=== PATIENT | male | born 1940 | race Caucasian/White ===

== ENCOUNTER 2023-04-17 09:15 | Outpatient (AMB) | payer OTHER, SELFPAY ==
--- NOTE | 2023-04-17 10:03 | MHC.OFFVIS ---
Intake Vital Signs 04/17/23 10:11 Height 5 ft 6 in Weight 155 lb BMI 25.0 BP 168/74 H Blood Pressure Location Lt brachial Position Sitting Respiration 14 Pulse 49 L Pulse Source Pulse Oximeter Intake Visit Reasons: Left SI Joint Pain Allergies Unable to Assess Allergy (Verified 04/17/23 10:12) Medication List - Last Reconciled 04/17/23 by Anita Aldana, GEO acetaminophen 325 mg PO Q4-6H PRN apixaban (Eliquis) 2.5 mg PO BID atorvastatin 40 mg PO BEDTIME metoprolol tartrate 12.5 mg PO BID HPI Left SI Joint Pain HPI Details 83-year-old male presenting today for an evaluation of bilateral back and leg pain. The pain is described as an aching, stabbing sensation mostly in the axial low back that radiates down into both sides and calves. He rates his pain as 3-10/10 in the buttock region. Movement makes it worse while going to sleep or performing daily activities. Any kind of stress or shock to the lower extremities worsens the pain. The pain is worse when standing from a sitting position when it is 9/10, which is less severe when going down to sit when it is 1/10 in intensity. He is on Eliquis 2.5 milligrams twice daily. He has been doing PT for this pain with slight relief. His last MRI was in 2019. The patient was seen in the ED on 03/06/23 for evaluation of his low back and pelvic pain. He described his pain as shooting from the low back down to both legs which starts after 1-2 minutes of walking. His pain is alleviated by lying down or sitting. He states that he has been intermittently having numbness in his toes and calves since he was diagnosed with spinal stenosis about 12 years ago. At that time, he was given home exercises to improve core strength, which he performed without any pain. He visited Dr. Peña on 02/16/23, who conveyed his impression of SI joint dysfunction on the left and performed an injection of lidocaine and steroids. He states that he had initial relief from lidocaine, but the steroid worsened his pain. 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 He was also diagnosed with hypertension. He is currently on metoprolol and losartan. The patient has no implant in his body. [facility] Medical History (Updated 04/17/23 @ 10:19 by Steve Murrieta MD) Asthma Atrial fibrillation BPH (benign prostatic hyperplasia) Cataract, bilateral Cerebrovascular accident CKD (chronic kidney disease) Detached retina, left Disorder of thyroid Fracture GERD (gastroesophageal reflux disease) Globus sensation Gout Graves disease Hoarseness Hypertension Hyperthyroidism Interstitial cystitis Joint pain Macular degeneration of right eye Osteoarthritis Post-nasal drip Rosacea Sacroiliitis Sleep apnea Spinal stenosis Review of Systems Const All systems reviewed & are unremarkable except as noted in HPI and below Physical Exam Vital Signs: Last Vital Signs Pulse 49 L 04/17/23 10:11 Resp 14 04/17/23 10:11 BP 168/74 H 04/17/23 10:11 BMI result Body Mass Index 25.0 General: Appears afebrile. Alert and oriented. Mood and affect appropriate. Follows and participates in conversation appropriately. Respiratory effort is unlabored. Able to transition from sit to stand unassisted. Ambulates with bilaterally normal heel strike and toe off. Pitting edema up to mid shins bilateral. Tenderness to palpation overlying bilateral SI joints. Results Reviewed Results Reviewed: CT scan LUMBAR SPINE CT scan PELVIS Assessment & Plan Assessment & Plan (1) Spinal stenosis, lumbar region with neurogenic claudication: Code(s): M48.062 - Spinal stenosis, lumbar region with neurogenic claudication (2) Bilateral sacroiliitis: Code(s): M46.1 - Sacroiliitis, not elsewhere classified Plan 1. Discussed injection therapy vs surgical intervention as possible treatment options for various pain symptoms that appear to be a combination of degenerative lumbar disease with significant disc height loss, facet arthropathy, probable neural foraminal stenoses/nerve root compression, central spinal stenosis and bilateral sacroiliitis. 2. Ordered an MRI scan of the lumbar spine and bilateral sacroiliac joints region for consideration of possible future minimally invasive interventions. 3. Will repeat bilateral therapeutic sacroiliac joint injections to assess response before moving on to more invasive therapies. He has previously had a good diagnostic response to one right-sided sacroiliac joint injection. Discussed the risks and benefits of the procedure with the patient in detail. All questions were answered. The patient is on board with the plan. 4. Recommend follow-up with cytotechnologist/cytology supervisor for evaluation of lower extremity edema. Justification for interventional therapy: ? Patient with average pain > 6/10 ? Patient has exhausted conservative therapy including physical therapy, home exercises, oral medication. Scribed for Dr. Murrieta by Michael Castellanos, medical radiation dosimetrist, on 04/17/2023. I, Dr. Murrieta, have personally reviewed and agree with the information entered by the scribe. Orders: Orders MR sacroiliac joint MICHAEL wo con Today M46.1 - Sacroiliitis, not elsewhere classified MR lumbar spine wo con Today M48.062 - Spinal stenosis, lumbar region with neurogenic claudication Coding Level of Care Code New Pt Level 4 (07485) Diagnoses Spinal stenosis, lumbar region with neurogenic claudication M48.062 Bilateral sacroiliitis M46.1
[2023-04-17 10:11] VITALS: BP 168/74; PULSE 49; RESP 14; BMI 25.0
== END 2023-04-17 10:23 | disposition home or self-care (01) ==
PROVIDERS: PCP Internal Medicine; Visit Provider Internal Medicine
DX: M48.062 Spinal stenosis, lumbar region with neurogenic claudication (principal); M46.1 Sacroiliitis, not elsewhere classified
CPT/HCPCS: 99204

== ENCOUNTER → 2023-04-17 09:15 | Outpatient (BNVA) | payer OTHER, SELFPAY | PROVIDERS: PCP Internal Medicine; Visit Provider Internal Medicine ==

== ENCOUNTER 2023-05-16 18:03 | Outpatient (REF) | payer OTHER, SELFPAY ==
--- NOTE | ~2023-05-16 | MR_ITS ---
EXAMINATION: MRI sacroiliac joint without contrast CLINICAL INFORMATION: Sacroiliitis. Spinal stenosis low back pain and bilateral leg pain. Bilateral toe paresthesias. COMPARISON: None. TECHNIQUE: Sagittal, axial and coronal sequences through the pelvis without contrast FINDINGS: There are osteophytes seen at both sacroiliac joints. No joint space widening, erosive changes or adjacent bone edema is seen to suggest active sacroiliitis. No evidence of ankylosis. The visualized hip joints are unremarkable. There are degenerative changes of the lower lumbar spine greatest at L3-L4. There is diverticulosis of the colon. The prostate gland is enlarged and protrudes into the base of the bladder. No ascites or adenopathy. 1.8 cm lesion lower pole left kidney. This is incompletely characterized. Vascular structures are normal. MR/MR sacroiliac joint MICHAEL wo con IMPRESSION: Mild proliferative arthritis at both sacroiliac joints with osteophyte formation. No evidence of active sacroiliitis.
== END 2023-05-16 18:04 | disposition home or self-care (01) ==
LOC: HO.MRI 18:03
PROVIDERS: PCP Nurse Practitioner; Visit Provider Internal Medicine
DX: M46.1 Sacroiliitis, not elsewhere classified (principal)
CPT/HCPCS: 72195

== ENCOUNTER 2023-05-31 05:59 | Outpatient (REF) | payer OTHER, SELFPAY ==
--- NOTE | ~2023-05-31 | FL_ITS ---
EXAMINATION: XR FLUOROSCOPY WITH IMAGES CLINICAL INFORMATION: Sacroiliitis, not elsewhere classified. COMPARISON: None available. TECHNIQUE: Fluoroscopy Supervised By: Dr. Steve Murrieta. Fluoroscopy Time: 0.3 minutes. Cumulative Dose: 6.94 mGy. DAP: 0.836 Gycm2. Images: 3. FINDINGS: Images demonstrate needle placement and epidural contrast injection over the left side of the lower lumbar spine FL/FL guidance in treatment room IMPRESSION: Fluoroscopy guidance for pain management procedure
== END 2023-05-31 06:00 | disposition home or self-care (01) ==
LOC: CF 05:59
PROVIDERS: Visit Provider Internal Medicine
DX: Z13.89 Encounter for screening for other disorder (principal)
CPT/HCPCS: J1040

== ENCOUNTER 2023-05-31 08:50 | Outpatient (AMB) | payer OTHER, SELFPAY ==
[2023-05-31 08:56] VITALS: BP 110/60; PULSE 55; RESP 14; O2SAT 97
--- NOTE | 2023-05-31 08:56 | A.OFFVIS_ITS ---
Intake Vital Signs 05/31/23 08:56 BP 110/60 Blood Pressure Location Rt brachial Position Sitting Respiration 14 Pulse 55 Pulse Source Pulse Oximeter Pulse Oximetry (%) 97 Oxygen Delivery Method Room Air Intake Visit Reasons: L3-L4 AMARILIS Allergies Unable to Assess Allergy (Verified 05/31/23 08:56) HPI L3-L4 AMARILIS HPI Details Patient presents for scheduled procedure. Denies any recent cough, cold, infection, fever or other significant changes in medical history since last office visit. [facility] Medical History (Updated 05/31/23 @ 10:07 by Steve Murrieta MD) Asthma Atrial fibrillation BPH (benign prostatic hyperplasia) Cataract, bilateral Cerebrovascular accident CKD (chronic kidney disease) Detached retina, left Disorder of thyroid Fracture GERD (gastroesophageal reflux disease) Globus sensation Gout Graves disease Hoarseness Hypertension Hyperthyroidism Interstitial cystitis Joint pain Macular degeneration of right eye Osteoarthritis Post-nasal drip Rosacea Sacroiliitis Sleep apnea Spinal stenosis Physical Exam Vital Signs: Last Vital Signs Pulse 55 05/31/23 08:56 Resp 14 05/31/23 08:56 BP 110/60 05/31/23 08:56 Pulse Ox 97 05/31/23 08:56 Oxygen Delivery Method Room Air 05/31/23 08:56 Office Procedures Joint Injection/Drain Joint Injection/Drain Details: Interlaminar epidural steroid injection, L4/5, Left parasaggital After obtaining written consent, pre-procedure blood pressure and heart rate were stable and recorded in the nursing record. The patient was placed in the prone position. The lumbar area was widely prepped with chloraprep and draped in sterile fashion. Fluoroscopic guidance was used to identify the desired interlaminar space and for needle placement. Subcutaneous 0.5% lidocaine was used to anesthetize the skin overlying the target. A 20-gauge Simons needle was advanced to the epidural space using loss of resistance to contrast technique under fluoroscopic AP and contralateral oblique views. There was no evidence of heme or CSF and no paresthesias were elicited with needle placement. Confirmation of epidural needle placement was performed with 1cc of Isovue 300. Next 3 ml 0.5% lidocaine mixed with 80 mg methylprednisolone was administered epidurally with no pain elicited on injection. The needle tract tubing was then cleared with 1 ml of 0.5% lidocaine. The needle was removed, skin cleansed and a sterile bandage was applied. The patient tolerated the procedure well and no complications were encountered. Following the procedure the patient's vital signs were stable. The patient was discharged home in good condition with post-procedural instructions. Time Out: Immediately prior to the procedure, the following was verbally confirmed that there is a signed consent form and that the correct patient, planned procedure, site and side are consistent with documentation and that necessary equipment and/or blood products are available prior to the start of the case. Complications: none EBL: <5 cc Coding 06689 - Caudal/Lumbar Epidural/Interlaminar with fluoroscopy Procedure code (CPT) selection complete Results Reviewed Results Reviewed: 05/31/23 09:36 Lidocaine HCl 2 % MPF [Xylocaine 2 % MPF] 5 ml .ROUTE .STK-MED ONE methylPREDNISolone acetate [DEPO-MedroL] 80 mg .ROUTE .STK-MED ONE Assessment & Plan Assessment & Plan (1) Spinal stenosis, lumbar region with neurogenic claudication: Code(s): M48.062 - Spinal stenosis, lumbar region with neurogenic claudication (2) Lumbar radicular pain: Code(s): M54.16 - Radiculopathy, lumbar region Plan Patient is status post L4/5 interlaminar AMARILIS. Patient tolerated procedure well and was discharged home in stable condition with discharge instructions. All questions were answered. We will follow-up via telephone or in clinic to assess response to therapy. A follow-up appointment was made during today's visit. Orders: Orders FL guidance in treatment room Today M46.1 - Sacroiliitis, not elsewhere classified Coding Level of Care Code Procedure Only Diagnoses Spinal stenosis, lumbar region with neurogenic claudication M48.062 Lumbar radicular pain M54.16 CPT Codes Coding - Joint 11: 75487 - Caudal/Lumbar Epidural/Interlaminar with fluoroscopy ([id number])
== END 2023-05-31 10:05 | disposition home or self-care (01) ==
LOC: HO.PMCPRC 08:50
PROVIDERS: PCP Nurse Practitioner; Visit Provider Internal Medicine
DX: M46.1 Sacroiliitis, not elsewhere classified (principal); M48.062 Spinal stenosis, lumbar region with neurogenic claudication; M54.16 Radiculopathy, lumbar region
CPT/HCPCS: 62323

== ENCOUNTER 2023-06-26 12:53 | Outpatient (AMB) | payer OTHER, SELFPAY ==
--- NOTE | 2023-06-26 12:56 | MHC.OFFVIS ---
Intake Vital Signs 06/26/23 12:58 Height 5 ft 6 in Weight 156 lb BMI 25.2 BP 141/65 H Blood Pressure Location Rt brachial Position Sitting Respiration 14 Pulse 60 Pulse Source Pulse Oximeter Pulse Oximetry (%) 98 Oxygen Delivery Method Room Air Intake Visit Reasons: s/p L3-L4 AMARILIS Allergies Unable to Assess Allergy (Verified 06/26/23 12:59) Medication List - Last Reconciled 06/26/23 by Anita Aldana LPN apixaban (Eliquis) 2.5 mg PO BID aspirin (Adult Aspirin Regimen) 41 mg PO DAILY atorvastatin 40 mg PO BEDTIME metoprolol tartrate 12.5 mg PO BID HPI s/p L3-L4 AMARILIS HPI Details 83-year-old male who presents today to the office for a status post L3-L4 AMARILIS. The patient reports 70% relief following the procedure. The patient states that his pain with ambulation, numbness in the calf, and pain in the lower back and legs while lying down were completely resolved. He has some residual pain in his thighs, calf, ankles, and pins and needles sensation in his toes. He is able to walk 1000 steps with the help of a walker and 200 steps without a walker. He feels heaviness in his leg from activities. He has tightness in his thigh and performs stretching exercises at home. He has PRIEST with climbing stairs or elevation. He has not completed MRI of the lumbar spine yet. Past procedure: 05/31/23: Interlaminar epidural steroid injection, L4/5, Left parasaggital: 70% relief. [facility] Medical History (Updated 06/26/23 @ 15:48 by Steve Murrieta MD) Post-nasal drip Rosacea Sleep apnea Spinal stenosis Sacroiliitis Osteoarthritis Macular degeneration of right eye Joint pain Interstitial cystitis Hyperthyroidism Hypertension Hoarseness Graves disease Gout Globus sensation GERD (gastroesophageal reflux disease) Fracture Disorder of thyroid Detached retina, left CKD (chronic kidney disease) Cerebrovascular accident Cataract, bilateral BPH (benign prostatic hyperplasia) Atrial fibrillation Asthma Review of Systems Const All systems reviewed & are unremarkable except as noted in HPI and below Physical Exam Vital Signs: Last Vital Signs Pulse 60 06/26/23 12:58 Resp 14 06/26/23 12:58 BP 141/65 H 06/26/23 12:58 Pulse Ox 98 06/26/23 12:58 Oxygen Delivery Method Room Air 06/26/23 12:58 BMI result Body Mass Index 25.2 General: Appears afebrile. Alert and oriented. Mood and affect appropriate. Follows and participates in conversation appropriately. Respiratory effort is unlabored. Able to transition from sit to stand unassisted. Ambulates with bilaterally normal heel strike and toe off. Results Reviewed Results Reviewed: 05/16/23: MRI sacroiliac joint without contrast FINDINGS: There are osteophytes seen at both sacroiliac joints. No joint space widening, erosive changes or adjacent bone edema is seen to suggest active sacroiliitis. No evidence of ankylosis. The visualized hip joints are unremarkable. There are degenerative changes of the lower lumbar spine greatest at L3-L4. There is diverticulosis of the colon. The prostate gland is enlarged and protrudes into the base of the bladder. No ascites or adenopathy. 1.8 cm lesion lower pole left kidney. This is incompletely characterized. Vascular structures are normal. IMPRESSION: Mild proliferative arthritis at both sacroiliac joints with osteophyte formation. No evidence of active sacroiliitis. Assessment & Plan Assessment & Plan (1) Lumbar radicular pain: Code(s): M54.16 - Radiculopathy, lumbar region (2) Lumbar disc herniation: Code(s): M51.26 - Other intervertebral disc displacement, lumbar region (3) Spinal stenosis, lumbar region with neurogenic claudication: Code(s): M48.062 - Spinal stenosis, lumbar region with neurogenic claudication Plan We ordered an MRI scan of the lumbar spine for consideration of possible future diskectomy on the last visit but patient has not been called to schedule it yet. We will investigate this further and try to get him scheduled for this scan for surgical planning for L3-4 disc herniation. After the MR exam we will consider referral to neurosurgery. Scribed for Dr. Murrieta by Michael Castellanos, medical chief technician, on 06/26/2023. I, Dr. Murrieta, have personally reviewed and agree with the information entered by the scribe. Coding Level of Care Code Est Pt Level 3 (56733) Diagnoses Lumbar radicular pain M54.16 Lumbar disc herniation M51.26 Spinal stenosis, lumbar region with neurogenic claudication M48.062
[2023-06-26 12:58] VITALS: BP 141/65; PULSE 60; RESP 14; O2SAT 98; BMI 25.2
== END 2023-06-26 13:36 | disposition home or self-care (01) ==
PROVIDERS: PCP Nurse Practitioner; Visit Provider Internal Medicine
DX: M54.16 Radiculopathy, lumbar region (principal); M51.26 Other intervertebral disc displacement, lumbar region; M48.062 Spinal stenosis, lumbar region with neurogenic claudication
CPT/HCPCS: 99213

== ENCOUNTER → 2023-06-26 12:53 | Outpatient (BNVA) | payer OTHER, SELFPAY | PROVIDERS: PCP Nurse Practitioner; Visit Provider Internal Medicine ==

== ENCOUNTER 2023-07-21 15:36 | Outpatient (REF) | payer OTHER, SELFPAY ==
--- NOTE | ~2023-07-21 | MR_ITS ---
EXAMINATION: MR LUMBAR SPINE WITHOUT CONTRAST CLINICAL INFORMATION: Spinal stenosis. COMPARISON: None available. TECHNIQUE: MRI of the lumbar spine was obtained using routine sequences without the administration of intravenous contrast. FINDINGS: There is transitional lumbosacral anatomy, likely with a partially sacralized L5 vertebral body and hypoplastic T12 ribs. For the purposes of this examination, the L4-L5 intervertebral disc space is visualized on axial series 6 image 19. The normal lumbar lordosis is preserved. Retrolisthesis of L2-L3 and L3-L4 with anterolisthesis of L4-L5. Lumbar vertebral body heights are maintained. Degenerative endplate changes with endplate edema at L3-L4. Perifacet edema at L3-L4 is also likely degenerative. The conus medullaris is normal in signal intensity and terminates at the level of T12. Mass effect on the cauda equina nerve roots as described below. L1-L2: No significant spinal canal or neural foraminal stenosis. L2-L3: Retrolisthesis and a disc bulge with osteophytic ridging. Mild facet arthropathy. The spinal canal is not significantly narrowed. There is mild to moderate left and mild right neural foraminal stenosis. L3-L4: Disc bulge and osteophytic ridging with a central disc protrusion. There is facet arthropathy with ligamentum flavum hypertrophy. Overall this contributes to severe spinal canal stenosis with mass effect on the cauda equina nerve roots and effacement of the lateral recesses. Severe left neural foraminal stenosis with exiting nerve root impingement. Moderate right neural foraminal stenosis. L4-L5: Anterolisthesis with uncovering of the intervertebral disc space. Severe facet arthropathy with ligamentum flavum redundancy. Narrowing of the lateral recesses. The spinal canal is otherwise patent. Mild narrowing of the left neural foramen with abutment of the exiting nerve root by advanced facet arthropathy. L5-S1: Facet arthropathy. The spinal canal and neural foramen are patent. Left renal cyst. T2 hyperintense focus in the right kidney is too small to fully characterize. Colonic diverticulosis is partially visualized. Sacral Tarlov cyst. 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 Numbering system for this examination as described above. If surgery is considered, total spine radiographs are recommended to ensure accurate spine labeling. Based on the above-mentioned numbering system there is severe spinal canal stenosis at L3-L4 with mass effect on the cauda equina nerve roots. Clinical correlation is recommended. There is severe left neural foraminal stenosis at L3-L4 with exiting nerve root compression. As this exam was dictated after hours, a [place] firm administrator will contact the ordering provider with findings and recommendations at the start of the next business day.
== END 2023-07-21 15:37 | disposition home or self-care (01) ==
LOC: HO.MRI 15:36
PROVIDERS: PCP Nurse Practitioner; Visit Provider Internal Medicine
DX: M48.062 Spinal stenosis, lumbar region with neurogenic claudication (principal)
CPT/HCPCS: 72148

== ENCOUNTER 2023-07-31 09:28 | Outpatient (AMB) | payer OTHER, SELFPAY ==
--- NOTE | 2023-07-31 09:31 | A.OFFVIS_ITS ---
Intake Vital Signs 07/31/23 09:32 Height 5 ft 6 in Weight 160 lb BMI 25.8 Blood Pressure Location Lt brachial Position Sitting Respiration 15 Pulse 55 Pulse Source Pulse Oximeter Pulse Oximetry (%) 98 Oxygen Delivery Method Room Air Intake Visit Reasons: MRI results Allergies Unable to Assess Allergy (Verified 06/26/23 12:59) Medication List - Last Reconciled 07/31/23 by Anita Aldana LPN apixaban (Eliquis) 2.5 mg PO BID aspirin (Adult Aspirin Regimen) 41 mg PO DAILY atorvastatin 40 mg PO BEDTIME metoprolol tartrate 12.5 mg PO BID tamsulosin (Flomax) 0.4 mg PO .QOD HPI MRI results HPI Details 83-year-old male who presents today to t he office for a review of MRI scan result. He states that he is still doing well since the last injection but continues to have a dull, incipient pain that is always there. He states that his pain improves with regular exercise and walking. He has dull pain in his back and legs. He denies any issues with the bowel or bladder. He is retired. He is currently on Medicare with an Advant[employer] Care Plan. Past procedure: 05/31/23: Interlaminar epidural steroid injection, L4/5, Left parasaggital: 70% relief. FOR[facility]LY [facility] Medical History (Updated 06/26/23 @ 15:48 by Steve Murrieta MD) Post-nasal drip Rosacea Sleep apnea Spinal stenosis Sacroiliitis Osteoarthritis Macular degeneration of right eye Joint pain Interstitial cystitis Hyperthyroidism Hypertension Hoarseness Graves disease Gout Globus sensation GERD (gastroesophageal reflux disease) Fracture Disorder of thyroid Detached retina, left CKD (chronic kidney disease) Cerebrovascular accident Cataract, bilateral BPH (benign prostatic hyperplasia) Atrial fibrillation Asthma Review of Systems Const All systems reviewed & are unremarkable except as noted in HPI and below Physical Exam Vital Signs: Last Vital Signs Pulse 55 07/31/23 09:32 Resp 15 07/31/23 09:32 Pulse Ox 98 07/31/23 09:32 Oxygen Delivery Method Room Air 07/31/23 09:32 BMI result Body Mass Index 25.8 General: Appears afebrile. Alert and oriented. Mood and affect appropriate. Follows and participates in conversation appropriately. Respiratory effort is unlabored. Able to transition from sit to stand unassisted. Ambulates with bilaterally normal heel strike and toe off. Results Reviewed Results Reviewed: 07/21/23: MR LUMBAR SPINE WITHOUT CONTRAST FINDINGS: There is transitional lumbosacral anatomy, likely with a partially sacralized L5 vertebral body and hypoplastic T12 ribs. For the purposes of this examination, the L4-L5 intervertebral disc space is visualized on axial series 6 image 19. The normal lumbar lordosis is preserved. Retrolisthesis of L2-L3 andL3-L4 with anterolisthesis of L4-L5. Lumbar vertebral body heights are maintained. Degenerative endplate changes with endplate edema at L3-L4. Perifacet edema at L3-L4 is also likely degenerative. The conus medullaris is normal in signal intensity and terminates at the level of T12. Mass effect on the cauda equina nerve roots as described below. L1-L2: No significant spinal canal or neural foraminal stenosis. L2-L3: Retrolisthesis and a disc bulge with osteophytic ridging. Mild facet arthropathy. The spinal canal is not significantly narrowed. There is mild to moderate left and mild right neural foraminal stenosis. L3-L4: Disc bulge and osteophytic ridging with a central disc protrusion. There is facet arthropathy with ligamentum flavum hypertrophy. Overall this contributes to severe spinal canal stenosis with mass effect on the cauda equina nerve roots and effacement of the lateral recesses. Severe left neural foraminal stenosis with exiting nerve root impingement. Moderate right neural foraminal stenosis. L4-L5: Anterolisthesis with uncovering of the intervertebral disc space. Severe facet arthropathy with ligamentum flavum redundancy. Narrowing of the lateral recesses. The spinal canal is otherwise patent. Mild narrowing of the left neural foramen with abutment of the exiting nerve root by advanced facet arthropathy. L5-S1: Facet arthropathy. The spinal canal and neural foramen are patent. Left renal cyst. T2 hyperintense focus in the right kidney is too small to fully characterize. Colonic diverticulosis is partially visualized. Sacral Tarlov cyst. 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 Numbering system for this examination as described above. If surgery is considered, total spine radiographs are recommended to ensure accurate spine labeling. Based on the above-mentioned numbering system there is severe spinal canal stenosis at L3-L4 with mass effect on the cauda equina nerve roots. Clinical correlation is recommended. There is severe left neural foraminal stenosis at L3-L4 with exiting nerve root compression. Assessment & Plan Assessment & Plan (1) Lumbar disc herniation: Code(s): M51.26 - Other intervertebral disc displacement, lumbar region Plan Recommended neurosurgical decompression for L3?4 lumbar spinal stenosis given symptoms of constant pain associated with occasional leg weakness. A referral was provided to Dr. Puente, neurosurgery. The patient will follow up as matilde rubin Scribed for Dr. Murrieta by Michael Castellanos, internist medical doctor md, on 07/31/2023. I, Dr. Murrieta, have personally reviewed and agree with the information entered by the scribe. Orders: Referrals Neurosurgery Referral M51.26 - Other intervertebral disc displacement, lumbar region Coding Level of Care Code Est Pt Level 3 (91212) Diagnoses Lumbar disc herniation M51.26
[2023-07-31 09:32] VITALS: PULSE 55; RESP 15; O2SAT 98; BMI 25.8
== END 2023-07-31 09:42 | disposition home or self-care (01) ==
PROVIDERS: PCP Nurse Practitioner; Visit Provider Internal Medicine
DX: M51.26 Other intervertebral disc displacement, lumbar region (principal)
CPT/HCPCS: 99213

== ENCOUNTER → 2023-07-31 09:28 | Outpatient (BNVA) | payer OTHER, SELFPAY | PROVIDERS: PCP Nurse Practitioner; Visit Provider Internal Medicine ==

== ENCOUNTER 2023-09-12 13:48 | Outpatient (AMB) | payer OTHER, SELFPAY ==
--- NOTE | 2023-09-12 14:32 | A.SPINEOV_ITS ---
Intake Intake Visit Reasons: Low back pain Intake Note: Mr. Odom is here today c/o low back pain. MRI done @ [facility] – [place]. Recovery Auditor Required: No Allergies Unable to Assess Allergy (Verified 06/26/23 12:59) Assessment & Plan Assessment & Plan (1) Spinal stenosis, lumbar region with neurogenic claudication: Code(s): M48.062 - Spinal stenosis, lumbar region with neurogenic claudication Plan: Dear colleague Thank you for referring Dylan Odom to the office today with a chief complaint of bilateral leg pain and numbness with walking and standing. HPI: This 83-year-old male started with minor symptoms 10 years ago. Last January he had a significant decline in symptoms where he can hardly walk or stand. Sitting down completely relieved his symptoms. Leaning over a shopping cart or walking with a walker also prolonged his walking distance. Initially, he was seen by Dr. Ortiz, who focused on his SI joint. He was referred to Dr. Magana who diagnosed him with neurogenic claudication due to severe L3-4 spinal stenosis. An epidural steroid injection gave him temporary relief. The patient was referred to me for surgical consultation due to the severity of the L3-4 stenosis. The following conservative treatment options were tried without success antiinflammatories, tylenol, physician guided home exercise plan, cortisone shots PMH: Hypothyroidism, hypertension, Graves disease, gout, GERD, retinal detachment, cataract, chronic kidney disease, atrial fibrillation, asthma, 2 TIAs, last on February of 2022 Medications: Eliquis, aspirin, atorvastatin, metoprolol, tamsulosin Allergies: NKDA Social history: Lives alone. Physical Exam: Pleasant male who ambulates with a cane in a flexed position. He is able to get out a chair without assistance. No clear motor deficits. Radiological Studies: MRI done at [facility] on 07 21 2023 shows a grade 1 L3-4 retrolisthesis and severe spinal stenosis at this level. There is also grade 1 L4-5 spondylolisthesis. These abnormalities were not seen on a earlier MRI. A standing x-ray obtained today with flexion-extension shows an auto fusion of L3- 4 and therefore no instability of this level. Impression/Plan: This patient is suffering from classic neurogenic claudication due to severe L3-4 spinal stenosis. I offered him an L3-4 lumbar decompression in day stay. We discussed the procedure and expected postoperative course. He is aware that he needs to stop his Eliquis three days prior to surgery and he is going to visit his interactive media designer for preoperative clearance. He is scheduled for 11/23/2022. Thank you for allowing me to participate in your patients care. total time spent was 50 minutes in counseling ,coordination of plan, personal review of imaging, surgical decision making and subsequent plan Buck Puente MD, PhD Spine Fellowship Trained Neurosurgeon Director, [facility] Orders: Orders XR lumbar spine 4V min Today M48.062 - Spinal stenosis, lumbar region with neurogenic claudication Coding Level of Care Code New Pt Level 4 (17187) Diagnoses Spinal stenosis, lumbar region with neurogenic claudication M48.062
== END 2023-09-12 16:12 | disposition home or self-care (01) ==
PROVIDERS: PCP Nurse Practitioner; Referring Provider Internal Medicine; Visit Provider Neurological Surgery
DX: M48.062 Spinal stenosis, lumbar region with neurogenic claudication (principal)
CPT/HCPCS: 99204

== ENCOUNTER 2023-09-12 13:48 | Outpatient (REF) | payer OTHER, SELFPAY ==
--- NOTE | ~2023-09-12 | XR_ITS ---
EXAMINATION: Lumbar spine 4 views. CLINICAL INDICATION: Low back pain. Neurogenic claudication. COMPARISON: MRI lumbar spine 07/21/2023. FINDINGS: There is maintained lumbar lordosis. There is grade 1 anterolisthesis L4 over L5. There is minimal grade 1 retrolisthesis L2 over L3. There is no major change in the listhesis on flexion or extension views. There is mild loss of L2-3, L3-4, L4-5 and L5-S1 disc heights. Rest of the disc heights are normal. No aggressive lytic or sclerotic process seen. There is moderate bridging osteophyte on left at L2-3 disc level. Moderate spondylosis seen throughout the lumbar spine. No aggressive lytic or sclerotic process seen. SI joints are symmetrical and normal. The paravertebral soft tissues are normal. XR/XR lumbar spine 4V min IMPRESSION: Grade 1 anterolisthesis L4 over L5 and grade 1 retrolisthesis L2 over L3 without significant change on flexion or extension views. Degenerative disc changes and moderate spondylosis throughout lumbar spine as described above. Electronically signed by: Dave Randall MD 11/19/2024 11:39 AM [facility]
== END 2023-09-12 13:49 | disposition home or self-care (01) ==
LOC: HO.HOSX 13:48
PROVIDERS: PCP Nurse Practitioner; Visit Provider Neurological Surgery
DX: M48.062 Spinal stenosis, lumbar region with neurogenic claudication (principal)
CPT/HCPCS: 72110

== ENCOUNTER 2023-11-23 09:47 | Day surgery (SDC) | payer OTHER, SELFPAY ==
[2023-11-16 13:25] VITALS: BP 155/71; PULSE 52; RESP 16; O2SAT 97; BMI 26.2
--- NOTE | 2023-11-16 13:43 | P.CONAN_ITS ---
Documented by User: Fiorella Celestin NP 11/22/23 08:54 HPI - Anesthesia Eval Consult details Narrative: 83yo M for L3-4 Lumbar Decompression Cardiac cleared. No recent illness No CP. Some PRIEST since back pain started. Afib. Eliquis. OK to hold per cardiology CVA 2020. Very minor visual impairment is only residual PND. Occassional GERD. Rare. Diet controlled. CKD. Follows renal. Stable at 04/2023 office visit [facility] with CPAP QHS Graves ds. Radioactive iodine tx >10years ago. TSH has normalized. PMFSH Active Problems Active Problems: All Active Problems (Updated 11/16/23 @ 13:21 by Cristin Gonsalves RN) Lumbar disc herniation (Acute) Lumbar radicular pain (Acute) Bilateral sacroiliitis (Acute) Spinal stenosis, lumbar region with neurogenic claudication (Acute) Past Medical History Medical History History of CVA (cerebrovascular accident) (~2020) Hx of retinal detachment (~2013) Post-nasal drip Rosacea Sleep apnea Spinal stenosis Sacroiliitis Osteoarthritis Macular degeneration of right eye Joint pain Interstitial cystitis Hyperthyroidism Hypertension Hoarseness Graves disease Gout Globus sensation GERD (gastroesophageal reflux disease) Fracture Disorder of thyroid Detached retina, left CKD (chronic kidney disease) Cerebrovascular accident Cataract, bilateral BPH (benign prostatic hyperplasia) Atrial fibrillation Asthma Family History Family history of problems with anesthesia: No Surgical History Surgical History Hx of oral surgery (~2020) Hx of eye surgery Hx of colonoscopy (~2022) Hx of bilateral cataract extraction Hx of tonsillectomy History of Problems with Anesthesia: No Social History Social History Are you a primary field care manager to a significant other at home: No Do you presently have visiting nurse or other home services: No Patient Tobacco Use Status: Former Tobacco user Quit Date: 1976 Tobacco use type: Cigarette Use of substances other than those prescribed or required for medical reasons: No Have you been hit, kicked, punched, or otherwise hurt by someone within the past year? If so, by whom?: No Spiritual Healthcare Practices: meditation Are you DNR?: No Advance Directives: No Advance Directives Information Provided: Yes Advance Directives on File: No Recently lost weight without trying: No Nutrition Risks: Surgical patient >75years Poor oral hygiene: No Meds Allergies Allergy/AdvReac Type Severity Reaction Status Date / Time ciprofloxacin [From Cipro] Allergy Severe edema in Verified 11/16/23 15:43 legs and achy joints epinephrine Allergy Severe headache, Verified 11/16/23 15:43 nausea, weakness and disorientation environmental allergies Allergy Intermediate sneezing, Verified 11/16/23 13:17 watery eyes azithromycin Allergy Unknown Verified 11/16/23 15:43 [From Zithromax Z-Obed] soy AdvReac Intermediate Gastrointestinal Verified 11/16/23 13:17 Upset Home Medications Medication Instructions Recorded Confirmed Last Taken Type apixaban 2.5 mg tablet (Eliquis) 1.25 mg PO BID 04/17/23 11/15/23 11/18/23 History atorvastatin 40 mg tablet 40 mg PO BEDTIME 04/17/23 11/15/23 Unknown History metoprolol tartrate 25 mg tablet 25 mg PO BID 04/17/23 11/15/23 11/23/23 History aspirin 81 mg tablet,delayed 41 mg PO DAILY 06/26/23 07/31/23 Unknown History release (Adult Aspirin Regimen) losartan 100 mg tablet 100 mg PO DAILY 11/15/23 11/15/23 Unknown History ascorbic acid (vitamin C) 1,000 mg 1,000 mg PO DAILY 11/16/23 11/16/23 Unknown History tablet (Vitamin C) [id number]-drlq tablet 1 tab PO DAILY 11/16/23 11/16/23 Unknown History cholecalciferol (vitamin D3) 50 50 mcg PO DAILY 11/16/23 11/16/23 Unknown History mcg (2,000 unit) tablet (Vitamin D3) coenzyme Q10 100 mg capsule (Co 100 mg PO DAILY 11/16/23 11/16/23 Unknown History Q-10) cyanocobalamin (vitamin B-12) 1,000 mcg PO DAILY 11/16/23 11/16/23 Unknown History 1,000 mcg tablet (Vitamin B-12) flaxseed oil 1,000 mg capsule 20,000 mg PO DAILY 11/16/23 11/16/23 Unknown History grape seed extract 100 mg capsule 1,000 mg PO DAILY 11/16/23 11/16/23 Unknown History multivitamin 1 tab PO DAILY 11/16/23 11/16/23 Unknown History pumpkin seed extract 500 mg capsule 1,000 mg PO DAILY 11/16/23 11/16/23 Unknown History quercetin 500 mg capsule 500 mg PO DAILY 11/16/23 11/16/23 Unknown History salmon oil-omega-3 fatty acids cap PO 11/16/23 11/16/23 Unknown History 1,000 mg-200 mg capsule saw palmetto 500 mg capsule 500 mg PO DAILY 11/16/23 11/16/23 Unknown History vit C 250 mg-vit E 90 mg-zinc 40 1 tab PO DAILY 11/16/23 11/16/23 Unknown History mg-copper 1 iz-wrcryi-qxwexf capsule (PreserVision AREDS-2) vitamin B complex 1 tab PO DAILY 11/16/23 11/16/23 Unknown History Exam Height,Weight and Vital Signs: Height 5 ft 6 in Weight 73.6 kg Last Vital Signs Pulse 52 11/16/23 13:25 Resp 16 11/16/23 13:25 BP 155/71 H 11/16/23 13:25 Pulse Ox 97 11/16/23 13:25 O2 Del Method Room Air 11/16/23 13:25 Pertinent Lab Results Pertinent Lab Results: Lab Results 11/16/23 Range/Units 14:24 WBC 8.1 (4.8-10.8) X10*3/uL RBC 3.72 L (4.60-5.80) X10*6/uL Hgb 11.1 L (14.0-18.0) g/dl Hct 35.1 L (42.0-52.0) % MCV 94.4 (80.0-98.0) fL MCH 29.8 (27.0-33.0) pg MCHC 31.6 (31.0-36.0) g/dl RDW 13.2 (11.0-16.0) % Plt Count 195 (160-400) X10*3/uL MPV 11.9 (9.4-12.4) fL Absolute Nucleated RBC 0.000 (0.0-0.012) X10*3/uL Nucleated RBC % (auto) 0.0 (0.0-0.2) /100WBC Sodium 141 (135-145) mmol/L Potassium 4.5 (3.3-5.1) mmol/L Chloride 104 (96-108) mmol/L Carbon Dioxide 29 (22-29) mmol/L Anion Gap 13 (12-20) BUN 46 H (9-16) mg/dL Creatinine 2.14 H (0.5-1.4) mg/dL Estim Creat Clear Calc 24.0 Estimated GFR 30 Random Glucose 83 (60-115) mg/dL Calcium 9.0 (8.4-10.2) mg/dL Narrative Narrative: EKG 10/2023 SR IA conduction delay marked LA deviation LAFB Possible high lateral infarct slight IV conduction delay Airway Mallampati Class: I TM Dist: >3cm Neck ROM: Full Loose/Missing/Broken Teeth: Yes (Implants throughout stable) Heart: RRR +murmur Lungs: CTAB Assessment and Plan Assessment Anesthesia Assessment: Anesthesia Plan Discussed and PAT Visit Final Anesthetic Review Family History of Problems with Anesthesia: No History of Problems with Anesthesia: No Documented by User: Florian Reddy MD 11/23/23 10:46 [facility] Past Medical History Medical History History of CVA (cerebrovascular accident) (~2020) Hx of retinal detachment (~2013) Post-nasal drip Rosacea Sleep apnea Spinal stenosis Sacroiliitis Osteoarthritis Macular degeneration of right eye Joint pain Interstitial cystitis Hyperthyroidism Hypertension Hoarseness Graves disease Gout Globus sensation GERD (gastroesophageal reflux disease) Fracture Disorder of thyroid Detached retina, left CKD (chronic kidney disease) Cerebrovascular accident Cataract, bilateral BPH (benign prostatic hyperplasia) Atrial fibrillation Asthma Surgical History Surgical History Hx of oral surgery (~2020) Hx of eye surgery Hx of colonoscopy (~2022) Hx of bilateral cataract extraction Hx of tonsillectomy Social History Social History Are you a primary field care manager to a significant other at home: No Do you presently have visiting nurse or other home services: No Patient Tobacco Use Status: Former Tobacco user Quit Date: 1976 Tobacco use type: Cigarette Use of substances other than those prescribed or required for medical reasons: No Have you been hit, kicked, punched, or otherwise hurt by someone within the past year? If so, by whom?: No Spiritual Healthcare Practices: meditation Are you DNR?: No Advance Directives: No Advance Directives Information Provided: Yes Advance Directives on File: No Recently lost weight without trying: No Nutrition Risks: Surgical patient >75years Poor oral hygiene: No Meds Allergies Allergy/AdvReac Type Severity Reaction Status Date / Time ciprofloxacin [From Cipro] Allergy Severe edema in Verified 11/16/23 15:43 legs and achy joints epinephrine Allergy Severe headache, Verified 11/16/23 15:43 nausea, weakness and disorientation environmental allergies Allergy Intermediate sneezing, Verified 11/16/23 13:17 watery eyes azithromycin Allergy Unknown Verified 11/16/23 15:43 [From Zithromax Z-Obed] soy AdvReac Intermediate Gastrointestinal Verified 11/16/23 13:17 Upset Home Medications Medication Instructions Recorded Confirmed Last Taken Type apixaban 2.5 mg tablet (Eliquis) 1.25 mg PO BID 04/17/23 11/15/23 11/18/23 History atorvastatin 40 mg tablet 40 mg PO BEDTIME 04/17/23 11/15/23 Unknown History metoprolol tartrate 25 mg tablet 25 mg PO BID 04/17/23 11/15/23 11/23/23 History aspirin 81 mg tablet,delayed 41 mg PO DAILY 06/26/23 07/31/23 Unknown History release (Adult Aspirin Regimen) losartan 100 mg tablet 100 mg PO DAILY 11/15/23 11/15/23 Unknown History ascorbic acid (vitamin C) 1,000 mg 1,000 mg PO DAILY 11/16/23 11/16/23 Unknown History tablet (Vitamin C) [id number]-hicaiuteg-rglr tablet 1 tab PO DAILY 11/16/23 11/16/23 Unknown History cholecalciferol (vitamin D3) 50 50 mcg PO DAILY 11/16/23 11/16/23 Unknown History mcg (2,000 unit) tablet (Vitamin D3) coenzyme Q10 100 mg capsule (Co 100 mg PO DAILY 11/16/23 11/16/23 Unknown History Q-10) cyanocobalamin (vitamin B-12) 1,000 mcg PO DAILY 11/16/23 11/16/23 Unknown History 1,000 mcg tablet (Vitamin B-12) flaxseed oil 1,000 mg capsule 20,000 mg PO DAILY 11/16/23 11/16/23 Unknown History grape seed extract 100 mg capsule 1,000 mg PO DAILY 11/16/23 11/16/23 Unknown History multivitamin 1 tab PO DAILY 11/16/23 11/16/23 Unknown History pumpkin seed extract 500 mg capsule 1,000 mg PO DAILY 11/16/23 11/16/23 Unknown History quercetin 500 mg capsule 500 mg PO DAILY 11/16/23 11/16/23 Unknown History salmon oil-omega-3 fatty acids cap PO 11/16/23 11/16/23 Unknown History 1,000 mg-200 mg capsule saw palmetto 500 mg capsule 500 mg PO DAILY 11/16/23 11/16/23 Unknown History vit C 250 mg-vit E 90 mg-zinc 40 1 tab PO DAILY 11/16/23 11/16/23 Unknown History mg-copper 1 [id number]-ldpcmc-[id number] capsule (PreserVision AREDS-2) vitamin B complex 1 tab PO DAILY 11/16/23 11/16/23 Unknown History Assessment and Plan Assessment Anesthesia Assessment: Chart Reviewed Final Anesthetic Review NPO: Yes ASA Class: III Final Preanesthetic Review: No Changes in Pt Med Stat, Meds/Allgs Chart Reviewed, Consent Obtained/Reviewed and Anes Risks/Benef Reviewed Patient Risk: Intermediate Procedure Risk: Intermediate Anesthetic Plan Anesthetic Plan: GA
[2023-11-16 15:23] LABS: Hematocrit 35.1 % (42.0-52.0); Hemoglobin 11.1 g/dl (14.0-18.0); Mean Corpuscular HGB Conc 31.6 g/dl (31.0-36.0); Mean Corpuscular Hemoglobin 29.8 pg (27.0-33.0); Mean Corpuscular Volume 94.4 fL (80.0-98.0); Mean Platelet Volume 11.9 fL (9.4-12.4); Platelet Count 195 X10*3/uL (160-400); Red Blood Count 3.72 X10*6/uL (4.60-5.80); Red Cell Distribution Width 13.2 % (11.0-16.0); White Blood Count 8.1 X10*3/uL (4.8-10.8)
[2023-11-16 16:04] LABS: Anion Gap 13 (12-20); Blood Urea Nitrogen 46 mg/dL (9-16); Carbon Dioxide 29 mmol/L (22-29); Chloride 104 mmol/L (96-108); Estimated Glomerular Filt Rate 30; Glucose Random 83 mg/dL (60-115); Potassium 4.5 mmol/L (3.3-5.1); Sodium 141 mmol/L (135-145)
[2023-11-23] VITALS (7 sets, daily range): BP systolic 139–161; BP diastolic 65–86; PULSE 56–71; RESP 13–18; TEMP 36.1–36.6; O2SAT 94–100
--- NOTE | ~2023-11-23 | FL_ITS ---
EXAMINATION: XR FLUOROSCOPY WITH IMAGES CLINICAL INFORMATION: L3-L4 lumbar decompression. COMPARISON: Prior examinations, most recently 09/10/2023. TECHNIQUE: Fluoroscopy Supervised By: Dr. Buck Puente. Fluoroscopy Time: 0.0 minutes. Cumulative Dose: 2.49 mGy. DAP: 0.606 Gycm2. Images: 1. FINDINGS: The submitted image shows a probe situated at the level of the L3-L4 posterior elements. FL/FL guidance in OR IMPRESSION: Intraoperative fluoroscopic guidance is provided during L3-L4 lumbar decompression. Please see the patient's Operative Report for full procedural details.
--- NOTE | 2023-11-23 07:17 | MHC.SHP ---
Pre-Procedural Eval Section A - 24 Hr Update-Section A only Date of Service: 11/23/23 The patient is an INPATIENT: No Changes since office visit: No Cold of Flu in the past 2 weeks, No New Medical Problems, No Changes in Medication and No Patient answered all questions The patient has been examined within 24 hours of the surgical procedure. The History & Physical has been completed within 30 days and I have reviewed it.: No Section B - Complete if H&P > 30 days Chief Complaint: Spinal stenosis, lumbar region with neurogenic cla Allergies: Allergies Allergy/AdvReac Type Severity Reaction Status Date / Time ciprofloxacin [From Cipro] Allergy Severe edema in Verified 11/16/23 15:43 legs and achy joints epinephrine Allergy Severe headache, Verified 11/16/23 15:43 nausea, weakness and disorientation environmental allergies Allergy Intermediate sneezing, Verified 11/16/23 13:17 watery eyes azithromycin Allergy Unknown Verified 11/16/23 15:43 [From Zithromax Z-Obed] soy AdvReac Intermediate Gastrointestinal Verified 11/16/23 13:17 Upset Review of Systems Sugical H&P ROS: Negative: Constitution, Cardiovascular, Respiratory, Neurological, Psychiatric, Hem-Onc, Allergic/Immunologic, Gastrointestinal, Genitourinary, Musculoskeletal, Integumentary, Endocrine and Eyes/Ears/Nose/Throat Exam Surgical H&P Exam: Not Evaluated: HEENT, Not Evaluated: Heart, Not Evaluated: Lungs, Not Evaluated: Extremities, Not Evaluated: Abdomen, Not Evaluated: Skin and Not Evaluated: Neurological Plan Diagnosis/Plan: Unchanged L3-4 decom,pression Time Spent With Patient Time: Total time managing care of this patient today __5__ minutes.
[2023-11-23] MEDS: Gabapentin 300 MG CAPSULE PO (10:42)
[2023-11-23] MEDS: methocarbamoL 750 MG TABLET PO (10:42)
[2023-11-23] MEDS: Lactated Ringers 1,000 ML 100 ML IVCONT (11:06)
--- NOTE | 2023-11-23 13:00 | W.PM.OPN ---
Operative Note Operative Note Date of Service: 11/23/23 Narrative: Preoperative Diagnosis: L3-4 spinal stenosis/lateral recess stenosis/neural foraminal stenosis Operation: L3-4 Laminotomy, Partial facetectomy and foraminotomy with use of microscope Consent Informed Consent was obtained for this operation. I have explained the nature, purpose and benefits of the operation. I have discussed the risks and benefit of the operation including possible complications or adverse events with patient/family. Alternative(s) were discussed with the patient with their relative benefits and risks as well as the consequences of not accepting the operation were included in obtaining consent. Surgeon: DEANNA CHAN MD, PHD Procedure Assisted By: Pietro Miranda Description of Procedure This 83-year-old male suffering from neurogenic claudication. An MRI shows severe central L3-4 spinal stenosis and lateral recess stenosis. The patient was offered a decompression. The procedure complications were explained. The patient was consented. The patient was brought to the operating room and endotracheally intubated. The patient was turned in prone position on the Jeremy frame. Prep and drape was done followed by timeout. The Physician marketing operations assistant provided access. A mid lumbar incision was made followed by release of the paravertebral muscle on the left side to expose the L3-4 lamina and facet joints. An intraoperative x-ray was obtained to confirm the correct level. The microscope was brought in. I took over the procedure. The high-speed drill was used to do a left L3-4 laminotomy until flavum ligament was reached. A #2 Kerrison was used to expand the laminotomy near flush to the pedicles and to include a partial facetectomy. The flavum ligament was opened and resected with a #3 Kerrison to decompress the underlying thecal sac. The flavum ligament was removed to decompress the lateral recess and the exiting L4 nerve root. A long nerve hook could be easily passed along the medial side of the pedicles as a sign of adequate decompression. Then the patient was turned contralaterally to decompress the contralateral side. The spinous process was undercut so I could reach contralateral side. The flavum ligament was resected to decompress the contralateral side. A nerve hook could be used lateral from the right L4 nerve root along the pedicle as sign of adequate decompression. The microscope was removed. Hemostasis was done. The physician marketing operations assistant close the Incision in 2 layers. Steri-Strips were used to approximate incision. An OpSite with Tegaderm was used to cover the incision. All sponge needle counts were correct. Patient was extubated and transported in stable is to recovery room. Anesthesia: General Estimated Blood Loss (ml): 30 mL Complications: None Duration of Surgery: Under 60 Minutes Postoperative Plan: Discharge to home
--- NOTE | 2023-11-23 13:10 | PM.DS ---
DS: Providers Provider Date of Service: 11/23/23 Primary care physician: Donna Alva APRN DS: Summary Time Attestation Discharge coordination time: Less than 30 minutes Quality: Safe Use of Opioids Does Pt have an Active Cancer Diagnosis on the Problem List?: No Quality: Stroke Does the patient have a stroke diagnosis?: No Physical Exam Vital Signs: Vital Signs: Last Vital Signs Temp 97.9 F 11/23/23 10:17 Pulse 59 11/23/23 10:17 Resp 18 11/23/23 10:17 BP 161/83 H 11/23/23 10:17 Pulse Ox 98 11/23/23 10:17 O2 Del Method Room Air 11/23/23 10:17 BMI result Body Mass Index 26.2 Discharge Plan Discharge Patient Disposition: Home, Self-Care Referrals: Donna Alva APRN [Primary Care Provider] - 1 Week Discharge Medications: New oxycodone 5 mg tablet 5 mg PO Q8H PRN (Reason: severe pain (scale score 7-10)) Qty: 30 0RF Rx Instructions: Partial Fill upon patient request. docusate sodium 100 mg tablet 100 mg PO BID Qty: 10 0RF Continued losartan 100 mg tablet 100 mg PO DAILY multivitamin Tablet 1 tab PO DAILY ascorbic acid (vitamin C) [Vitamin C] 1,000 mg Tablet 1,000 mg PO DAILY cyanocobalamin (vitamin B-12) [Vitamin B-12] 1,000 mcg Tablet 1,000 mcg PO DAILY flaxseed oil 1,000 mg Capsule 20,000 mg PO DAILY Rx Instructions: administer with meals nvtoflz-lnxoqfrif-hqse Tablet 1 tab PO DAILY vitamin B complex Tablet 1 tab PO DAILY saw palmetto 500 mg Capsule 500 mg PO DAILY Rx Instructions: give with food (meal/snack) grape seed extract 100 mg Capsule 1,000 mg PO DAILY coenzyme Q10 [Co Q-10] 100 mg Capsule 100 mg PO DAILY salmon oil-omega-3 fatty acids 1,000-200 mg Capsule PO cholecalciferol (vitamin D3) [Vitamin D3] 50 mcg (2,000 unit) Tablet 50 mcg PO DAILY PreserVision AREDS-2 250-90-40-1 mg Capsule 1 tab PO DAILY pumpkin seed extract 500 mg Capsule 1,000 mg PO DAILY quercetin 500 mg Capsule 500 mg PO DAILY metoprolol tartrate 25 mg tablet 25 mg PO BID atorvastatin 40 mg tablet 40 mg PO BEDTIME Held Eliquis 2.5 mg tablet 1.25 mg PO BID Hold Instructions: Resume on 11/25/23. Hold for 48-72 hours or as instructed by prescriber aspirin [Adult Aspirin Regimen] 81 mg tablet,delayed release (DR/EC) 41 mg PO DAILY Hold Instructions: Resume on 11/25/23. Hold for 48-72 hours or as instructed by prescriber Discharge Orders: Discharge Order (Routine); Ordered 11/23/23 Ordered By: Seamus Phillips Diet: Advance to usual diet Activity on Discharge: As tolerated Activity Restrictions/Additional Instructions: After your spinal surgery we ask you to observe the following restrictions/guidelines: Activity: It is normal to feel some discomfort as you increase your activity, but that will improve with time. We ask you avoid heavy lifting or acitivities that cause pain. As a general rule, 8lbs is a safe limit for lifting right after surgery. Walk as much as you feel comfortable but not to exhaustion. You will feel extra tired the first few days after surgery. Stay well hydrated. It is OK to walk up and down stairs You may return to driving when you are off narcotics (such as vicodin, oxycodone, dilaudid, etc), and you are back to normal functional capacity. If you have any concerns please check with office before driving. Return to work is specific to each patient and each surgery, so please speak with your doctor/PA at first follow up. Please bring paperwork such as FMLA at that time if you need it filled out. Medications: We will give you a short supply of narcotics after surgery (usually one weeks worth). If you need more please call the office but do not use more than prescribed. You will need to give our office 48 hours notice if you need narcotics refilled and we do not fill narcotics on weekends or evenings. If you are on a narcotic, it is a good idea to take a stool softener such as colace or senna to avoid constipation If you take blood thinner such as aspirin, Plavix, Coumadin, Effient, Eliquis etc for conditions such as Afib, DVT, Pulmonary embolus, coronary disease, stents etc please speak with your surgeon about specific details as to when you can resume these medications. You can resume NSAIDs on post op day 1 (eg: Motrin, Naproxen, etc). Follow up: Please call the office, , after surgery to arrange a 3 week follow up for wound check. Wound Care: You may remove your dressing on the first day after surgery. ?You may ?leave open to air. Please do not remove the steri strips underneath. they will fall off on their own in one week. IT IS NORMAL FOR THE WOUND TO OOZE OR BE BLOODY FOR A FEW DAYS AFTER SURGERY. ?IF THIS HAPPENS JUST PLACE NEW DRESSING OVER IT TO AVOID STAINING CLOTHES. You may shower on post op day # 1 We ask that you do not let the water soak the wound. If it does get wet, just towel dry lightly. Please do not scrub your incision or place any type of chemical/ointment on the wound. No tub baths, pools or jacuzzis for one month. If you have any leaking or redness from your wound, or fevers, please call the office.
== END 2023-11-23 15:15 | disposition home or self-care (01) ==
PROVIDERS: Nurse Practitioner; PCP Nurse Practitioner; Visit Provider Neurological Surgery
PROC: (CPT 63047; principal; 2023-11-23 12:00)
DX: M48.062 Spinal stenosis, lumbar region with neurogenic claudication (principal); R20.0 Anesthesia of skin; R26.2 Difficulty in walking, not elsewhere classified; M79.605 Pain in left leg; M79.604 Pain in right leg; M10.9 Gout, unspecified; G47.33 Obstructive sleep apnea (adult) (pediatric); I12.9 Hypertensive chronic kidney disease with stage 1 through stage 4 chronic kidney disease, or unspecified chronic kidney disease; N18.9 Chronic kidney disease, unspecified; I48.91 Unspecified atrial fibrillation; E05.00 Thyrotoxicosis with diffuse goiter without thyrotoxic crisis or storm; Z79.01 Long term (current) use of anticoagulants; Z79.82 Long term (current) use of aspirin; Z79.899 Other long term (current) drug therapy; Z99.89 Dependence on other enabling machines and devices; Z86.73 Personal history of transient ischemic attack (TIA), and cerebral infarction without residual deficits; Z87.891 Personal history of nicotine dependence
CPT/HCPCS: 63047; 36415; 80048; 85027; J0131; J0690; J1885; J2250; J2405; J2704; J3010

== ENCOUNTER → 2023-11-23 09:47 | Outpatient (BNV) | payer OTHER, SELFPAY | PROVIDERS: PCP Nurse Practitioner; Visit Provider Neurological Surgery | DX: M48.062 Spinal stenosis, lumbar region with neurogenic claudication (principal) | CPT/HCPCS: 63047; 99499 ==

== ENCOUNTER 2023-12-14 10:52 | Outpatient (AMB) | payer OTHER, SELFPAY ==
--- NOTE | 2023-12-14 11:02 | A.SPINEOV_ITS ---
Intake Intake Visit Reasons: 1st post op Intake Note: Mr. Odom is here today for 1st Post op Clinical Counselor Required: No Allergies ciprofloxacin [From Cipro] Allergy (Severe, Verified 11/16/23 15:43) edema in legs and achy joints epinephrine Allergy (Severe, Verified 11/16/23 15:43) headache, nausea, weakness and disorientation environmental allergies Allergy (Intermediate, Verified 11/16/23 13:17) sneezing, watery eyes azithromycin [From Zithromax Z-Obed] Allergy (Verified 11/16/23 15:43) Unknown soy Adverse Reaction (Intermediate, Verified 11/16/23 13:17) Gastrointestinal Upset Assessment & Plan Assessment & Plan (1) S/P spinal surgery: Code(s): Z98.890 - Other specified postprocedural states Plan Procedure: L3-4 Laminotomy, Partial facetectomy and foraminotomy Dylan comes in today for her 1st postoperative visit. He reports he is satisfied with the surgery and does feel better than he did pre-operatively. The patient reports he is up walking around and completing the majority of his ADLs. He has been walking roughly 1/2 mile per day. Overall he is doing very well and has minimal concerns. He asked many questions regarding the post-operative healing course, and the activity he should be engaging in at this stage of healing. I answered his questions to the best of my ability. We also discussed the possibility of physical therapy, however he was advised to refrain from doing so until after we see him again in 6 weeks to evaluate his progress. No new neurological deficits. Patient is able to ambulate well, rises from a seated position without difficulty. Incision site is closed, well healing, with no signs of drainage. We will follow-up with the patient in 6 weeks for his 2nd postoperative visit. Seamus Puente MD,PhD [facility] Coding Level of Care Code Global (55692) Diagnoses S/P spinal surgery Z98.890
== END 2023-12-14 11:20 | disposition home or self-care (01) ==
PROVIDERS: PCP Nurse Practitioner; Visit Provider Physician Assistant
DX: Z98.890 Other specified postprocedural states (principal)
CPT/HCPCS: 99024

== ENCOUNTER → 2023-12-14 10:59 | Outpatient (BNVA) | payer OTHER, SELFPAY | PROVIDERS: PCP Nurse Practitioner; Visit Provider Physician Assistant ==

== ENCOUNTER 2024-01-25 11:28 | Outpatient (AMB) | payer OTHER, SELFPAY ==
--- NOTE | 2024-01-25 11:32 | HO.SPINEOV ---
Intake Intake Visit Reasons: 2nd post op Intake Note: Mr. Odom is here today for his 2nd Port-op appointment. 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 Allergies ciprofloxacin [From Cipro] Allergy (Severe, Verified 01/25/24 11:33) edema in legs and achy joints epinephrine Allergy (Severe, Verified 01/25/24 11:33) headache, nausea, weakness and disorientation environmental allergies Allergy (Intermediate, Verified 01/25/24 11:33) sneezing, watery eyes azithromycin [From Zithromax Z-Obed] Allergy (Verified 01/25/24 11:33) Unknown soy Adverse Reaction (Intermediate, Verified 01/25/24 11:33) Gastrointestinal Upset Assessment & Plan Assessment & Plan (1) S/P spinal surgery: Code(s): Z98.890 - Other specified postprocedural states Plan Procedure: L3-4 Laminotomy Dylan comes in today for his 2nd postoperative visit. He continues to heal very well. He reports little to no pain, and is back to his regular exercsie / stretching regimen. He asked several follow-up questions regarding strength training and mobility, which I answered to the best of my ability. No new neurological deficits. Patient is able to ambulate well, rises from a seated position without difficulty. Incision sites are closed, well healing, with no signs of drainage. Dylan continues to heal well and there is no need for continued routine follow-up. He may be discharged as a patient. Seamus Puente MD,PhD [facility] Coding Level of Care Code Global (26015) Diagnoses S/P spinal surgery Z98.890
== END 2024-01-25 12:38 | disposition home or self-care (01) ==
PROVIDERS: PCP Nurse Practitioner; Visit Provider Physician Assistant
DX: Z98.890 Other specified postprocedural states (principal)
CPT/HCPCS: 99024

== ENCOUNTER → 2024-01-25 11:28 | Outpatient (BNVA) | payer OTHER, SELFPAY | PROVIDERS: PCP Nurse Practitioner; Visit Provider Physician Assistant ==

== ENCOUNTER 2024-04-19 09:39 | Outpatient (AMB) | payer OTHER, SELFPAY ==
--- NOTE | 2024-04-19 09:48 | MHC.OFFVIS ---
Vital Signs 04/19/24 09:51 Height 5 ft 6 in Weight 150 lb BMI 24.2 BP 110/58 L Blood Pressure Location Lt brachial Position Sitting Respiration 14 Pulse 58 Pulse Source Pulse Oximeter Pulse Oximetry (%) 97 Oxygen Delivery Method Room Air Intake Visit Reasons: SIJ PAIN Allergies ciprofloxacin [From Cipro] Allergy (Severe, Verified 04/19/24 09:52) edema in legs and achy joints epinephrine Allergy (Severe, Verified 04/19/24 09:52) headache, nausea, weakness and disorientation environmental allergies Allergy (Intermediate, Verified 04/19/24 09:52) sneezing, watery eyes azithromycin [From Zithromax Z-Obed] Allergy (Verified 04/19/24 09:52) Unknown soy Adverse Reaction (Intermediate, Verified 04/19/24 09:52) Gastrointestinal Upset Medication List - Last Reconciled 04/19/24 by Anita Aldana LPN apixaban (Eliquis) 1.25 mg PO BID ascorbic acid (vitamin C) (Vitamin C) 1,000 mg PO DAILY aspirin (Adult Aspirin Regimen) 41 mg PO DAILY atorvastatin 40 mg PO BEDTIME fkwaxbm-glhrpmjos-wtyl 1 tab PO DAILY cholecalciferol (vitamin D3) (Vitamin D3) 50 mcg PO DAILY coenzyme Q10 (Co Q-10) 100 mg PO DAILY cyanocobalamin (vitamin B-12) (Vitamin B-12) 1,000 mcg PO DAILY docusate sodium 100 mg PO BID empagliflozin (Jardiance) 10 mg PO DAILY flaxseed oil 20,000 mg PO DAILY furosemide 40 mg PO BID grape seed extract 1,000 mg PO DAILY hydralazine 25 mg PO BID losartan 100 mg PO DAILY metoprolol tartrate 25 mg PO BID multivitamin 1 tab PO DAILY pumpkin seed extract 1,000 mg PO DAILY quercetin 500 mg PO DAILY salmon oil-omega-3 fatty acids 1,000-200 mg caps PO saw palmetto 500 mg PO DAILY vit C,R-Vt-yabty-lutein-zeaxan 250-90-40-1 mg (PreserVision AREDS-2) 1 tab PO DAILY vitamin B complex 1 tab PO DAILY HPI HPI SIJ PAIN: Details: 84-year-old male who presents today to the office for a axial low back pain. The patient had L3-4 Laminotomy, Partial facetectomy and foraminotomy on 11/23/[address] Puente for severe L3-4 spinal stenosis. The patient reports he is up walking around and completing the majority of his ADLs. He has been walking roughly 1/2 mile per day. He reports pain in the sacroiliac joint and right low back region. He states that his right side is worse than left side. The pain is described as worse after waking up in the morning associated with stiffness. He reports difficulty bending or lifting heavy weight. The pain is worse with standing or climbing stairs and much better with lying down. He sleeps on his right side. His last visit was on 07/31/23. He will follow up with [facility] cardiology surgeon for discussion and consideration of mitral valve clip or open heart surgery. He noticed low blood pressure without any symptoms. He has history of two stroke in the past. Past procedure: 05/31/23: Interlaminar epidural steroid injection, L4/5, Left parasaggital: 70% relief. [facility] Medical History History of CVA (cerebrovascular accident) (~2020) Hx of retinal detachment (~2013) Post-nasal drip Rosacea Sleep apnea Spinal stenosis Sacroiliitis Osteoarthritis Macular degeneration of right eye Joint pain Interstitial cystitis Hyperthyroidism Hypertension Hoarseness Graves disease Gout Globus sensation GERD (gastroesophageal reflux disease) Fracture Disorder of thyroid Detached retina, left CKD (chronic kidney disease) Cerebrovascular accident Cataract, bilateral BPH (benign prostatic hyperplasia) Atrial fibrillation Asthma Surgical History Hx of oral surgery (~2020) Hx of eye surgery Hx of colonoscopy (~2022) Hx of bilateral cataract extraction Hx of tonsillectomy Social History Are you a primary career discovery teacher to a significant other at home: No Do you presently have visiting nurse or other home services: No Patient Tobacco Use Status: Former Tobacco user Tobacco use type: Cigarette Review of Systems Const All systems reviewed & are unremarkable except as noted in HPI and below Physical Exam Vital Signs: Last Vital Signs Pulse 58 04/19/24 09:51 Resp 14 04/19/24 09:51 BP 110/58 L 04/19/24 09:51 Pulse Ox 97 04/19/24 09:51 Oxygen Delivery Method Room Air 04/19/24 09:51 BMI result Body Mass Index 24.2 General: Appears afebrile. Alert and oriented. Mood and affect appropriate. Follows and participates in conversation appropriately. Respiratory effort is unlabored. Able to transition from sit to stand unassisted. Ambulates with bilaterally normal heel strike and toe off. Lumbar extension is significantly limited. Facet loading reproduces discomfort and pain on both sides. SIJ joined provocation is limited due to stiffness in the lumbar spine and associated with discomfort. Results Reviewed Results Reviewed: No imaging is available for review. Assessment & Plan Assessment & Plan (1) Bilateral sacroiliitis: Code(s): M46.1 - Sacroiliitis, not elsewhere classified Category: Medical (2) Lumbar spondylosis: Code(s): M47.816 - Spondylosis without myelopathy or radiculopathy, lumbar region Category: Medical Plan Differential for axial low back pain right worse than the left side includes lumbar facet arthritis and SIJ dysfunction, especially on the right side. The history is notable for previous SI joint pain as well. Prior to his more recent lumbar spinal stenosis related symptoms. He had responded well to SI joint injections in the past. We will plan on a diagnostic right sacroiliac joint injection first and see if that provides significant relief to his symptoms. If that is not helpful, we will undertake a trial of diagnostic lumbar medial branch blocks. The patient has an appointment with his rn progressive care regarding the discussion of the Shannan clip procedure in the near future. I advised him to discuss the need for anticoagulation with his rn progressive care in the setting of left atrial enlargement, anticoagulation, and atrial fibrillation. I also discussed my preference to try to avoid corticosteroids as much as possible to avoid any hemodynamic side effects that may worsen his cardiac function/MR. Discussed the risks and benefits of the procedure with the patient in detail. All questions were answered. The patient is on board with the plan. Justification for interventional therapy: ? Patient with average pain > 6/10 ? Patient has exhausted conservative therapy ? Previous injection provided >50% relief x > 2 weeks. . Patient has a good understanding of their pain condition and has appropriate mental and social support Scribed for Dr. Murrieta by Michael Castellanos, medical services coordinator, on 04/19/2024. I, Dr. Lit, have personally reviewed and agree with the information entered by the scribe. Coding Level of Care Code Est Pt Level 4 (57976) Diagnoses Bilateral sacroiliitis M46.1 Lumbar spondylosis M47.816
[2024-04-19 09:51] VITALS: BP 110/58; PULSE 58; RESP 14; O2SAT 97; BMI 24.2
== END 2024-04-19 10:12 | disposition home or self-care (01) ==
PROVIDERS: PCP Nurse Practitioner; Visit Provider Internal Medicine
DX: M46.1 Sacroiliitis, not elsewhere classified (principal); M47.816 Spondylosis without myelopathy or radiculopathy, lumbar region
CPT/HCPCS: 99214

== ENCOUNTER → 2024-04-19 09:39 | Outpatient (BNVA) | payer OTHER, SELFPAY | PROVIDERS: PCP Nurse Practitioner; Visit Provider Internal Medicine ==

== ENCOUNTER 2024-04-25 06:15 | Outpatient (REF) | payer OTHER, SELFPAY ==
--- NOTE | ~2024-04-25 | FL_ITS ---
EXAMINATION: XR FLUOROSCOPY WITH IMAGES CLINICAL INFORMATION: Spondylosis without myelopathy. COMPARISON: None available. TECHNIQUE: Fluoroscopy Supervised By: Dr. Murrieta. Fluoroscopy Time: 0.0 min. Cumulative Dose: 1.24 mGy. DAP: 0.85774 Gycm2. Images: 2. FINDINGS: Intraoperative fluoroscopy and spot films were performed during a procedure in the OR. A needle is present overlying the right SI joint. Please correlate with Dr. Murrieta's report for complete details. FL/FL guidance in treatment room IMPRESSION: Intraoperative fluoroscopy and spot films were obtained. Please see Dr. Murrieta's report for complete details.
== END 2024-04-25 06:16 | disposition home or self-care (01) ==
LOC: CF 06:15
PROVIDERS: Visit Provider Internal Medicine
DX: M46.1 Sacroiliitis, not elsewhere classified (principal); M47.816 Spondylosis without myelopathy or radiculopathy, lumbar region
CPT/HCPCS: 27096; J2795

== ENCOUNTER 2024-04-25 08:34 | Outpatient (AMB) | payer OTHER, SELFPAY ==
--- NOTE | 2024-04-25 08:34 | A.OFFVIS_ITS ---
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 Denies any recent cough, cold, infection, fever or other significant changes in medical history since last office visit. [facility] Medical History History of CVA (cerebrovascular accident) (~2020) Hx of retinal detachment (~2013) Post-nasal drip Rosacea Sleep apnea Spinal stenosis Sacroiliitis Osteoarthritis Macular degeneration of right eye Joint pain Interstitial cystitis Hyperthyroidism Hypertension Hoarseness Graves disease Gout Globus sensation GERD (gastroesophageal reflux disease) Fracture Disorder of thyroid Detached retina, left CKD (chronic kidney disease) Cerebrovascular accident Cataract, bilateral BPH (benign prostatic hyperplasia) Atrial fibrillation Asthma Surgical History Hx of oral surgery (~2020) Hx of eye surgery Hx of colonoscopy (~2022) Hx of bilateral cataract extraction Hx of tonsillectomy Social History Are you a primary manager primary care to a significant other at home: No Do you presently have visiting nurse or other home services: No Patient Tobacco Use Status: Former Tobacco user Tobacco use type: Cigarette Physical Exam Vital Signs: Last Vital Signs Pulse 58 04/25/24 08:37 Resp 14 04/25/24 08:37 BP 144/62 H 04/25/24 08:37 Pulse Ox 97 04/25/24 08:37 Oxygen Delivery Method Room Air 04/25/24 08:37 BMI result Body Mass Index 23.4 Office Procedures Joint Injection/Drain Joint Injection/Drain Details: Sacroiliac Joint Injection, Right The procedure, its benefits, and its risks were explained and written informed consent was obtained from the patient. Immediately prior to starting the procedure, a time-out safety check was conducted. The patient's identification, procedure name, procedure site, and procedure laterality were confirmed with the patient. ? Patient was placed prone on the fluoroscopy table and the lumbosacral area was prepped using ChloraPrep and draped with sterile drape in standard fashion. The C-arm was rotated in a contralateral oblique fashion until the medial border of the iliac crest no longer foreshadowed the posterior sacroiliac joint line. The skin and subcutaneous tissue was anesthetized using 1 mL of 0.75% plain lidocaine with 1.5-inch 25-gauge needle in the middle region of the joint line.? A 3.5-inch 22-gauge spinal needle with small bend on the tip was slowly advanced towards the joint line, coaxial to the x-ray beam. Once bony content was obtained, the needle was easily slid into the intra-articular space.? Intra- articular needle position was confirmed using lateral fluoroscopy.? A total volume of 2.5mL of solution containing 0.5% of ropivacaine was injected intra- articularly. The stylet was reinserted and needle was removed. The patient tolerated the procedure well. Patient denied any lower extremity weakness or numbness. Patient was observed for 30 min and was discharged after fulfilling the standard discharge criteria. Coding 06613 - Sacroiliac Procedure code (CPT) selection complete Assessment & Plan Assessment & Plan (1) Bilateral sacroiliitis: Code(s): M46.1 - Sacroiliitis, not elsewhere classified Category: Medical Plan Patient is status post diagnostic right SI joint injection. Patient tolerated procedure well and was discharged home in stable condition with discharge instructions. All questions were answered. We will follow-up via telephone or in clinic to assess response to therapy. A follow-up appointment was made during today's visit. Orders: Orders FL guidance in treatment room Today M46.1 - Sacroiliitis, not elsewhere cl assified, M47.816 - Spondylosis without myelopathy or radiculopathy, lumbar region Coding Level of Care Code Procedure Only Diagnoses Bilateral sacroiliitis M46.1 CPT Codes Coding - Joint 9: 01245 - Sacroiliac ([id number])
[2024-04-25 08:37] VITALS: BP 144/62; PULSE 58; RESP 14; O2SAT 97; BMI 23.4
[2024-04-25 09:10] VITALS: BP 142/65; PULSE 58; RESP 14; O2SAT 97
== END 2024-04-25 09:11 | disposition home or self-care (01) ==
LOC: HO.PMCPRC 08:35
PROVIDERS: PCP Nurse Practitioner; Visit Provider Internal Medicine
DX: M46.1 Sacroiliitis, not elsewhere classified (principal)
CPT/HCPCS: 27096

== ENCOUNTER 2024-05-03 08:35 | Outpatient (AMB) | payer OTHER, SELFPAY ==
--- NOTE | 2024-05-03 08:54 | A.OFFVIS_ITS ---
Vital Signs 05/03/24 08:55 Height 5 ft 6 in Weight 145 lb BMI 23.4 BP 145/63 H Blood Pressure Location Rt brachial Position Sitting Pulse 49 L Pulse Source Pulse Oximeter Pulse Oximetry (%) 99 Oxygen Delivery Method Room Air Intake Visit Reasons: s/p right Dx SIJ inj Allergies ciprofloxacin [From Cipro] Allergy (Severe, Verified 05/03/24 08:55) edema in legs and achy joints epinephrine Allergy (Severe, Verified 05/03/24 08:55) headache, nausea, weakness and disorientation environmental allergies Allergy (Intermediate, Verified 05/03/24 08:55) sneezing, watery eyes azithromycin [From Zithromax Z-Obed] Allergy (Verified 05/03/24 08:55) Unknown soy Adverse Reaction (Intermediate, Verified 05/03/24 08:55) Gastrointestinal Upset HPI HPI s/p right Dx SIJ inj: Details: 84-year-old male who presents today to the office for a status post right diagnostic SIJ injection. The patient reports 80% relief following the procedure. He still has mild soreness at the site of the injection. The SIJ pain is bothersome every day. He reports pain in the lower back region. He still experiences numbness in his calves and pins and needle sensations in his toes and feet. He is interested in trying hyaluronic acid injections for knee pain. He will possibly undergo mitral clip placement. He denies any SOB. Past procedures 04/25/24: Sacroiliac Joint Injection, right: 80% relief. 05/31/23: Interlaminar epidural steroid injection, L4/5, Left parasagittal: 70% relief. [facility] Medical History History of CVA (cerebrovascular accident) (~2020) Hx of retinal detachment (~2013) Post-nasal drip Rosacea Sleep apnea Spinal stenosis Sacroiliitis Osteoarthritis Macular degeneration of right eye Joint pain Interstitial cystitis Hyperthyroidism Hypertension Hoarseness Graves disease Gout Globus sensation GERD (gastroesophageal reflux disease) Fracture Disorder of thyroid Detached retina, left CKD (chronic kidney disease) Cerebrovascular accident Cataract, bilateral BPH (benign prostatic hyperplasia) Atrial fibrillation Asthma Surgical History Hx of oral surgery (~2020) Hx of eye surgery Hx of colonoscopy (~2022) Hx of bilateral cataract extraction Hx of tonsillectomy Social History Are you a primary wound care nurse to a significant other at home: No Do you presently have visiting nurse or other home services: No Patient Tobacco Use Status: Former Tobacco user Tobacco use type: Cigarette Review of Systems Const All systems reviewed & are unremarkable except as noted in HPI and below Physical Exam Vital Signs: Last Vital Signs Pulse 49 L 05/03/24 08:55 BP 145/63 H 05/03/24 08:55 Pulse Ox 99 05/03/24 08:55 Oxygen Delivery Method Room Air 05/03/24 08:55 BMI result Body Mass Index 23.4 General: Appears afebrile. Alert and oriented. Mood and affect appropriate. Follows and participates in conversation appropriately. Respiratory effort is unlabored. Able to transition from sit to stand unassisted. Ambulates with bilaterally normal heel strike and toe off. Results Reviewed Results Reviewed: No imaging is available for review. Assessment & Plan Assessment & Plan (1) Lumbar spondylosis: Code(s): M47.816 - Spondylosis without myelopathy or radiculopathy, lumbar region Category: Medical (2) S/P spinal surgery: Code(s): Z98.890 - Other specified postprocedural states Category: Medical (3) Lumbar radicular pain: Code(s): M54.16 - Radiculopathy, lumbar region Category: Medical Plan Discussed cortisone injections vs. PNS vs. SCS as possible treatment options for his lower back pain symptoms. The patient would like to hold on the steroid injection until his heart surgery in May 2024. I prescribed gabapentin 100 mg at bedtime for pain management. We discussed the possible side effects today in detail. Scribed for Dr. Murrieta by Michael Castellanos, registered medical transcriptionist, on 05/03/2024. I, Dr. Murrieta, have personally reviewed and agree with the information entered by the scribe. Medications: New gabapentin 100 mg PO BID 60 caps 0RF Coding Level of Care Code Est Pt Level 3 (15138) Diagnoses Lumbar spondylosis M47.816 S/P spinal surgery Z98.890 Lumbar radicular pain M54.16
[2024-05-03 08:55] VITALS: BP 145/63; PULSE 49; O2SAT 99; BMI 23.4
== END 2024-05-03 09:08 | disposition home or self-care (01) ==
PROVIDERS: PCP Nurse Practitioner; Visit Provider Internal Medicine
DX: M47.816 Spondylosis without myelopathy or radiculopathy, lumbar region (principal); Z98.890 Other specified postprocedural states; M54.16 Radiculopathy, lumbar region
CPT/HCPCS: 99213

== ENCOUNTER → 2024-05-03 08:35 | Outpatient (BNVA) | payer OTHER, SELFPAY | PROVIDERS: PCP Nurse Practitioner; Visit Provider Internal Medicine ==

== ENCOUNTER 2024-07-10 10:40 | Outpatient (AMB) | payer OTHER, SELFPAY ==
--- NOTE | 2024-07-10 10:48 | A.OFFVIS_ITS ---
Vital Signs 07/10/24 10:50 Height 5 ft 6 in BP 153/67 H Blood Pressure Location Lt brachial Position Sitting Respiration 15 Pulse 54 Pulse Source Pulse Oximeter Pulse Oximetry (%) 98 Oxygen Delivery Method Room Air Intake Visit Reasons: F/U For injection Allergies ciprofloxacin [From Cipro] Allergy (Severe, Verified 07/10/24 10:51) edema in legs and achy joints epinephrine Allergy (Severe, Verified 07/10/24 10:51) headache, nausea, weakness and disorientation environmental allergies Allergy (Intermediate, Verified 07/10/24 10:51) sneezing, watery eyes azithromycin [From Zithromax Z-Obed] Allergy (Verified 07/10/24 10:51) Unknown soy Adverse Reaction (Intermediate, Verified 07/10/24 10:51) Gastrointestinal Upset Medication List - Last Reconciled 07/10/24 by Anita Aldana LPN apixaban (Eliquis) 1.25 mg PO BID ascorbic acid (vitamin C) (Vitamin C) 1,000 mg PO DAILY aspirin (Adult Aspirin Regimen) 41 mg PO DAILY atorvastatin 40 mg PO BEDTIME utrokjz-kpyuxlvgx-hhjn 1 tab PO DAILY cholecalciferol (vitamin D3) (Vitamin D3) 50 mcg PO DAILY coenzyme Q10 (Co Q-10) 100 mg PO DAILY cyanocobalamin (vitamin B-12) (Vitamin B-12) 1,000 mcg PO DAILY docusate sodium 100 mg PO BID empagliflozin (Jardiance) 10 mg PO DAILY flaxseed oil 20,000 mg PO DAILY furosemide 40 mg PO BID grape seed extract 1,000 mg PO DAILY hydralazine 25 mg PO BID losartan 100 mg PO DAILY metoprolol succinate ER 25 mg PO DAILY multivitamin 1 tab PO DAILY pumpkin seed extract 1,000 mg PO DAILY quercetin 500 mg PO DAILY salmon oil-omega-3 fatty acids 1,000-200 mg caps PO saw palmetto 500 mg PO DAILY vit C,M-Az-wjpat-lutein-zeaxan 250-90-40-1 mg (PreserVision AREDS-2) 1 tab PO DAILY vitamin B complex 1 tab PO DAILY HPI HPI F/U For injection: Details: 84-year-old male who presents today to the office for a follow-up of injection. He states he has been having pain in the lower back (SI joint) especially with walking for a prolonged period of time and this alleviates with sitting down. He rates the pain at 7-8/10. He states he is in cardiac rehab which involves walking for a considerable distance. He experiences pain after walking 100 steps or using stairs which occasionally radiates down to thighs. He also gets stiffness and cramps in the SI joint at times which resolves with stretching. He recalls his lower back pain worsened while he was putting vertical loading, pulling the heavy rug and carrying groceries a few weeks ago. He recalls his pain started 2 years ago. He had a good response to diagnostic SI joint injection in the right side in the past. He previously underwent surgery for spinal stenosis and his pain seems to be recurred now. He reports he has arthritis in the left knee. He is interested in cortisone injection today. He recently underwent heart surgery(had MitraClip placed) and is doing well. Past procedures 04/25/24: Sacroiliac Joint Injection, right: 80% relief. 05/31/23: Interlaminar epidural steroid injection, L4/5, Left parasagittal: 70% relief. [facility] Medical History History of CVA (cerebrovascular accident) (~2020) Hx of retinal detachment (~2013) Post-nasal drip Rosacea Sleep apnea Spinal stenosis Sacroiliitis Osteoarthritis Macular degeneration of right eye Joint pain Interstitial cystitis Hyperthyroidism Hypertension Hoarseness Graves disease Gout Globus sensation GERD (gastroesophageal reflux disease) Fracture Disorder of thyroid Detached retina, left CKD (chronic kidney disease) Cerebrovascular accident Cataract, bilateral BPH (benign prostatic hyperplasia) Atrial fibrillation Asthma Surgical History Hx of oral surgery (~2020) Hx of eye surgery Hx of colonoscopy (~2022) Hx of bilateral cataract extraction Hx of tonsillectomy Social History Are you a primary women's health care nurse practitioner to a significant other at home: No Do you presently have visiting nurse or other home services: No Patient Tobacco Use Status: Former Tobacco user Tobacco use type: Cigarette Physical Exam Vital Signs: Last Vital Signs Pulse 54 07/10/24 10:50 Resp 15 07/10/24 10:50 BP 153/67 H 07/10/24 10:50 Pulse Ox 98 07/10/24 10:50 Oxygen Delivery Method Room Air 07/10/24 10:50 On exam today: Appears afebrile. Alert and oriented. Mood and affect appropriate. Follows and participates in conversation appropriately. Respiratory effort is unlabored. Able to transition from sit to stand unassisted. Ambulates with bilaterally normal heel strike and toe off. Office Procedures Joint Injection/Aspiration Joint Injection/Aspiration Details: Left knee intraarticular injection, US guided Primary Site: left knee Prep: site was prepped using sterile technique Injected: 40 mg of, Kenalog, with 3 mL of (0.25 % ropivacaine) and in the joint Approach Used: other (Ultrasound-guided suprapatellar approach) Coding Details: An ultrasound image of the injection was taken and stored in the permanent record. - Large joint Procedure code (CPT) selection complete Assessment & Plan Assessment & Plan (1) S/P spinal surgery: Code(s): Z98.890 - Other specified postprocedural states Category: Medical (2) Lumbar disc herniation: Code(s): M51.26 - Other intervertebral disc displacement, lumbar region Category: Medical (3) Bilateral sacroiliitis: Code(s): M46.1 - Sacroiliitis, not elsewhere classified Category: Medical Plan Patient is status post left knee intra-articular injection, US-guided. Patient tolerated procedure well and was discharged home in stable condition with discharge instructions. All questions were answered. We will follow-up in two weeks via telephone or in clinic to assess response to therapy. A follow-up appointment was made during today's visit. Will schedule for bilateral diagnostic SI joint injections since he has had pro blems in the past and has had positive responses to SI joint interventions. That being said, I am not convinced that his pain is completely related to his SI joint, given the neurogenic claudication type nature of his symptoms. So we will proceed with bilateral diagnostic SI joint injection. If those are not helpful, I will send him back for an MRI to see if he has reherniation of disc that is causing symptoms. Scribed for Dr. Murrieta by Sin coroner/medical examiner, on 07/10/2024. I, Dr. Murrieta, have personally reviewed and agree with the information entered by the scribe. Coding Level of Care Code Est Pt Level 4 (05306) Diagnoses S/P spinal surgery Z98.890 Lumbar disc herniation M51.26 Bilateral sacroiliitis M46.1 CPT Codes Coding - 59345 Large joint: 47948 - Large joint ([id number])
[2024-07-10 10:50] VITALS: BP 153/67; PULSE 54; RESP 15; O2SAT 98
== END 2024-07-10 11:23 | disposition home or self-care (01) ==
PROVIDERS: PCP Nurse Practitioner; Visit Provider Internal Medicine
DX: M51.26 Other intervertebral disc displacement, lumbar region (principal); M46.1 Sacroiliitis, not elsewhere classified; Z98.890 Other specified postprocedural states; M17.12 Unilateral primary osteoarthritis, left knee
CPT/HCPCS: 20611; 99214

== ENCOUNTER → 2024-07-10 10:40 | Outpatient (BNVA) | payer OTHER, SELFPAY | PROVIDERS: PCP Nurse Practitioner; Visit Provider Internal Medicine | DX: M51.26 Other intervertebral disc displacement, lumbar region (principal); M46.1 Sacroiliitis, not elsewhere classified; M17.12 Unilateral primary osteoarthritis, left knee; Z98.890 Other specified postprocedural states | CPT/HCPCS: 20611; J2795; J3301 ==

== ENCOUNTER 2024-08-01 06:18 | Outpatient (REF) | payer OTHER, SELFPAY | END 2024-08-01 06:19 | disposition home or self-care (01) | LOC: CF 06:18 | PROVIDERS: Visit Provider Internal Medicine | DX: M46.1 Sacroiliitis, not elsewhere classified (principal) | CPT/HCPCS: 27096; J2003; J2795 ==

== ENCOUNTER 2024-08-01 09:55 | Outpatient (AMB) | payer OTHER, SELFPAY ==
[2024-08-01 10:01] VITALS: BP 179/94; PULSE 53; O2SAT 99
--- NOTE | 2024-08-01 10:01 | A.OFFVIS_ITS ---
Vital Signs 08/01/24 10:01 08/01/24 10:22 BP 179/94 H 181/75 H Blood Pressure Location Lt brachial Rt brachial Position Sitting Sitting Pulse 53 59 Pulse Source Pulse Oximeter Pulse Oximeter Pulse Oximetry (%) 99 96 Oxygen Delivery Method Room Air Room Air Intake Visit Reasons: Humberto Dx SIJ inj Allergies ciprofloxacin [From Cipro] Allergy (Severe, Verified 07/10/24 10:51) edema in legs and achy joints epinephrine Allergy (Severe, Verified 07/10/24 10:51) headache, nausea, weakness and disorientation environmental allergies Allergy (Intermediate, Verified 07/10/24 10:51) sneezing, watery eyes azithromycin [From Zithromax Z-Obed] Allergy (Verified 07/10/24 10:51) Unknown soy Adverse Reaction (Intermediate, Verified 07/10/24 10:51) Gastrointestinal Upset HPI HPI Humberto Dx SIJ inj: Details: Patient presents for scheduled procedure. Denies any recent cough, cold, infection, fever or other significant changes in medical history since last office visit. [facility] Medical History History of CVA (cerebrovascular accident) (~2020) Hx of retinal detachment (~2013) Post-nasal drip Rosacea Sleep apnea Spinal stenosis Sacroiliitis Osteoarthritis Macular degeneration of right eye Joint pain Interstitial cystitis Hyperthyroidism Hypertension Hoarseness Graves disease Gout Globus sensation GERD (gastroesophageal reflux disease) Fracture Disorder of thyroid Detached retina, left CKD (chronic kidney disease) Cerebrovascular accident Cataract, bilateral BPH (benign prostatic hyperplasia) Atrial fibrillation Asthma Surgical History Hx of oral surgery (~2020) Hx of eye surgery Hx of colonoscopy (~2022) Hx of bilateral cataract extraction Hx of tonsillectomy Social History Are you a primary multi care technician to a significant other at home: No Do you presently have visiting nurse or other home services: No Patient Tobacco Use Status: Former Tobacco user Tobacco use type: Cigarette Physical Exam Vital Signs: Last Vital Signs Pulse 59 08/01/24 10:22 BP 181/75 H 08/01/24 10:22 Pulse Ox 96 08/01/24 10:22 Oxygen Delivery Method Room Air 08/01/24 10:22 Office Procedures Joint Injection/Aspiration Joint Injection/Aspiration Details: Diagnostic Sacroiliac Joint Injection, Bilateral The procedure, its benefits, and its risks were explained and written informed consent was obtained from the patient. Immediately prior to starting the procedure, a time-out safety check was conducted. The patient's identification, procedure name, procedure site, and procedure laterality were confirmed with the patient. ? Patient was placed prone on the fluoroscopy table and the lumbosacral area was prepped using ChloraPrep and draped with sterile drapein standard fashion. The C-arm was rotated in a contralateral oblique fashion until the medial border of the iliac crest no longer foreshadowed the posterior sacroiliac joint line. The skin and subcutaneous tissue was anesthetized using 1 mL of 0.75% plain lidocaine with 1.5-inch 25-gauge needle in the middle region of the joint line.? A 3.5-inch 22-gauge spinal needle with small bend on the tip was slowly advanced towards the joint line, coaxial to the x-ray beam. Once bony content was obtained, the needle was easily slid into the intra-articular space.? Intra- articular needle position was confirmed using lateral fluoroscopy.? A total volume of 2.5mL of solution containing 0.5% of ropivacaine was injected intra- articularly. The stylet was reinserted and needle was removed. The same process was then repeated on the other side. The patient tolerated the procedure well. Patient denied any lower extremity weakness or numbness. Patient was observed for 30 min and was discharged after fulfilling the standard discharge criteria. Coding 57131 - Sacroiliac (Bilateral) Procedure code (CPT) selection complete Assessment & Plan Assessment & Plan (1) Bilateral sacroiliitis: Code(s): M46.1 - Sacroiliitis, not elsewhere classified Category: Medical Plan Patient is status post bilateral diagnostic SI joint injections. Patient tolerated procedure well and was discharged home in stable condition with discharge instructions. All questions were answered. We will follow-up via telephone or in clinic to assess response to therapy. A follow-up appointment was made during today's visit. Orders: Orders FL guidance in treatment room Today M46.1 - Sacroiliitis, not elsewhere classified Coding Level of Care Code Procedure Only Diagnoses Bilateral sacroiliitis M46.1 CPT Codes Coding - Joint 9: 44379 - Sacroiliac ([id number])
[2024-08-01 10:22] VITALS: BP 181/75; PULSE 59; O2SAT 96
== END 2024-08-01 10:20 | disposition home or self-care (01) ==
LOC: HO.PMCPRC 09:55
PROVIDERS: PCP Nurse Practitioner; Visit Provider Internal Medicine
DX: M46.1 Sacroiliitis, not elsewhere classified (principal)
CPT/HCPCS: 27096

== ENCOUNTER 2024-08-05 10:20 | Outpatient (AMB) | payer OTHER, SELFPAY ==
--- NOTE | 2024-08-05 10:10 | MHC.OFFVIS ---
Vital Signs 08/05/24 10:11 Height 5 ft 6 in Weight 145 lb BMI 23.4 BP 110/66 Blood Pressure Location Lt brachial Position Sitting Respiration 14 Pulse 68 Pulse Source Pulse Oximeter Pulse Oximetry (%) 99 Oxygen Delivery Method Room Air Intake Visit Reasons: s/p linette Dx SIJ inj Allergies ciprofloxacin [From Cipro] Allergy (Severe, Verified 08/05/24 10:12) edema in legs and achy joints epinephrine Allergy (Severe, Verified 08/05/24 10:12) headache, nausea, weakness and disorientation environmental allergies Allergy (Intermediate, Verified 08/05/24 10:12) sneezing, watery eyes azithromycin [From Zithromax Z-Obed] Allergy (Verified 08/05/24 10:12) Unknown soy Adverse Reaction (Intermediate, Verified 08/05/24 10:12) Gastrointestinal Upset Medication List - Last Reconciled 08/05/24 by Anita Aldana LPN apixaban (Eliquis) 1.25 mg PO BID ascorbic acid (vitamin C) (Vitamin C) 1,000 mg PO DAILY aspirin (Adult Aspirin Regimen) 41 mg PO DAILY atorvastatin 40 mg PO BEDTIME ypjayvi-yvjbmvmka-peto 1 tab PO DAILY cholecalciferol (vitamin D3) (Vitamin D3) 50 mcg PO DAILY coenzyme Q10 (Co Q-10) 100 mg PO DAILY cyanocobalamin (vitamin B-12) (Vitamin B-12) 1,000 mcg PO DAILY docusate sodium 100 mg PO BID empagliflozin (Jardiance) 10 mg PO DAILY ferrous sulfate (Feosol) 325 mg PO DAILY flaxseed oil 20,000 mg PO DAILY furosemide 40 mg PO BID grape seed extract 1,000 mg PO DAILY hydralazine 25 mg PO BID losartan 100 mg PO DAILY metoprolol succinate ER 25 mg PO DAILY multivitamin 1 tab PO DAILY pumpkin seed extract 1,000 mg PO DAILY quercetin 500 mg PO DAILY salmon oil-omega-3 fatty acids 1,000-200 mg caps PO saw palmetto 500 mg PO DAILY vit C,S-Op-amgqx-lutein-zeaxan 250-90-40-1 mg (PreserVision AREDS-2) 1 tab PO DAILY vitamin B complex 1 tab PO DAILY HPI HPI s/p linette Dx SIJ inj: Details: 84-year-old female who presents today to the office for a status post bilateral diagnostic sacroiliac joint injection. The patient reports >50% relief following the procedure. He had some soreness from the injections. He started experiencing mild pain after gentle walking on the same day after the injection. The pain is localized in the lower back around the sacroiliac joint. He states that his right side is worse compared to the left side. It does not radiate down his leg. He did not go to his cardio-rehab on Monday to avoid aggravation of the pain. He states that his pain started worsening as the day progressed. He still has worsening pain with prolonged standing, climbing stairs, or walking. Lying down alleviates his pain. He reports muscle cramping in his lower extremities. He lives alone but his neighbor/friends visits him regularly. Past procedures 08/01/2024: Diagnostic Sacroiliac Joint Injection, Bilateral: >50% relief. 07/10/2024: Left knee intraarticular injection, US guided: 90% relief. 04/25/24: Sacroiliac Joint Injection, right: 80% relief. 05/31/23: Interlaminar epidural steroid injection, L4/5, Left parasagittal: 70% relief. [facility] Medical History History of CVA (cerebrovascular accident) (~2020) Hx of retinal detachment (~2013) Post-nasal drip Rosacea Sleep apnea Spinal stenosis Sacroiliitis Osteoarthritis Macular degeneration of right eye Joint pain Interstitial cystitis Hyperthyroidism Hypertension Hoarseness Graves disease Gout Globus sensation GERD (gastroesophageal reflux disease) Fracture Disorder of thyroid Detached retina, left CKD (chronic kidney disease) Cerebrovascular accident Cataract, bilateral BPH (benign prostatic hyperplasia) Atrial fibrillation Asthma Surgical History Hx of oral surgery (~2020) Hx of eye surgery Hx of colonoscopy (~2022) Hx of bilateral cataract extraction Hx of tonsillectomy Social History Are you a primary professional healthcare representative to a significant other at home: No Do you presently have visiting nurse or other home services: No Patient Tobacco Use Status: Former Tobacco user Tobacco use type: Cigarette Review of Systems Const All systems reviewed & are unremarkable except as noted in HPI and below Physical Exam Vital Signs: Last Vital Signs Pulse 68 10/28/24 10:11 Resp 14 08/05/24 10:11 BP 110/66 08/05/24 10:11 Pulse Ox 99 08/05/24 10:11 Oxygen Delivery Method Room Air 08/05/24 10:11 BMI result Body Mass Index 23.4 General: Appears afebrile. Alert and oriented. Mood and affect appropriate. Follows and participates in conversation appropriately. Respiratory effort is unlabored. Able to transition from sit to stand unassisted. Ambulates with bilaterally normal heel strike and toe off. Axial low back pain especially with ambulation and axial motion. Results Reviewed Results Reviewed: No imaging is available for review. Assessment & Plan Assessment & Plan (1) Lumbar radicular pain: Code(s): M54.16 - Radiculopathy, lumbar region Category: Medical (2) Spinal stenosis, lumbar region with neurogenic claudication: Code(s): M48.062 - Spinal stenosis, lumbar region with neurogenic claudication Category: Medical (3) Lumbar spondylosis: Code(s): M47.816 - Spondylosis without myelopathy or radiculopathy, lumbar region Category: Medical Plan The patient has a history of chronic low back pain. He has vertebral endplate changes and facet degeneration. He is status post L3-4 laminotomy, partial facetectomy, and foraminotomy post severe spinal stenosis. He continues to have axial low back pain, especially with ambulation and axial motion. Discussed temporary peripheral nerve stimulator as a possible treatment option since other interventions have not provided sustained or noticeable relief. We will schedule him for a right L3 medial branch nerve stimulator followed by a left side two weeks later. Discussed the risks and benefits of the procedure with the patient in detail. All questions were answered. The patient is on board with the plan. Justification for interventional therapy: ? Patient with average pain > 6/10 ? Patient has exhausted conservative therapy. ? Patient unable to tolerate physical therapy due to pain. . Patient has a good understanding of their pain condition and has appropriate mental and social support Scribed for Dr. Murrieta by Michael Castellanos, medical superintendent, on 08/05/2024. I, Dr. Murrieta, have personally reviewed and agree with the information entered by the scribe. Coding Level of Care Code Est Pt Level 3 (24752) Diagnoses Lumbar radicular pain M54.16 Spinal stenosis, lumbar region with neurogenic claudication M48.062 Lumbar spondylosis M47.816
[2024-08-05 10:11] VITALS: BP 110/66; PULSE 68; RESP 14; O2SAT 99; BMI 23.4
== END 2024-08-05 10:38 | disposition home or self-care (01) ==
LOC: HO.PMC 10:20
PROVIDERS: PCP Nurse Practitioner; Visit Provider Internal Medicine
DX: M54.16 Radiculopathy, lumbar region (principal); M48.062 Spinal stenosis, lumbar region with neurogenic claudication; M47.816 Spondylosis without myelopathy or radiculopathy, lumbar region
CPT/HCPCS: 99213

== ENCOUNTER → 2024-08-05 10:20 | Outpatient (BNVA) | payer OTHER, SELFPAY | PROVIDERS: PCP Nurse Practitioner; Visit Provider Internal Medicine ==

== ENCOUNTER 2024-08-29 08:02 | Outpatient (REF) | payer OTHER, SELFPAY | END 2024-08-29 08:03 | disposition home or self-care (01) | LOC: CF 08:02 | PROVIDERS: Visit Provider Internal Medicine | DX: M47.816 Spondylosis without myelopathy or radiculopathy, lumbar region (principal); M62.85 Dysfunction of the multifidus muscles, lumbar region; M54.50 Low back pain, unspecified; G89.29 Other chronic pain; Z98.890 Other specified postprocedural states | CPT/HCPCS: 64555; C1778; J2003 ==

== ENCOUNTER 2024-08-29 10:01 | Outpatient (AMB) | payer OTHER, SELFPAY ==
[2024-08-29 10:34] VITALS: BP 147/67; PULSE 75; O2SAT 97
--- NOTE | 2024-08-29 10:34 | MHC.OFFVIS ---
Vital Signs 08/29/24 10:34 08/29/24 11:48 BP 147/67 H 179/68 H Blood Pressure Location Lt brachial Lt brachial Position Sitting Sitting Pulse 75 58 Pulse Source Pulse Oximeter Pulse Oximeter Pulse Oximetry (%) 97 98 Oxygen Delivery Method Room Air Room Air Intake Visit Reasons: Right L3 Sprint Allergies ciprofloxacin [From Cipro] Allergy (Severe, Verified 08/05/24 10:12) edema in legs and achy joints epinephrine Allergy (Severe, Verified 08/05/24 10:12) headache, nausea, weakness and disorientation environmental allergies Allergy (Intermediate, Verified 08/05/24 10:12) sneezing, watery eyes azithromycin [From Zithromax Z-Obed] Allergy (Verified 08/05/24 10:12) Unknown soy Adverse Reaction (Intermediate, Verified 08/05/24 10:12) Gastrointestinal Upset HPI HPI Right L3 Sprint: Details: Patient presents for scheduled procedure. Denies any recent cough, cold, infection, fever or other significant changes in medical history since last office visit. [facility] Medical History History of CVA (cerebrovascular accident) (~2020) Hx of retinal detachment (~2013) Post-nasal drip Rosacea Sleep apnea Spinal stenosis Sacroiliitis Osteoarthritis Macular degeneration of right eye Joint pain Interstitial cystitis Hyperthyroidism Hypertension Hoarseness Graves disease Gout Globus sensation GERD (gastroesophageal reflux disease) Fracture Disorder of thyroid Detached retina, left CKD (chronic kidney disease) Cerebrovascular accident Cataract, bilateral BPH (benign prostatic hyperplasia) Atrial fibrillation Asthma Surgical History Hx of oral surgery (~2020) Hx of eye surgery Hx of colonoscopy (~2022) Hx of bilateral cataract extraction Hx of tonsillectomy Social History Are you a primary care information associate to a significant other at home: No Do you presently have visiting nurse or other home services: No Patient Tobacco Use Status: Former Tobacco user Tobacco use type: Cigarette Physical Exam Vital Signs: Last Vital Signs Pulse 58 08/29/24 11:48 BP 179/68 H 08/29/24 11:48 Pulse Ox 98 08/29/24 11:48 Oxygen Delivery Method Room Air 08/29/24 11:48 Office Procedures Details: Lumbar Medial Branch Nerve Stimulation Lead Placement, SPR (Sprint) System, Right L3 ? After the risks, benefits and alternatives were discussed with the patient and informed consent was obtained, patient was placed in the prone position and padded to foster comfort. The skin overlying the lumbosacral spine was prepped and draped in sterile fashion. Fluoroscopy was used to identify the spinous process and lamina in the center of the patient?s region of pain. After identifying and marking the intended target along the course of the medial branch nerve, the skin around the planned entry point and the subcutaneous tissues were injected with lidocaine 1%. An introducer needle and stimulating probe were assembled, inserted and advanced along the intended course of the medial branch nerve as it traverses the lamina medial and inferior to the zygapophyseal joint, taking care to maintain the proper depth of insertion as the introducer is advanced under fluoroscopic guidance. The introducer needle was delivered to a location in proximity to the nerve. Multiple stimulation parameters were used to deliver stimulation to the target medial branch nerve in concert with stimulating at multiple positions around the nerve. Nerve target acquisition was confirmed noting generation of paresthesias in the paravertebral regions corresponding to the level being stimulated. Various electrical parameter combinations were tested, and the lead location was adjusted (physically relocated) until the patient indicated paresthesia/muscle tension overlapping the distribution of the patient?s typical region of pain. The stimulating probe was removed from the introducer and a percutaneous lead was guided through the needle and delivered to a location in similar proximity to the nerve. Final location was verified with electrical stimulation and documented with fluoroscopy. The introducer needle was removed, and the exposed end of the percutaneous lead was attached to an external stimulator unit. Various electrical parameter combinations were again tested until the patient indicated paresthesia or muscle tension overlapping the distribution of the patient?s typical region of pain. After confirming that lead impedance was in the normal range, the external unit was detached, the needle was removed, and the lead was anchored at the skin. The lead was threaded into the connector block and electrical continuity and desired patient response was confirmed. The connector block was attached to the external stimulator unit. The site was covered with a sterile occlusive dressing. The patient was observed for stability of vital signs and comfort. Sprint PNS Device: Sprint PNS Device [id number] Percutaneous Peripheral Neuroelectrode Procedure: 68726 - Percutaneous Peripheral Neuroelectrode Procedure code (CPT) selection complete Office Meds lidocaine HCl 10 mg/mL (1 %) injection solution Performing Provider: Lorin Shepard APRN, BLAISE Performing Location: [facility] Administered by: Anita Aldana LPN on 08/29/24 11:37 Dose Route Admin Location Dispensed Lot Number Expiration Date NDC Sieve Maker 5 mL subcut 5 mL Assessment & Plan Assessment & Plan (1) Lumbar spondylosis: Code(s): M47.816 - Spondylosis without myelopathy or radiculopathy, lumbar region Category: Medical (2) S/P spinal surgery: Code(s): Z98.890 - Other specified postprocedural states Category: Surgical (3) Dysfunction of the multifidus muscle of lumbar region: Code(s): M62.85 - Dysfunction of the multifidus muscles, lumbar region Category: Medical (4) Chronic bilateral low back pain: Code(s): M54.50 - Low back pain, unspecified; G89.29 - Other chronic pain Category: Medical Plan Patient is status post temporary right L3 medial branch nerve stimulator placement. Patient tolerated procedure well and was discharged home in stable condition with discharge instructions. All questions were answered. We will follow-up via telephone or in clinic to assess response to therapy. A follow-up appointment was made during today's visit. Orders: Orders FL guidance in treatment room 08/29/24 M47.816 - Spondylosis without myelopathy or radiculopathy, lumbar region AMB Sprint PNS 08/29/24 M47.816 - Spondylosis without myelopathy or radiculopathy, lumbar region Coding Level of Care Code Procedure Only Diagnoses Lumbar spondylosis M47.816 S/P spinal surgery Z98.890 Dysfunction of the multifidus muscle of lumbar region M62.85 Chronic bilateral low back pain M54.50; G89.29 CPT Codes Sprint PNS - Sprint PNS Device: Sprint PNS Device ([id number]) Sprint PNS - SPRINT: 52840 - Percutaneous Peripheral Neuroelectrode ([id number]) Implantable Device Implantable Device Implantable Devices Qty Sieve Maker Implant Date Expiration Date Analgesic PENS system 1 [employer] 08/29/24 12/12/25
[2024-08-29 11:48] VITALS: BP 179/68; PULSE 58; O2SAT 98
== END 2024-08-29 12:16 | disposition home or self-care (01) ==
LOC: HO.PMCPRC 10:01
PROVIDERS: PCP Nurse Practitioner; Visit Provider Internal Medicine
DX: M47.816 Spondylosis without myelopathy or radiculopathy, lumbar region (principal)
CPT/HCPCS: 64555

== ENCOUNTER → 2024-09-03 09:44 | Outpatient (BNVA) | payer OTHER, SELFPAY | PROVIDERS: PCP Nurse Practitioner; Visit Provider Anesthesiology ==

== ENCOUNTER 2024-09-26 06:05 | Outpatient (REF) | payer OTHER, SELFPAY ==
--- NOTE | ~2024-09-26 | FL_ITS ---
EXAMINATION: FLUORO GUIDANCE IN TREATMENT ROOM CLINICAL INFORMATION: Spondylosis without myelopathy or radiculopathy, lumbar region. COMPARISON: None available. TECHNIQUE: Fluoroscopy supervised by: Dr. Steve Murrieta. Fluoroscopy time: 0.1 minutes. Cumulative Dose: 3.15 mGy. DAP: 0.0547 mGy-m2 (milligray-meter squared). Images: 2. FINDINGS: Wires are seen bilaterally overlying the lower lumbar spine just beneath the pedicles of a vertebral body at the same level, likely L4. Aortic calcifications are seen. FL/FL guidance in treatment room IMPRESSION: Fluoroscopy during procedure. Please see procedure report for additional information. Electronically signed by: Gilberto Coley MD 11/06/2024 01:44 PM MARCEL
== END 2024-09-26 06:06 | disposition home or self-care (01) ==
LOC: CF 06:05
PROVIDERS: Visit Provider Internal Medicine
DX: M47.816 Spondylosis without myelopathy or radiculopathy, lumbar region (principal); M54.50 Low back pain, unspecified; G89.29 Other chronic pain; M62.85 Dysfunction of the multifidus muscles, lumbar region; T85.122A Displacement of implanted electronic neurostimulator of spinal cord electrode (lead), initial encounter; Y75.1 Therapeutic (nonsurgical) and rehabilitative neurological devices associated with adverse incidents; Y92.9 Unspecified place or not applicable
CPT/HCPCS: 64555; C1778; J2003

== ENCOUNTER 2024-09-26 13:08 | Outpatient (AMB) | payer OTHER, SELFPAY ==
[2024-09-26 13:17] VITALS: BP 145/61; PULSE 65; O2SAT 95
--- NOTE | 2024-09-26 13:17 | A.OFFVIS_ITS ---
Vital Signs 09/26/24 13:17 09/26/24 13:59 BP 145/61 H 141/68 H Blood Pressure Location Rt brachial Rt brachial Position Sitting Sitting Pulse 65 57 Pulse Source Pulse Oximeter Pulse Oximeter Pulse Oximetry (%) 95 97 Oxygen Delivery Method Room Air Room Air Intake Visit Reasons: Left L3 Sprint Allergies ciprofloxacin [From Cipro] Allergy (Severe, Verified 08/05/24 10:12) edema in legs and achy joints epinephrine Allergy (Severe, Verified 08/05/24 10:12) headache, nausea, weakness and disorientation environmental allergies Allergy (Intermediate, Verified 08/05/24 10:12) sneezing, watery eyes azithromycin [From Zithromax Z-Obed] Allergy (Verified 08/05/24 10:12) Unknown soy Adverse Reaction (Intermediate, Verified 08/05/24 10:12) Gastrointestinal Upset HPI HPI Left L3 Sprint: Details: Patient presents for scheduled procedure. Denies any recent cough, cold, infection, fever or other significant changes in medical history since last office visit. [facility] Medical History History of CVA (cerebrovascular accident) (~2020) Hx of retinal detachment (~2013) Post-nasal drip Rosacea Sleep apnea Spinal stenosis Sacroiliitis Osteoarthritis Macular degeneration of right eye Joint pain Interstitial cystitis Hyperthyroidism Hypertension Hoarseness Graves disease Gout Globus sensation GERD (gastroesophageal reflux disease) Fracture Disorder of thyroid Detached retina, left CKD (chronic kidney disease) Cerebrovascular accident Cataract, bilateral BPH (benign prostatic hyperplasia) Atrial fibrillation Asthma Surgical History Hx of oral surgery (~2020) Hx of eye surgery Hx of colonoscopy (~2022) Hx of bilateral cataract extraction Hx of tonsillectomy Social History Are you a primary caregivers homecare to a significant other at home: No Do you presently have visiting nurse or other home services: No Patient Tobacco Use Status: Former Tobacco user Tobacco use type: Cigarette Physical Exam Vital Signs: Last Vital Signs Pulse 65 09/26/24 13:17 BP 145/61 H 09/26/24 13:17 Pulse Ox 95 09/26/24 13:17 Oxygen Delivery Method Room Air 09/26/24 13:17 Office Procedures Details: Lumbar Medial Branch Nerve Stimulation Lead Placement, SPR (Sprint) System, Bilateral L3 Medial Branches ? After the risks, benefits and alternatives were discussed with the patient and informed consent was obtained, patient was placed in the prone position and padded to foster comfort. The previously placed lead on the right side was noted to be displaced on visual inspection and the displacement was confirmed with fluoroscopy. Decision was made to replace the right lead at the same time while placing the left lead. The right lead was removed completely with tip intact. The skin overlying the lumbosacral spine was prepped and draped in sterile fashion. Fluoroscopy was used to identify the spinous process and lamina in the center of the patient?s region of pain. After identifying and marking the intended target along the course of the medial branch nerves, the skin around the planned entry points and the subcutaneous tissues were injected with lidocaine 1%. Two introducer needles and stimulating probes were assembled, inserted and advanced along the intended course of the medial branch nerves under the laminae medial and inferior to the zygapophyseal joints on both sides, taking care to maintain the proper depth of insertion as the introducers were advanced under fluoroscopic guidance. The introducer needles were delivered in proximity to the nerves. Multiple stimulation parameters were used to deliver stimulation to the target medial branch nerves in concert with stimulating at multiple positions around the nerves. Nerve target acquisition was confirmed noting generation of paresthesias in the paravertebral regions corresponding to the levels being stimulated. Various electrical parameter combinations were tested, and the leads were adjusted (physically relocated) until the patient indicated paresthesia/muscle tension overlapping the distribution of the patient?s typical region of pain. The stimulating probes were removed from the introducers and percutaneous leads were guided through the needles and delivered in similar proximity to the nerves. Final location was verified with electrical stimulation and documented with fluoroscopy. The introducer needles were removed, and the exposed ends of the percutaneous leads were attached to an external stimulator unit. Various electrical parameter combinations were again tested until the patient indicated paresthesia or muscle tension overlapping the distribution of the patient?s typical region of pain. After confirming that lead impedance was in the normal range, the external unit was detached, the needle was removed, and the leads were anchored at the skin. The leads were threaded into the connector blocks and electrical continuity and desired patient response was confirmed. The connector blocks were attached to the external stimulator unit. The site was covered with a sterile occlusive dressing. The patient was observed for stability of vital signs and comfort. Sprint PNS Device: Sprint PNS Device [id number] Percutaneous Peripheral Neuroelectrode Procedure: 34372 - Percutaneous Peripheral Neuroelectrode Procedure code (CPT) selection complete Office Meds lidocaine HCl 10 mg/mL (1 %) injection solution Performing Provider: Lorin Shepard APRN, CNP Performing Location: [facility] Administered by: Anita Aldana LPN on 09/26/24 13:44 Dose Route Admin Location Dispensed Lot Number Expiration Date NDC [employer] 5 mL subcut 5 mL Assessment & Plan Assessment & Plan (1) Chronic bilateral low back pain: Code(s): M54.50 - Low back pain, unspecified; G89.29 - Other chronic pain Category: Medical (2) Dysfunction of the multifidus muscle of lumbar region: Code(s): M62.85 - Dysfunction of the multifidus muscles, lumbar region Category: Medical (3) Lumbar spondylosis: Code(s): M47.816 - Spondylosis without myelopathy or radiculopathy, lumbar region Category: Medical Plan Patient is status post bilateral L3 medial branch nerve stimulator placements. The right one was replaced today due to dislodgement noted on exam today. Patient tolerated procedure well and was discharged home in stable condition with discharge instructions. All questions were answered. We will follow-up via telephone or in clinic to assess response to therapy. A follow-up appointment was made during today's visit. Orders: Orders FL guidance in treatment room Today M47.816 - Spondylosis without myelopathy or radiculopathy, lumbar region AMB Sprint PNS Today M47.816 - Spondylosis without myelopathy or radiculopathy, lumbar region Coding Level of Care Code Procedure Only Diagnoses Chronic bilateral low back pain M54.50; G89.29 Dysfunction of the multifidus muscle of lumbar region M62.85 Lumbar spondylosis M47.816 CPT Codes Sprint PNS - Sprint PNS Device: Sprint PNS Device ([id number]) Sprint PNS - SPRINT: 71285 - Percutaneous Peripheral Neuroelectrode ([id number]) Implantable Device Implantable Device Implantable Devices Qty [employer] Implant Date Expiration Date Analgesic PENS system 1 [employer] 09/26/24 05/23/25 Analgesic PENS system 1 [facility] [employer] 08/29/24 12/12/25
[2024-09-26 13:59] VITALS: BP 141/68; PULSE 57; O2SAT 97
== END 2024-09-26 13:54 | disposition home or self-care (01) ==
LOC: HO.PMCPRC 13:08
PROVIDERS: PCP Nurse Practitioner; Visit Provider Internal Medicine
DX: M54.50 Low back pain, unspecified (principal); G89.29 Other chronic pain; M62.85 Dysfunction of the multifidus muscles, lumbar region; M47.816 Spondylosis without myelopathy or radiculopathy, lumbar region
CPT/HCPCS: 64555

== ENCOUNTER → 2024-09-30 10:56 | Outpatient (BNVA) | payer OTHER, SELFPAY | PROVIDERS: PCP Nurse Practitioner; Visit Provider Internal Medicine ==

== ENCOUNTER → 2024-10-07 13:05 | Outpatient (BNVA) | payer OTHER, SELFPAY | PROVIDERS: PCP Nurse Practitioner | DX: Z48.01 Encounter for change or removal of surgical wound dressing (principal) ==

== ENCOUNTER 2024-10-14 14:47 | Outpatient (AMB) | payer OTHER, SELFPAY ==
--- NOTE | 2024-10-14 15:10 | A.OFFVIS_ITS ---
Vital Signs 10/14/24 15:12 Height 5 ft 6 in Weight 148 lb BMI 23.9 BP 141/68 H Blood Pressure Location Rt brachial Position Sitting Pulse 65 Pulse Source Pulse Oximeter Pulse Oximetry (%) 96 Oxygen Delivery Method Room Air Intake Visit Reasons: Dressing problems Intake Note: Pain today 12/16 Night Supervisor Required: No Accompanied by: Self / Same As Patient Allergies ciprofloxacin [From Cipro] Allergy (Severe, Verified 10/14/24 15:13) edema in legs and achy joints epinephrine Allergy (Severe, Verified 10/14/24 15:13) headache, nausea, weakness and disorientation environmental allergies Allergy (Intermediate, Verified 10/14/24 15:13) sneezing, watery eyes azithromycin [From Zithromax Z-Obed] Allergy (Verified 10/14/24 15:13) Unknown soy Adverse Reaction (Intermediate, Verified 10/14/24 15:13) Gastrointestinal Upset HPI Comments Details: Patient is a pleasant 84-year-old male who presents today to the office for Sprint dressing. Right L3 Sprint was placed on 08/29/24 and replaced on 09/26/24 due to dislodgment and Left L3 Sprint was placed on 09/26/[address] Murrieta. The patient reports >50% relief following the procedure on the right side but reports significant pain and tenderness on the left side. He reports partial improvement in his daily activities, functioning and sleep. Patient belives he does not receive adequate pain coverage from the device, especially on the left side. Patient is currently undergoing Cardiac rehab 3x/week. He lives alone but his neighbor/friends visits him regularly. The dressing was removed today. Lead insertion sites look clean, dry, intact on right and significantly pulled out on the left, no redness, no swelling, no pathological discharge. Areas were cleansed with Chlora prep. Lead pulled on the left with tip intact as his lead has been out by more than 3 inches and reports heavy pain with tenderness with increased stimulation. He reports positive paresthesia on the right at 49-50 stimulation. Pain is rated at 3/10. Both areas were cleansed again with Chlora prep and covered with gauze and Tegaderm film dressing. Will proceed with left L3 Sprint revision as next steps. Patient will continue dressing changes in the office. Denies any recent cough, cold, infection, fever or any other significant changes in medical history since last office visit. Past procedures: 09/26/24: Left L3 Sprint: 0% pain relief. Lead pulled 10/14/23 due to being out at least 3 in. 08/29/24: Right L3 Sprint: >50% pain relief, replaced on 09/26/24. 08/01/2024: Diagnostic Sacroiliac Joint Injection, Bilateral: >50% relief. 07/10/2024: Left knee intraarticular injection, US guided: 90% relief. 04/25/24: Sacroiliac Joint Injection, right: 80% relief. 05/31/23: Interlaminar epidural steroid injection, L4/5, Left parasagittal: 70% relief. [facility] Medical History History of CVA (cerebrovascular accident) (~2020) Hx of retinal detachment (~2013) Post-nasal drip Rosacea Sleep apnea Spinal stenosis Sacroiliitis Osteoarthritis Macular degeneration of right eye Joint pain Interstitial cystitis Hyperthyroidism Hypertension Hoarseness Graves disease Gout Globus sensation GERD (gastroesophageal reflux disease) Fracture Disorder of thyroid Detached retina, left CKD (chronic kidney disease) Cerebrovascular accident Cataract, bilateral BPH (benign prostatic hyperplasia) Atrial fibrillation Asthma Surgical History Hx of oral surgery (~2020) Hx of eye surgery Hx of colonoscopy (~2022) Hx of bilateral cataract extraction Hx of tonsillectomy Social History Are you a primary neonatal intensive care nurse to a significant other at home: No Do you presently have visiting nurse or other home services: No Patient Tobacco Use Status: Former Tobacco user Tobacco use type: Cigarette Review of Systems Const All systems reviewed & are unremarkable except as noted in HPI and below Physical Exam General: Appears afebrile. Alert and oriented. Mood and affect appropriate. Follows and participates in conversation appropriately. Respiratory effort is unlabored. Able to transition from sit to stand unassisted. Ambulates with bilaterally normal heel strike and toe off. Axial low back pain especially with ambulation and axial motion. Lead Insertion Site: Lead insertion site looks clean, dry, intact on the right, left lead appears to be out by at least 3 in. No pathological discharge, no swelling and no erythema. Lead site dressing were changed today in the clinic. Positive paresthesia at 50 on the right. Left lead pulled with tip intact. Results Reviewed Results Reviewed: 07/21/23: MR LUMBAR SPINE WITHOUT CONTRAST FINDINGS: There is transitional lumbosacral anatomy, likely with a partially sacralized L5 vertebral body and hypoplastic T12 ribs. For the purposes of this examination, the L4-L5 intervertebral disc space is visualized on axial series 6 image 19. The normal lumbar lordosis is preserved. Retrolisthesis of L2-L3 andL3-L4 with anterolisthesis of L4-L5. Lumbar vertebral body heights are maintained. Degenerative endplate changes with endplate edema at L3-L4. Perifacet edema at L3-L4 is also likely degenerative. The conus medullaris is normal in signal intensity and terminates at the level of T12. Mass effect on the cauda equina nerve roots as described below. L1-L2: No significant spinal canal or neural foraminal stenosis. L2-L3: Retrolisthesis and a disc bulge with osteophytic ridging. Mild facet arthropathy. The spinal canal is not significantly narrowed. There is mild to moderate left and mild right neural foraminal stenosis. L3-L4: Disc bulge and osteophytic ridging with a central disc protrusion. There is facet arthropathy with ligamentum flavum hypertrophy. Overall this contributes to severe spinal canal stenosis with mass effect on the cauda equina nerve roots and effacement of the lateral recesses. Severe left neural foraminal stenosis with exiting nerve root impingement. Moderate right neural foraminal stenosis. L4-L5: Anterolisthesis with uncovering of the intervertebral disc space. Severe facet arthropathy with ligamentum flavum redundancy. Narrowing of the lateral recesses. The spinal canal is otherwise patent. Mild narrowing of the left neural foramen with abutment of the exiting nerve root by advanced facet arthropathy. L5-S1: Facet arthropathy. The spinal canal and neural foramen are patent. Left renal cyst. T2 hyperintense focus in the right kidney is too small to fully characterize. Colonic diverticulosis is partially visualized. Sacral Tarlov cyst. 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 Numbering system for this examination as described above. If surgery is considered, total spine radiographs are recommended to ensure accurate spine labeling. Based on the above-mentioned numbering system there is severe spinal canal stenosis at L3-L4 with mass effect on the cauda equina nerve roots. Clinical correlation is recommended. There is severe left neural foraminal stenosis at L3-L4 with exiting nerve root compression. Assessment & Plan Assessment & Plan (1) Chronic bilateral low back pain: Code(s): M54.50 - Low back pain, unspecified; G89.29 - Other chronic pain Category: Medical (2) Dysfunction of the multifidus muscle of lumbar region: Code(s): M62.85 - Dysfunction of the multifidus muscles, lumbar region Category: Medical (3) Lumbar spondylosis: Code(s): M47.816 - Spondylosis without myelopathy or radiculopathy, lumbar region Category: Medical Plan Patient presented today for Sprint dressing changes today status post bilateral L3 medial branch nerve stimulator placements on 08/29/24 and 09/26/24. The right one was replaced on 09/26/24 when he underwent left L3 Sprint placement. His left lead was significantly out on the exam today. Dressing change was done in clinic today as noted above. Patient is interested to proceed with Left L3 Sprint replacement with local and fluoroscopy. Patient reports he prefers dressing changes in the office as he lives alone. He attends cardio rehab 3x/week and will come on weekly basis for dressing changes. All questions and concerns have been answered and the patient agreed with the plan. Follow up as needed. Coding Level of Care Code Est Pt Level 4 (90047) Complex EM visit Add On G2211 Diagnoses Chronic bilateral low back pain M54.50; G89.29 Dysfunction of the multifidus muscle of lumbar region M62.85 Lumbar spondylosis M47.816
[2024-10-14 15:12] VITALS: BP 141/68; PULSE 65; O2SAT 96; BMI 23.9
--- OUTSIDE RECORDS SUMMARY | 2024-10-14 16:55 | XMS_ITS | Data Portability ---
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 Nuclear study showed no hot/cold areas. 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 Had suppressed TSH values x years without any symptoms. Even tried him on methimazole (around 2005) which normalized his TSH but did not induce any noticeable changes for him (had no real sx before tx but no improvement after tx). Persistent low TSH raised concerns for risk of AFib over time and treated with BOYER in 2012. 2020: clinically doing well. No replacement tx. Other sx: Pins/needles in feet- may be from stenosis. 40 minute visit has f/u scheduled in 12/2020. 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 Nuclear study showed no hot/cold areas. 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 Had suppressed TSH values x years without any symptoms. Even tried him on methimazole (around 2005) which normalized his TSH but did not induce any noticeable changes for him (had no real sx before tx but no improvement after tx). Persistent low TSH raised concerns for risk of AFib over time and treated with BOYER in 2012. 2020: clinically doing well. No replacement tx. Had CVA in 08/2020. Right sided numbness. Some persistence. Other sx: Pins/needles in feet- may be from stenosis. Enhanced Provider time spent performing enhanced activities which may include, but are not limited to: reviewing tests, obtaining and/or reviewing patient history; ordering medications, test or procedures; EMR documentation; communication with patient, family, caregiver(s), VNA; pre-visit prep time communication with specialists, ER staff. 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 Nuclear study showed no hot/cold areas. Treated with BOYER (2012) for chronic sub-clinical hyperthyroidism. Tx chosen because of ongoing full suppression of TSH values (<0.1) x years despite having no symptoms. Even tried him on methimazole (around 2005) which normalized his TSH but did not induce any noticeable changes for him (had no real sx before tx but no improvement after tx). Persistent low TSH raised concerns for risk of AFib over time and treated with BOYER in 2012. 10/30: clinically doing well. No replacement tx. Had CVA in 08/2020. Right sided numbness. Some persistence. Other sx: Pins/needles in feet- may be from stenosis. 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 Nuclear study showed no hot/cold areas. Treated with BOYER (2012) for chronic sub-clinical hyperthyroidism. Tx chosen because of ongoing full suppression of TSH values (<0.1) x years despite having no symptoms. Even tried him on methimazole (around 2005) which normalized his TSH but did not induce any noticeable changes for him (had no real sx before tx but no improvement after tx). Persistent low TSH raised concerns for risk of AFib over time and treated with BOYER in 2012. 10/30: clinically doing well. No replacement tx. Had CVA in 08/2020. Right sided numbness. Some persistence. Other sx: Pins/needles in feet- may be from stenosis. 10/31: Stable. 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 Not on T4 and TSH has remained low (but not as suppressed as in past). Bones OK. labs q 6 months. 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 Nuclear study showed no hot/cold areas. Treated with BOYER (2012) for chronic sub-clinical hyperthyroidism. Tx chosen because of ongoing full suppression of TSH values (<0.1) x years despite having no symptoms. Even tried him on methimazole (around 2005) which normalized his TSH but did not induce any noticeable changes for him (had no real sx before tx but no improvement after tx). Persistent low TSH raised concerns for risk of AFib over time and treated with BOYER in 2012. 10/30: clinically doing well. No replacement tx. Had CVA in 08/2020. Right sided numbness. Some persistence. Other sx: Pins/needles in feet- may be from stenosis. 10/31: Stable. 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 Not on T4 and TSH has remained low (but not as suppressed as in past). Bones OK. labs q 6 months. 11/01: TSH in normal range for first time ever (except for trial on MMI). FT4 at [facility]- not on T4. Going for back surgery ([place]). BMD OK in past. Enhanced Provider time spent performing enhanced activities which may include, but are not limited to: reviewing tests, obtaining and/or reviewing patient history; ordering medications, test or procedures; EMR documentation; communication with patient, family, caregiver(s), VNA; pre-visit prep time communication with specialists, ER staff. Time spent: 32 (minutes) [email or web address] Not available 10/18/2023 19:51:31 Plan of Treatment Reminders Order Date Submit Date Provider Last Modified By Organization Details Last Modified Time Details Appointments Follow Up, 40 2024 02:40P M [place] Jackson MD Not available Not available Not available Lab TSH, serum or plasma 2019 020 [facility], [address] [place] [address], [id number], 12/11/2020 14:05:57 T4, free, serum 2019 020 [facility], [address] [place] [address], [id number], 12/11/2020 13:00:10 T4, free, serum 2020 021 [facility], [address] [place] [address], [id number], 03/23/2021 09:43:41 TSH, serum or plasma 2020 021 [facility], [address] [place] [address], [id number], 03/23/2021 10:20:15 TSH, serum or plasma 2023 024 [facility], [address] [place] [address], [id number], 04/25/2024 11:46:50 T4, free, serum 2023 024 [facility], [address] [place] [address], [id number], 04/25/2024 11:17:37 T4, free, serum 2023 024 [facility], [address] [place] [address], [id number], 08/06/2024 16:12:35 TSH, serum or plasma 2023 024 [facility], [address] [place] [address], [id number], 08/06/2024 16:25:18 vitamin D, 25-hydrox y, total, serum 2023 024 [facility], [address] [place], [address], 04/25/2024 11:38:47 renal function panel, serum 2023 024 [facility]EEPA[facility], [address] [place], [id number], 04/26/2024 11:16:50 Referral None recorded. Procedures None recorded. Surgeries None recorded. Imaging None recorded. Medication Orders None recorded. Patient TargetsNo targets recorded. Patient Instructions Encounter Date Encounter Id Patient Instructions Last Modified By Organization Details Last Modified Time 09/23/2020 [id number] - Labs as directed - Ultrasound in 2020 - Get labs done now and every three months. - Contact office if any symptoms of low thyroid (excess fatigue, unexplained weight gain, feeling much more cold than usual, constipation, very dry skin) or excess thyroid (heart racing, unexplained weight loss, feeling jittery/nervous/ anxious, change in frequency of moving bowels, tremors, or insomnia). [email or web address] Not available 09/23/2020 10:30:22 Has 20 minute visit in 12/2020 but really needs 40 minutes. [email or web address] Not available 09/23/2020 10:32:41 12/23/2020 [id number] - Labs as directed - Ultrasound in late 2020 - Get labs done now and every three months. - Contact office if any symptoms of low thyroid (excess fatigue, unexplained weight gain, feeling much more cold than usual, constipation, very dry skin) or excess thyroid (heart racing, unexplained weight loss, feeling jittery/nervous/ anxious, change in frequency of moving bowels, tremors, or insomnia). [email or web address] Not available 12/23/2020 23:33:33 fall 40 minutes. [email or web address] Not avai lable 12/23/2020 18:00:31 11/02/2021 [id number] - Labs as directed- every 6 months should be fine - Contact office if any symptoms of low thyroid (excess fatigue, unexplained weight gain, feeling much more cold than usual, constipation, very dry skin) or excess thyroid (heart racing, unexplained weight loss, feeling jittery/nervous/ anxious, change in frequency of moving bowels, tremors, or insomnia). [email or web address] Not available 11/02/2021 18:54:02 One year- 40 minutes. [email or web address] Not available 11/02/2021 18:54:14 10/18/2022 [id number] - Labs as directed- every 6 months should be fine - Contact office if any symptoms of low thyroid (excess fatigue, unexplained weight gain, feeling much more cold than usual, constipation, very dry skin) or excess thyroid (heart racing, unexplained weight loss, feeling jittery/nervous/ anxious, change in frequency of moving bowels, tremors, or insomnia). [email or web address] Not available 10/17/2022 16:42:37 One year- 40 minutes. [facility] signed- 10/31- [facility] [email or web address] Not available 10/18/2022 15:14:11 10/18/2023 [id number] - Labs as directed- every 6 months should be fine - Contact office if any symptoms of low thyroid (excess fatigue, unexplained weight gain, feeling much more cold than usual, constipation, very dry skin) or excess thyroid (heart racing, unexplained weight loss, feeling jittery/nervous/ anxious, change in frequency of moving bowels, tremors, or insomnia). [email or web address] Not available 10/18/2023 14:56:32 One year- 40 minutes. [facility] signed- 10/31- [facility] [email or web address] Not available 10/18/2023 14:56:57 Reason for Referral None Reported. Results Created Date Observation Date Name Description Value Unit Range Abnormal Flag Note LastModifiedBy Organization Detail LastModifiedTime 10/03/20 20 10/03/2020 noemi deal am EKG Not Available [address], [address], 12/13/2019 15:00:41 12/11/19 21 12/11/2020 T4, free, serum free T4 1.09 NG/dL 0.75-1 .54 Not Available [address], [address], 12/11/2020 13:00:10 12/11/19 21 12/11/2020 TSH, serum or plasm a TSH 0.28 uIU/m L 0.50-6 .00 low The [employer] [facility] [employer] and Ameri can Thyro id Assoc iatio n recom mend goal TSH value s betwe en 0.4-4 .0 mIU/m L. Not Available [address], [address], 12/11/2020 14:05:57 03/22/20 21 03/23/2021 T4, free, serum free T4 1.08 NG/dL 0.75-1 .54 Not Available [address], [address], 03/23/2021 09:43:40 03/22/2003/23/2021 TSH, serum or plasm a TSH 0.31 uIU/m L 0.50-6 .00 low The [employer] [facility] and Ameri can Thyro id Assoc iatio n recom mend goal TSH value s betwe en 0.4-4 .0 mIU/m L. Not Available [address], [address], 03/23/2021 10:20:14 10/26/19 22 10/26/2021 FREE T4 free T4 1.19 NG/dL 0.75-1 .54 Not Available [address], [address], 10/26/2021 16:16:58 10/26/19 22 10/26/2021 TSH TSH 0.30 uIU/m L 0.50-6 .00 low The [employer] [facility] and Ameri can Thyro id Assoc iatio n recom mend goal TSH value s betwe en 0.4-4 .0 mIU/m L. Not Available [address], [address], 10/26/2021 16:49:19 05/04/20 22 05/05/2022 FREE T4 free T4 1.09 NG/dL 0.75-1 .54 Not Available [address], [address], 05/05/2022 12:00:09 05/04/20 22 05/05/2022 TSH TSH 0.21 uIU/m L 0.50-6 .00 low The [employer] [facility] and Ameri can Thyro id Assoc iatio n recom mend goal TSH value s betwe en 0.4-4 .0 mIU/m L. Not Available [address], [address], 05/05/2022 12:35:40 08/17/20 22 08/17/2022 FREE T4 free T4 1.33 NG/dL 0.75-1 .54 Not Available [address], [address], 08/17/2022 15:49:23 08/17/20 22 08/17/2022 TSH TSH 0.37 uIU/m L 0.50-6 .00 low The [employer] [facility] and Ameri can Thyro id Assoc iatio n recom mend goal TSH value s betwe en 0.4-4 .0 mIU/m L. Not Available [address], [address], 08/17/2022 16:14:56 10/05/20 22 10/05/2022 FREE T4 free T4 1.15 NG/dL 0.75-1 .54 Not Available [address], [address], 10/05/2022 16:09:19 10/05/20 22 10/05/2022 TSH TSH 0.34 uIU/m L 0.50-6 .00 low The [employer] [facility] and Ameri can Thyro id Assoc iatio n recom mend goal TSH value s betwe en 0.4-4 .0 mIU/m L. Not Available [address], [address], 10/05/2022 16:28:15 05/05/2005/08/2023 FREE T4 free T4 1.15 NG/dL 0.75-1 .54 Not Available [address], [address], 05/08/2023 11:52:00 05/05/2005/08/2023 TSH TSH 0.16 uIU/m L 0.50-6 .00 low The [employer] [facility] and Ameri can Thyro id Assoc iatio n recom mend goal TSH value s betwe en 0.4-4 .0 mIU/m L. Not Available [address], [address], 05/08/2023 12:19:47 07/06/2007/06/2023 PSA PSA 1.07 NG/mL 0.00-4 .00 Not Available [address], [address], 07/06/2023 16:31:55 07/06/2007/07/2023 LIPID PANEL cholesterol 93 mg/dL <200 mg/dl [place] able 200-2 39 mg/dl Bor[place] rline High >240 mg/dl High Not Available [address], [address], 07/07/2023 10:58:12 07/06/2007/07/2023 LIPID PANEL triglyceride s 59 mg/dL <150 mg/dL Ronel l 150-1 99 mg/dL Borde rline High 200-4 99 mg/dL High >500 mg/dL Very High Not Available [address], [address], 07/07/2023 10:58:12 07/06/2007/07/2023 LIPID PANEL direct HDL 60 mg/dL <40 mg/dl - Major Risk for CHD >60 mg/dl - Negat miley Risk for CHD Not Available [address], [address], 07/07/2023 10:58:12 07/06/20 23 07/07/2023 DIREC T LDL direct LDL 28 mg/dL RISK CATEG ORY LDL GOAL _ CHD or CHD Risk Equiv alent s <100 mg/dl (10-y ear risk >20%) 2+ Risk Facto rs <130 mg/dl (10-y ear risk <= 20%) 0-1 Risk Facto r??? <160 mg/dl ??? Almos t all peopl e with 0-1 risk facto r have a 10 year risk <10%, thus 10 year risk asses ment in peopl e with 0-1 risk facto r is not ortiz fine. Not Available [address], [address], 07/07/2023 10:58:13 07/06/20 23 07/07/2023 FREE T4 free T4 1.11 NG/dL 0.75-1 .54 Not Available [address], [address], 07/07/2023 11:29:00 07/06/20 23 07/07/2023 TSH TSH 0.33 uIU/m L 0.50-6 .00 low The [employer] End[employer]inol o[employer] and Ameri can Thyro id Assoc iatio n recom mend goal TSH value s betwe en 0.4-4 .0 mIU/m L. Not Available [address], [address], 07/07/2023 12:07:10 10/11/19 24 10/12/2023 FREE T4 free T4 0.98 NG/dL 0.75-1 .54 Not Available [address], [address], 10/12/2023 11:28:13 10/11/19 24 10/12/2023 TSH TSH 0.83 uIU/m L 0.50-6 .00 The [employer] [facility] and Ameri can Thyro id Assoc iatio n recom mend goal TSH value s betwe en 0.4-4 .0 mIU/m L. Not Available [address], [address], 10/12/2023 11:57:32 12/18/19 24 12/18/2023 BASIC METAB OLIC PANEL sodium 141 mmol/ L 133-14 6 Not Available [facility] [address] [place], [address], 12/18/2023 19:11:53 12/18/19 24 12/18/2023 BASIC METAB OLIC PANEL chloride 102 mmol/ L 96-108 Not Available [facility]) [address] [place] [address], [address], 12/18/2023 19:11:53 12/18/19 24 12/18/2023 BASIC METAB OLIC PANEL potassium 4.5 mmol/ L 3.3-5. 1 Not Available [facility] [address] [place], [address], 12/18/2023 19:11:53 12/18/19 24 12/18/2023 BASIC METAB OLIC PANEL CO2 28 mmol/ L 21-35 Not Available [facility] [address] [place], [address], 12/18/2023 19:11:53 12/18/19 24 12/18/2023 BASIC METAB OLIC PANEL BUN 39 mg/dL 6-19 high Not Available [facility] [address] [place], [address], 12/18/2023 19:11:53 12/18/19 24 12/18/2023 BASIC METAB OLIC PANEL creatinine 2.10 mg/dL 0.5-1. 5 high Not Available [facility]) [address] [place] [address], [address], 12/18/2023 19:11:53 12/18/19 24 12/18/2023 BASIC METAB OLIC PANEL glucose 105 mg/dL 70-99 high Not Available [facility] [address] [place], [address], 12/18/2023 19:11:53 12/18/19 24 12/18/2023 BASIC METAB OLIC PANEL calcium 9.1 mg/dL 8.4-10 .3 Not Available [facility] [address] [place], [address], 12/18/2023 19:11:53 12/18/19 24 12/18/2023 BASIC METAB OLIC PANEL eGFR 31 mL/mi n/1.7 3m2 >59 low Estim ated glome rular filtr ation rate calcu lated using the CKD-E PI refit equat ion. Not Available [facility] [address] [place], [address], 12/18/2023 19:11:53 12/18/19 24 12/18/2023 BASIC METAB OLIC PANEL anion gap 16 mmol/ L 10-20 Not Available [facility] [address] [place], [address], 12/18/2023 19:11:53 12/18/19 24 12/18/2023 NT-MD OBNP nt-probnp 19034 pg/mL 0-450 high Not Available [facility] [address] [place], [address], 12/18/2023 19:11:55 12/25/19 24 12/25/2023 BASIC METAB OLIC PANEL sodium 139 mmol/ L 133-14 6 Not Available [facility] [address] [place], [address], 12/25/2023 19:25:00 12/25/19 24 12/25/2023 BASIC METAB OLIC PANEL chloride 99 mmol/ L 96-108 Not Available [facility] [address] [place], [address], 12/25/2023 19:25:00 12/25/19 24 12/25/2023 BASIC METAB OLIC PANEL potassium 4.0 mmol/ L 3.3-5. 1 Not Available [facility] [address] [place], [address], 12/25/2023 19:25:00 12/25/19 24 12/25/2023 BASIC METAB OLIC PANEL CO2 32 mmol/ L 21-35 Not Available [facility] [address] [place], [address], 12/25/2023 19:25:00 12/25/19 24 12/25/2023 BASIC METAB OLIC PANEL BUN 38 mg/dL 6-19 high Not Available [facility] [address] [place], [address], 12/25/2023 19:25:00 12/25/19 24 12/25/2023 BASIC METAB OLIC PANEL creatinine 2.10 mg/dL 0.5-1. 5 high Not Available [facility] [address] [place], [address], 12/25/2023 19:25:00 12/25/19 24 12/25/2023 BASIC METAB OLIC PANEL glucose 132 mg/dL 70-99 high Not Available [facility] [address] [place], [address], 12/25/2023 19:25:00 12/25/19 24 12/25/2023 BASIC METAB OLIC PANEL calcium 9.1 mg/dL 8.4-10 .3 Not Available [facility] [address] [place], [address], 12/25/2023 19:25:00 12/25/19 24 12/25/2023 BASIC METAB OLIC PANEL eGFR 31 mL/mi n/1.7 3m2 >59 low Estim ated glome rular filtr ation rate calcu lated using the CKD-E PI refit equat ion. Not Available [facility] [address] [place], [address], 12/25/2023 19:25:00 12/25/19 24 12/25/2023 BASIC METAB OLIC PANEL anion gap 12 mmol/ L 10-20 Not Available [facility] [address] [place], [address], 12/25/2023 19:25:00 12/25/19 24 12/25/2023 NT-MD OBNP nt-probnp 42625 pg/mL 0-450 high Not Available [facility] [address] [place], [address], 12/25/2023 19:25:02 04/24/20 24 04/25/2024 FREE T4 free T4 1.22 NG/dL 0.75-1 .54 Not Available [address], [address], 04/25/2024 11:17:37 04/24/20 24 04/25/2024 VITAM IN D 25-HY DROXY TOTAL vitamin D 25-hydroxy EIA 52.9 NG/mL 20.0-9 9.9 Thera py is based on measu remen t of total 25-OH D, with level s less than 20 ng/mL indic ative of Vitam in D defic iency . Level s betwe en 20ng/ mL and 30 ng/mL sugge st insuf ficie ncy. Optim al Level s are great er than 30 ng/mL . Not Available [address], [address], 04/25/2024 11:38:47 04/24/20 24 04/25/2024 TSH TSH 0.32 uIU/m L 0.50-6 .00 low The [employer] can [employer] ge [employer] End[employer] rinol o[employer] and Ameri can Thyro id Assoc iatio n recom mend goal TSH value s betwe en 0.4-4 .0 mIU/m L. Not Available [address], [address], 04/25/2024 11:46:50 04/24/20 24 04/26/2024 RENAL PANEL glucose 126 mg/dL 70-100 high Not Available [address], [address], 04/26/2024 11:16:50 04/24/20 24 04/26/2024 RENAL PANEL BUN 56 mg/dL 7-18 high Not Available [address], [address], 04/26/2024 11:16:50 04/24/20 24 04/26/2024 RENAL PANEL creatinine 2.6 mg/dL 0.8-1. 3 high Not Available [address], [address], 04/26/2024 11:16:50 04/24/20 24 04/26/2024 RENAL PANEL B/C 21.5 ratio Not Available [address], [address], 04/26/2024 11:16:50 04/24/20 24 04/26/2024 RENAL PANEL GFR 23.7 mL/mi n abnormal >=60m L/min - Ronel l or midly reduc ed <60mL /min- Decre ased kidne y funct ion <15mL /min - Kidne y failu re [facility] calcu lates estim ated Glome rular Filtr ation Rate (eGFR ) using the Chron ic Kidne y Disea se Epide miolo gy Colla borat ion (CKD- EPI) Equat ion (Emery maier et. al 2020) as recom mir d by the Natio nal Kidne y Found ation . eGFR is based on age, serum creat inine , and sex. CKD-E PI does not calcu late eGFR by race, does not apply to child johan (age <18 years ), and shoul d not be used in pregn andre. Not Available [address], [address], 04/26/2024 11:16:50 04/24/20 24 04/26/2024 RENAL PANEL sodium 142 mmol/ L 136-14 5 Not Available [address], [address], 04/26/2024 11:16:50 04/24/20 24 04/26/2024 RENAL PANEL potassium 4.8 mmol/ L 3.5-5. 1 Not Available [address], [address], 04/26/2024 11:16:50 04/24/20 24 04/26/2024 RENAL PANEL chloride 104 mmol/ L 96-107 Not Available [address], [address], 04/26/2024 11:16:50 04/24/20 24 04/26/2024 RENAL PANEL anion gap 6.2 5.0-15 .0 Not Available [address], [address], 04/26/2024 11:16:50 04/24/20 24 04/26/2024 RENAL PANEL CO2 32 mmol/ L 21-32 Not Available [address], [address], 04/26/2024 11:16:50 04/24/20 24 04/26/2024 RENAL PANEL calcium 8.9 mg/dL 8.5-10 .3 Not Available [address], [address], 04/26/2024 11:16:50 04/24/20 24 04/26/2024 RENAL PANEL albumin 3.7 g/dL 3.4-5. 0 Not Available [address], [address], 04/26/2024 11:16:50 04/24/20 24 04/26/2024 RENAL PANEL phosphorous 4.00 mg/dL 2.50-4 .90 Not Available [address], [address], 04/26/2024 11:16:50 08/06/20 24 08/06/2024 FREE T4 free T4 1.33 NG/dL 0.75-1 .54 Not Available [address], [address], 08/06/2024 16:12:35 08/06/20 24 08/06/2024 TSH TSH 0.32 uIU/m L 0.50-6 .00 low CWP=C onsis tent with previ ous. The Amer[employer] can [employer] ge of Endoc rinol ogy and Ameri can Thyro id Assoc iatio n recom mend goal TSH value s betwe en 0.4-4 .0 mIU/m L. Not Available [address], [address], 08/06/2024 16:25:18 07/06/20 23 07/06/2023 US, retro perit oneum CLINIC AL HISTOR Y: Congen ital single renal TECHNI QUE: 2D sonogr aphy of the kidney s and bladde r. COMPAR KEEGAN: None. FINDIN GS: Right kidney 5.4 x 10.1 cm The right kidney is normal in echote xture. There are no solid masses , stones , or hydron ephros is. There is a 0.7 x 0.6 x 0.8 cm simple lower pole cyst. There may be additi onal smalle r cysts. Left kidney 5.9 x 10.6 cm The left kidney is normal in echote xture. There are no solid masses , stones , or hydron ephros is. There is a 1.9 x 1.6 x 2.3 cm simple lower pole cyst. There may be additi onal smalle r cysts. Ureter al jets are visual ized bilate rally. The bladde r wall appear s slight ly trabec ulated . The prevoi d bladde r volume is only 190 mL. The post void bladde r volume is 41 mL. The prosta te gland is 5.1 x 4.0 x 4.3 cm. Measur ement accura cy is severe ly limite d by shadow ing. IMPRES DESHAWN: 1. Bilate ral simple . Renal cysts with the larges t on the right measur ing 8 mm and the larges t on left measur ing 2.3 cm. 2. Promin ent prosta te gland. 3. 41 mL postvo id residu al. Possib le bladde r wall trabec ulatio n though this may be due to under disten tion. No focal bladde r abnorm ality. Readin g Physic racheal: Bettina Gutierrez ms [facility] (Imaging) [address], [place], [address], 07/07/2023 07:55:53 11/09/19 24 10/31/2023 bone densi ty No observ ation record ed. [facility]) [address], [place], [address], 11/22/2023 15:29:35 Result Notes None recorded. 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 Not Available [facility] 3 03:12:45 Essential hypertensi on 56452772 Active 2006 Modesto Jackson MD [address] [place] [address], [phone] , [facility] 4 14:24:22 Hyperthyro idism 81448389 Active 2004 Aleta mcnally, [facility] 3 15:11:37 Anemia 586355214 Active 2006 Modesto Jackson MD [address] [place] [address], [address] , [facility] 4 14:24:20 Thyroid function tests abnormal 182930551 Active 2005 Modesto Jackson MD [address] [place] [address], [phone] , [facility] 4 14:25:04 Non-toxic multinodul ar goiter 73169830 Active 2005 Modesto Jackson MD [address] [place] [address], [id number] , [facility] 4 14:25:04 Benign essential hypertensi on 8492809 Active 2007 Modesto Jackson MD [address] [place] [address], [phone] , [facility] 3 14:45:30 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 Modesto Jackson MD [address] [place] [address], [phone] , [facility] 3 17:44:27 Goiter 5406217 Active 2007 Modesto Jackson MD [address] [place] [address], [address] , [facility] 3 14:45:48 Hypothyroi dism 76790450 Active 2006 Not Available [facility] 3 03:12:45 Acute pharyngiti s 079393066 Completed 200508/28/2013 Not Available [facility] 3 02:01:17 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 Procedures Surgical History Date Name Laterality Status Provider Name and Address Organization Details Recorded Time 6 Aide - Colonoscopy completed Tyree Noble MD [address] [place], [address], [facility] 06/20/2016 08:49:47 3 I-131 completed Modesto Jackson MD [address] [place] [address], [phone], [facility] 07/31/2013 11:51:52 Imaging Results Imaging Date Name Status LastModified by Organization Details LastModified Time 07/06/2023 US, [facility] [address], [place], [address], 07/07/2023 07:55:53 10/31/2023 bone density completed [facility]) [address], [place], [address], 11/22/2023 15:29:35 Procedure Notes None recorded. Medical Equipment None Reported. Allergies Allergen ID Allergen Name Allergen Category Reaction Reaction Severity Criticality Documentation Date Start Date Code Code System Note Provider Name and Address Organization Details Recorded Time 712428 epinephri ne medicatio n Not available Not available Not available 05/04/2012 3992 RxNorm sever e heada stan, nause a, weakn ess and disor ienta tion [facility] 2 14:23:31 69158 Cipro medicatio n other severe Not available 12/29/201045900 3 RxNorm Edema in legs and achy joint Not Available [facility] 1 06:05:41 [address]7350 Zithromax medicatio n Not available Not available Not available 08/26/2011 4 RxNorm unsur e of react ion GEO [facility] 1 14:57:00 Medications Name Sig Start Date Stop Date Status Note LastModified by Organization Details LastModified Time losartan 50 mg tablet Take 1 tablet every day by oral route. active PT states taking 100mg. daily 10/18/22 Not Available Not Available Not Available atorvasta tin 40 mg tablet Take 1 tablet every day by oral route. active Not Available Not Available No t Available doxycycli ne hyclate 100 mg capsule Take 1 capsule every day by oral route. 06/08 completed PRN Not Available Not Available Not Available Lipitor 80 mg tablet Take 1 tablet every day by oral route. 12/23 completed Not Available Not Available Not Available DHEA 25 mg tablet Take by oral route. 12/12 completed Not Available Not Available Not Available Diovan 80 mg tablet 2007 active Takes one pill aday Not Available Not Available Not Available aspirin 81 mg tablet,de layed release Take 1 tablet every day by oral route. active Not Available Not Available No t Available amoxicill in 875 mg tablet Take 1 tablet every 12 hours by oral route. active Not Available Not Available No t Available tamsulosi n 0.4 mg capsule Take 1 capsule every day by oral route. active Not Available Not Available No t Available gabapenti n 300 mg capsule Take 1 capsule every day by oral route. active Not Available Not Available No t Available gabapenti n 100 mg capsule Take 1 capsule every day by oral route. 06/08 completed Not Available Not Available Not Available losartan 100 mg tablet Take 1 tablet every day by oral route. 09/23 completed Not Available Not Available Not Available Diovan 160 mg tablet Take 1 tablet every day by oral route. 2011 active will be stopping this medicati on and starting Lorsarta n starting 10/01/15 . Not Available Not Available Not Available atenolol 50 mg tablet Take 0.5 tablets every day by oral route. 06/08 completed pt takes this only as needed - takes 25 mg (1/2 tablet) Not Available Not Available Not Available Diovan 40 mg tablet 04/27 completed taking 160mg once daily Not Available Not Available Not Available metoprolo l tartrate 25 mg tablet Take 1 tablet twice a day by oral route. active Not Available Not Available No t Available Metrogel active prn for rosacea Not Available Not Available Not Available gabapenti n active 60 mg take 1 tab aday Not Available Not Available Not Available lutein OTC daily for eyes 11/18 completed PRN Not Available Not Available Not Available hydrochlo rothiazid e 12.5 mg tablet 12/18 completed Take 0.5 tabs every day (past 3 mos) Not Available Not Available Not Available Eliquis 2.5 mg tablet Take 1 tablet every day by oral route. active 1 tab daily Not Available Not Available Not Available Vitals Date Recorded Body weight Heart rate Systolic blood pressure Diastolic blood pressure Provider Name and Address Organization Details Last Updated DateTime 11/02/2021 15671.93 g 76 /min 126 mm[Hg] 78 mm[Hg] Lluvia Syed RN [facility] 11/02/2021 16:28:27 Date Recorded Body weight Body mass index (BMI) Body height Heart rate Systolic blood pressure Diastolic blood pressure Provider Name and Address Organization Details Last Updated DateTime 3 42575.5 9 g 27.3 kg/m2 165.35 cm 64 /min 137 mm[Hg] 77 mm[Hg] Janeth Marquez LPN [facility] 3 14:28:16 Date Recorded Body height Body mass index (BMI) Body weight Heart rate Systolic blood pressure Diastolic blood pressure Provider Name and Address Organization Details Last Updated DateTime 4 166.37 cm 26.9 kg/m2 28215.1 5 g 51 /min 134 mm[Hg] 70 mm[Hg] Janeth Marquez LPN [facility] 4 14:18:03 Date Recorded Systolic blood pressure Diastolic blood pressure Provider Name and Address Organization Details Last Updated DateTime 07/03/2023 116 mm[Hg] 65 mm[Hg] Nataliya Reyez [facility] 07/03/2023 09:28:48 Social History Question Answer Notes LastModified by Organizat ion Details LastModified Time Tobacco Smoking Status Former Smoker Quit at age 37 Not Available [facility] 03/03/2011 02:08:59 What Is Your Level Of Alcohol Consumption? None Information not available 11/18/2016 Which Illicit Or Recreational Drugs Have You Used? None Information not available 11/18/2016 CCM Consent Discussion 10/18/2022 [email or web address] Information not available 10/18/2022 What Was The Date Of Your Most Recent Tobacco Screening? 12/14/2018 Information not available 05/01/2019 Do You Use Any Illicit Or Recreational Drugs? No Information not available 11/02/2021 Do You Or Have You Ever Used Any Other Forms Of Tobacco Or Nicotine? No Information not available 11/02/2021 Sex: Unknown Functional Status None recorded. Mental Status None recorded. Family History Relationship Description Onset Age of this Age Resolved Age Notes LastModified by Organization Details LastModified Time Mother Disorder of thyroid gland 96 [email or web address] n Not available 09/30/2015 15:54:41 Notes:mom 96 severe dem entia hx strokes thyroid disease (not certain type) PGF diabetes, Dad age 82 of systemic infection and heart disease, asthma, HTN, Twin 1/2 sisters healthy but skin cancer, one w/PAD 08/19- no changes. both 1/2 sisters have COPD. 02/17- no changes- half-sisters getting worse (80 yo). 05/21- one sister has COPD and one has CHF 11/22- no changes 05/2014- Sister with COPD in [place] about the same. Sister with CHF (9 years older than patient) (kidney failure). 09/22- Twin siters- one with COPD. Other one of heart failure. 05/24 - lost a sister to COPD recently. 2017- Daughter has back problems- Lyme and EBV. 4 grands (2 in college- 1 in masters). One at [employer]. 2018- Daughter taking vitamin D 50K/week. Son re-. 12/26- Kids and 4 Grands all OK. One graduating from [employer] (dancer - physical trainnig). Youngest at [place] [employer]. Grandson from [employer] in [place] (hickey). 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 12/27: Family OK. Daughter ([employer] govt org/ construction project assistant in [employer]) Son works hard- and bobbin handler at night. 10/30: Daughter had c-spine surgery, next is lumbar. Son getting c-spine surgery too. 2 (?) cyst on thyroid. [place]. 10/31: Daughter and Son doing OK (backs OK). Son- new sales in [employer] business. Medical History Condition Response Thyroid Disease Y Cerebral Vascular Accident Y Immunizations Vaccine Type Date Status Note Provider Eliezer sandoval and Address Organization Details Recorded Time Influenza, split virus, quadrivalent, preservative 0 completed Angela Snow LPN [facility], [facility] 09/23/2020 09:42:56 COVID-19, mRNA, LNP-S, PF, 100 mcg/0.5mL dose or 50 mcg/0.25mL dose completed Lluvia Syed RN null, [facility] 11/02/2021 16:24:37 COVID-19, mRNA, LNP-S, PF, 100 mcg/0.5mL dose or 50 mcg/0.25mL dose completed Lluvia Syed RN null, [facility] 11/02/2021 16:24:45 COVID-19, mRNA, LNP-S, PF, 100 mcg/0.5mL dose or 50 mcg/0.25mL dose completed Lluvia Syed RN null, [facility] 11/02/2021 16:24:52 Past Encounters Encounter ID Performer Location Encounter Start Date Encounter Closed Date Diagnosis/Indication Diagnosis SNOMED-CT Code Diagnosis ICD10 Code Diagnosis Note [id number] Endocrino logy, [address] [place] [id number] 06/29/2005 14:26:48 06/30/2005 09:41:24 [id number] LAB - [address] [place] [id number] 07/05/2005 09:53:27 07/05/2005 09:53:52 [id number] LAB - [address] [place] [id number] 09/07/2005 11:12:18 09/07/2005 11:12:45 [id number] LAB - [address] [place] [id number] 11/10/2005 13:56:01 11/10/2005 13:56:26 [id number] Endocrino logy, [address] [place] [id number] 01/11/2006 16:17:23 01/12/2006 08:43:42 [id number] Radiology , [address] [place] [id number] 01/17/2006 14:23:30 01/18/2006 07:03:29 [id number] Radiology , [address] [id number] 01/17/2006 00:00:00 10/29/2008 02:02:29 [id number] Radiology , [facility] [address] [place] [address] 02/24/2006 08:56:06 02/24/2006 12:47:34 [id number] Radiology , [facility] [place] [address] 02/24/2006 00:00:00 10/29/2008 02:02:29 [id number] [facility] - [facility] [place] [address] 03/01/2006 11:53:57 03/01/2006 11:54:04 [id number] Endocrino logy, [facility] [place] [address] [id number] LAB - [facility] [place] [id number] 04/19/2006 13:21:42 04/19/2006 13:22:01 [id number] [facility] [place] [address] 06/29/2006 09:44:35 06/29/2006 09:44:42 [id number] Endocrino logy, [facility] [place] [id number] 08/09/2006 13:00:54 08/09/2006 14:59:14 [id number] [facility] [place] [id number] 09/04/2006 15:49:21 09/04/2006 15:49:32 [id number] [facility] [place] [id number] 11/13/2006 14:47:16 11/13/2006 14:47:27 [id number] [facility] [place] [id number] 01/11/2007 13:14:55 01/11/2007 13:15:03 [id number] Endocrino logy, [facility] [place] [id number] 01/18/2007 14:43:18 01/19/2007 07:31:16 [id number] Radiology , [facility] [place] [id number] 01/18/2007 13:34:02 01/19/2007 09:03:06 [id number] Radiology , [facility] [place] [id number] 01/18/2007 00:00:00 10/29/2008 02:02:29 [id number] [facility] [place] [address] 02/16/2007 07:59:08 02/16/2007 07:59:16 [id number] [facility] [place] Best02[address] 1 04/13/2007 11:49:18 04/13/2007 11:49:28 [id number] Endocrino logy, [facility] [place] [id number] 05/09/2007 13:15:09 05/09/2007 16:02:24 [id number] [facility] [place] Best02-275 1 07/10/2007 15:10:29 07/10/2007 15:10:43 [id number] [facility] [place] Best02-275 1 10/08/2007 10:19:41 10/08/2007 10:19:46 [id number] [facility] [place] [id number] 12/20/2007 12:01:28 12/20/2007 12:01:37 [id number] Endocrino logy, [facility] [place] [id number] 12/27/2007 14:23:52 10/29/2008 02:02:29 [id number] [facility] [place] [id number] 1 03/14/2008 14:30:20 03/14/2008 14:30:31 [id number] [facility] [place] [id number] 1 04/22/2008 10:19:01 04/22/2008 10:19:08 [id number] Endocrino logefren, [facility] [place] Best02-[address] 1 05/01/2008 14:50:26 10/29/2008 02:02:29 [id number] [facility] [place] [id number] 06/02/2008 13:27:13 06/02/2008 13:28:05 [id number] Endocrino logefren, [facility] [place] [id number] 06/11/2008 14:22:57 10/29/2008 02:02:29 [id number] Radiology , [facility] [place] [address] 06/11/2008 13:30:57 06/11/2008 14:22:58 [id number] Radiology , [facility] [place] [address] 06/11/2008 00:00:00 10/29/2008 02:02:29 [id number] LAB - [facility] [place] [id number] 08/15/2008 12:00:01 08/15/2008 12:00:10 [id number] Endocrino logy, [facility] [place] [id number] 1 09/25/2008 13:31:57 10/29/2008 02:02:29 [id number] Endocrino logy, [facility] [place] [address] 1 06/18/2009 14:25:55 06/25/2009 11:00:47 [id number] LAB - [facility] [place] [address] 11/18/2008 13:03:16 11/18/2008 13:03:43 [id number] LAB - [facility] [place] [id number] 1 02/27/2009 15:15:06 02/27/2009 15:15:16 [id number] LAB - [facility] [place] [id number] 06/03/2009 11:46:48 06/03/2009 11:47:03 [id number] Endocrino logy, [facility] [place] [id number] 12/23/2009 17:09:08 12/24/2009 09:20:44 [id number] Radiology , [facility] [place] [id number] 06/03/2010 10:35:48 06/03/2010 15:52:56 [id number] Endocrino logy, [facility] [place] [id number] 1 06/03/2010 11:30:51 06/10/2010 09:09:30 [id number] Endocrino logy, [facility] [place] [id number] 12/29/2010 12:55:58 12/31/2010 15:41:10 [id number] Endocrino logy, [facility] [place] [id number] 1 08/26/2011 14:41:53 08/26/2011 16:07:46 [id number] Radiology , [facility] [place] An[place]mo [place] [id number] 1 02/29/2012 15:15:19 03/01/2012 15:17:37 [id number] Endocrino logy, [address] [place] [id number] 02/29/2012 16:11:10 02/29/2012 17:16:31 [id number] Radiology , [address] [place] [id number] 04/26/2012 12:33:38 04/27/2012 09:17:06 [id number] Endocrino logy, [address] [place] [id number] 05/04/2012 14:13:23 05/04/2012 15:12:13 [id number] Lupis Zaragoza Endocrino logy, [address] [place] [id number] 09/07/2012 14:01:08 09/13/2012 08:57:49 [id number] Ronald Goodson MD Radiology , [address] [id number] 11/13/2012 10:13:28 11/14/2012 12:22:34 [id number] Endocr[place] logy, [address] [place] [id number] 06/07/2013 14:59:32 06/07/2013 16:44:40 Toxic diffuse goiter 758201388 Suppressed TSH with normal T4 over past years with increasing m/s sx and some other subtle changes (see aboe). Has multiple nodules but did not have any hot nodules show up on previous nuclear scan. Had uptake of 20% in 2006 with homogeneou s distributi on. Has had asymptomat ic hyperthyro idism with persistent TSH < 0.01. free T4 consistent ly at upper end of normal. Patient was on tapazole for about a year (went off in 2006) with improvemen t in lab values (normalize d TSH) but no change in symptoms. BMD was done in 05/16 and showed no evidence of osteopenia - not sure that improvemen t in 2007 was due to anti-thyro id meds in 2006. Thyroid fu nction tests abnormal 322816542 Subclinica l hyperthyro idism x many years without any overt manifestat ions of thyrotoxic osis. TSH now consistent ly under 0.01- has been since 2008. Discussed options as before - could consider surgery which would address low TSH and also guarantee that none of nodules harbor underlying malignancy but is balanced by risks of surgery (he does not want to do surgery if at all possible). Other option would be BOYER tx which would make him hypothyroi d and likely reduce risk for a.fib (while his resting pulse is 60, not sure if this really predicts less risk for a.fib over time). Could monitor with no tx but his TSH has been suppressed since 2008 and I showed him graph indicating close to 30% risk for a.fib in subclinica l hyperthyro id patients with TSH values under 0.1. In addition, he had no change in how he felt when placed on tapazole for over a year sufficient ly long time to normalize his TFT's. Had BMD 05/18. would be worth trying to get f/u. If he had loss iin BMD, that might push towards tx option. BMD from 11/21 has positive tscore for spine. hip is osteopenia (-1.5) Non-toxic multinodular goiter 52757806 three nodules- benign follicular cells with colloid. Benign ess ential hypertension [id number] currently treated with atenolol, diovan, hctz. perhaps atenolol is slowing HR and masking sx that would otherwise be present from excess thyroid. [id number] Endocrino logy, [address] [id number] 07/17/2013 15:12:16 07/17/2013 16:48:03 Subclinical hyperthyroidism 498184739 Persistent suppressed TSH in setting of normal T4 with no clear sx. However, he is now over 71 and risk for a.fib is only going to increase. Not sure that belindainica l hyperthyro id explains his m/s sx but feel that there is enough rationale for preventing a.fib., that he should undergo BOYER tx. Plan for 8 mCi tx at [facility]. Need to arrange- best day is Tuesdays. [id number] Endocrino logy, [address] [address] 07/31/2013 11:49:12 08/01/2013 09:15:56 Subclinical hyperthyroidism 085211580 Met patient at [facility] for BOYER. labs in 2 months and follow q 2 months to determine impact. Persistent suppressed TSH in setting of normal T4 with no clear sx. However, he is now over 71 and risk for a.fib is only going to increase. Not sure that igor weston hyperthyro id explains his m/s sx but feel that there is enough rationale for preventing a.fib., that he should undergo BOYER tx. Plan for 8 mCi tx at [facility]. Need to arrange- best day is Tuesdays. [id number] Endocrino logy, [address] [address] 11/28/2013 14:59:29 11/28/2013 16:21:35 Subclinical hyperthyroidism 587105647 S/P BOYER (8 mCi) in 07/2013. TSH starting to rise slightly but still low (0.05). FT4 is lower than before but still in normal range. Follow labs q 2 months to see if changes further. Non-toxic multinodular goiter 96658443 Bx in past- three nodules- benign follicular cells with colloid. [id number] Endocrino logy, [address] [id number] 05/28/2014 15:29:54 05/28/2014 16:32:53 Subclinical hyperthyroidism 441302419 S/P BOYER (8 mCi) in 07/2013. TSH starting to rise slightly - is now measureabl e at 0.1 and holding over past few months. FT4 is not low but slightly less than in past. Follow labs q 2 months to see if changes further. Goal is to get TSH above 0.5. If becomes elevated, will start on replacemen t hormone therapy. Non-toxic multinodular goiter 18336257 Bx in past- three nodules- benign follicular cells with colloid. [id number] Endocrino logy, [address] [id number] 11/27/2014 13:44:26 11/27/2014 14:40:55 Subclinical hyperthyroidism 138489162 Now S/P BOYER (8 mCi) in 07/2013. TSH starting to rise very slightly - is now up to 0.3 having been unmeasurab le in past. FT4 is not low but slightly less than in past. Follow labs q 2 months to see if changes further. Goal is to get TSH above 0.5. If becomes elevated, will start on replacemen t hormone therapy. Non-toxic multinodular goiter 00530539 Bx in past- three nodules- benign follicular cells with colloid. [id number] Modesto Jackson MD Endocrino logy, [address] [id number] 09/30/2015 15:27:53 09/30/2015 16:18:36 Subclinical hyperthyroidism 230967600 E05.90 Now S/P BOYER (8 mCi) in 07/2013. TSH starting to rise very slightly - is now up to 0.32 from 0.28 - was unmeasurab le in past. FT4 is not low but slightly less than in past. Follow labs q 2 months to see if changes further. Goal is to get TSH above 0.5. If becomes elevated, will start on replacemen t hormone therapy. Non-toxic multinodular goiter 15134448 E04.2 Bx in past- three nodules- benign follicular cells with colloid. [id number] Modesto Jackson MD Endocrino logy, [address] [id number] 06/08/2016 11:28:51 06/08/2016 12:28:28 Subclinical hyperthyroidism 256866335 E05.90 Now S/P BOYER (8 mCi) in 07/2013. TSH has been slowly rising slightly - now up over 0.1 (0.25 03/24- had been 0.32 from 0.28 - was previously unmeasurab le in past). Level above 0.1 suggests lower risk for atrial fibrillati on. FT4 is 1.4- normal. So no overt thyrotoxic osis or hypothyroi dism (s/p BOYER). Follow labs to see if changes further. Goal is to keep TSH above 0.1. If becomes elevated, will start on replacemen t hormone therapy. Non-toxic multinodular goiter 31653439 E04.2 Bx in past- three nodules- benign follicular cells with colloid. Last u/s in 2011. Suggest repeat this next visit. [id number] Tyree Noble MD [facility], [address] [address] 06/20/2016 07:47:13 06/20/2016 12:45:48 [id number] Modesto Jackson MD Endocrino logy, [address] [id number] 11/18/2016 14:56:09 11/18/2016 16:07:34 Subclinical hyperthyroidism 116949870 E05.90 S/P BOYER (8 mCi) in 07/2013. TSH has been slowly rising but only minimally- now up over 0.1 (0.25 11/25 and also 03/24)- had been 0.32 from 0.28 - was previously unmeasurab le in past). Level above 0.1 suggests lower risk for atrial fibrillati on. FT4 has been normal.No overt thyrotoxic osis or hypothyroi dism (s/p BOYER). Follow labs to see if changes further. Goal is to keep TSH above 0.1. If becomes elevated, will start on replacemen t hormone therapy. Non-toxic multinodular goiter 50157511 E04.2 Preliminar y (2016) shows slight decrease in largest on right and left. Previously had 2 on right and 3 on left but not easily identifiab le. Will need to review final repot. Bx in past- three nodules- benign follicular cells with colloid. Last u/s in 2011. [id number] Modesto Jackson MD Endocrino logy, [address] [address] 12/14/2017 15:06:57 12/18/2017 07:29:17 Non-toxic multinodular goiter 19627823 E04.2 U/S:Prelim inary today: no change.Connor dy in 2017 showed:Rig ht= 1.7 x 1.8 x 1.4 cm.Left= 2.5 x 2.0 x 1.4 cm Will need to review final repot. U/S next year- if remains unchanged, can push out u/s every 2 years. Bx in past- three nodules- benign follicular cells with colloid. Last u/s in 2011. Subclinica l hyperthyroidism [id number] E05.90 S/P BOYER (8 mCi) in 07/2013. TSH has been holding after rising from undetectab le to about 0.25. Consistent ly now up over 0.1Level above 0.1 suggests lower risk for atrial fibrillati on. FT4 has been normal.Nev er had overt thyrotoxic osis nor has he had overt hypothyroi dism (s/p BOYER). Follow labs to see if changes further. Goal is to keep TSH above 0.1. If becomes elevated, will start on replacemen t hormone therapy. [id number] Modesto Jackson MD Endocrino logy, [address] [phone] 12/14/2018 14:18:18 12/14/2018 15:30:47 Non-toxic multinodular goiter [id number] E04.2 U/S:Prelim inary today: no change.rig ht mid-lower: 1.7 x 1.8 x 1.4 cm. ; was 1.7 x 1.8 x 1.4 cm (2017)left mid-lower: 2.5 x 2.1 x 1.1 cm; was 2.5 x 2.0 x 1.4 cm (2016) Will need to review final repot. U/S in 2020 (since size has remained unchanged and benign biopsy). Bx in past- three nodules- benign follicular cells with colloid. Last u/s in 2011. Subclinica l hyperthyroidism [id number] E05.90 S/P BOYER (8 mCi) in 07/2013. TSH has increased minimally but now at 0.46 ( least lowest ) - Consistent ly has been over 0.1 had typically been undetectab le up to about 0.25. Level above 0.1 suggests lower risk for atrial fibrillati on. FT4 has been normal.Nev er had overt thyrotoxic osis nor has he had overt hypothyroi dism (s/p BOYER). Follow labs to see if changes further. Goal is to keep TSH above 0.1. If becomes elevated, will start on replacemen t hormone therapy.La b orders for every 6 months but if feels well, can wait and do in a year. Heart rate mildly irregular today. Check EKG.EKG: NSR with PACs. [id number] Modesto Jackson MD Endocrino logy, [address] [phone] 12/13/2019 14:10:48 12/13/2019 15:28:22 Subclinical hyperthyroidism [id number] E05.90 S/P BOYER (8 mCi) in 07/2013. Not on any replacemen t at this time. TSH has increased minimally with slightly surprising decrease to 0.22 (11/28) from 0.46 (11/27) - Consistent ly has been over 0.1 had typically been undetectab le up to about 0.25. Level above 0.1 suggests lower risk for atrial fibrillati on (vs. being <0.1) FT4 has been normal throughout .Never had overt thyrotoxic osis nor has he had overt hypothyroi dism (s/p BOYER). Follow labs to see if changes further. Goal is to keep TSH above 0.1. If becomes elevated, will start on replacemen t hormone therapy.La b orders for every 6 months but if feels well, can wait and do in a year. Non-toxic multinodular goiter [id number] E04.2 Barely palpable nodule on right lower- right lobe greater than left. About 20 grams total.Bx in past- three nodules- benign follicular cells with colloid. More palpable on right but previous u/s showed largest nodule on left. Although RAIU never had elevated uptake, it seems likely that one of these nodules was source of (relative) excess T4 sufficient to suppress TSH without producing clinical thyrotoxic osis. However, no hot nodule was seen on previous scan. U/S:Prelim inary today: no change.u/s Right mid-lower 1.7x1.9x1. 5 (2019); 1.7 x 1.8 x 1.4 cm.; was 1.7 x 1.8 x 1.4 cm (2016)Left mid-lower= 2.5x2.1x1. 4 (2019) : 2.5 x 2.1 x 1.1 cm; was 2.5 x 2.0 x 1.4 cm (2017) PLAN: U/S in 2020 (since size has remained unchanged and benign biopsy). Osteopenia [id number] M85 .80 2012 BMD T-scores:L eft femoral neck= -1.5;FRAX= 10.3 for osteoporot ic fx and 3.8% for hip fx. Suggest update 2019.Not a lot of dairy in diet. Takes 1000 calcium. Takes vitamin D also.Fathe r had broken hip. 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 About 20 grams total. Bx in past- three nodules- benign follicular cells with colloid. More palpable on right but previous u/s showed largest nodule on left. Although RAIU never had elevated uptake, it seems likely that one of these nodules was source of (relative) excess T4 sufficient to suppress TSH without producing clinical thyrotoxic osis. However, no hot nodule was seen on previous scan. U/S: Preliminar y today: no change. u/s Right mid-lower 1.7x1.9x1. 5 (2018); 1.7 x 1.8 x 1.4 cm.; was 1.7 x 1.8 x 1.4 cm (2016) Left mid-lower= 2.5x2.1x1. 4 (2018) : 2.5 x 2.1 x 1.1 cm; was 2.5 x 2.0 x 1.4 cm (2016) PLAN: U/S in 2020 (since size has remained unchanged and benign biopsy). Subclinica l hyperthyroidism [id number] E05.90 TSH = 0.22 (2.20); was 0.46 (2/); S/P BOYER (8 mCi) in 07/2013. Not on any replacemen t at this time. Level above 0.1 suggests lower risk for atrial fibrillati on (vs. being <0.1) FT4 has been normal throughout . Never had overt thyrotoxic osis nor has he had overt hypothyroi dism (s/p BOYER). Follow labs to see if changes further. Goal is to treat if TSH increases to point of symptoms (or maybe if TSH goes up above 10). Lab orders for every 6 months but if feels well, can wait and do in a year. Osteopenia [id number] M85 .80 BMD 2019: Spine not included Right femoral neck= -1.1 (2019); was -1.3 (2012) Forearm= -0.5 (2019); was -0.5 (2012). FRAX= 14% (major) and 9.1%(hip) Left femoral neck was -1.5 (2012); Not a lot of dairy in diet. Takes 1000 calcium. Takes vitamin D also. Father had broken hip. Reviewed options of bisphospho carlos and Prolia. Has f/u in 12/2020: Let's review then. Look into cost of Prolia [id number] Modesto Jackson MD Endocrino logy, [address] [phone] 12/23/2020 16:47:14 12/24/2020 06:42:53 Subclinical hyperthyroidism [id number] E05.90 TSH = 0.28 (12/27); was 0.22 (2.20); was 0.46 (11/27); S/P BOYER (8 mCi) in 07/2013. Not on any replacemen t at this time. FT4 has been normal throughout . Never had overt thyrotoxic osis nor has he had overt hypothyroi dism (s/p BOYER). Follow labs to see if changes further. Goal is to treat if TSH increases to point of symptoms (or maybe if TSH goes up above 10). Lab orders for every 6 months but if feels well, can wait and do in a year. Osteopenia [id number] M85 .80 BMD 2020: Spine not included Right femoral neck= -1.1 (2019); was -1.3 (2012) Forearm= -0.5 (2019); was -0.5 (2012). FRAX= 14% (major) and 9.1%(hip) Left femoral neck was -1.5 (2012); Not a lot of dairy in diet. Takes 1000 calcium. Takes vitamin D also. Father had broken hip. Reviewed options of bisphospho carlos and Prolia. Not anxious to take more meds than is necessary. He will look into it. Reviewed concepts of s/e. Non-toxic multinodular goiter [id number] E04.2 Barely palpable nodule on right lower- right lobe greater than left. About 20 grams total. Bx in past- three nodules- benign follicular cells with colloid. More palpable on right but previous u/s showed largest nodule on left. Although RAIU never had elevated uptake, it seems likely that one of these nodules was source of (relative) excess T4 sufficient to suppress TSH without producing clinical thyrotoxic osis. However, no hot nodule was seen on previous scan. U/S: 12/2018: no change. Right mid-lower 1.7x1.9x1. 5 (2019); 1.7 x 1.8 x 1.4 cm.; was 1.7 x 1.8 x 1.4 cm (2017) Left mid-lower= 2.5x2.1x1. 4 (2018) : 2.5 x 2.1 x 1.1 cm; was 2.5 x 2.0 x 1.4 cm (2017) PLAN: U/S in fall 2020 (since size has remained unchanged and benign biopsy). [id number] Modesto Jackson MD Endocrino logy, [address] [phone] 11/02/2021 16:18:17 11/03/2021 18:55:29 Subclinical hyperthyroidism [id number] E05.90 TSH = 0.3 (10/30 and 03/29); was 0.28 (12/27); was 0.22 (.); was 0.46 (11/27); S/P BOYER (8 mCi) in 07/2013 because of concern for risk for AFib. Not on any replacemen t at this time. FT4 has been normal throughout . Never had overt thyrotoxic osis nor has he had overt hypothyroi dism (s/p BOYER). Monitor labs to see if changes further. Goal is to treat if TSH increases to point of symptoms (or maybe if TSH goes up above 10). Lab orders for every 6 months but if feels well, can wait and do in a year. 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 However, no hot nodule seen on previous scan. Nodules in past have been more palpable on right but previous u/s showed largest nodule on left.Exam no longer clearly c/w dominant nodule on one side more than other. Bx in past- three nodules- benign follicular cells with colloid. U/S: 12/2018: no change. Right mid-lower 1.7x1.9x1. 5 (2019); 1.7 x 1.8 x 1.4 cm.; was 1.7 x 1.8 x 1.4 cm (2017) Left mid-lower= 2.5x2.1x1. 4 (2019) : 2.5 x 2.1 x 1.1 cm; was 2.5 x 2.0 x 1.4 cm (2017) Given benign biopsies in past, little need to f/u by u/s. Will monitor clinically . Osteopenia [id number] M85 .80 BMD 2020: Spine not included Right femoral neck= -1.1 (2019); was -1.3 (2012) Forearm= -0.5 (2019); was -0.5 (2012). FRAX= 14% (major) and 9.1%(hip)H igh risk for hip fx based more on age. Left femoral neck was -1.5 (2012); Not a lot of dairy in diet but takes 1000 calcium. Takes vitamin D also. Father had broken hip. In past, have reviewed options of bisphospho carlos and Prolia. Not anxious to take more meds than is necessary. [id number] Modesto Jackson MD Endocrino logy, [address] [phone] 10/18/2022 13:44:54 11/03/2022 10:59:01 Subclinical hyperthyroidism [id number] E05.90 TSH = 0.34 (09/29); was 0.37 (08/30) was 0.21 (04/29) ; was 0.3 (10/30 and 03/29); was 0.28 (12/27); was 0.22 (2.20); was 0.46 (11/27); S/P BOYER (8 mCi) in 07/2013 because of concern for risk for AFib. Not on any replacemen t at this time. FT4 has been normal throughout . Never had overt thyrotoxic osis nor has he had overt hypothyroi dism (s/p BOYER). Monitor labs to see if changes further. Goal is to treat if TSH increases to point of symptoms (or maybe if TSH goes up above 10). Lab orders for every 6 months but if feels well, can wait and do in a year. Toxic mult inodular goiter [id number] E05.20 [place] has been that one or more nodules may be overproduc ing T4 sufficient to suppress TSH without producing clinical thyrotoxic osis. However, no hot nodule seen on previous scan. Nodules in past have been more palpable on right but previous u/s showed largest nodule on left.Exam no longer clearly c/w dominant nodule on one side more than other. Bx in past- three nodules- benign follicular cells with colloid. U/S: 12/2018: no change. Right mid-lower 1.7x1.9x1. 5 (2019); 1.7 x 1.8 x 1.4 cm.; was 1.7 x 1.8 x 1.4 cm (2017) Left mid-lower= 2.5x2.1x1. 4 (2019) : 2.5 x 2.1 x 1.1 cm; was 2.5 x 2.0 x 1.4 cm (2017) Given benign biopsies in past, little need to f/u by u/s. Will monitor clinically . Osteopenia [id number] M85 .80 [email or web address]: Spine not included Right femoral neck= -1.1 (08/28); was -1.3 (2012) Forearm= -0.5 (08/28); was -0.5 (2012). FRAX= 14% (major) and 9.1%(hip)H igh risk for hip fx based more on age. Left femoral neck was -1.5 (2012); Not a lot of dairy in diet but takes 1000 calcium. Takes vitamin D also. Father had broken hip. In past, have reviewed options of bisphospho carlos and Prolia. Not anxious to take more meds than is necessary. [id number] Modesto Jackson MD Endocrino logy, [address] [phone] 10/18/2023 14:00:07 10/19/2023 06:59:32 Subclinical hyperthyroidism [id number] E05.90 TSH = 0.83 (11/01) was 0.33 (07/01) was 0.34 (09/29); was 0.37 (08/30) was 0.21 (04/29) ; was 0.3 (10/30 and 03/29); was 0.28 (12/27); was 0.22 (2.20); was 0.46 (11/27); S/P BOYER (8 mCi) in 07/2013 because of concern for risk for AFib. Not on any replacemen t at this time. FT4 has been normal throughout .11/01: fT4 towards LLN. Never had overt thyrotoxic osis nor has he had overt hypothyroi dism (s/p BOYER). Monitor labs to see if changes further. Goal is to treat if TSH increases to point of symptoms (or maybe if TSH goes up above 10). Lab orders for every 6 months but if feels well, can wait and do in a year. Osteopenia [id number] M85 .80 [email or web address] [place]: Spine not included (DJD) Right femoral neck= -1.1 (08/28); was -1.3 (2012) Forearm= -0.5 (08/28); was -0.5 (2012). FRAX= 14% (major) and 9.1%(hip)H igh risk for hip fx based more on age. Left femoral neck was -1.5 (2012); Not a lot of dairy in diet but takes 1000 calcium. Takes vitamin D also. Father had broken hip. In past, have reviewed options of bisphospho carlos and Prolia. Not anxious to take more meds than is necessary. Check vitamin D and renal panel. (2K per day). Toxic mult inodular goiter [id number] E05.20 [place] has been that one or more nodules may be overproduc ing T4 sufficient to suppress TSH without producing clinical thyrotoxic osis. However, no hot nodule seen on previous scan. Nodules in past have been more palpable on right but previous u/s showed largest nodule on left.Exam no longer clearly c/w dominant nodule on one side more than other. Bx in past- three nodules- benign follicular cells with colloid. U/S: 12/2018: no change. Right mid-lower 1.7x1.9x1. 5 (2019); 1.7 x 1.8 x 1.4 cm.; was 1.7 x 1.8 x 1.4 cm (2017) Left mid-lower= 2.5x2.1x1. 4 (2019) : 2.5 x 2.1 x 1.1 cm; was 2.5 x 2.0 x 1.4 cm (2017) Given benign biopsies in past, little need to f/u by u/s. Will monitor clinically . Health Concerns Section Related Observation LastModified by Organization Detai ls LastModified Time None Recorded Concern Status LastModified by Organization Details LastModified Time None Recorded Advance Directives Directive None Recorded Payers Encounter Date Sequence Insurance Name Policy Number Policy Patel Covered Member ID Patel Member ID Guarantor Name 09/23/2020 1 [facility] - MEDICARE PREFERRED (MEDICARE REPLACEMENT HMO) DARSHANA Leon Lei [id number] 1 Dylan Leon Lei 12/23/2020 1 [facility] - MEDICARE PREFERRED (MEDICARE REPLACEMENT HMO) DARSHANA Leon Lei [id number] 1 Dylan Leon [place] 11/02/2021 1 [facility] - MEDICARE PREFERRED (MEDICARE REPLACEMENT HMO) DARSHANA Leon Lei [id number] 1 Dylan Leon [place] 10/18/2022 1 [facility] - MEDICARE PREFERRED (MEDICARE REPLACEMENT HMO) DARSHANA Leon [place] [id number] 1 Dylan Leon [place] 10/18/2023 1 [facility] Dylan Leon Lei [id number] 1 Dylan Leon [place] Notes Date Note Type Note Provider Name and Address Organization Details Recorded Time 09/23/20 20 text/htm l ThyroidReported bypatient.Previous Evaluation:Ultrasound (number of nodules, size, adenopathy): (see below); TSH: (0.22 (11/28); was 0.46 (12/25); was 0.27 (11/26); was 0.25 (11/25)_ was (03/24)_); free T4: (1.28 (11/28); was 1.22 (12/25); was 1.27 (11/26); was 1.22 (11/25); was 1.4 (03/24)); neck uptake: (22% in 2012); BOYER in 2019: TSH 0.53, Kevin 8.8, mag 2.2, A1C 5.3 Treatment:, dose: mcg (NOT ON THYROID MEDS); I-131, dose: (8 mCi in July 2013.); NO THYROID MEDS. Constitutional:no cold intolerance; no heat intolerance; no weight gain;weight loss(30#. Not intentional. More during time with s/e of ARBs.); Energy: tired much of the time. 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 Occ napping but not daily. Sleeps 6-7 hours most nights. Meditating some too (Orthodox) Spinal stenosis- improved with core strengthening. Will get steroid shot for SI joint. Eyes:dry eyes(Ongoing.); opthamologist: (Jw (ocular rosacea)); no double vision; Hx of s/p retinal detachment. 09/27: NUMBNESS ON RIGHT. Left eye slightly blurry. Tx for blepharitis (restasis didn't help) Neck:no masses;difficulty swallowing(ongoing, granola and water too. Mostly upper neck area.);voice changes(getting w/u. ENT thought it GERD but GI not so sure.) Heart:no rapid heart rate; no palpitations; no chest pain; no tightness or pressure; HR around 55-60 on metoprolol. HR is now regular. Had irregular before and was in AFib. BP running better in 09/27. GI:no diarrhea (No loose bowels.);constipation(Slightly harder stools); Goes every day. Neurological:no tremor; no anxiety; no insomnia (Takes 1/2 melatonin tablets (=2.5mg). Half of baby ASA. 6.5-7 hours and gets up once.); Takes 1/2 ASA during night.Notes:SKIN: dry alligator and wrinkly.HAIR: No changes. Maybe a littleNAILS OK. Fewer problems from spinal stenosis- doing well with core strengthening. PCP Daniel.CARDS: Agustina ([place]). Patient agreed to this visit via secure telehealth platform due to the COVID -19 pandemic. Patient understands this is a scheduled visit and the usual procedures with regard to billing and confidentiality apply. Patient was notified that the provider location is [facility] Patient location: home During the visit the patient? s medical history and medical record were reviewed. The patient was notified to call our office for worsening or urgent symptoms. F/U for BOYER tx for subclinical hyperthyroidism in setting of MNG.Had biopsies in April 2012 (and also 2007). benign. Nuclear study showed no hot/cold areas. Ultimately had BOYER 2012 because of suppressed TSH and concern over risk for AFib. 09/27: Was on multiple ARBs. Ended up with CVA in 08/28. now losartan 50 mg, metoprolol,Eliquis and lipitor PREVIOUS TSH VALUES: was 0.32 (09/22)- was 0.28- was 0.33 (11/23)- was 0.25 (2013)- was 0.1 (05/2014)- was 0.05 (highest since 2006 - had always been 0.01 or 0.02 or <0.01; PREVIOUS T4 VALUES: was 1.19 (09/22)- was 1.36 (06/23)- was 1.02 (11/23)_ was 1.19 (05/2014)_ was 1.34 (03/2014)_ was 1.12 (11/22)- decreased from usual values 1.3-1.5. was 1.44 (05/21); 1.35 (08/20) was 1.40 (02/17). was 1.33 in 08/19. was 1.43 (12/17) about the same as before. was 1.47 PREVIOUS U/S2017 (prelim): Right= 1.7x1.8x1.4; Left= 2.5x2.0x1.4;2011- RIGHT: 1.8x1.7x1.7 (bigger); 2.0x2.5x1.9; LEFT: 2.9x3.8x2.4; 1.9x.18x1.7; ISTHMUS: 1.9x1.7x1.1 (new); 1.8x1.6x0.7 2007- right mid- 1.8x2.0x1.4. right lower= 1.6x1.6x1.4; left isthmus= 1.1x1.3x0.8; left upper= 1x1x0.7; left mid= 3.1x4.2x2.3. 2019: Still uses CPAP nightly. Has mouth guard but hasn't tried it. Protein in urine is increasing slowly.[facility] put him on ARB with multiple changes. No on losartan with metoprolol BONES: 2019 (discuss in 12/27):Spine not included right femoral neck= -1.1 (was -1.3 in 2012) Forearm= -0.5 (was -0.5 in 2012). FRAX= 14% (major) and 9.1%(hip) No falls.Diary- about 4 oz yogurt. Also 1000mg calcium and vitamin D (1200 IU).No kidney stones.Hx of subclinical hyperthyroid. ROS:No recent fever and chillsNo dizziness with standing. No cough (occ from lump in throat) or SOB. No n/v. No abdominal pain. Nocturia x 1-2. Some changes in skin- like an alligator . Uses lotion Hx of Rosacea- not so great. Feels associated with sinus. Chronic on face. Intermittent doxy (helps). Used Zinc oxide more often and finds it helps. Modesto Jackson MD [address] [place] [address], [phone], [facility] [place]/27/[place] 16:54:32 12/24/19 21 text/htm l ThyroidReported bypatient.Previous Evaluation:Ultrasound (number of nodules, size, adenopathy): (see below); TSH: (0.28 (12/27): was 0.22 (11/28); was 0.46 (12/25); was 0.27 (11/26); was 0.25 (11/25)_ was (03/24)_); free T4: (1.09 (12/27): WAS 1.28 (11/28); was 1.22 (12/25); was 1.27 (11/26); was 1.22 (11/25); was 1.4 (03/24)); neck uptake: (22% in 2012); BOYER in 2012. 2019: TSH 0.53, Kevin 8.8, mag 2.2, A1C 5.3 Treatment:, dose: mcg (NOT ON THYROID MEDS); I-131, dose: (8 mCi in July 2013.); NO THYROID MEDS. Constitutional:no cold intolerance; no heat intolerance; no weight loss; no weight gain; 2020: lOST30#. Not intentional. BP stable on meds since CVA. Energy: Tired much of the time. Attributes to age of nearly 81. Better when moves around. 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 Occ napping but not daily. Sleeps - not as good past 4-5 days. UP at night to urinate. Generally wakes once. Meditating some too (Orthodox) Spinal stenosis- improved with core strengthening. Will get steroid shot for SI joint. Eyes:dry eyes(Ongoing. On restasis.); opthamologist: (Jw (ocular rosacea)); no double vision; Hx of s/p retinal detachment. 09/27: NUMBNESS ON RIGHT FROM CVA- persists. No big issue for him. Neck:no masses;difficulty swallowing(Mostly upper neck area. ENT attributed to GERD. Soilds more problematic- water can irritate area.);voice changes(ENT thought it GERD but GI not so sure.) Heart:no rapid heart rate; no palpitations; no chest pain; no tightness or pressure; HR around 55-60 on metoprolol. HR is now regular. Had irregular before and was in AFib. BP running better GI:no constipation (occasional and intermittent. Veggieds); no diarrhea (No loose bowels.); Generally stool larger in diameter. Neurological:no tremor; no anxiety; no insomnia (Generally OK. Was good till past week.Takes 1mg melatonin prn. On CPAP. 9-10 and wakes 5-6AM. 7-8 hours generally. ); Takes 1/2 ASA during night.Notes:SKIN: Dry alligator and wrinkly.NAILS OK. PREVIOUS U/S 2019: Right mid-lower 1.7x1.9x1.5; Left mid-lower= 2.5x2.1x1.4; 2017: Right= 1.7x1.8x1.4; Left= 2.5x2.0x1.4; 2012- RIGHT: 1.8x1.7x1.7 (bigger); 2.0x2.5x1.9; LEFT: 2.9x3.8x2.4; 1.9x.18x1.7; ISTHMUS: 1.9x1.7x1.1 (new); 1.8x1.6x0.7 2008- right mid- 1.8x2.0x1.4. right lower= 1.6x1.6x1.4; left isthmus= 1.1x1.3x0.8; left upper= 1x1x0.7; left mid= 3.1x4.2x2.3. PREVIOUS TSH VALUES: was 0.32 (09/22)- was 0.28- was 0.33 (11/23)- was 0.25 (2013)- was 0.1 (05/2014)- was 0.05 (highest since 2006 - had always been 0.01 or 0.02 or <0.01; PREVIOUS T4 VALUES: was 1.19 (09/22)- was 1.36 (06/23)- was 1.02 (11/23)_ was 1.19 (05/2014)_ was 1.34 (03/2014)_ was 1.12 (11/22)- decreased from usual values 1.3-1.5. was 1.44 (05/21); 1.35 (08/20) was 1.40 (02/17). was 1.33 in 08/19. was 1.43 (12/17) about the same as before. was 1.47 PCP: Daniel.CARDS: Agustina ([place]). Patient agreed to this visit via secure telehealth platform due to the COVID -19 pandemic. Patient understands this is a scheduled visit and the usual procedures with regard to billing and confidentiality apply. Patient was notified that the provider location is [facility] Patient location: [place] During the visit the patient? s medical history and medical record were reviewed. The patient was notified to call our office for worsening or urgent symptoms. F/U for BOYER tx for subclinical hyperthyroidism in setting of MNG.MNG: Had biopsies in April 2012 (and also 2007). benign. Nuclear study showed no hot/cold areas. Ultimately had BOYER 2012 because of suppressed TSH and concern over risk for AFib. 09/27: CVA. Had been on multiple ARBs. CVA in 08/28.Now losartan 50 mg, metoprolol,Eliquis and lipitor Previously noted to have protein in urine - increasing slowly.[facility]very put him on ARB with multiple changes. Fewer problems from spinal stenosis- doing well with core strengthening. 2020: Still uses CPAP nightly. Has mouth guard but hasn't tried it. BONES: 2020:Spine not included Right femoral neck= -1.1 (was -1.3 in 2012) Forearm= -0.5 (was -0.5 in 2013). FRAX= 14% (major) and 9.1%(hip) No falls. Feels balance has been OK with Festus ChiUses railings all the time. Dairy- about 4 oz yogurt with cereal (granola).Also 1000 mg calcium and vitamin D (1200 IU).No kidney stones.Hx of subclinical hyperthyroid. ROS:No recent fever and chillsNo dizziness with standing. No cough or SOB. No loss of taste/smell. No n/v. No abdominal pain (occ indigestion) Nocturia x 1-2. Hx of Rosacea- not so great. Feels associated with sinus. Chronic on face. Intermittent doxy (helps). Used Zinc oxide more often and finds it helps. Modesto Jackson MD [address] [place] [address], [phone], [facility] [place] 12/23/2020 23:36:06 11/02/19 22 text/htm l ThyroidReported bypatient.Previous Evaluation:Ultrasound (number of nodules, size, adenopathy): (see below); TSH: (0.3 (10/30 and 03/29); was 0.28 (12/27): was 0.22 (11/28); was 0.46 (12/25); was 0.27 (11/26); was 0.25 (11/25)_ was (03/24)_); free T4: (= 1.19 (10/30); was 1.08 (03/29); was 1.09 (12/27): WAS 1.28 (11/28); was 1.22 (12/25); was 1.27 (11/26); was 1.22 (11/25); was 1.4 (03/24)); neck uptake: (22% in 2012); BOYER in 2019: TSH 0.53, Kevin 8.8, mag 2.2, A1C 5.3 Treatment:, dose: mcg (NOT ON THYROID MEDS); I-131, dose: (8 mCi in July 2013.); NO THYROID MEDS. Constitutional:no cold intolerance; no heat intolerance; no weight loss; no weight gain; Wt. stable in 2020. Had lost 30# (2019- Not intentional). BP stable on meds since CVA. Energy: Tired much of the time. Attributes to 80. 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 Meditating some too (Orthodox) Spinal stenosis- generally good (doing planks- helps core strengthening). Eyes:dry eyes(Ongoing. 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 Hx of s/p retinal detachment. Neck:no masses;difficulty swallowing(Mostly upper neck area. ENT attributes to GERD. Using Prilosec. Solids more problematic- water can irritate area.);voice changes(ENT thought it GERD but GI not so sure. Voice seems higher. More hoarse- attributes to post-nasal drip); Lump in throat- muffin pieces feel like deposited on lump and has to cough up small pieces. Heart:no rapid heart rate; no palpitations; no chest pain; no tightness or pressure; HR around 55-60 on metoprolol. HR is now regular. Had irregular before and was in AFib. Not recently. BP - ongoing trouble. Goal is to get to > 120/80. Agustina. GI:no constipation; no diarrhea (Since colonoscopy - better with cholestyramine and the probiotics- down to daily.) Neurological:no tremor; no anxiety; no insomnia (Generally OK. 7-8 hours generally. On CPAP.); Takes 1/2 ASA during night.Notes:SKIN: Dry alligator and wrinkly.NAILS: No breaking splitting. Nocturia x 1 (using more fluid with recent diarrhea). Occ 3x. PREVIOUS U/S2019: Right mid-lower 1.7x1.9x1.5; Left mid-lower= 2.5x2.1x1.4;2017: Right= 1.7x1.8x1.4; Left= 2.5x2.0x1.4;2012- RIGHT: 1.8x1.7x1.7 (bigger); 2.0x2.5x1.9; LEFT: 2.9x3.8x2.4; 1.9x.18x1.7; ISTHMUS: 1.9x1.7x1.1 (new); 1.8x1.6x0.10368- right mid- 1.8x2.0x1.4. right lower= 1.6x1.6x1.4; left isthmus= 1.1x1.3x0.8; left upper= 1x1x0.7; left mid= 3.1x4.2x2.3. PREVIOUS TSH VALUES: was 0.32 (09/22)- was 0.28- was 0.33 (11/23)- was 0.25 (2013)- was 0.1 (05/2014)- was 0.05 (highest since 2006 - had always been 0.01 or 0.02 or <0.01; PREVIOUS T4 VALUES: was 1.19 (09/22)- was 1.36 (06/23)- was 1.02 (11/23)_ was 1.19 (05/2014)_ was 1.34 (03/2014)_ was 1.12 (11/22)- decreased from usual values 1.3-1.5. was 1.44 (05/21); 1.35 (08/20) was 1.40 (02/17). was 1.33 in 08/19. was 1.43 (12/17) about the same as before. was 1.47 PCP: Daniel.CARDS: Agustina ([place]).SLEEP APNEA: Gerardo SWAIN. On BiPAP. 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 MNG: Had biopsies in April 2012 (and also 2007). benign. Nuclear study showed no hot/cold areas.Ultimately had BOYER 2012 because of suppressed TSH and concern over risk for AFib. 09/27: CVA in 08/28.Only residual is numbness around OD.Had been on multiple ARBs. CVA in 08/28.Eliquis and lipitor10/30: Continues on beta martin, ARB but sub-max doses. Previously noted to have protein in urine - increasing slowly.[facility] put him on ARB with multiple changes. BONES: 2020:Spine not includedRight femoral neck= -1.1 (was -1.3 in 2012)Forearm= -0.5 (was -0.5 in 2012).FRAX= 14% (major) and 9.1%(hip) No falls. Feels balance has been OK with Festus Chi.Holds railings all the time. Dairy- about 4 oz yogurt with cereal (bran). occ half/half.Takes 1000 mg calcium and vitamin D (2000 IU in winter).No kidney stones.Hx of subclinical hyperthyroid. Fewer problems from spinal stenosis- doing well with core strengthening. 2020: Still uses BiPAP nightly. ROS:No recent fever and chillsNo dizziness with standing.No cough or SOB. No sore throat sx.No loss of taste/smell.No n/v. No abdominal pain.Nocturia x 1-2. Hx of Rosacea- not so great. Feels associated with sinus. 10/30: Some problems balancing check book recently.Some malaise. some extra Zn.Left knee arthritis- better if moves around. Modesto Jackson MD [address] [place] [address], [phone], [facility] [place] 18:55:01 10/18/19 23 text/htm l ThyroidReported bypatient.Previous Evaluation:Ultrasound (number of nodules, size, adenopathy): (see below); TSH: (0.34 (09/29); was 0.37 (08/30) was 0.21 (04/29); was 0.3 (10/30 and 03/29); was 0.28 (12/27): was 0.22 (11/28); ); free T4: (1.15 (09/29); was 1.33 (08/30) was 1.09 (04/29); was 1.19 (10/30); was 1.08 (03/29); was 1.09 (12/27): ); neck uptake: (22% in 2012); BOYER in 2012. 2019: TSH 0.53, Kevin 8.8, mag 2.2, A1C 5.3 Treatment:, dose: mcg (NOT ON THYROID MEDS); I-131, dose: (8 mCi in July 2013.); NO THYROID MEDS. Constitutional:no cold intolerance; no heat intolerance; no weight loss; no weight gain; Wt. stable in 2020. Had lost 30# (2019- Not intentional). 160# out of shower at home. BP stable on meds since CVA. Energy: Not great past few years. Slightly better (10/31)- drinks 0.5-1 cup coffee. 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 Meditating some too (Orthodox) Spinal stenosis- not great. also SI sx. affects back after walking > 1 mile. Also worse depending on side he sleeps on. Steroid shots have helped in past. Eyes:opthamologist: (Jw (ocular rosacea)); no double vision; no dry eyes (off restasis.); OS- told of macular detachment (OS). Hx of s/p retinal detachment. Neck:no masses;difficulty swallowing(Mostly mid neck area. ENT attributes to GERD. Used Prilosec in past- not sure it helps. Pills OK. feels sore when swallows- liquids and solids. Wonders about CPAP might be drying back of mouth out.);voice changes(comes/goes. Lower today than in past. ENT thought it GERD but GI not so sure. Also attributes to post-nasal drip) Heart:no rapid heart rate; no palpitations; no chest pain; no tightness or pressure; HR around 55-60 on metoprolol. HR is now regular. Had irregular before and was in AFib. Not recently. BP - was 127/70 at [facility]. Goal is to get to > 120/80. HR around 50-60s. GI:no constipation; no diarrhea; Better with recipe. Has come up with raisin bran/yogurt/milk/almonds/peache s. Microwaves together and eats over day. . Neurological:no tremor; no anxiety; no insomnia (Generally OK. 7-8 hours generally. On CPAP.); Takes 1/4 of excedrin in AM.Notes: SKIN: Dry alligator and wrinkly.NAILS: No breaking splitting. Nocturia x 1 (using more fluid with recent diarrhea). Usually sleeps 3-4 hours. PREVIOUS U/S2019: Right mid-lower 1.7x1.9x1.5; Left mid-lower= 2.5x2.1x1.4;2016: Right= 1.7x1.8x1.4; Left= 2.5x2.0x1.4;2011- RIGHT: 1.8x1.7x1.7 (bigger); 2.0x2.5x1.9; LEFT: 2.9x3.8x2.4; 1.9x.18x1.7; ISTHMUS: 1.9x1.7x1.1 (new); 1.8x1.6x0.70271- right mid- 1.8x2.0x1.4. right lower= 1.6x1.6x1.4; left isthmus= 1.1x1.3x0.8; left upper= 1x1x0.7; left mid= 3.1x4.2x2.3. PREVIOUS TSH VALUES: was 0.46 (12/25); was 0.27 (11/26); was 0.25 (11/25)_ was (03/24)_ was 0.32 (09/22)- was 0.28- was 0.33 (11/23)- was 0.25 (2013)- was 0.1 (05/2014)- was 0.05 (highest since 2006 - had always been 0.01 or 0.02 or <0.01; PREVIOUS T4 VALUES: was 1.28 (11/28); was 1.22 (12/25); was 1.27 (11/26); was 1.22 (11/25); was 1.4 (03/24) was 1.19 (09/22)- was 1.36 (06/23)- was 1.02 (11/23)_ was 1.19 (05/2014)_ was 1.34 (03/2014)_ was 1.12 (11/22)- decreased from usual values 1.3-1.5. was 1.44 (05/21); 1.35 (08/20) was 1.40 (02/17). was 1.33 in 08/19. was 1.43 (12/17) about the same as before. was 1.47 PCP: Daniel.CARDS: ([facility]).SLEEP APNEA: Gerardo SWAIN. On BiPAP.10/31: slept 9 hours past 2 nights.L/V about a year ago.RENAL: Avery. Follow-Up: non-toxic uninodular goiterFollow-Up: subclinical hyperthyroidismFollow-Up: toxic multinodular goiterOsteopeniaLV on 10/2021LAst labs on 09/29Lab orders in place for tsh and t4 only until 09/2023Last bone density on 08/2020Last thyroid US on 12/2018PT difficultly with swallowing even just saliva and has been for a long time now. PT states food will get stuck sometimes. Pt feels has had soreness on right side of neck but not all the time. Also the skin seems redder. F/U for BOYRE tx for subclinical hyperthyroidism in setting of MNG.Has not become hypothyroid. MNG: Had biopsies in April 2012 (and also 2007). benign. Nuclear study showed no hot/cold areas.Ultimately had BOYER 2012 because of suppressed TSH and concern over risk for AFib. 09/27: CVA in 08/28.Only residual is numbness around OD.Had been on multiple ARBs. CVA in 08/28.Eliquis and lipitor10/30: Continues on beta martin, ARB but sub-max doses. Previously noted to have protein in urine - increasing slowly.Avery put him on ARB with multiple changes. BONES:[email or web address] not includedRight femoral neck= -1.1 (08/28); was -1.3 in 2012)Forearm= -0.5 (08/28); was -0.5 (2012).FRAX= 14% (major) and 9.1%(hip) No falls. No recent fx.Holds railings now.Still doing Festus Chi. Dairy- about yogurt/milk with cereal (bran).Takes 1000 mg (total as 666 and 333) calcium and vitamin D (2000 IU in winter).No kidney stones.Hx of subclinical hyperthyroid. Egg McMuffin daily for supper. Fewer problems from spinal stenosis- doing well with core strengthening.Discomfort in lower back walking further.also with carrying laundry/groceries. ROS:No recent fever and chillsNo dizziness with standing.No SOB.No COVID.No n/v. No abdominal pain.Nocturia x 1-2. Hx of Rosacea- not so great. Feels associated with sinus. 10/30: Some problems balancing check book recently.10/31: Notes some more forgetfulness. Some extra Zn with AREDS for macular disease.Left knee arthritis- better if moves around. Modesto Jackson MD [address] [place] [address], [phone], [facility] [place] 19:14:31 10/18/19 24 text/htm l ThyroidReported bypatient.Previous Evaluation:Ultrasound (number of nodules, size, adenopathy): (see below); TSH: (0.83 (11/01) was 0.34 (09/29); was 0.37 (08/30) was 0.21 (04/29); was 0.3 (10/30 and 03/29); was 0.28 (12/27): was 0.22 (11/28); ); free T4: (0.98 (11/01); was 1.11 (07/01) was 1.15 (09/29); was 1.33 (08/30) was 1.09 (04/29); was 1.19 (10/30); was 1.08 (03/29); was 1.09 (12/27): ); neck uptake: (22% in 2012); BOYER in 2019: TSH 0.53, Kevin 8.8, mag 2.2, A1C 5.3 Treatment:, dose: mcg (NOT ON THYROID MEDS); I-131, dose: (8 mCi in July 2013.); NO THYROID MEDS. Constitutional:no cold intolerance (tends to be colder with age. House is around 71 deg.); no heat intolerance; no weight loss; no weight gain; WEIGHT: 155 (11/01@home)- stable. Had lost 30# (2019- Not intentional). BP stable on meds since CVA. Energy: Not great past few years. Gets tired easily- OK in AM. By afternoon, episdoes of micro-sleep ; very briefly drops off. Uses CPAP. Spinal stenosis- not great. 11/01- going for surgery ([place]). Had thought it might be SI but shots didn't help. Pain affects back after walking > 1 mile. Also worse depending on side he sleeps on. Dr. [place] Eyes:opthamologist: (Jw (ocular rosacea)); OS- told of macular degeneration (OS). slightly worse Hx of s/p retinal detachment. Neck:no masses;difficulty swallowing(Not severe- ENT attributes to GERD. has frequent burping. Feels voice is higher. More raspy- lot of post-nasal drip. No meds for GERD.);voice changes(comes/goes. Feels it is higher but gets lower as day progresses. Also attributes to post-nasal drip); . Heart:no rapid heart rate; no palpitations (occasional (11/01);); no chest pain; no tightness or pressure; HR around 55-60 on metoprolol. HR is now regular. Had irregular before and was in AFib. Not recently. GI:no constipation; no diarrhea; Better with recipe. Has come up with raisin bran/oatmeal/yogurt/milk/almond s/peaches. Microwaves together and eats over day. Neurological:no tremor; no anxiety; no insomnia (Generally OK. 7-8 hours generally. On CPAP.); Takes 1/4 of Excedrin in AM. Sleeps on right and feels heart beating- not fast. asking re: vagus.Notes: Nocturia x 3 (on tamsulosin in 2022-). wakes 1, 4 and when wakes up PREVIOUS U/S2019: Right mid-lower 1.7x1.9x1.5; Left mid-lower= 2.5x2.1x1.4;2017: Right= 1.7x1.8x1.4; Left= 2.5x2.0x1.4;2012- RIGHT: 1.8x1.7x1.7 (bigger); 2.0x2.5x1.9; LEFT: 2.9x3.8x2.4; 1.9x.18x1.7; ISTHMUS: 1.9x1.7x1.1 (new); 1.8x1.6x0.20522- right mid- 1.8x2.0x1.4. right lower= 1.6x1.6x1.4; left isthmus= 1.1x1.3x0.8; left upper= 1x1x0.7; left mid= 3.1x4.2x2.3. PREVIOUS TSH VALUES: was 0.46 (12/25); was 0.27 (11/26); was 0.25 (11/25)_ was (03/24)_ was 0.32 (09/22)- was 0.28- was 0.33 (11/23)- was 0.25 (2013)- was 0.1 (05/2014)- was 0.05 (highest since 2006 - had always been 0.01 or 0.02 or <0.01; PREVIOUS T4 VALUES: was 1.28 (11/28); was 1.22 (12/25); was 1.27 (11/26); was 1.22 (11/25); was 1.4 (03/24) was 1.19 (09/22)- was 1.36 (06/23)- was 1.02 (11/23)_ was 1.19 (05/2014)_ was 1.34 (03/2014)_ was 1.12 (11/22)- decreased from usual values 1.3-1.5. was 1.44 (05/21); 1.35 (08/20) was 1.40 (02/17). was 1.33 in 08/19. was 1.43 (12/17) about the same as before. was 1.47 PCP: [facility].CARDS: ([facility]).SLEEP APNEA: Gerardo العراقي On BiPAP.10/31: slept 9 hours past 2 nights.L/V about a year ago.RENAL: [place]. Follow-Up: toxic multinodular goiterFollow-Up: non-toxic uninodular goiterFollow-Up: subclinical hyperthyroidismOsteopeniaLV on 10/31LAst labs on 11/01Lab orders in place for tsh and t4 only until 09/2023Last bone density on 08/2020 [facility] has surgery next month on lumber spinePT has question about the vagus nerve and relation to thyroid F/U for BOYER tx for subclinical hyperthyroidism in setting of MNG.Has not become hypothyroid. MNG: Had biopsies in April 2012 (and also 2007). benign. Nuclear study showed no hot/cold areas.Ultimately had BOYER 2012 because of suppressed TSH and concern over risk for AFib. PAST MEDICAL Hx (updated):review of old notes: placed on tapazole in 2006 to see if any clinical changes with normalization of TSH. TSH brought up to range between 1-2. No significant change in sx reported at that time.Had nuclear study in 2007- homogeneous with 20% uptake. 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 Vision OK. Floaters too2019- CVA. Tried ARBs in spring- losartan to candesartan to olmesartan with BP up and down. Fatigue and malaise- per [facility], started losartan and developed gout (bilateral). Lost 30# stable at 155. Some extra/skipped beats. Then more abnormal. Holter noted in AFib (bloating/belching). 08/29/20- whole RIGHT side was numb (pressure only). Has persisted. Lump in throat (upper neck)- ENT thought it was GERD. Ba swallow was OK. Saw GI last week: not sure about GERD. Started Pepcid.Osteopenia with increased risk for fx at 9%11/01: Upcoming minimally invasive back surgery- L3-L4 to remove junk . Pen[place] ([place]). Hopes will allow him to walk. 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 Since 2008, 32 kids from 16 different countries (2014).Some Festus Chi in AM (40 minutes total with weights and yoga). Walks 1-1.5 miles/d) back limits him.stretching and light weights and some Festus Chi. Walks 1-1.5 miles.11/01: 30 min upper body. Little Festus Chi. Not able to walk d/t back pain (0.5-1.5 miles/d). Using cane.No writing lately (used to).One last student but thinks will likely wean off.[employer] [facility]- meets friends q Monday.Meditating some too (Orthodox) FAMILY Hx (updated):Daughter ([employer]/ construction project assistant in [employer])had c-spine surgery, next is lumbar.Son works hard- and getting c-spine surgery too. bobbin handler at night2 (?) cyst on thyroid. [place]. New sales in [employer].Grands= 4: One graduating from [employer] ([employer]). Youngest at [place]. Grandson from [employer] in [place] (h[place]). Oldest is teacher (engaged)11/01: Grands good. Has great-grand on the way.Daughter: back problemsSon- sober x 33 years. back problems. PAST: PT difficultly with swallowing even just saliva and has been for a long time now. PT states food will get stuck sometimes. Pt feels has had soreness on right side of neck but not all the time. Also the skin seems redder. 09/27: CVA in 08/28.Only residual is numbness around OD.Had been on multiple ARBs. CVA in 08/28.Eliquis and lipitor10/30: Continues on beta martin, ARB but sub-max doses. Previously noted to have protein in urine - increasing slowly.Avery put him on ARB with multiple changes. BONES:[email or web address] not includedRight femoral neck= -1.1 (08/28); was -1.3 in 2012)Forearm= -0.5 (08/28); was -0.5 (2012).FRAX= 14% (major) and 9.1%(hip) No recent labs. No falls. No recent fx.Uses cane and holds railings. Dairy- about yogurt/milk with cereal (bran).Takes 1000 mg (total as 666 and 333) calcium and vitamin D (2000 IU in winter).Also Mg and Zn.No kidney stones.Hx of subclinical hyperthyroid. Ongoing spinal stenosis- going for surgery ([place]). Hx CVA:07/01: 93/59/60/28 put on atorva 40. 11/01: Asking about vagus nerve as cause of sx including burping/fluttering/GERD sx- also some SOB.Burping: had been more when having unintentional weight loss. Not as much lately.Takes digestive enzyme and 1/2 TUMS and ASA (40mg)- helps.Fluttering: weekly at most. notices lying on right side and better if turns over.SOB: up stairs, while wearing mask. ROS:No recent fever and chillsNo dizziness with standing in AM.No COVID.No n/v. No abdominal pain. Hx of Rosacea- not so great. Feels associated with sinus. 10/30: Some problems balancing check book recently.10/31: Notes some more forgetfulness.11/01: better than last year. Better at concentrating. Some extra Zn with AREDS for macular disease.Left knee arthritis- better if moves around. Modesto Jackson MD [address] [place] [address], [place], [phone], [facility] [place] 19:51:52
== END 2024-10-14 15:12 | disposition home or self-care (01) ==
PROVIDERS: PCP Nurse Practitioner; Visit Provider Nurse Practitioner Family
DX: M54.50 Low back pain, unspecified (principal); G89.29 Other chronic pain; M62.85 Dysfunction of the multifidus muscles, lumbar region; M47.816 Spondylosis without myelopathy or radiculopathy, lumbar region
CPT/HCPCS: 99214; G2211

== ENCOUNTER → 2024-10-14 14:47 | Outpatient (BNVA) | payer OTHER, SELFPAY | PROVIDERS: PCP Nurse Practitioner; Visit Provider Internal Medicine ==

== ENCOUNTER → 2024-10-18 14:52 | Outpatient (BNVA) | payer OTHER, SELFPAY | PROVIDERS: PCP Nurse Practitioner; Visit Provider Internal Medicine ==

== ENCOUNTER → 2024-10-25 14:51 | Outpatient (BNVA) | payer OTHER, SELFPAY | PROVIDERS: PCP Nurse Practitioner; Visit Provider Internal Medicine ==

== ENCOUNTER 2024-10-28 11:34 | Outpatient (AMB) | payer OTHER, SELFPAY ==
--- NOTE | 2024-10-28 11:40 | MHC.OFFVIS ---
Vital Signs 10/28/24 11:42 Height 5 ft 6 in Weight 148 lb BMI 23.9 BP 153/67 H Blood Pressure Location Lt brachial Position Sitting Respiration 16 Pulse 59 Pulse Source Pulse Oximeter Pulse Oximetry (%) 98 Oxygen Delivery Method Room Air Intake Visit Reasons: Right Sprint Removal Allergies ciprofloxacin [From Cipro] Allergy (Severe, Verified 10/28/24 11:43) edema in legs and achy joints epinephrine Allergy (Severe, Verified 10/28/24 11:43) headache, nausea, weakness and disorientation environmental allergies Allergy (Intermediate, Verified 10/28/24 11:43) sneezing, watery eyes azithromycin [From Zithromax Z-Obed] Allergy (Verified 10/28/24 11:43) Unknown soy Adverse Reaction (Intermediate, Verified 10/28/24 11:43) Gastrointestinal Upset Medication List - Last Reconciled 10/28/24 by Anita Aldana LPN apixaban (Eliquis) 1.25 mg PO BID ascorbic acid (vitamin C) (Vitamin C) 1,000 mg PO DAILY aspirin (Adult Aspirin Regimen) 41 mg PO DAILY atorvastatin 80 mg PO DAILY ygqtkga-lbojnifxo-gjbx 1 tab PO DAILY cholecalciferol (vitamin D3) (Vitamin D3) 50 mcg PO DAILY coenzyme Q10 (Co Q-10) 100 mg PO DAILY cyanocobalamin (vitamin B-12) (Vitamin B-12) 1,000 mcg PO DAILY docusate sodium 100 mg PO BID empagliflozin (Jardiance) 10 mg PO DAILY ferrous sulfate (Feosol) 325 mg PO DAILY flaxseed oil 20,000 mg PO DAILY furosemide 20 mg PO DAILY grape seed extract 1,000 mg PO DAILY hydralazine 50 mg PO BID losartan 100 mg PO DAILY metoprolol succinate ER 25 mg PO DAILY multivitamin 1 tab PO DAILY pumpkin seed extract 1,000 mg PO DAILY quercetin 500 mg PO DAILY salmon oil-omega-3 fatty acids 1,000-200 mg caps PO saw palmetto 500 mg PO DAILY vit C,X-Bm-gjwfa-lutein-zeaxan 250-90-40-1 mg (PreserVision AREDS-2) 1 tab PO DAILY vitamin B complex 1 tab PO DAILY HPI HPI Right Sprint Removal: Details: History of Present Illness The patient is an 84-year-old male presenting with a displaced temporary PNS lead and persistent pain in the right sacroiliac joint. The issue with the PNS lead displacement occurred twice, with the last incident reported after the nurse removed the patient's bandage and noticed the lead had pulled out once more. Previously, three similar incidents were noted in the week before the last visit. The patient expressed that the temporary nerve stimulation did not provide significant relief. The primary concern for pain is noted in the right sacroiliac joint region, which has been persistent. Efforts have been made towards pain management, but relief remains suboptimal. Pain Description - Onset: Prior to the current visit, the specifics of initial onset not detailed. - Timing: Ongoing, with recurrent episodes of increased pain. - Quality: Not detailed in conversation. - Primary Location: Right sacroiliac joint region. - Exacerbating Factors: Movement causing displacement of the lead. - Relieving Factors: Not detailed in the conversation. - Interference with Function: Persistent pain impacting patient's function; specific activities affected not detailed. Physical Exam - Musculoskeletal- Positive provocation on the right sacroiliac joint, including EDGARD (Flexion, Abduction, and External Rotation) and thrust maneuvers. Pain Management - Affect: Patient has expressed dissatisfaction with the current management and is considering other options. - Analgesia: Temporary nerve stimulation used; not effective. Patient interested in sacroiliac joint injection. - Adverse Effects: No adverse effects reported from conversation. - Activities of Daily Living: Persistent pain influences daily activities, though specifics not discussed. - Aberrant Drug Related Behaviors: None reported during conversation. [facility]LY [facility] Medical History History of CVA (cerebrovascular accident) (~2020) Hx of retinal detachment (~2013) Post-nasal drip Rosacea Sleep apnea Spinal stenosis Sacroiliitis Osteoarthritis Macular degeneration of right eye Joint pain Interstitial cystitis Hyperthyroidism Hypertension Hoarseness Graves disease Gout Globus sensation GERD (gastroesophageal reflux disease) Fracture Disorder of thyroid Detached retina, left CKD (chronic kidney disease) Cerebrovascular accident Cataract, bilateral BPH (benign prostatic hyperplasia) Atrial fibrillation Asthma Surgical History Hx of oral surgery (~2020) Hx of eye surgery Hx of colonoscopy (~2022) Hx of bilateral cataract extraction Hx of tonsillectomy Social History Are you a primary primary care sales representative to a significant other at home: No Do you presently have visiting nurse or other home services: No Patient Tobacco Use Status: Former Tobacco user Tobacco use type: Cigarette Physical Exam Vital Signs: Last Vital Signs Pulse 59 10/28/24 11:42 Resp 16 10/28/24 11:42 BP 153/67 H 10/28/24 11:42 Pulse Ox 98 10/28/24 11:42 Oxygen Delivery Method Room Air 10/28/24 11:42 BMI result Body Mass Index 23.9 Assessment & Plan Assessment & Plan (1) Bilateral sacroiliitis: Code(s): M46.1 - Sacroiliitis, not elsewhere classified Category: Medical Plan Plan - Plan for repeat therapeutic right sacroiliac joint injection with corticosteroid. - Cancel the upcoming left temporary medial branch nerve stimulator placement. - Obtain insurance authorization for the right sacroiliac joint injection. - Set up a follow-up appointment upon getting authorization. Patient was informed and verbally consented to the use of an ambient scribe for clinic note documentation during this visit. Discussion Notes In our discussion, the patient and I reviewed the displacement of the temporary PNS lead twice, which led us to consider alternative management. The patient did not find relief with nerve stimulation and expressed interest in pursuing a right sacroiliac joint injection. We agreed to cancel the left temporary medial branch nerve stimulator placement pending insurance approval for the right joint injection. The plan for a corticosteroid injection was explained, and the patient showed understanding of this approach as the next step in managing his pain. Patient Instructions - Await contact for an appointment date once insurance authorizes the right sacroiliac joint injection. - Continue monitoring pain levels and report any sudden changes. - Follow up immediately if there are concerns or questions about the displacement of the lead or pain management. Coding Level of Care Code Est Pt Level 4 (63495) Diagnoses Bilateral sacroiliitis M46.1
[2024-10-28 11:42] VITALS: BP 153/67; PULSE 59; RESP 16; O2SAT 98; BMI 23.9
--- OUTSIDE RECORDS SUMMARY | 2024-10-28 12:08 | XMS_ITS | Continuity of Care Document ---
Author Organization 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 No replacement tx. 10/31: Stable. 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 Not on T4 and TSH has remained low (but not as suppressed as in past). Bones OK. labs q 6 months. 11/01: TSH in normal range for first time ever (except for trial on MMI). FT4 at [facility]- not on T4. Going for back surgery ([place]). BMD OK in past. 11/02: TSH mildly low with normal fT4 on no meds. Had CVA in 08/2020. Right sided numbness. Some persistence. Other sx: Pins/needles in feet- may be from stenosis. CKD: Creat up in mid 2s noted in 2023. Chao Choudhury. Enhanced Provider time spent performing enhanced activities which may include, but are not limited to: reviewing tests, obtaining and/or reviewing patient history; ordering medications, test or procedures; EMR documentation; communication with patient, family, caregiver(s), VNA; pre-visit prep time communication with specialists, ER staff. Time spent: 33 (minutes) 11/02 [email or web address] Not available 10/16/2024 15:38:09 Plan of Treatment Reminders Order Date Submit Date Provider Last Modified By Organization Details Last Modified Time Details Appointments None record ed. Lab None record ed. Referral None record ed. Procedures None record ed. Surgeries None record ed. Imaging None record ed. Medication Orders None record ed. Patient TargetsNo targets recorded. Patient Instructions Encounter Date Encounter Id Patient Instructions Last Modified By Organization Details Last Modified Time 10/16/2024 [id number] - Labs as directed- every 6 months should be fine - Contact office if any symptoms of low thyroid (excess fatigue, unexplained weight gain, feeling much more cold than usual, constipation, very dry skin) or excess thyroid (heart racing, unexplained weight loss, feeling jittery/nervous/ anxious, change in frequency of moving bowels, tremors, or insomnia). [email or web address] Not available 10/16/2024 15:29:15 One year- 20 minutes. ccm signed- 10/31- [facility] [email or web address] Not available 10/16/2024 15:38:06 Reason for Referral None Reported. Problems Name Problem SNOMED Code Status Onset Date Resolution Date Notes Provider Name and Address Organization Details Recorded Time Subclinica l hyperthyro idism 252354073 Active Modesto Jackson MD [address] [place] [address], [phone] , [facility] 5 16:15:14 Disorder of skeletal system 61291250 Completed 200608/28/2013 Not Available 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 52000421 Active 2007 Not Available [facility] 3 03:12:45 Essential hypertensi on 47486925 Active 2006 Modesto Jackson MD [address] [place] [address], [address] , [facility] 4 14:24:22 Hyperthyro idism 11488953 Active 2004 Aleta Clemente [facility] 3 15:11:37 Anemia 095875497 Active 2006 Modesto Jackson MD [address] [place] [address], [phone] , [facility] 4 14:24:20 Thyroid function tests abnormal 549102517 Active 2005 Modesto Jackson MD [address] [place] [address], [address] , [facility] 4 14:25:04 Non-toxic multinodul ar goiter 85259773 Active 2005 Modesto Jackson MD [address] [place] [address], [address] , [facility] 4 14:25:04 Benign essential hypertensi on 2743953 Active 2007 Modesto Jackson MD [address] [place] [address], [address] , [facility] 3 14:45:30 Toxic diffuse goiter 173904601 Active 2006 Modesto Jackson MD [address] [place] [address], [address] , [facility] 3 17:44:27 Goiter 6376695 Active 2007 Modesto Jackson MD [address] [place] [address], [address] , [facility] 3 14:45:48 Hypothyroi dism 44005378 Active 2006 Not Available [facility] 3 03:12:45 Acute pharyngiti s 257583917 Completed 200508/28/2013 Not Available [facility] 3 02:01:17 Toxic multinodul ar goiter 58459206 Active 2005 Not Available [facility] 3 03:12:45 Malaise and fatigue 582759375 Completed 08/28/2013 Not Available [facility] 3 02:00:19 Problem Notes None recorded. Procedures Surgical History Date Name Laterality Status Provider Name and Address Organization Details Recorded Time 6 Aide - Colonoscopy completed Tyree Noble MD [address] [place] [address], [phone], [facility] 06/20/2016 08:49:47 3 I-131 completed Modesto Jackson MD [address] [place] [address], [phone], [facility] 07/31/2013 11:51:52 Imaging Results None recorded. Procedure Notes None recorded. Medical Equipment None Reported. Allergies Allergen ID Allergen Name Allergen Category Reaction Reaction Severity Criticality Documentation Date Start Date Code Code System Note Provider Name and Address Organization Details Recorded Time 430548 epinephri ne medicatio n Not available Not available Not available 05/04/2012 3992 RxNorm sever e heada stan, nause a, weakn ess and disor ienta tion Meghna Naylor LPN [facility] 2 14:23:31 49911 Cipro medicatio n other severe Not available 12/29/201036816 3 RxNorm Edema in legs and achy joint Not Available [facility] 1 06:05:41 24816 Zithromax medicatio n Not available Not available Not available 08/26/201119637 4 RxNorm unsur e of react ion Meghna Naylor LPN [facility] 1 14:57:00 Medications Name Sig Start Date Stop Date Status Note LastModified by Organization Details LastModified Time losartan 50 mg tablet Take 1 tablet every day by oral route. active PT states taking 100mg. daily Not Available Not Available Not Available atorvasta [...] 1 tablet every day by oral route. 10/16 completed Not Available Not Available Not Available amoxicill in 875 mg tablet Take 1 tablet every 12 hours by oral route. active Not Available Not Available No t Available tamsulosi n 0.4 mg capsule Take 1 capsule every day by oral route. 10/16 completed Not Available Not Available Not Available gabapenti n 300 mg capsule Take [...] twice a day by oral route. active taking 1 tab daily Not Available Not Available Not Available Metrogel active prn for rosacea Not Available Not Available Not Available furosemid e 10 mg daily active Not Available Not Available No t Available gabapenti n active 60 mg take [...] daily Not Available Not Available Not Available Jardiance 10 mg tablet Take 1 tablet every day by oral route. active Not Available Not Available No t Available Vitals Date Recorded Body height Provider Name an d Address Organization Details Last Updated DateTime 10/16/2024 166.37 cm Janeth Marquez [facility] 10/16/2024 14:49:06 Date Recorded Body mass index (BMI) Body weight Provider Name and Address Organization Details Last Updated DateTime 10/16/2024 25.7 kg/m2 32235.57 g Janeth Marquez [facility] 10/16/2024 14:49:14 Date Recorded Heart rate Provider Name an d Address Organization Details Last Updated DateTime 10/16/2024 61 /min Janeth Marquez [facility] 10/16/2024 14:58:10 Date Recorded Systolic blood pressure Diastolic blood pressure Provider Name and Address Organization Details Last Updated DateTime 10/16/2024 139 mm[Hg] 66 mm[Hg] Janeth Marquez [facility] 10/16/2024 14:58:02 Social History Question Answer Notes LastModified by Organizat ion Details LastModified Time Tobacco Smoking Status Former Smoker Quit at age 37 Not Available [facility] 03/03/2011 02:08:59 What Is Your Level Of [...] in college- 1 in masters). One at [employer]. 2018- Daughter taking vitamin D 50K/week. Son re-. 12/26- Kids and 4 Grands all OK. One graduating from [employer] (dancer - physical trainnig). Youngest at [employer]. Grandson from [employer] in [email or web address] (hickey). 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 12/27: Family OK. Daughter ([employer]/ solar project manager in [employer]) Son works hard- and boiler room helper at night. 10/30: Daughter had c-spine surgery, next is lumbar. Son getting c-spine surgery too. 2 (?) cyst on thyroid. [place]. 10/31: Daughter and Son doing OK (backs OK). Son- new sales in [employer] business. Medical History Condition Response Thyroid Disease Y Cerebral Vascular Accident Y Immunizations Vaccine Type Date Status Note Provider Nam e and Address Organization Details Recorded Time Influenza, split virus, quadrivalent, preservative 0 completed Angela Snow LPN null, [facility] 09/23/2020 09:42:56 COVID-19, mRNA, LNP-S, PF, 100 mcg/0.5mL dose or 50 mcg/0.25mL dose 1 completed NADINE Barnett, [facility] 11/02/2021 16:24:37 COVID-19, mRNA, LNP-S, PF, 100 mcg/0.5mL dose or 50 mcg/0.25mL dose 1 completed Lluvia Syed RN null, [facility] 11/02/2021 16:24:45 COVID-19, mRNA, LNP-S, PF, 100 mcg/0.5mL dose or 50 mcg/0.25mL dose 1 completed NADINE Barnett, [facility] 11/02/2021 16:24:52 Past Encounters Encounter ID Performer Location Encounter Start Date Encounter Closed Date Diagnosis/Indication Diagnosis SNOMED-CT Code Diagnosis ICD10 Code Diagnosis Note [id number] Modesto Jackson MD Endocrino logy, [address] [address] 10/16/2024 14:43:34 10/22/2024 09:24:57 Subclinical hyperthyroidism 496629943 E05.90 TSH = 0.42 (11/02) was 0.32 (08/01 and 05/01) was 0.83 (11/01) was 0.33 (07/01) was 0.34 (09/29); was 0.37 (08/30) was 0.21 (04/29) ; was 0.3 (10/30 and 03/29); was 0.28 (12/27); was 0.22 (2.20); was 0.46 (11/27); S/P BOYER (8 mCi) in 07/2013 because of concern for risk for AFib (fully suppressed TSH at that time). Not on any replacemen t at this time.FT4 has been normal throughout . Never had overt thyrotoxic osis nor has he had overt hypothyroi dism (s/p BOYER). Monitor labs to see if changes further. Goal is to treat if TSH increases to point of symptoms (or maybe if TSH goes up above 10). Lab orders for every 6 months but if feels well, can wait and do in a year. 11/02: stable on no meds. follow labs Osteopenia 036000187 M85 .80 BMD@[facility] [place] Spine not included (DJD) Right femoral neck= -1.1 (08/28); was -1.3 (2012) Forearm= -0.5 (08/28); was -0.5 (2012). FRAX= 14% (major) and9.1%(hi p)High risk for hip fx based mostly on age. Left femoral neck was -1.5 (2012); Not a lot of dairy in diet but takes 1000 calcium. Takes vitamin D also. Father had broken hip. Discussed options of meds to reduce risk for fx. Issue is not extensive research about starting meds in pts in 80-s and risk/benef it Not anxious to take more meds than is necessary. Check vitamin D and renal panel. (2K per day).11/02: has high risk for hip fx. Monitor vit D and discussed importance of avoiding falls. 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 Will monitor clinically . 11/02: Following clinically . Health Concerns Section Related Observation LastModified by Organization Detai ls LastModified Time None Recorded Concern Status LastModified by Organization Details LastModified Time None Recorded Payers Encounter Date Sequence Insurance Name Policy Number Policy Patel Covered Member ID Patel Member ID Guarantor Name 10/16/2024 1 [facility] Dylan Odom [id number] Dylan Odom Notes Date Note Type Note Provider Name and Address Organization Details Recorded Time 10/16/19 25 text/htm l ThyroidReported bypatient.Previous Evaluation:Ultrasound date (see below); TSH: (0.42 (11/02) was 0.32 (08/01 and 05/01) was 0.83 (11/01) was 0.34 (09/29); was 0.37 (08/30) was 0.21 (04/29); was 0.3 (10/30 and 03/29); was 0.28 (12/27): was 0.22 (11/28); ); free T4: (1.26 (11/02) was 1.33 (08/01) was 0.98 (11/01); was 1.11 (07/01) was 1.15 (09/29); was 1.33 (08/30) was 1.09 (04/29); was 1.19 (10/30); was 1.08 (03/29); was 1.09 (12/27): ); neck uptake: (22% in 2012); BOYER in 2019: TSH 0.53, Kevin 8.8, mag 2.2, A1C 5.3 Treatment:, dose: mcg, frequency: (NOT ON THYROID MEDS); I-131, dose: (8 mCi in July 2013.); NO THYROID MEDS. Constitutional:no cold intolerance; no heat intolerance; weight (145 (11/02); was 155 (11/01@home)- stable. Had lost 30# (2019- Not intentional).); BP stable on meds since CVA. Checked at cardiac rehab. Energy: terrible (11/02). Not great past few years. Gets tired easily- OK in AM. By afternoon, episdoes of micro-sleep ; very briefly drops off. Uses CPAP. Eyes:opthamologist: (Jw (ocular rosacea)); OS- told of macular degeneration (OS). slightly worse Hx of s/p retinal detachment. patch lower left is blurry (since CVA). Neck:no masses;difficulty swallowing;voice changes(Ongoing raspy voice. More raspy- lot of post-nasal drip. No meds for GERD.); . Heart:no rapid heart rate; no palpitations (ongoing (11/02); pounding but also can have belching in response to fullness (same time as extra beats).); no chest pain; no tightness or pressure; Metoprolol helps. AFib in past. Not recently. GI:no constipation; no diarrhea; Occ Fe. Neurological:no tremor; no anxiety; not jittery/nervous; no insomnia (Generally OK. 7-9 hours generally. On CPAP.)Notes: Nocturia x 3 (on tamsulosin in 2022-). wakes 1, 4 and when wakes up PREVIOUS U/S2019: Right mid-lower 1.7x1.9x1.5; Left mid-lower= 2.5x2.1x1.4;2016: Right= 1.7x1.8x1.4; Left= 2.5x2.0x1.4;2011- RIGHT: 1.8x1.7x1.7 (bigger); 2.0x2.5x1.9; LEFT: 2.9x3.8x2.4; 1.9x.18x1.7; ISTHMUS: 1.9x1.7x1.1 (new); 1.8x1.6x0.24182- right mid- 1.8x2.0x1.4. right lower= 1.6x1.6x1.4; left [...] the same as before. was 1.47 PCP: Andree Morocho. ([facility])CARDS: ([facility]).SLEEP APNEA: Gerardo SWAIN. On BiPAP.10/31: slept 9 hours past 2 nights.L/V about a year ago.RENAL: Choudhury. Follow-Up: toxic multinodular goiterFollow-Up: non-toxic uninodular goiterFollow-Up: subclinical hyperthyroidismOsteopeniaLV on 11/01LAst labs on 11/02Lab orders in place until 09/2025Last bone density on 11/01 bmcLast thyroid US on 12/2018Pt had surgery in nov 2023 on lumber spine and had heart surgery this past yr also PT has nerve stimulator for back also. (laminectomy)PT states has had burping and some arythmia for the past few days but has had in the past. PT has question about the vagus nerve and [...] study in 2007- homogeneous with 20% uptake. ([facility]).2013: treated with radioactive iodine in July 2013 [...] Pepcid.Osteopenia with increased risk for fx at 9%11/02: MV repair ([facility]). Also laminectomy for L3-L4. Spinal stenosis- initially better after surgery ([place]) but pins/needles in feet and pain returning (bilat SI type pain) 11/01: Upcoming minimally invasive back surgery- L3-L4 to remove junk . Penning ([place]). Hopes will allow him to walk. 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 Since 2008, 32 kids from 16 different countries (2015).Some Festus Chi in AM (40 minutes total with weights and yoga). Walks 1-1.5 miles/d) back limits him.stretching and light weights and some Festus Chi. Walks 1-1.5 miles.11/01: 30 min upper body. Little Festus Chi. Not able to walk d/t back pain (0.5-1.5 miles/d). Using cane.11/02: Doing cardiac rehab [facility]. Not doing Festus Chi. 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 No writing lately (used to).One last student but thinks will likely wean off.[employer]- meets friends q Monday.Meditating some too ([place]) FAMILY Hx (updated):Daughter ([employer]/ solar project manager in [employer])had c-spine surgery, next is lumbar.Son works hard- and getting c-spine surgery too. boiler room helper at night2 (?) cyst on thyroid. [place]. 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 Youngest at [employer]. Grandson from [employer] in [place] (hickey). Oldest is teacher (engaged)11/01: Grands good. Has great-grand on the way.Daughter: back problemsSon- sober x 33 years. back problems. 11/02: kids doing well. Grands OK (youngest graduated [employer]). Grandson ([place] -> )Great grandson (6mos). PAST: PT difficultly with swallowing even just [...] (08/28); was -0.5 (2012).FRAX= 14% (major) and 9.1% (hip) No falls. No recent fx.Not using cane since back operation. Dairy- about yogurt/milk with cereal (bran).Takes 1000 mg (total as 666 and 333) calcium and vitamin D (2000 IU in winter).11/02: Down to 750.Also Mg and Zn.No kidney stones.Hx of subclinical hyperthyroid. Hx CVA:07/01: 93/59/60/28 put on atorva 40. 11/01: Asking about vagus nerve as cause of sx including burping/fluttering/GERD sx- also some SOB.Burping: had been more when having unintentional weight loss. Not as much lately.Takes digestive enzyme and 1/2 TUMS and ASA (40mg)- helps.Fluttering: weekly at most. notices lying on right side and better if turns over.SOB: up stairs, while wearing mask. ROS:No dizziness with standing in AM.No n/v. No abdominal pain. Hx of Rosacea- not so great. Feels associated with sinus. 10/30: Some problems balancing check book recently.10/31: Notes some more forgetfulness.11/01: better than last year. Better at concentrating.11/02: Little foggy today but not always. Some extra Zn with AREDS for macular disease.Left knee arthritis- better if moves around. Modesto Jackson MD [address] [place] [address], [place], [address], [facility] 10/16/2024 15:39:39
--- OUTSIDE RECORDS SUMMARY | 2024-10-28 12:08 | XMS_ITS | Data Portability ---
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 benign. Nuclear study showed no hot/cold areas. [...] had biopsies in April 2012 (and also 2008). benign. Nuclear study showed no hot/cold areas. [...] not on T4. Going for back surgery ([place]). BMD OK in past. Enhanced Provider time spent performing enhanced activities which may include, but are not limited to: reviewing tests, obtaining and/or reviewing patient history; ordering medications, test or procedures; EMR documentation; communication with patient, family, caregiver(s), VNA; pre-visit prep time communication with specialists, ER staff. 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 Going for back surgery ([place]). BMD OK in past. 11/02: TSH mildly [...] Details Last Modified Time Details Appointments None recorded. Lab TSH, serum or plasma 2023 024 [facility], [address] [place] [address], [address], 4 11:46:50 T4, free, serum 2023 024 [facility], [address] [place] [address], [address], 4 11:17:37 T4, free, serum 2023 024 [facility], [address] [place] [address], [address], 4 16:12:35 TSH, serum or plasma 2023 024 [facility], [address] [place] [address], [address], 4 16:25:18 vitamin D, 25-hydroxy , total, serum 2023 024 [facility], [address] [place] [address], [address], 4 11:38:47 renal function panel, serum 2023 024 [facility], [address] [facility], [place], [address], 11:16:50 Referral None recorded. Procedures None recorded. Surgeries None recorded. Imaging None recorded. Medication Orders None recorded. Patient TargetsNo targets recorded. Patient Instructions Encounter Date Encounter Id Patient Instructions Last Modified By Organization Details Last Modified Time 12/23/2020 [id number] - Labs as directed - Ultrasound in [...] [email or web address] Not avai lable 12/23/2020 18:00:31 11/02/2021 [id number] - Labs as directed- every 6 months [...] minutes. [email or web address] Not available 11/02/2021 18:54:14 10/18/2022 [id number] - Labs as directed- every 6 months should be fine - Contact office if any symptoms of low thyroid (excess fatigue, unexplained weight gain, feeling much more cold than usual, constipation, very dry skin) or excess thyroid (heart racing, unexplained weight loss, feeling jittery/nervous/ anxious, change in frequency of moving bowels, tremors, or insomnia). [email or web address] Not available 10/17/2022 16:42:37 One year- 40 minutes. ccm signed- 10/31- [facility] [email or web address] Not available 10/18/2022 15:14:11 10/18/2023 [id number] - Labs as directed- every 6 months should be fine - Contact office if any symptoms of low thyroid (excess fatigue, unexplained weight gain, feeling much more cold than usual, constipation, very dry skin) or excess thyroid (heart racing, unexplained weight loss, feeling jittery/nervous/ anxious, change in frequency of moving bowels, tremors, or insomnia). [email or web address] Not available 10/18/2023 14:56:32 One year- 40 minutes. [facility] signed- 10/31- [facility] [email or web address] Not available 10/18/2023 14:56:57 10/16/2024 [id number] - Labs as directed- every 6 months should be fine - Contact office if any symptoms of low thyroid (excess fatigue, unexplained weight gain, feeling much more cold than usual, constipation, very dry skin) or excess thyroid (heart racing, unexplained weight loss, feeling jittery/nervous/ anxious, change in frequency of moving bowels, tremors, or insomnia). [email or web address] Not available 10/16/2024 15:29:15 One year- 20 minutes. [facility] signed- 10/31- [facility] [email or web address] Not available 10/16/2024 15:38:06 Reason for Referral None Reported. Results Created Date Observation Date Name Description Value Unit Range Abnormal Flag Note LastModifiedBy Organization Detail LastModifiedTime 12/11/1912/11/2020 T4, free, serum free T4 1.09 NG/dL 0.75-1 .54 Not Available [address], [address], 12/11/2020 13:00:10 12/11/1912/11/2020 TSH, serum or plasm a TSH 0.28 uIU/m L 0.50-6 .00 low The Ameri can Colle ge of Endoc rinol ogy and Ameri can Thyro id Assoc iatio n recom mend goal TSH value s betwe en 0.4-4 .0 mIU/m L. Not Available [address], [address], 12/11/2020 14:05:57 03/22/20 21 03/23/2021 T4, free, serum free T4 1.08 NG/dL 0.75-1 .54 Not Available [address], [address], 03/23/2021 09:43:40 03/22/20 21 03/23/2021 TSH, serum or plasm a TSH 0.31 uIU/m L 0.50-6 .00 low The Ameri can [employer]le ge of Endoc rinol ogy and Ameri can Thyro id Assoc iatio n recom mend goal TSH value s betwe en 0.4-4 .0 mIU/m L. Not Available [address], [address], 03/23/2021 10:20:14 10/26/19 22 10/26/2021 FREE T4 free T4 1.19 NG/dL 0.75-1 .54 Not Available [address], [address], 10/26/2021 16:16:58 10/26/19 22 10/26/2021 TSH TSH 0.30 uIU/m L 0.50-6 .00 low The Ameri can [employer]le ge of Endoc rinol ogy and Ameri can Thyro id Assoc iatio n recom mend goal TSH value s betwe en 0.4-4 .0 mIU/m L. Not Available [address], [address], 10/26/2021 16:49:19 05/04/20 22 05/05/2022 FREE T4 free T4 1.09 NG/dL 0.75-1 .54 Not Available [address], [address], 05/05/2022 12:00:09 05/04/20 22 05/05/2022 TSH TSH 0.21 uIU/m L 0.50-6 .00 low The Ameri can Colle ge of Endoc rinol ogy and Ameri can Thyro id Assoc iatio n recom mend goal TSH value s betwe en 0.4-4 .0 mIU/m L. Not Available [address], [address], 05/05/2022 12:35:40 08/17/20 22 08/17/2022 FREE T4 free T4 1.33 NG/dL 0.75-1 .54 Not Available [address], [address], 08/17/2022 15:49:23 08/17/20 22 08/17/2022 TSH TSH 0.37 uIU/m L 0.50-6 .00 low The Ameri can Colle ge of Endoc rinol ogy and Ameri can Thyro id Assoc iatio n recom mend goal TSH value s betwe en 0.4-4 .0 mIU/m L. Not Available [address], [address], 08/17/2022 16:14:56 10/05/20 22 10/05/2022 FREE T4 free T4 1.15 NG/dL 0.75-1 .54 Not Available [address], [address], 10/05/2022 16:09:19 10/05/20 22 10/05/2022 TSH TSH 0.34 uIU/m L 0.50-6 .00 low The Ameri can Colle ge of Endoc rinol ogy and Ameri can Thyro id Assoc iatio n recom mend goal TSH value s betwe en 0.4-4 .0 mIU/m L. Not Available [address], [address], 10/05/2022 16:28:15 05/05/20 23 05/08/2023 FREE T4 free T4 1.15 NG/dL 0.75-1 .54 Not Available [address], [address], 05/08/2023 11:52:00 05/05/20 23 05/08/2023 TSH TSH 0.16 uIU/m L 0.50-6 .00 low The Ameri can [employer]le ge of Endoc rinol ogy and Ameri can Thyro id Assoc iatio n recom mend goal TSH value s betwe en 0.4-4 .0 mIU/m L. Not Available [address], [address], 05/08/2023 12:19:47 07/06/20 23 07/06/2023 PSA PSA 1.07 NG/mL 0.00-4 .00 Not Available [address], [address], 07/06/2023 16:31:55 07/06/2007/07/2023 LIPID PANEL cholesterol 93 mg/dL <200 mg/dl [place] able 200-2 39 mg/dl Borde rline High >240 mg/dl High Not Available [address], [address], 07/07/2023 10:58:12 07/06/20 23 07/07/2023 LIPID PANEL triglyceride s 59 mg/dL <150 mg/dL Roenl l 150-1 99 mg/dL Borde rline High 200-4 99 mg/dL High >500 mg/dL Very High Not Available [address], [address], 07/07/2023 10:58:12 07/06/2007/07/2023 LIPID PANEL direct HDL 60 mg/dL <40 mg/dl - Major Risk for CHD >60 mg/dl - Negat miley Risk for CHD Not Available [address], [address], 07/07/2023 10:58:12 07/06/2007/07/2023 DIREC T LDL direct LDL 28 mg/dL [...] with 0-1 risk facto r is not carlitoroberta fine. Not Available [address], [address], 07/07/2023 10:58:13 07/06/20 23 07/07/2023 FREE T4 free T4 1.11 NG/dL 0.75-1 .54 Not Available [address], [address], 07/07/2023 11:29:00 07/06/20 23 07/07/2023 TSH TSH 0.33 uIU/m L 0.50-6 .00 low The Ameri can Colle ge of Endoc rinol ogy and Ameri can Thyro id Assoc iatio n recom mend goal TSH value s betwe en 0.4-4 .0 mIU/m L. Not Available [address], [address], 07/07/2023 12:07:10 10/11/19 24 10/12/2023 FREE T4 free T4 0.98 NG/dL 0.75-1 .54 Not Available [address], [address], 10/12/2023 11:28:13 10/11/19 24 10/12/2023 TSH TSH 0.83 uIU/m L 0.50-6 .00 The Ameri can [employer]le ge of Endoc rinol ogy and Ameri can Thyro id Assoc iatio n recom mend goal TSH value s betwe en 0.4-4 .0 mIU/m L. Not Available [address], [address], 10/12/2023 11:57:32 12/18/19 24 12/18/2023 BASIC METAB OLIC PANEL sodium 141 mmol/ L 133-14 6 Not Available [facility] ([facility] [address] [place], [address], 12/18/2023 19:11:53 12/18/19 24 12/18/2023 BASIC METAB OLIC PANEL chloride 102 mmol/ L 96-108 Not Available [facility] ([facility]) [address] [place], [address], 12/18/2023 19:11:53 12/18/19 24 12/18/2023 BASIC METAB OLIC PANEL potassium 4.5 mmol/ L 3.3-5. 1 Not Available [facility] (Out[facility]) [address] [place], [address], 12/18/2023 19:11:53 12/18/19 24 12/18/2023 BASIC METAB OLIC PANEL CO2 28 mmol/ L 21-35 Not Available [facility] ([facility]) [address] [place], [address], 12/18/2023 19:11:53 12/18/19 24 12/18/2023 BASIC METAB OLIC PANEL BUN 39 mg/dL 6-19 high Not Available [facility] ([facility]) [address] [place], [address], 12/18/2023 19:11:53 12/18/19 24 12/18/2023 BASIC METAB OLIC PANEL creatinine 2.10 mg/dL 0.5-1. 5 high Not Available [facility] ([facility]) [address] [place], [address], 12/18/2023 19:11:53 12/18/19 24 12/18/2023 BASIC METAB OLIC PANEL glucose 105 mg/dL 70-99 high Not Available [facility] ([facility]) [address] [place], [address], 12/18/2023 19:11:53 12/18/19 24 12/18/2023 BASIC METAB OLIC PANEL calcium 9.1 mg/dL 8.4-10 .3 Not Available [facility] [address] [place], [address], 12/18/2023 19:11:53 12/18/19 24 12/18/2023 BASIC METAB OLIC PANEL eGFR 31 mL/mi n/1.7 3m2 >59 low Estim ated glome rular filtr ation rate calcu lated using the CKD-E PI refit equat ion. Not Available [facility] ([facility]) [address] [place], [address], 12/18/2023 19:11:53 12/18/19 24 12/18/2023 BASIC METAB OLIC PANEL anion gap 16 mmol/ L 10-20 Not Available [facility] [address] [place], [address], 12/18/2023 19:11:53 12/18/19 24 12/18/2023 NT-FL OBNP nt-probnp 17877 pg/mL 0-450 high Not Available [facility] [address] [place], [address], 12/18/2023 19:11:55 12/25/19 24 12/25/2023 BASIC METAB OLIC PANEL sodium 139 mmol/ L 133-14 6 Not Available [facility] [address] [place], [address], 12/25/2023 19:25:00 12/25/19 24 12/25/2023 BASIC METAB OLIC PANEL chloride 99 mmol/ L 96-108 Not Available [facility] [address] [place], [address], 12/25/2023 19:25:00 12/25/19 24 12/25/2023 BASIC METAB OLIC PANEL potassium 4.0 mmol/ L 3.3-5. 1 Not Available [facility] ([facility] [address] [place], [address], 12/25/2023 19:25:00 12/25/19 24 12/25/2023 BASIC METAB OLIC PANEL CO2 32 mmol/ L 21-35 Not Available [facility] [address] [place], [address], 12/25/2023 19:25:00 12/25/19 24 12/25/2023 BASIC METAB OLIC PANEL BUN 38 mg/dL 6-19 high Not Available [facility] [address] [place], [address], 12/25/2023 19:25:00 12/25/19 24 12/25/2023 BASIC METAB OLIC PANEL creatinine 2.10 mg/dL 0.5-1. 5 high Not Available [facility] [address] [place], [address], 12/25/2023 19:25:00 12/25/19 24 12/25/2023 BASIC METAB OLIC PANEL glucose 132 mg/dL 70-99 high Not Available [facility] [address] [place], [address], 12/25/2023 19:25:00 12/25/19 24 12/25/2023 BASIC METAB OLIC PANEL calcium 9.1 mg/dL 8.4-10 .3 Not Available [facility] [address] [place], [address], 12/25/2023 19:25:00 12/25/19 24 12/25/2023 BASIC METAB OLIC PANEL eGFR 31 mL/mi n/1.7 3m2 >59 low Estim ated glome rular filtr ation rate calcu lated using the CKD-E PI refit equat ion. Not Available [facility] [address] [place], [address], 12/25/2023 19:25:00 12/25/19 24 12/25/2023 BASIC METAB OLIC PANEL anion gap 12 mmol/ L 10-20 Not Available [facility] [address] [place], [address], 12/25/2023 19:25:00 12/25/19 24 12/25/2023 NT-FL OBNP nt-probnp 77970 pg/mL 0-450 high Not Available [facility] [address] [place], [address], 12/25/2023 19:25:02 04/24/20 24 04/25/2024 FREE T4 free T4 1.22 NG/dL 0.75-1 .54 Not Available [address], [address], 04/25/2024 11:17:37 04/24/20 24 04/25/2024 VITAM IN [...] er than 30 ng/mL . Not Available [address], [address], 04/25/2024 11:38:47 04/24/20 24 04/25/2024 TSH TSH 0.32 uIU/m L 0.50-6 .00 low The Ameri can Colle ge of Endoc rinol ogy and Ameri can Thyro id Assoc iatio n recom mend goal TSH value s betwe en 0.4-4 .0 mIU/m L. Not Available [address], [address], 04/25/2024 11:46:50 04/24/20 24 04/26/2024 RENAL PANEL glucose 126 mg/dL 70-100 high Not Available [address], [address], 04/26/2024 11:16:50 04/24/20 24 04/26/2024 RENAL PANEL BUN 56 mg/dL 7-18 high Not Available [address], [address], 04/26/2024 11:16:50 04/24/20 24 04/26/2024 RENAL PANEL creatinine 2.6 mg/dL 0.8-1. 3 high Not Available [address], [address], 04/26/2024 11:16:50 04/24/20 24 04/26/2024 RENAL PANEL B/C 21.5 ratio Not Available [address], [address], 04/26/2024 11:16:50 04/24/20 24 04/26/2024 RENAL PANEL [...] borat ion (CKD- EPI) Equat ion (Emery r et. al 2020) as recom mir d by the Natio nal Kidne y Found ation . eGFR is based on age, serum creat inine , and sex. CKD-E PI does not calcu late eGFR by race, does not apply to child johan (age <18 years ), and shoul d not be used in pregn andre. Not Available [address], [address], 04/26/2024 11:16:50 04/24/20 24 04/26/2024 RENAL PANEL sodium 142 mmol/ L 136-14 5 Not Available [address] [place], [address], 04/26/2024 11:16:50 04/24/20 24 04/26/2024 RENAL PANEL potassium 4.8 mmol/ L 3.5-5. 1 Not Available [address], [address], 04/26/2024 11:16:50 04/24/20 24 04/26/2024 RENAL PANEL chloride 104 mmol/ L 96-107 Not Available [address], [address], 04/26/2024 11:16:50 04/24/20 24 04/26/2024 RENAL PANEL anion gap 6.2 5.0-15 .0 Not Available [address], [address], 04/26/2024 11:16:50 04/24/20 24 04/26/2024 RENAL PANEL CO2 32 mmol/ L 21-32 Not Available [address], [address], 04/26/2024 11:16:50 04/24/20 24 04/26/2024 RENAL PANEL calcium 8.9 mg/dL 8.5-10 .3 Not Available [address], [address], 04/26/2024 11:16:50 04/24/20 24 04/26/2024 RENAL PANEL albumin 3.7 g/dL 3.4-5. 0 Not Available [address], [address], 04/26/2024 11:16:50 04/24/20 24 04/26/2024 RENAL PANEL phosphorous 4.00 mg/dL 2.50-4 .90 Not Available [address], [address], 04/26/2024 11:16:50 08/06/20 24 08/06/2024 FREE T4 free T4 1.33 NG/dL 0.75-1 .54 Not Available [address], [address], 08/06/2024 16:12:35 08/06/20 24 08/06/2024 TSH TSH 0.32 uIU/m L 0.50-6 .00 low CWP=C onsis tent with previ ous. The Ameri can Colle ge of Endoc rinol ogy and Ameri can Thyro id Assoc iatio n recom mend goal TSH value s betwe en 0.4-4 .0 mIU/m L. Not Available [address], [address], 08/06/2024 16:25:18 10/10/19 25 10/11/2024 RENAL PANEL glucose 115 mg/dL 70-100 high Not Available [address], [address], 10/11/2024 11:34:35 10/10/19 25 10/11/2024 RENAL PANEL BUN 48 mg/dL 7-18 high Not Available [address], [address], 10/11/2024 11:34:35 10/10/19 25 10/11/2024 RENAL PANEL creatinine 2.5 mg/dL 0.8-1. 3 high Not Available [address], [address], 10/11/2024 11:34:35 10/10/19 25 10/11/2024 RENAL PANEL B/C 19.2 ratio Not Available [address], [address], 10/11/2024 11:34:35 10/10/19 25 10/11/2024 RENAL PANEL GFR 24.9 mL/mi n abnormal >=60m L/min - Ronel l or midly reduc ed <60mL /min- Decre ased kidne y funct ion <15mL /min - Kidne y failu re [facility] calcu lates estim ated Glome rular Filtr ation Rate (eGFR ) using the Chron ic Kidne y Disea se Epide miolo gy Colla borat ion (CKD- EPI) Equat ion (Emery r et. al 2020) as recom mir d by the Natio nal Kidne y Found ation . eGFR is based on age, serum creat inine , and sex. CKD-E PI does not calcu late eGFR by race, does not apply to child johan (age <18 years ), and shoul d not be used in pregn andre. Not Available [address], [address], 10/11/2024 11:34:35 10/10/19 25 10/11/2024 RENAL PANEL sodium 144 mmol/ L 136-14 5 Not Available [address], [address], 10/11/2024 11:34:35 10/10/19 25 10/11/2024 RENAL PANEL potassium 4.6 mmol/ L 3.5-5. 1 Not Available [address], [address], 10/11/2024 11:34:35 10/10/19 25 10/11/2024 RENAL PANEL chloride 104 mmol/ L 96-107 Not Available [address], [address], 10/11/2024 11:34:35 10/10/19 25 10/11/2024 RENAL PANEL anion gap 12.3 5.0-15 .0 Not Available [address], [address], 10/11/2024 11:34:35 10/10/19 25 10/11/2024 RENAL PANEL CO2 28 mmol/ L 21-32 Not Available [address], [address], 10/11/2024 11:34:35 10/10/19 25 10/11/2024 RENAL PANEL calcium 8.7 mg/dL 8.5-10 .3 Not Available [address], [address], 10/11/2024 11:34:35 10/10/1910/11/2024 RENAL PANEL albumin 3.4 g/dL 3.4-5. 0 Not Available [address], [address], 10/11/2024 11:34:35 10/10/1910/11/2024 RENAL PANEL phosphorous 4.10 mg/dL 2.50-4 .90 Not Available [address], [address], 10/11/2024 11:34:35 10/10/1910/11/2024 FREE T4 free T4 1.26 NG/dL 0.75-1 .54 Not Available [address], [address], 10/11/2024 11:36:55 10/10/1910/11/2024 TSH TSH 0.42 uIU/m L 0.50-6 .00 low The Ameri can Colle ge of Endoc rinol ogy and Ameri can Thyro id Assoc iatio n recom mend goal TSH value s betwe en 0.4-4 .0 mIU/m L. Not Available [address], [address], 10/11/2024 12:29:30 10/10/1910/11/2024 VITAM IN D 25-HY DROXY TOTAL vitamin D 25-hydroxy EIA 51.3 NG/mL 20.0-9 9.9 Thera py is based on measu remen t of total 25-OH D, with level s less than 20 ng/mL indic ative of Vitam in D defic iency . Level s betwe en 20ng/ mL and 30 ng/mL sugge st insuf ficie ncy. Optim al Level s are great er than 30 ng/mL . Not Available [address], [address], 10/11/2024 12:29:31 07/06/2007/06/2023 US, retro perit oneum CLINIC AL HISTOR [...] Readin g Physic racheal: Bettina Gutierrez ms [facility] (Imaging) [address], [place], [address], 07/07/2023 07:55:53 11/09/19 24 10/31/2023 bone densi ty No observ ation record ed. [facility]) [address], [place], [address], 11/22/2023 15:29:35 Result Notes None recorded. 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 Not Available [facility] 3 03:12:45 Essential hypertensi on 72572502 Active 2006 Modesto Jackson MD [address] [place] [address], [address] , [facility] 4 14:24:22 [facility]thyro idism 12591944 [facility] 15:11:37 Anemia 084639412 Active 2006 Modesto Jackson MD [address] [place] [address], , [facility] 4 14:24:20 Thyroid function tests abnormal 964206591 Active 2005 Modesto Jackson MD [address] [place] [address], [address] , [facility] 4 14:25:04 Non-toxic multinodul ar goiter 52827511 Active 2005 Modesto Jackson MD [address] [place] [address], [address] , [facility] 4 14:25:04 Benign essential hypertensi on 7248237 Active 2007 Modesto Jackson MD [address] [place] [address], [address] , [facility] 3 14:45:30 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 Modesto Jackson MD [address] [place] [address], [address] , [facility] 3 17:44:27 Goiter 0527336 Active 2007 Modesto Jackson MD [address] [place] [address], [address] , [facility] 3 14:45:48 Hypothyroi dism 48253225 Active 2006 Not Available [facility] 3 03:12:45 Acute pharyngiti s 758101911 Completed 200508/28/2013 Not Available [facility] 3 02:01:17 Toxic multinodul ar goiter 52632690 Active 2005 Not Available [facility] 3 03:12:45 Malaise and fatigue 506219419 Completed 08/28/2013 Not Available [facility] 3 02:00:19 Problem Notes None recorded. Procedures Surgical History Date Name Laterality Status Provider Name and Address Organization Details Recorded Time 6 Aide - Colonoscopy completed Tyree Noble MD [address] [place] [address], [phone], [facility] 06/20/2016 08:49:47 3 I-131 completed Modesto Jackson MD [address] [place] [address], [address], [facility] 07/31/2013 11:51:52 Imaging Results Imaging Date Name Status LastModified by Organization Details LastModified Time 07/06/2023 US, retroperitoneum completed [facility] (Imaging) [address], [place], [address], 07/07/2023 07:55:53 10/31/2023 bone density completed [facility]) [address], [place], [address], 11/22/2023 15:29:35 Procedure Notes None recorded. Medical Equipment None Reported. Allergies Allergen ID Allergen Name Allergen Category Reaction Reaction Severity Criticality Documentation Date Start Date Code Code System Note Provider Name and Address Organization Details Recorded Time 994373 epinephri ne medicatio n Not available Not available Not available 05/04/2012 3992 RxNorm sever e heada stan, nause a, weakn ess and disor ienta tion GEO Bhat, [facility] 2 14:23:31 [address] Cipro medicatio n other severe Not available 12/29/2010 3 RxNorm Edema in legs and achy joint Not Available [facility] 1 06:05:41 [address]681 Zithromax medicatio n Not available Not available Not available 08/26/2011 4 RxNorm unsur e of react ion Meghna Naylor LPN null, [facility] 1 14:57:00 Medications Name Sig Start Date [...] No t Available Vitals Date Recorded Body weight Provider Name an d Address Organization Details Last Updated DateTime 11/02/2021 42221.93 g NADINE Barnett [place] [facility] 11/02/2021 16:21:34 Date Recorded Heart rate Provider Name an d Address Organization Details Last Updated DateTime 11/02/2021 76 /min NADINE Barnett [facility] 11/02/2021 16:28:58 Date Recorded Body weight Provider Name an d Address Organization Details Last Updated DateTime 10/18/2022 30871.59 g Janeth Marquez LPN [place] [facility] 10/18/2022 14:20:17 Date Recorded Body mass index (BMI) Body height Provider Name and Address Organization Details Last Updated DateTime 10/18/2022 27.3 kg/m2 165.35 cm GEO Schulz [place] [facility] 10/18/2022 14:31:45 Date Recorded Heart rate Provider Name an d Address Organization Details Last Updated DateTime 10/18/2022 64 /min Jan[facility] 10/18/2022 14:28:43 Date Recorded Body height Provider Name an d Address Organization Details Last Updated DateTime 10/18/2023 166.37 cm [facility] 10/18/2023 14:08:51 Date Recorded Body mass index (BMI) Body weight Provider Name and Address Organization Details Last Updated DateTime 10/18/2023 26.9 kg/m2 06887.15 g Janeth [facility] [place] [place] 10/18/2023 14:08:44 Date Recorded Heart rate Provider Name an d Address Organization Details Last Updated DateTime 10/18/2023 51 /min [facility] 10/18/2023 14:18:06 Date Recorded Body height Provider Name an d Address Organization Details Last Updated DateTime 10/16/2024 166.37 cm [facility] 10/16/2024 14:49:06 Date Recorded Body mass index (BMI) Body weight Provider Name and Address Organization Details Last Updated DateTime 10/16/2024 25.7 kg/m2 23100.57 g Janeth [facility] [place] [place] 10/16/2024 14:49:14 Date Recorded Heart rate Provider Name an d Address Organization Details Last Updated DateTime 10/16/2024 61 /min [facility] 10/16/2024 14:58:10 Date Recorded Systolic blood pressure Diastolic blood pressure Provider Name and Address Organization Details Last Updated DateTime 11/02/2021 126 mm[Hg] 78 mm[Hg] Lluvia Syed RN [facility] 11/02/2021 16:28:27 Date Recorded Systolic blood pressure Diastolic blood pressure Provider Name and Address Organization Details Last Updated DateTime 10/18/2022 137 mm[Hg] 77 mm[Hg] [facility] 10/18/2022 14:28:16 Date Recorded Systolic blood pressure Diastolic blood pressure Provider Name and Address Organization Details Last Updated DateTime 07/03/2023 116 mm[Hg] 65 mm[Hg] Nataliya Reyez [facility] 07/03/2023 09:28:48 Date Recorded Systolic blood pressure Diastolic blood pressure Provider Name and Address Organization Details Last Updated DateTime 10/18/2023 134 mm[Hg] 70 mm[Hg] Janeth Marquez LPN [facility] 10/18/2023 14:18:03 Date Recorded Systolic blood pressure Diastolic blood pressure Provider Name and Address Organization Details Last Updated DateTime 10/16/2024 139 mm[Hg] 66 mm[Hg] Janeth Marquez ASSISTANT MANAGER RETAIL [facility] 10/16/2024 14:58:02 Social History Question Answer Notes LastModified by Organizat ion Details LastModified Time Tobacco Smoking Status Former Smoker Quit at age 37 Not Available [facility]03/2011 02:08:59 What Is Your Level Of [...] in college- 1 in masters). One at [employer]. 2018- Daughter taking vitamin D 50K/week. Son re-. 12/26- Kids and 4 Grands all OK. One graduating from [employer] (dancer - physical [employer]). Youngest at [employer]. Grandson from [employer] in [place] (hic[place]). 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 12/27: Family OK. Daughter ([employer] (f. [employer])/ sales project engineer in [employer]) Son works hard- and prosecuting attorney at night. 10/30: Daughter had c-spine surgery, next is lumbar. Son getting c-spine surgery too. 2 (?) cyst on thyroid. [place], [place]. 10/31: Daughter and Son doing OK (backs OK). Son- new sales in [employer]. Medical History Condition Response Thyroid Disease Y Cerebral Vascular Accident Y Immunizations Vaccine Type Date Status Note Provider Nam e and Address Organization Details Recorded Time Influenza, split virus, quadrivalent, preservative 0 completed Angela Snow LPN null, [facility] 09/23/2020 09:42:56 COVID-19, mRNA, LNP-S, PF, 100 mcg/0.5mL dose or 50 mcg/0.25mL dose 1 completed Lluvia Syed RN null, [facility] 11/02/2021 16:24:37 COVID-19, mRNA, LNP-S, PF, 100 mcg/0.5mL dose or 50 mcg/0.25mL dose 1 completed Lluvia Syed RN null, [facility] 11/02/2021 16:24:45 COVID-19, mRNA, LNP-S, PF, 100 mcg/0.5mL dose or 50 mcg/0.25mL dose 1 completed Lluvia Syed RN null, [facility] 11/02/2021 16:24:52 Past Encounters Encounter ID Performer Location Encounter Start Date Encounter Closed Date Diagnosis/Indication Diagnosis SNOMED-CT Code Diagnosis ICD10 Code Diagnosis Note [id number] Endocrino logefren, [facility] [place] [id number] 1 06/29/2005 14:26:48 06/30/2005 09:41:24 [id number] [facility] - [facility] [place] [id number] 1 07/05/2005 09:53:27 07/05/2005 09:53:52 [id number] LAB - [facility] [place] [id number] 1 09/07/2005 11:12:18 09/07/2005 11:12:45 [id number] [facility] - [facility] [place] [id number] 1 11/10/2005 13:56:01 11/10/2005 13:56:26 [id number] Endocrino logefren, [facility] [place] [id number] 1 01/11/2006 16:17:23 01/12/2006 08:43:42 [id number] Radiology , [facility] [place] [id number] 1 01/17/2006 14:23:30 01/18/2006 07:03:29 [id number] Radiology , [facility] [place] [id number] 1 01/17/2006 00:00:00 10/29/2008 02:02:29 [id number] Radiology , [facility] [place] [id number] 1 02/24/2006 08:56:06 02/24/2006 12:47:34 [id number] Radiology , [facility] [place] [id number] 1 02/24/2006 00:00:00 10/29/2008 02:02:29 [id number] LAB - [facility] [place] [place] [id number] 1 03/01/2006 11:53:57 03/01/2006 11:54:04 [id number] Endocrino logefren, [facility] [place] [place] [id number] 1 [id number] LAB - [facility] [place] [id number] 1 04/19/2006 13:21:42 04/19/2006 13:22:01 [id number] [facility] [id number] 1 06/29/2006 09:44:35 06/29/2006 09:44:42 [id number] Endocrino logefren, [facility] PONCHO Best02-275 1 08/09/2006 13:00:54 08/09/2006 14:59:14 [id number] [facility] [place] Best02-275 1 09/04/2006 15:49:21 09/04/2006 15:49:32 [id number] [facility] [place] Best02-275 1 11/13/2006 14:47:16 11/13/2006 14:47:27 [id number] [facility] [place] Best02-275 1 01/11/2007 13:14:55 01/11/2007 13:15:03 [id number] Endocrino logefren, [facility] [place] [id number] 1 01/18/2007 14:43:18 01/19/2007 07:31:16 [id number] Radiology , [facility] [place]ON[place] Best02-275 1 01/18/2007 13:34:02 01/19/2007 09:03:06 [id number] Radiology , [facility] [place] Best02-275 1 01/18/2007 00:00:00 10/29/2008 02:02:29 [id number] [facility] [id number] 1 02/16/2007 07:59:08 02/16/2007 07:59:16 [id number] [facility] [place] Best02-275 1 04/13/2007 11:49:18 04/13/2007 11:49:28 [id number] Endocrino logefren [facility] [place] Best02-275 1 05/09/2007 13:15:09 05/09/2007 16:02:24 [id number] [facility] [place] Best02-275 1 07/10/2007 15:10:29 07/10/2007 15:10:43 [id number] [facility] [place] [id number] 1 10/08/2007 10:19:41 10/08/2007 10:19:46 [id number] LAB - [facility] [place] [id number] 1 12/20/2007 12:01:28 12/20/2007 12:01:37 [id number] Endocrino logy, [facility] [place] [id number] 1 12/27/2007 14:23:52 10/29/2008 02:02:29 [id number] LAB - [facility] [place] [id number] 1 03/14/2008 14:30:20 03/14/2008 14:30:31 [id number] LAB - [facility] [place] [id number] 1 04/22/2008 10:19:01 04/22/2008 10:19:08 [id number] Endocrino logy, [facility] [place] [id number] 1 05/01/2008 14:50:26 10/29/2008 02:02:29 [id number] LAB - [facility] [place] [id number] 1 06/02/2008 13:27:13 06/02/2008 13:28:05 [id number] Endocrino logy, [facility] [place] [id number] 1 06/11/2008 14:22:57 10/29/2008 02:02:29 [id number] Radiology , [facility] [place] [id number] 1 06/11/2008 13:30:57 06/11/2008 14:22:58 [id number] Radiology , [facility] [place] [id number] 1 06/11/2008 00:00:00 10/29/2008 02:02:29 [id number] LAB - [facility] [place] [id number] 1 08/15/2008 12:00:01 08/15/2008 12:00:10 [id number] Endocrino logy, [facility] [place] [id number] 1 09/25/2008 13:31:57 10/29/2008 02:02:29 [id number] Endocrino logy, [facility] [place] [id number] 1 06/18/2009 14:25:55 06/25/2009 11:00:47 [id number] LAB - [facility] [place] [id number] 1 11/18/2008 13:03:16 11/18/2008 13:03:43 [id number] LAB - [facility] PONCHO Best02-275 1 02/27/2009 15:15:06 02/27/2009 15:15:16 [id number] LAB - [facility] [place] [id number] 1 06/03/2009 11:46:48 06/03/2009 11:47:03 [id number] Endocrino logy, [facility] [place] PONCHO Syed02-275 1 12/23/2009 17:09:08 12/24/2009 09:20:44 [id number] Radiology , [facility] [place] PONCHO Syed02-275 1 06/03/2010 10:35:48 06/03/2010 15:52:56 [id number] Endocrino logy, [facility] [place] [id number] 1 06/03/2010 11:30:51 06/10/2010 09:09:30 [id number] Endocrino logy, [facility] [place] PONCHO Syed02-275 1 12/29/2010 12:55:58 12/31/2010 15:41:10 [id number] Endocrino logy, [facility] [place] PONCHO Syed02-275 1 08/26/2011 14:41:53 08/26/2011 16:07:46 [id number] Radiology , [facility] [place] [id number] 1 02/29/2012 15:15:19 03/01/2012 15:17:37 [id number] Endocrino logy, [facility] [place] [id number] 1 02/29/2012 16:11:10 02/29/2012 17:16:31 [id number] Radiology , [facility] [place] PONCHO Syed02-275 1 04/26/2012 12:33:38 04/27/2012 09:17:06 [id number] Endocrino logy, [facility] [place] [id number] 1 05/04/2012 14:13:23 05/04/2012 15:12:13 [id number] Lupis Zaragoza Endocrino logy, [facility] [place] [id number] 1 09/07/2012 14:01:08 09/13/2012 08:57:49 [id number] Ronald Goodson MD Radiology , [address] [id number] 11/13/2012 10:13:28 11/14/2012 12:22:34 [id number] Endocrino logy, [address] [address] 1 06/07/2013 14:59:32 06/07/2013 16:44:40 Toxic diffuse goiter 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 Thyroid fu nction tests abnormal [id number] Subclinica l hyperthyro idism x many years [...] time to normalize his TFT's. Had BMD 8/10. would be worth trying to get f/u. If he had loss iin BMD, that might push towards tx option. BMD from 11/21 has positive tscore for spine. hip is osteopenia (-1.5) Non-toxic multinodular goiter 76785021 three nodules- benign follicular cells with colloid. Benign ess ential hypertension [id number] currently treated with atenolol, diovan, hctz. perhaps atenolol is slowing HR and masking sx that would otherwise be present from excess thyroid. [id number] Endocrino logy, [address] [address] 1 07/17/2013 15:12:16 07/17/2013 16:48:03 Subclinical hyperthyroidism 204192964 Persistent suppressed TSH in setting of normal T4 with no clear sx. However, he is now over 71 and risk for a.fib is only going to increase. Not sure that subclinica l hyperthyro id explains his m/s sx but feel that there is enough rationale for preventing a.fib., that he should undergo BOYER tx. Plan for 8 mCi tx at [facility]. Need to arrange- best day is Tuesdays. [id number] Endocrino logy, [address] [address] 07/31/2013 11:49:12 08/01/2013 09:15:56 Subclinical hyperthyroidism 277534773 Met patient at [facility] for BOYER. labs in 2 months and follow q 2 months to determine impact. Persistent suppressed TSH in setting of normal T4 with no clear sx. However, he is now over 71 and risk for a.fib is only going to increase. Not sure that subclinica l hyperthyro id explains his m/s sx but feel that there is enough rationale for preventing a.fib., that he should undergo BOYER tx. Plan for 8 mCi tx at [facility]. Need to arrange- best day is Tuesdays. [id number] Endocrino logy, [address] [address] 1 11/28/2013 14:59:29 11/28/2013 16:21:35 Subclinical hyperthyroidism 633555398 S/P BOYER (8 mCi) in 07/2013. TSH starting to rise slightly but still low (0.05). FT4 is lower than before but still in normal range. Follow labs q 2 months to see if changes further. Non-toxic multinodular goiter 29577522 Bx in past- three nodules- benign follicular cells with colloid. [id number] Endocrino logy, [address] [address] 1 05/28/2014 15:29:54 05/28/2014 16:32:53 Subclinical hyperthyroidism 553071719 S/P BOYER (8 mCi) in 07/2013. TSH [...] replacemen t hormone therapy. Non-toxic multinodular goiter 90671792 Bx in past- three nodules- benign follicular cells with colloid. [id number] Endocrino logy, [address] [address] 1 11/27/2014 13:44:26 11/27/2014 14:40:55 Subclinical hyperthyroidism 603358708 Now S/P BOYER (8 mCi) in 07/2013. [...] replacemen t hormone therapy. Non-toxic multinodular goiter 65727661 Bx in past- three nodules- benign follicular cells with colloid. [id number] Modesto Jackson MD Endocrino logy, [address] [address] 1 09/30/2015 15:27:53 09/30/2015 16:18:36 Subclinical hyperthyroidism 399424699 E05.90 Now S/P BOYER (8 mCi) in [...] replacemen t hormone therapy. Non-toxic multinodular goiter 34665263 E04.2 Bx in past- three nodules- benign follicular cells with colloid. [id number] Modesto Jackson MD Endocrino logy, [address] [address] 1 06/08/2016 11:28:51 06/08/2016 12:28:28 Subclinical hyperthyroidism 853983255 E05.90 Now S/P BOYER (8 mCi) in [...] replacemen t hormone therapy. Non-toxic multinodular goiter 77702775 E04.2 Bx in past- three nodules- benign follicular cells with colloid. Last u/s in 2011. Suggest repeat this next visit. [id number] Tyree Noble MD ASP, [address] [address] 1 06/20/2016 07:47:13 06/20/2016 12:45:48 [id number] Modesto Jackson MD Endocrino logy, [address] [address] 1 11/18/2016 14:56:09 11/18/2016 16:07:34 Subclinical hyperthyroidism 177853164 E05.90 S/P BOYER (8 mCi) in 07/2013. [...] replacemen t hormone therapy. Non-toxic multinodular goiter 65762000 E04.2 Preliminar y (2017) shows slight decrease in largest on right and left. Previously had 2 on right and 3 on left but not easily identifiab le. Will need to review final repot. Bx in past- three nodules- benign follicular cells with colloid. Last u/s in 2011. [id number] Modesto Jackson MD Endocrino logy, [address] [address] 1 12/14/2017 15:06:57 12/18/2017 07:29:17 Non-toxic multinodular goiter 47841562 E04.2 U/S:Prelim inary today: no change.Connor dy in 2017 showed:Rig ht= 1.7 x 1.8 x 1.4 cm.Left= 2.5 x 2.0 x 1.4 cm Will need to review final repot. U/S next year- if remains unchanged, can push out u/s every 2 years. Bx in past- three nodules- benign follicular cells with colloid. Last u/s in 2011. Subclinica l hyperthyroidism 172375492 E05.90 S/P BOYER (8 mCi) in 07/2013. [...] will start on replacemen t hormone therapy. [id number] Modesto Jackson MD Endocrino logy, [address] [address] 12/14/2018 14:18:18 12/14/2018 15:30:47 Non-toxic multinodular goiter 28021384 E04.2 U/S:Prelim inary today: no change.rig ht mid-lower: 1.7 x 1.8 x 1.4 cm. ; was 1.7 x 1.8 x 1.4 cm (2017)left mid-lower: 2.5 x 2.1 x 1.1 cm; was 2.5 x 2.0 x 1.4 cm (2017) Will need to review final repot. U/S in 2020 (since size has remained unchanged and benign biopsy). Bx in past- three nodules- benign follicular cells with colloid. Last u/s in 2011. Subclinica l hyperthyroidism 412114859 E05.90 S/P BOYER (8 mCi) in 07/2013. [...] irregular today. Check EKG.EKG: NSR with PACs. [id number] Modesto Jackson MD Endocrino logy, [address] [address] 12/13/2019 14:10:48 12/13/2019 15:28:22 Subclinical hyperthyroidism 641151314 E05.90 S/P BOYER (8 mCi) in 07/2013. Not on any replacemen t at this time. TSH has increased minimally with slightly surprising decrease to 0.22 (2) from 0.46 (11/27) - Consistent ly has [...] do in a year. Non-toxic multinodular goiter 63935813 E04.2 Barely palpable nodule on right lower- [...] x 1.4 cm (2016)Left mid-lower= 2.5x2.1x1. 4 (2018) : 2.5 x 2.1 x 1.1 cm; was 2.5 x 2.0 x 1.4 cm (2016) PLAN: U/S in 2020 (since size has remained unchanged and benign biopsy). Osteopenia 474893981 M85 .80 2012 BMD T-scores:L eft femoral neck= -1.5;FRAX= 10.3 for osteoporot ic fx and 3.8% for hip fx. Suggest update 2019.Not a lot of dairy in diet. Takes 1000 calcium. Takes vitamin D also.Fathe r had broken hip. [id number] Modesto Jackson MD Endocrino logy, [address] [address] 09/23/2020 09:35:52 09/28/2020 06:56:51 Non-toxic multinodular goiter 25537791 E04.2 Barely palpable nodule on right lower- [...] unchanged and benign biopsy). Subclinica l hyperthyroidism 786807921 E05.90 TSH = 0.22 (2.20); was 0.46 (11/27); S/P BOYER [...] wait and do in a year. Osteopenia 553312804 M85 .80 BMD 2020: Spine not included [...] review then. Look into cost of Prolia [id number] Modesto Jackson MD Endocrino logy, [address] [address] 12/23/2020 16:47:14 12/24/2020 06:42:53 Subclinical hyperthyroidism 188117353 E05.90 TSH = 0.28 (12/27); was 0.22 [...] wait and do in a year. Osteopenia 894320964 M85 .80 BMD 2020: Spine not included [...] Reviewed concepts of s/e. Non-toxic multinodular goiter 63653416 E04.2 Barely palpable nodule on right lower- [...] size has remained unchanged and benign biopsy). [id number] Modesto Jackson MD Endocrino logy, [address] [address] 1 11/02/2021 16:18:17 11/03/2021 18:55:29 Subclinical hyperthyroidism 131265845 E05.90 TSH = 0.3 (10/30 and 03/29); [...] in a year. Toxic mult inodular goiter 81128668 E05.20 Wallace has been that one or more nodules [...] by u/s. Will monitor clinically . Osteopenia 109875608 M85 .80 BMD 2020: Spine not included [...] to take more meds than is necessary. [id number] Modesto Jackson MD Endocrino logy, [address] [address] 10/18/2022 13:44:54 11/03/2022 10:59:01 Subclinical hyperthyroidism 442724780 E05.90 TSH = 0.34 (09/29); was 0.37 [...] in a year. Toxic mult inodular goiter 91943157 E05.20 Wallace has been that one or more nodules [...] by u/s. Will monitor clinically . Osteopenia 036718731 M85 .80 BMD@[facility]: Spine not included Right femoral neck= -1.1 [...] to take more meds than is necessary. [id number] Modesto Jackson MD Endocrino logy, [address] [address] 10/18/2023 14:00:07 10/19/2023 06:59:32 Subclinical hyperthyroidism 177511939 E05.90 TSH = 0.83 (11/01) was 0.33 [...] wait and do in a year. Osteopenia 853981219 M85 .80 BMD@[facility]: Spine not included (DJD) Right femoral neck= [...] (2K per day). Toxic mult inodular goiter 12143661 E05.20 Wallace has been that one or more nodules [...] 2.5 x 2.0 x 1.4 cm (2016) Given benign biopsies in past, little need to f/u by u/s. Will monitor clinically . [id number] Modesto Jackson MD Endocrino logy, [address] [address] 10/16/2024 14:43:34 10/22/2024 09:24:57 Subclinical hyperthyroidism 510546595 E05.90 TSH = 0.42 (11/02) was 0.32 (08/01 and 05/01) was 0.83 (11/01) was 0.33 (07/01) was 0.34 (09/29); was 0.37 (08/30) was 0.21 (04/29) ; was 0.3 (10/30 and 03/29); was 0.28 (12/27); was 0.22 (2.20); was 0.46 (2/19); S/P BOYER (8 mCi) in 07/2013 because [...] stable on no meds. follow labs Osteopenia 967054370 M85 .80 BMD@[facility]: Spine not included (DJD) [...] research about starting meds in pts in -s and risk/benef it Not anxious to take more meds than is necessary. Check vitamin D and renal panel. (2K per day).11/02: has high risk for hip fx. Monitor vit D and discussed importance of avoiding falls. Toxic mult inodular goiter 32454805 E05.20 Wallace has been that one or more nodules [...] 12/2018: no change. Right mid-lower 1.7x1.9x1. 5 (2018); 1.7 x 1.8 x 1.4 cm.; was 1.7 x 1.8 x 1.4 cm (2017) Left mid-lower= 2.5x2.1x1. 4 (2019) : 2.5 x 2.1 x 1.1 cm; was 2.5 x 2.0 x 1.4 cm (2017)Give n benign biopsies in past, little need [...] Member ID Patel Member ID Guarantor Name 12/23/2020 1 [facility] MEDICARE PREFERRED (MEDICARE REPLACEMENT HMO) [facility] Dylan Odom [id number] 1 Dylan Leon [place] 11/02/2021 1 [facility] MEDICARE PREFERRED (MEDICARE REPLACEMENT HMO) [facility] Dylan Odom [id number] 1 Dylan Leon Le[place] 10/18/2022 1 [facility] MEDICARE PREFERRED (MEDICARE REPLACEMENT HMO) [facility] Dylan Leon Lei [id number] 1 Dylan Leon Lei 10/18/2023 1 [facility] Dylan Leon [place] [id number] 1 Dylan Leon Lei 10/16/2024 1 [facility] Dylan Leon [place] [id number] 1 Dylan Odom Notes Date Note Type Note Provider Name and Address Organization Details Recorded Time 12/24/19 21 text/htm l ThyroidReported bypatient.Previous Evaluation:Ultrasound (number of nodules, size, adenopathy): (see below); TSH: (0.28 (12/27): was 0.22 (11/28); was 0.46 (12/25); was 0.27 (11/26); was 0.25 (11/25)_ was (03/24)_); free T4: (1.09 (12/27): WAS 1.28 (11/28); was 1.22 (12/25); was 1.27 (11/26); was 1.22 (11/25); was 1.4 (03/24)); neck uptake: (22% in 2012); BOYER in 2012. 2020: TSH 0.53, Kevin 8.8, mag 2.2, A1C [...] (some block lately). 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 Two in [place]. Occ napping but not daily. Sleeps - not as good past 4-5 days. UP at night to urinate. Generally wakes once. Meditating some too (Judaism) Spinal stenosis- improved with core strengthening. Will [...] as before. was 1.47 PCP: Daniel.CARDS: Agustina ([place]sgood). Patient agreed to this visit via secure telehealth platform due to the COVID -19 pandemic. Patient understands this is a scheduled visit and the usual procedures with regard to billing and confidentiality apply. Patient was notified that the provider location is [facility] Patient location: home During the visit [...] Right femoral neck= -1.1 (was -1.3 in 2013) Forearm= -0.5 (was -0.5 in 2013). FRAX= [...] and finds it helps. Modesto Jackson MD [address] [place] [address], [phone], [facility] 12/23/2020 23:36:06 11/02/19 22 text/htm l ThyroidReported bypatient.Previous Evaluation:Ultrasound (number of nodules, size, adenopathy): (see below); TSH: (0.3 (10/30 and 03/29); was 0.28 (12/27): was 0.22 (11/28); was 0.46 (12/25); was 0.27 (11/26); was 0.25 (11/25)_ was (03/24)_); free T4: (= 1.19 (10/30); was 1.08 (03/29); was 1.09 (3/21): WAS 1.28 (220); was 1.22 (3); was 1.27 (218); was 1.22 (217); was 1.4 (6)); neck uptake: (22% in 2012); BOYER in [...] (some block lately). 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 Meditating some too (Judaism) Spinal stenosis- generally good (doing planks- helps [...] 1.7x1.9x1.5; Left mid-lower= 2.5x2.1x1.4;2017: Right= 1.7x1.8x1.4; Left= 2.5x2.0x1.4;2011- RIGHT: 1.8x1.7x1.7 (bigger); 2.0x2.5x1.9; LEFT: 2.9x3.8x2.4; 1.9x.18x1.7; ISTHMUS: 1.9x1.7x1.1 (new); 1.8x1.6x0.14607- right mid- 1.8x2.0x1.4. right lower= 1.6x1.6x1.4; left [...] as before. was 1.47 PCP: Daniel.CARDS: Agustina ([place]sgood).SLEEP APNEA: Gerardo SWAIN. On BiPAP. F/U for [...] him on ARB with multiple changes. BONES: 2019:Spine not includedRight femoral neck= -1.1 (was -1.3 in 2013)Forearm= -0.5 (was -0.5 in 2013).FRAX= 14% (major) and 9.1%(hip) No falls. Feels [...] better if moves around. Modesto Jackson MD [address] [place] [address], [id number], [facility] 11/02/2021 18:55:01 10/18/19 23 text/htm l ThyroidReported [...] (some block lately). 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 Meditating some too (Judaism) Spinal stenosis- not great. also SI sx. [...] Not recently. BP - was 127/70 at [facility]. Goal is to get to > 120/80. [...] recent diarrhea). Usually sleeps 3-4 hours. PREVIOUS U/S201: Right mid-lower 1.7x1.9x1.5; Left mid-lower= 2.5x2.1x1.4;2016: Right= 1.7x1.8x1.4; Left= 2.5x2.0x1.4;2011- RIGHT: 1.8x1.7x1.7 (bigger); 2.0x2.5x1.9; LEFT: 2.9x3.8x2.4; 1.9x.18x1.7; ISTHMUS: 1.9x1.7x1.1 (new); 1.8x1.6x0.91334- right mid- 1.8x2.0x1.4. right lower= 1.6x1.6x1.4; left [...] same as before. was 1.47 PCP: Daniel.CARDS: ([facility]).SLEEP APNEA: Gerardo SWAIN. On BiPAP.10/31: slept [...] Also the skin seems redder. F/U for BOYER tx for subclinical hyperthyroidism [...] better if moves around. Modesto Jackson MD [address] [place] [address], [phone], [facility] 11/01/2022 19:14:31 10/18/19 24 text/htm l ThyroidReported [...] stenosis- not great. 11/01- going for surgery ([place]). Had thought it might be SI but [...] vagus.Notes: Nocturia x 3 (on tamsulosin in 2023-01). wakes 1, 4 and when wakes up PREVIOUS U/S2019: Right mid-lower 1.7x1.9x1.5; Left mid-lower= 2.5x2.1x1.4;2016: Right= 1.7x1.8x1.4; Left= 2.5x2.0x1.4;2011- RIGHT: 1.8x1.7x1.7 (bigger); 2.0x2.5x1.9; LEFT: 2.9x3.8x2.4; 1.9x.18x1.7; ISTHMUS: 1.9x1.7x1.1 (new); 1.8x1.6x0.69279- right mid- 1.8x2.0x1.4. right lower= 1.6x1.6x1.4; left [...] the same as before. was 1.47 [address]CP: [facility].CARDS: ([facility]).SLEEP APNEA: Gerardo SWAIN. On BiPAP.10/31: slept 9 hours past 2 nights.L/V about a year ago.RENAL: Bharathiel. Follow-Up: toxic multinodular goiterFollow-Up: non-toxic uninodular goiterFollow-Up: subclinical hyperthyroidismOsteopeniaLV on 10/31LAst labs on 11/01Lab orders in place for tsh and t4 only until 09/2023Last bone density on 08/2020 [facility], 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 [place] ([place]). Hopes will allow him to walk. 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 prosecuting attorney at night2 (?) cyst on thyroid. [place], [place]. 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 Youngest at [place]. Grandson from [employer] in [place] (hickey). Oldest is teacher (engaged)11/01: Grands good. [...] put him on ARB with multiple changes. BONES:BMD@GSpine not includedRight femoral neck= -1.1 (08/28); was [...] hyperthyroid. Ongoing spinal stenosis- going for surgery ([place]). Hx CVA:07/01: 93/59/60/28 put on atorva 40. [...] better if moves around. Modesto Jackson MD [address] [place] [address], [phone], [facility] 10/18/2023 19:51:52 10/16/19 25 text/htm l ThyroidReported bypatient.Previous Evaluation:Ultrasound [...] 2.0x2.5x1.9; LEFT: 2.9x3.8x2.4; 1.9x.18x1.7; ISTHMUS: 1.9x1.7x1.1 (new); 1.8x1.6x0.11025- right mid- 1.8x2.0x1.4. right lower= 1.6x1.6x1.4; left [...] as before. was 1.47 PCP: Andree Morocho. ([facility])CARDS: ([facility]).SLEEP APNEA: Gerardo SWAIN. On BiPAP.10/31: slept [...] study in 2007- homogeneous with 20% uptake. 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 [place]. Floaters too2019- CVA. Tried ARBs in spring- losartan to candesartan to olmesartan with BP up and down. Fatigue and malaise- per [place], started losartan and developed gout (bilateral). Lost [...] L3-L4. Spinal stenosis- initially better after surgery ([place]) but pins/needles in feet and pain returning (bilat SI type pain) 11/01: Upcoming minimally invasive back surgery- L3-L4 to remove junk . [place] ([place]). Hopes will allow him to walk. 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 prosecuting attorney at night2 (?) cyst on thyroid. [place]. 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 Youngest at [place]. Grandson from [employer] in [place] (hickey). Oldest is teacher (engaged)11/01: Grands good. Has great-grand on the way.Daughter: back problemsSon- sober x 33 years. back problems. 11/02: kids doing well. Grands [place] (youngest graduated [employer]). Grandson ([place] -> [place])Great grandson (6mos). PAST: PT difficultly with swallowing [...] better if moves around. Modesto Jackson MD [address] [place] [address], [phone], [facility] 10/16/2024 15:39:39
== END 2024-10-28 12:11 | disposition home or self-care (01) ==
PROVIDERS: PCP Nurse Practitioner; Visit Provider Internal Medicine
DX: M46.1 Sacroiliitis, not elsewhere classified (principal)
CPT/HCPCS: 99214

== ENCOUNTER 2024-11-28 06:10 | Outpatient (REF) | payer OTHER, SELFPAY ==
--- OUTSIDE RECORDS SUMMARY | 2024-11-28 06:12 | XMS_ITS | Encounter Summary ---
Author Organization [facility], Address [address] [place] [address] Phone Care Team Providers Care Button Station Worker Name Role Phone [place], [place] Primary Care Provider [phone] Encounter Details Date Type Department Care Team (Late Contact Info) Description 07/31/2020 Orders Only [facility] - [facility] [address] [facility] 3 [place] [address] Francesca Varela MD Chronic kidney disease, stage 3 unspecified Social History Tobacco Use Types Packs/Day Years Used Date Smoking Tobacco: Former Alcohol Use Standard Drinks/Week Comments No 0 (1 standard drink = 0.6 oz pur e alcohol) Sex and Gender Information Value Date Recorded Sex Assigned at Not on file Legal Sex Male 4:33 PM EST Gender Identity Not on file Sexual Orientation Not on file documented as of this encounter Plan of Treatment Upcoming Encounters Date Type Department Care Team (Late st Contact Info) Description 01/22/2025 2:15 PM EDT Office Visit [facility], - [address] [place] [phone] Akhil Choudhury MD [address] [facility] [place] [phone] documented as of this encounter Visit Diagnoses Diagnosis Chronic kidney disease, stage 3 unspecified documented in this encounter Care Teams Button Station Worker Relationship Specialty Start Date End Date [place], [place] [address] [place] [address] PCP - General Bindery Machine Tender 07/24/24 documented as of this encounter
--- OUTSIDE RECORDS SUMMARY | 2024-11-28 06:12 | XMS_ITS | Encounter Summary ---
Author Organization [facility], Address [address] [place] [address] Phone Care Team Providers Care Senior Ux Developer Name Role Phone [facility] Andree Primary Care Provider [phone] Encounter Details Date Type Department Care Team (Late Contact Info) Description 01/29/2021 Orders Only [facility] - [address] [place] [address] Francesca Varela MD Stage 3 chronic kidney disease (HCC) Social History Tobacco Use Types Packs/Day Years Used Date Smoking Tobacco: Former Comments:Smoking History Inf o:Unknown Alcohol Use Standard Drinks/Week Comments No 0 (1 standard drink = 0.6 oz pur e alcohol) Sex and Gender Information Value Date Recorded Sex Assigned at Not on file Legal Sex Male 4:33 PM EST Gender Identity Not on file Sexual Orientation Not on file documented as of this encounter Plan of Treatment Upcoming Encounters Date Type Department Care Team (Late Contact Info) Description 01/22/2025 2:15 PM EDT Office Visit [facility], - [address] [place] [address] Akhil Choudhury MD [address] [place] [address] [place] [phone] documented as of this encounter Visit Diagnoses Diagnosis Stage 3 chronic kidney disease (HCC) documented in this encounter Care Teams Senior Ux Developer Relationship Specialty Start Date End Date [place], [place] [address] [place] [address] PCP - General Plate Grinder 07/24/24 documented as of this encounter
--- OUTSIDE RECORDS SUMMARY | 2024-11-28 06:12 | XMS_ITS | Encounter Summary ---
Author Organization [facility], Address [address] [place] [address] Phone Care Team Providers Care Cotton Farmworker Name Role Phone Andree Alva Primary Care Provider [phone] Encounter Details Date Type Department Care Team (Late Contact Info) Description 04/27/2023 Documentation Only [facility] [place] [address] Francesca Varela MD Social History Tobacco Use Types Packs/Day Years Used Date Smoking Tobacco: Former Cigarettes Q uit: 1978 Comments:Smoking History Inf o:Unknown Alcohol Use Standard Drinks/Week Comments No 0 (1 standard drink = 0.6 oz pur e alcohol) Sex and Gender Information Value Date Recorded Sex Assigned at Not on file Legal Sex Male 4:33 PM EST Gender Identity Not on file Sexual Orientation Not on file 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 [phone] documented as of this encounter Visit Diagnoses Not on filedocumented in this encounter Care Teams Cotton Farmworker Relationship Specialty Start Date End Date [place], [place] [address] [place] [address] PCP - General Dietitian Consultant 07/24/24 documented as of this encounter
--- OUTSIDE RECORDS SUMMARY | 2024-11-28 06:12 | XMS_ITS | Encounter Summary ---
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 [address] documented as of this encounter Visit Diagnoses Not on filedocumented in this encounter Care Teams Nutrient Management Specialist Relationship Specialty Start Date End Date [place], [place] [address] [place] [address] PCP - General Synchronizer 07/24/24 documented as of this encounter
--- OUTSIDE RECORDS SUMMARY | 2024-11-28 06:12 | XMS_ITS | Encounter Summary ---
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 [address] documented as of this encounter Visit Diagnoses Not on filedocumented in this encounter Care Teams Lead Accountant Relationship Specialty Start Date End Date [place], [place] [address] [place] [address] PCP - General Assembly Operator 07/24/24 documented as of this encounter
--- OUTSIDE RECORDS SUMMARY | 2024-11-28 06:12 | XMS_ITS | Encounter Summary ---
Author Organization [employer] Address [address] [facility] 7t [place] [address] Care Team Providers Care Dovetail Machine Operator Name Role Phone [facility] Primary Care Provider [phone] Encounter Details Date Type Department Care Team (Late st Contact Info) Description 11/20/2024 Orders Only [facility] [address] [place] [address] [place], [place], [facility] [address] [place], [place] [phone] Social History Tobacco Use Types Packs/Day Years Used Date Smoking Tobacco: Former Cigarettes 1 23 0 10/09/1953 - 10/09/1976 Pipe Smokeless Tobacco: Never Alcohol Use Standard Drinks/Week Comments Not Currently 0 (1 standard drink = 0.6 oz pur e alcohol) Social Drinking Housing Stability Answer Date Recorded What is your housing situation today? I have delvin mota 01/12/[address] you li ve. Do you have problems with any of the following? None of the above 01/12/2024 Food Insecurity Answer Date Recorded Within the past 12 months, y ou worried that your food would run out before you got money to buy more: Never True 01/12/2024 Within the past 12 months,th e food you bought just didn't last and you didn't have enough money to get more: Never True 02/2024 Transportation Answer Date Recorded In the past 12 months, has l ack of transportation kept you from medical appts, meetings, work or from getting things needed for daily living? No 01/12/2024 Utilities Answer Date Recorded In the past 12 months, has t he electric, gas, oil or water company threatened to shut off services in your home? No 01/12/2024 Depression Answer Date Recorded Patient Health Questionnaire-2 Score 0 01/12/2024 Sex and Gender Information Value Date Recorded Sex Assigned at Male 03/16/2023 11:23 AM EDT Legal Sex Male 11:19 AM EDT Gender Identity Male 03/16/2023 11:23 AM EDT Sexual Orientation Straight 03/16/2023 11 :23 AM EDT documented as of this encounter Plan of Treatment Upcoming Encounters Date Type Department Care Team (Late st Contact Info) Description 03/05/2025 11:40 AM EDT Office Visit [facility] [address] [place] [address] Andree Alva FNP [address] [place] [address] documented as of this encounter Procedures Procedure Name Priority Date/Time Associated Diagnosis Comments XR LUMBAR SPINE COMPLETE 4 OR MORE VIEWS Routine 09/12/2023 10:30 AM EST documented in this encounter Results * XR LUMBAR SPINE COMPLETE 4 OR MORE VIEWS (09/12/2023 10:30 AM EST) Anatomical Region Laterality Modality Radiographic Sherri ging [facility] Artie CEJAP IMG XR PROCEDURES Final R esult documented in this encounter Visit Diagnoses Not on filedocumented in this encounter Care Teams Dovetail Machine Operator Relationship Specialty Start Date End Date Andree Alva FNP [address] [place] [id number] PCP - General Family Medicine 03/16/23 documented as of this encounter
--- OUTSIDE RECORDS SUMMARY | 2024-11-28 06:12 | XMS_ITS | Encounter Summary ---
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 [address] documented as of this encounter Visit Diagnoses Not on filedocumented in this encounter Care Teams Central Supply Aide Relationship Specialty Start Date End Date [place], [place] [address] [place] [address] PCP - General Software Reverse Engineer 07/24/24 documented as of this encounter
--- OUTSIDE RECORDS SUMMARY | 2024-11-28 06:12 | XMS_ITS | Encounter Summary ---
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 [address] documented as of this encounter Visit Diagnoses Not on filedocumented in this encounter Care Teams Tube Lancer Relationship Specialty Start Date End Date [place], [place] [address] [place] [address] PCP - General Compounding And Finishing Supervisor 07/24/24 documented as of this encounter
--- OUTSIDE RECORDS SUMMARY | 2024-11-28 06:12 | XMS_ITS | Encounter Summary ---
Author Organization [facility], Address [address] [place] [address] Phone Care Team Providers Care Dry Chain Offbearer Name Role Phone Andree Alva Primary Care Provider [phone] Encounter Details Date Type Department Care Team (Late Contact Info) Description 04/27/2023 Documentation Only [facility] [address] [place] [address] Akhil Choudhury MD [address] [place] [address] 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 [address] [place] [address] documented as of this encounter Visit Diagnoses Not on filedocumented in this encounter Care Teams Dry Chain Offbearer Relationship Specialty Start Date End Date [place], [place] 70 [place] [address] PCP - General Medical Corps Officer 07/24/24 documented as of this encounter
--- OUTSIDE RECORDS SUMMARY | 2024-11-28 06:13 | XMS_ITS | Encounter Summary ---
Author Organization [employer] Address [address]t [place] [address] Care Team Providers Care School Counsellor Name Role Phone [facility] Primary Care Provider [phone] Encounter Details Date Type Department Care Team (Late st Contact Info) Description 01/26/2024 Orders Only [facility] [address] [place] [address] [place], [place], [facility] [address] [place], [place] [phone] Scalp irritation Social History Tobacco Use Types Packs/Day Years [...] Description 03/05/2025 11:40 AM EDT Office Visit [facility] [address] [place] [address] [facility] 70 [place] [address] documented as of this encounter Procedures Procedure Name Priority Date/Time Associated Diagnosis Comments AMB REFERRAL TO DERMATOLOGY Routine 07/16/2024 Scalp irritation documented in this encounter Results * Referral to Dermatology (07/16/2024) [facility] OUTPATIENT REFERRAL ORDER BONNIE Final Result documented in this encounter Visit Diagnoses Diagnosis Scalp irritation documented in this encounter Care Teams School Counsellor Relationship Specialty Start Date End Date [facility] [address] [place] [address] PCP - General Family Medicine 03/16/23 documented as of this encounter
--- OUTSIDE RECORDS SUMMARY | 2024-11-28 06:13 | XMS_ITS | Encounter Summary ---
Author Organization [employer] Address [address] [facility] 7t [place] [address] Care Team Providers Care Die Cast Patternmaker Name Role Phone [facility] Primary Care Provider [phone] Encounter Details Date Type Department Care Team (Late st Contact Info) Description 02/02/2024 Orders Only [facility] [address] [place] [address] [place], [place], [facility] [address] [place], [place] [phone] Social History Tobacco Use Types Packs/Day Years [...] Description 03/05/2025 11:40 AM EDT Office Visit [facility] [address] [place] [address] [facility] [address] [place] [address] documented as of this encounter Procedures Procedure Name Priority Date/Time Associated Diagnosis Comments CBC WITH AUTO DIFFERENTIAL Routine 02/01/2024 11:15 AM EDT documented in this encounter Results * CBC auto differential (02/01/2024 11:15 AM EDT) Blood Venous blood specimen / Unknown [facility] LAB BLOOD ORDERABLES Linnea l Result documented in this encounter Visit Diagnoses Not on filedocumented in this encounter Care Teams Die Cast Patternmaker Relationship Specialty Start Date End Date [facility] [address] [place] [address] PCP - General Family Medicine 03/16/23 documented as of this encounter
--- OUTSIDE RECORDS SUMMARY | 2024-11-28 06:13 | XMS_ITS | Encounter Summary ---
Author Organization [facility], Address [address] [place] [address] Phone Care Team Providers Care Knitting Tester Name Role Phone Andree Alva Primary Care Provider [phone] Encounter Details Date Type Department Care Team (Late Contact Info) Description 07/17/2024 Documentation Only [facility] [address] [place] [address] Melony Cardona [address] [place] [phone] Social History Tobacco Use Types Packs/Day Years Used Date Smoking Tobacco: Former Cigarettes 1 23 0 10/09/1955 - 10/09/1978 Comments:Smoking History Inf o:Unknown Alcohol Use Standard Drinks/Week Comments Not Currently 0 (1 standard drink = 0.6 oz pur e alcohol) Sex and Gender Information Value Date Recorded Sex Assigned at Not on file Legal Sex Male 4:33 PM EST Gender Identity Not on file Sexual Orientation Not on file 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 [address] documented as of this encounter Visit Diagnoses Not on filedocumented in this encounter Care Teams Knitting Tester Relationship Specialty Start Date End Date [place], [place] [address] [place] [address] PCP - General Automotive Title Clerk 07/24/24 documented as of this encounter
--- OUTSIDE RECORDS SUMMARY | 2024-11-28 06:13 | XMS_ITS | Encounter Summary ---
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 [address] documented as of this encounter Visit Diagnoses Not on filedocumented in this encounter Care Teams Extrusion Die Coordinator Relationship Specialty Start Date End Date [place], [place] 70 [place] [address] PCP - General Tower Switch Operator 07/24/24 documented as of this encounter
--- OUTSIDE RECORDS SUMMARY | 2024-11-28 06:13 | XMS_ITS | Encounter Summary ---
Author Organization [facility] [place], Address [address] [place] [address] Phone Care Team Providers Care Classified Ad Clerk Name Role Phone [place], [place] Primary Care Provider [phone] Reason for Visit * Reason Comments Med Refill Encounter Details Date Type Department Care Team (Late st Contact Info) Description 11/05/2019 Refill [facility] [address] [place] [address] Francesca Varela MD Social History Tobacco Use [...] Visit [facility], - [address] Luis A EDDY [address] [place] [address] Akhil Choudhury MD [address] [place] [address] [place] [address] documented as of this encounter Visit Diagnoses Not on filedocumented in this encounter Care Teams Classified Ad Clerk Relationship Specialty Start Date End Date [place], [place] [address] [place] [address] PCP - General Bakery Team Member 07/24/24 documented as of this encounter
--- OUTSIDE RECORDS SUMMARY | 2024-11-28 06:13 | XMS_ITS | Encounter Summary ---
Author Organization [employer] Address [address] [facility] 7t [place] [address] Care Team Providers Care Nut Grinder Name Role Phone [facility] Primary Care Provider [phone] Encounter Details Date Type Department Care Team (Late st Contact Info) Description 07/18/2024 Orders Only [facility] [address] [place] [address] [place], [place], [facility] [address] [place] [address] Social History Tobacco Use Types Packs/Day Years [...] Description 03/05/2025 11:40 AM EDT Office Visit [facility] [address] [place] [address] [facility] [address] [place] [address] documented as of this encounter Procedures Procedure Name Priority Date/Time Associated Diagnosis Comments CBC Routine 07/16/2024 11:32 AM EDT documented in this encounter Results * CBC (07/16/2024 11:32 AM EDT) Blood Venous blood specimen / Unknown [facility] LAB BLOOD ORDERABLES Linnea l Result documented in this encounter Visit Diagnoses Not on filedocumented in this encounter Care Teams Nut Grinder Relationship Specialty Start Date End Date Andree Alva [facility] [address] [place] [address] PCP - General Family Medicine 03/16/23 documented as of this encounter
--- OUTSIDE RECORDS SUMMARY | 2024-11-28 06:13 | XMS_ITS | Encounter Summary ---
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 [address] documented as of this encounter Visit Diagnoses Not on filedocumented in this encounter Care Teams Chief Clerk Shelter Relationship Specialty Start Date End Date [place], [place] [address] [place] [address] PCP - General Surgeon Partner 07/24/24 documented as of this encounter
--- OUTSIDE RECORDS SUMMARY | 2024-11-28 06:13 | XMS_ITS | Encounter Summary ---
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 [address] documented as of this encounter Visit Diagnoses Not on filedocumented in this encounter Care Teams Social Media Community Manager Relationship Specialty Start Date End Date [place], [place] 70 [place] [address] PCP - General Hall Tender 07/24/24 documented as of this encounter
--- OUTSIDE RECORDS SUMMARY | 2024-11-28 06:13 | XMS_ITS | Encounter Summary ---
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 [address] documented as of this encounter Visit Diagnoses Not on filedocumented in this encounter Care Teams Supervisor Vacuum Metalizing Relationship Specialty Start Date End Date [place], [place] [address] [place] [address] PCP - General It Infrastructure Architect 07/24/24 documented as of this encounter
--- OUTSIDE RECORDS SUMMARY | 2024-11-28 06:13 | XMS_ITS | Encounter Summary ---
Author Organization [employer] Address [address] [place] [address] 7t [place] [address] Care Team Providers Care Donor Recruitment Manager Name Role Phone [facility] Primary Care Provider [phone] Encounter Details Date Type Department Care Team (Late st Contact Info) Description 01/03/2024 Orders Only [facility] MEDICAL [address] [place] [address] Provider, MD V[place] Social History Tobacco Use Types Packs/Day Years Used Date Smoking Tobacco: Former Cigarettes 1 23 0 10/09/1953 - 10/09/1976 Pipe Smokeless Tobacco: Never Alcohol Use Standard Drinks/Week Comments Not Currently 0 (1 standard drink = 0.6 oz pur e alcohol) Social Drinking Sex and Gender Information Value Date Recorded Sex Assigned at Male 03/16/2023 11:23 AM EDT Legal Sex Male 11:19 AM EDT Gender Identity Male 03/16/2023 11:23 AM EDT Sexual Orientation Straight 03/16/2023 11 :23 AM EDT documented as of this encounter Plan of Treatment Upcoming Encounters Date Type Department Care Team (Late st Contact Info) Description 03/05/2025 11:40 AM EDT Office Visit [facility] MEDICAL [address] [place] [address] [facility] Andree [facility] [address] [place] [address] documented as of this encounter Procedures Procedure Name Priority Date/Time Associated Diagnosis Comments TRANSTHORACIC ECHO (TTE) COMPLETE Routine 12/28/2023 5:07 PM EDT documented in this encounter Results * Transthoracic echo (TTE) complete (12/28/2023 5:07 PM EDT) us Historical Provider CV ECHO PROCEDURES Final Result documented in this encounter Visit Diagnoses Not on filedocumented in this encounter Care Teams Donor Recruitment Manager Relationship Specialty Start Date End Date Andree Alva FNP [address] [place] [address] PCP - General Family Medicine 03/16/23 documented as of this encounter
--- OUTSIDE RECORDS SUMMARY | 2024-11-28 06:13 | XMS_ITS | Encounter Summary ---
Author Organization [employer] Address [address] [facility] 7t [place] [address] Care Team Providers Care Pack Operator Name Role Phone [facility] Primary Care Provider [phone] Encounter Details Date Type Department Care Team (Late st Contact Info) Description 07/17/2024 Orders Only [facility] [address] [place] [address] [place], [place], [facility] 70 [place] [address] Social History Tobacco Use Types Packs/Day Years [...] Description 03/05/2025 11:40 AM EDT Office Visit [facility] [address] [place] [address] [facility] [address] [place] [address] documented as of this encounter Procedures Procedure Name Priority Date/Time Associated Diagnosis Comments HEMOGLOBIN A1C Routine 07/16/2024 10:18 AM EDT PTH, INTACT Routine 07/16/2024 10:17 AM EDT 25OH VITAMIN D Routine 07/16/2024 10:16 AM EDT RENAL FUNCTION PANEL Routine 07/16/2024 10:15 AM EDT documented in this encounter Results * Hemoglobin A1c (07/16/2024 10:18 AM EDT) Blood Venous blood specimen / Unknown [facility] LAB BLOOD ORDERABLES Linnea l Result * PTH, INTACT (07/16/2024 10:17 AM EDT) [facility] LAB BLOOD ORDERABLES Linnea l Result * 25 OH Vitamin D (07/16/2024 10:16 AM EDT) [facility] LAB BLOOD ORDERABLES Linnea l Result * Renal Function Panel (07/16/2024 10:15 AM EDT) Blood Venous blood specimen / Unknown [facility] LAB BLOOD ORDERABLES Linnea l Result documented in this encounter Visit Diagnoses Not on filedocumented in this encounter Care Teams Pack Operator Relationship Specialty Start Date End Date [facility] [address] [place] [address] PCP - General Family Medicine 03/16/23 documented as of this encounter
--- OUTSIDE RECORDS SUMMARY | 2024-11-28 06:13 | XMS_ITS | Encounter Summary ---
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 [place] [address] documented as of this encounter Visit Diagnoses Not on filedocumented in this encounter Care Teams Restrictive Preparation Operator Relationship Specialty Start Date End Date [place], [place] 70 [place] [address] PCP - General Tentering Machine Feeder 07/24/24 documented as of this encounter
--- OUTSIDE RECORDS SUMMARY | 2024-11-28 06:13 | XMS_ITS | Encounter Summary ---
Author Organization [email or web address] Address [address] [facility] 7t [place] [address] Care Team Providers Care Mold Clamper Name Role Phone [facility] Primary Care Provider [phone] Encounter Details Date Type Department Care Team (Late st Contact Info) Description 02/23/2024 Orders Only [facility] [address] [place] [address] [place], [place], [facility] [address] [place] [address] Social History Tobacco Use Types Packs/Day Years [...] Description 03/05/2025 11:40 AM EDT Office Visit [facility] MED[facility] [address] [place] [address] [place], [place] [facility] [address] [place] [address] documented as of this encounter Procedures Procedure Name Priority Date/Time Associated Diagnosis Comments BASIC METABOLIC PANEL Routine 02/22/2024 10:23 AM EDT documented in this encounter Results * Basic Metabolic Panel (02/22/2024 10:23 AM EDT) Blood Venous blood specimen / Unknown [facility] LAB BLOOD ORDERABLES Linnea l Result documented in this encounter Visit Diagnoses Not on filedocumented in this encounter Care Teams Mold Clamper Relationship Specialty Start Date End Date [facility] [address] [place] [address] PCP - General Family Medicine 03/16/23 documented as of this encounter
--- OUTSIDE RECORDS SUMMARY | 2024-11-28 06:13 | XMS_ITS | Clinical Summary ---
Author Organization [facility], Address [address] [place] [address] Phone Care Team Providers Care Control Operator Flow Coat Name Role Phone [facility] Andree Primary Care Provider Allergies Active Allergy Reactions Criticality Noted Date Comments Azithromycin Rash Low 07/28/2016 Ciprofloxacin Other (see comments) 07/28/2016 Dust Mite Extract 02/05/2019 Lisinopril Other (see comments) 01/15/2020 Valsartan Other (see comments) 01/15/2020 Medications aspirin 81 MG tablet Take 1 tablet by mouth every other day Active metoprolol tartrate (LOPRESSOR) 25 MG tablet Take 25 mg by mouth 2 (two) times a day 0 Active apixaban (ELIQUIS) 2.5 MG tablet Take 2.5 mg by mouth 1 (one) time each day 0 Active Multiple Vitamins-Minera ls (PRESERVISION AREDS 2 PO) Take 1 capsule by mouth 1 (one) time each day Active gabapentin (NEURONTIN) 100 MG capsule TAKE 1 CAPSULE BY MOUTH 2 TIMES A DAY NEEDED FOR NEUROPATHIC PAIN 3 Active losartan (COZAAR) 100 MG tablet Take 1 tablet (100 mg total) by mouth 1 (one) time each day 90 tablet 3 4 12/03/19 25 Active atorvastatin (LIPITOR) 80 MG tablet Take 80 mg by mouth at bed time Active Jardiance 10 MG tablet Take by mouth 1 (one) time each day 4 Active hydrALAZINE 25 MG tablet TAKE 1 TABLET WITH FOOD ORALLY TWO TIMES A DAY 30 DAYS 4 Active metoprolol succinate XL (TOPROL XL) 25 MG 24 hr tablet Take 25 mg by mouth 1 (one) time each day 4 Active furosemide (LASIX) 20 MG tablet Take 1 tablet (20 mg total) by mouth 1 (one) time each day 90 tablet 3 5 01/13/20 25 Active Active Problems Problem Noted Date Diagnosed Date Chronic kidney disease, stage 4 (severe) 024 Stage 5 chronic kidney disease 04/23/2024 Heart failure, not otherwise specified 4 Essential hypertension 04/19/2022 Hyperlipidemia 08/27/2021 Overview (04/18/2022): Last Assessment & Plan: His most recent lipid panel shows his LDL has increased to 102. He stopped taking his statins for muscle aches pains, dizziness and memory issues. He states he is willing to give this a try again because he is not completely convinced that it was a statin the causing these issues. He does have sensitivity to a lot of medications. I have asked him to try taking a statin every other day to see if he can tolerate this. We will repeat another lipid panel in 6 months. I also provided him with dietary restrictions to help improve his cholesterol. We will continue to exercise daily. 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 He is on metoprolol 25 mg twice daily and losartan 50 mg daily which was reduced due to renal function. He was asked to follow a DASH diet to help improve his blood pressure. He checks his blood pressures at home and his range is typically in the 140s systolically. He was to continue checking his blood pressures at home. Additionally we discussed the importance of having his blood pressure goal less than 130/80 given that he is already had a stroke and is on Eliquis. Last Assessment & Plan: Blood pressure is elevated here in the office at 165/94. We did recheck his blood pressure and got 156/91. His blood pressure log from home shows an average blood pressure of 140/80. His medications include metoprolol 25 mg daily which she will remain on. He was asked to follow a Dash diet and to continue exercising which he does about 35 minutes a day. He will continue checking his blood pressures at home. Hypertensive renal disease 01/07/2021 Paroxysmal atrial fibrillation 06/24/2020 Overview (04/18/2022): Last Assessment & Plan: Patient was diagnosed in 05/2020 with paroxysmal atrial fibrillation. Echocardiogram recently completed and reassuring without structural or valvular heart disease. Followed by Dr. Berrios at [facility]. Initially diagnosed with Holter monitor after several months of intermittent palpitations. -[id number] score 3, started on Eliquis at renally adjusted dose 2.5 mg twice daily which was not started until the morning of 08/29/2020. Per [facility] teleneurology, Eliquis should be continued. -Metoprolol on board for rate control. Last Assessment & Plan: He has a history of paroxysmal atrial fibrillation which was diagnosed in May 2020. He has a chads vas score of 3 and was started on a renally dosed Eliquis at 2.5 mg twice daily which he has recently just started taking apixaban 2.5 mg daily with a baby aspirin 81 mg. He has not been taking the Eliquis 2.5 mg twice a daily as recommended. It was discussed that he is not fully detecting himself against stroke due to the atrial fibrillation. We discussed at great length the importance of taking the Eliquis 2.5 mg twice daily for stroke prevention. He is agreed that he will start taking the apixaban 2.5 mg daily. He is rate controlled on metoprolol 25 mg twice daily. Additionally he has not taken his prescribed atorvastatin 80 mg daily. He states this is due to his sister having side effects on this medication and did not want to have them himself. We discussed him breaking the pill in half and taking the atorvastatin 40 mg for the next week or 2 to see if he tolerates this and then increasing it to the 80 mg daily. He was agreeable to this plan and states he will start taking this tomorrow. Last Assessment & Plan: Continues to take Eliquis 2.5 mg twice daily renally dosed.In addition he is on aspirin 81 mg daily. He he is rate controlled on metoprolol 25 mg daily. He will continue his medication without change Proteinuria 01/15/2020 Chronic nephritic syndrome 01/15/2020 Chronic kidney disease due to hypertension 01/14 Resolved Problems Problem Noted Date Diagnosed Date Resolved Date Chronic kidney disease 01/15/202001/12 Encounters Date Type Department Care Team Description 10/14/2024 Office Communication [facility], [address] [place] [address] Carl Trotter MA from Last 3 Months Immunizations Name Administration Dates Next Due Influenza Split High Dose Pr eservative Free IM 07/27/2020,07/16/2019,07/16/2019,07/04,07/04/2018,08/27/2017,08/27/2017 ,07/24/2017,10/24/2016,10/24/2016,07/10 Influenza, Quadrivalent, Wit h Preservative 08/17/2020 Influenza, Unspecified 05/22/2022,07/27/2020 Pneumococcal Conjugate 13-Valent 01/25/2017,01/07 Pneumococcal Polysaccharide 10/24/2016, 7 Family History Medical History Relation Comments Hypertension Father Dementia Mother Heart disease Mother Relation Status Comments Father Mother Social History Tobacco Use Types Packs/Day Years Used Date Smoking Tobacco: Former Cigarettes 1 23 0 10/09/1955 - 10/09/1978 Tobacco Cessation:Counseling Given: Not Answered Comments:Smoking History Info:Unknown Alcohol Use Standard Drinks/Week Comments Not Currently 0 (1 standard drink = 0.6 oz pur e alcohol) Sex and Gender Information Value Date Recorded Sex Assigned at Not on file Legal Sex Male 4:33 PM EST Gender Identity Not on file Sexual Orientation Not on file 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 Not on file Not on file Last Filed Vital Signs Vital Sign Reading Time Taken Comments Blood Pressure 140/68 05/08/2023 11:33 AM EDT Pulse 68 05/08/2023 11:33 AM EDT Temperature 36.7 ??C (98 ??F) 07/15/2019 12:00 PM EDT Respiratory Rate 14 05/08/2023 11:33 AM EDT Oxygen Saturation - - Inhaled Oxygen Concentration - - Weight 70.8 kg (156 lb) 05/08/2023 11:33 AM EDT Height 167.6 cm (5' 6 ) 05/08/2023 11:33 AM EDT Body Mass Index 25.18 05/08/2023 11:33 AM EDT Plan of Treatment Upcoming Encounters Date Type Department Care Team (Late st Contact Info) Description 01/22/2025 2:15 PM EDT Office Visit [facility], - [address] [address] [address] [phone] Akhil Choudhury MD [address] [place] [address] [place] [phone] Health Maintenance Due Date Last Done Comments Influenza Vaccine (#1) 2024 3, 05/22/2022, 07/20/2021, Additional history exists Pneumococcal Vaccine: 65+ Years Completed 01/25/2017, 01/25/2017, 10/24/2016, Additional history exists Hepatitis B Vaccine Aged Out No longe r eligible based on patient's age to complete this topic Insurance [employer] Care Teams Control Operator Flow Coat Relationship Specialty Start Date End Date [place], [place] [address] [facility] [place] [id number] PCP - General Cutting Department Supervisor 07/24/24
--- OUTSIDE RECORDS SUMMARY | 2024-11-28 06:13 | XMS_ITS | Data Portability ---
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 Going for back surgery ([place] BMD OK in past. Enhanced Provider time [...] not on T4. Going for back surgery ([place] BMD OK in past. 11/02: TSH mildly [...] Lab TSH, serum or plasma [address] [facility], [address] [place] [address], [id number], 4 11:46:50 T4, free, serum [address] [facility], [address] [place] [address], [id number], 4 11:17:37 T4, free, serum [address] [facility], [address] [place] [address], [id number], 4 16:12:35 TSH, serum or plasma [address] [facility], [address] [place] [address], [id number], 4 16:25:18 vitamin D, 25-hydroxy , total, serum [address] [facility], [address] [place] [address], [id number], 4 11:38:47 renal function panel, serum [address] [facility], [address] [facility], [place], [address], 11:16:50 Referral None recorded. Procedures None recorded. Surgeries None recorded. Imaging None recorded. Medication Orders None recorded. Patient TargetsNo targets recorded. Patient Instructions Encounter Date Encounter Id Patient Instructions Last Modified By Organization Details Last Modified Time 12/23/2020 [id number] - Labs as directed - Ultrasound in [...] [email or web address] Not avai lable 12/23/2020 18:00:31 11/02/2021 [id number] - Labs as directed- every 6 months [...] minutes. [email or web address] Not available 11/02/2021 18:54:14 10/18/2022 [id number] - Labs as directed- every 6 months [...] One year- 40 minutes. ccm signed- 10/31- [facility] [email or web address] Not available 10/18/2022 15:14:11 10/18/2023 [id number] - Labs as directed- every 6 months should be fine - Contact office if any symptoms of low thyroid (excess fatigue, unexplained weight gain, feeling much more cold than usual, constipation, very dry skin) or excess thyroid (heart racing, unexplained weight loss, feeling jittery/nervous/ anxious, change in frequency of moving bowels, tremors, or insomnia). [email or web address] Not available 10/18/2023 14:56:32 One year- 40 minutes. [facility] signed- 10/31- [facility] [email or web address] Not available 10/18/2023 14:56:57 10/16/2024 [id number] - Labs as directed- every 6 months should be fine - Contact office if any symptoms of low thyroid (excess fatigue, unexplained weight gain, feeling much more cold than usual, constipation, very dry skin) or excess thyroid (heart racing, unexplained weight loss, feeling jittery/nervous/ anxious, change in frequency of moving bowels, tremors, or insomnia). [email or web address] Not available 10/16/2024 15:29:15 One year- 20 minutes. [facility] signed- 10/31- [facility] [email or web address] Not available 10/16/2024 15:38:06 Reason for Referral None Reported. Results Created Date Observation Date Name Description Value Unit Range Abnormal Flag Note LastModifiedBy Organization Detail LastModifiedTime 12/11/1912/11/2020 T4, free, serum free T4 1.09 NG/dL 0.75-1 .54 Not Available [address], [address], 12/11/2020 13:00:10 12/11/1912/11/2020 TSH, serum or plasm a TSH 0.28 uIU/m L 0.50-6 .00 low The Ameri can [employer]le ge of Endoc rinol ogy and Ameri can Thyro id Assoc iatio n recom mend goal TSH value s betwe en 0.4-4 .0 mIU/m L. Not Available [address], [address], 12/11/2020 14:05:57 03/22/20 21 03/23/2021 T4, free, serum free T4 1.08 NG/dL 0.75-1 .54 Not Available [address], [address], 03/23/2021 09:43:40 03/22/20 21 03/23/2021 TSH, serum or plasm a TSH 0.31 uIU/m L 0.50-6 .00 low The Ameri can [employer]le ge of Endoc rinol ogy and Ameri can Thyro id Assoc iatio n recom mend goal TSH value s betwe en 0.4-4 .0 mIU/m L. Not Available [address], [address], 03/23/2021 10:20:14 10/26/19 22 10/26/2021 FREE T4 free T4 1.19 NG/dL 0.75-1 .54 Not Available [address], [address], 10/26/2021 16:16:58 10/26/19 22 10/26/2021 TSH TSH 0.30 uIU/m L 0.50-6 .00 low The Ameri can [employer] ge [employer] Endoc rinol ogy and Ameri can Thyro id Assoc iatio n recom mend goal TSH value s betwe en 0.4-4 .0 mIU/m L. Not Available [address], [address], 10/26/2021 16:49:19 05/04/20 22 05/05/2022 FREE T4 free T4 1.09 NG/dL 0.75-1 .54 Not Available [address], [address], 05/05/2022 12:00:09 05/04/20 22 05/05/2022 TSH TSH 0.21 uIU/m L 0.50-6 .00 low The Ameri can [employer] ge [employer] Endoc rinol ogy and Ameri can Thyro id Assoc iatio n recom mend goal TSH value s betwe en 0.4-4 .0 mIU/m L. Not Available [address], [address], 05/05/2022 12:35:40 08/17/20 22 08/17/2022 FREE T4 free T4 1.33 NG/dL 0.75-1 .54 Not Available [address], [address], 08/17/2022 15:49:23 08/17/20 22 08/17/2022 TSH TSH 0.37 uIU/m L 0.50-6 .00 low The Ameri can [employer] ge [employer] Endoc rinol ogy and Ameri can Thyro id Assoc iatio n recom mend goal TSH value s betwe en 0.4-4 .0 mIU/m L. Not Available [address], [address], 08/17/2022 16:14:56 10/05/20 22 10/05/2022 FREE T4 free T4 1.15 NG/dL 0.75-1 .54 Not Available [address], [address], 10/05/2022 16:09:19 10/05/20 22 10/05/2022 TSH TSH 0.34 uIU/m L 0.50-6 .00 low The [employer] can [employer] ge [employer] Endoc rinol ogy and Ameri can Thyro id Assoc iatio n recom mend goal TSH value s betwe en 0.4-4 .0 mIU/m L. Not Available [address], [address], 10/05/2022 16:28:15 05/05/20 23 05/08/2023 FREE T4 free T4 1.15 NG/dL 0.75-1 .54 Not Available [address], [address], 05/08/2023 11:52:00 05/05/20 23 05/08/2023 TSH TSH 0.16 uIU/m L 0.50-6 .00 low The [employer] ge [employer] Endoc rinol ogy and Ameri can Thyro id Assoc iatio n recom mend goal TSH value s betwe en 0.4-4 .0 mIU/m L. Not Available [address], [address], 05/08/2023 12:19:47 07/06/20 23 07/06/2023 PSA PSA 1.07 NG/mL 0.00-4 .00 Not Available [address], [address], 07/06/2023 16:31:55 07/06/2007/07/2023 LIPID PANEL cholesterol 93 mg/dL <200 mg/dl [place] able 200-2 39 mg/dl Borde rline High >240 mg/dl High Not Available [address], [address], 07/07/2023 10:58:12 07/06/20 23 07/07/2023 LIPID PANEL triglyceride s 59 mg/dL <150 mg/dL Ronel l 150-1 99 mg/dL Borde rline High 200-4 99 mg/dL High >500 mg/dL Very High Not Available [address], [address], 07/07/2023 10:58:12 07/06/2007/07/2023 LIPID PANEL direct HDL 60 mg/dL <40 mg/dl - Major Risk for CHD >60 mg/dl - Negat miley Risk for CHD Not Available [address], [address], 07/07/2023 10:58:12 07/06/2007/07/2023 DIREC T LDL direct [...] r is not carlitoroberta fine. Not Available [address], [address], 07/07/2023 10:58:13 07/06/20 23 07/07/2023 FREE T4 free T4 1.11 NG/dL 0.75-1 .54 Not Available [address], [address], 07/07/2023 11:29:00 07/06/20 23 07/07/2023 TSH TSH 0.33 uIU/m L 0.50-6 .00 low The Ameri can [employer]le ge of Endoc rinol ogy and Ameri can Thyro id Assoc iatio n recom mend goal TSH value s betwe en 0.4-4 .0 mIU/m L. Not Available [address], [address], 07/07/2023 12:07:10 10/11/19 24 10/12/2023 FREE T4 free T4 0.98 NG/dL 0.75-1 .54 Not Available [address], [address], 10/12/2023 11:28:13 10/11/19 24 10/12/2023 TSH TSH 0.83 uIU/m L 0.50-6 .00 The [employer] can [employer] ge [employer] Endoc rinol ogy and Ameri can Thyro id Assoc iatio n recom mend goal TSH value s betwe en 0.4-4 .0 mIU/m L. Not Available [address], [address], 10/12/2023 11:57:32 12/18/19 24 12/18/2023 BASIC METAB OLIC PANEL sodium 141 mmol/ L 133-14 6 Not Available [facility] [address] [place], [address], 12/18/2023 19:11:53 12/18/19 24 12/18/2023 BASIC METAB OLIC PANEL chloride 102 mmol/ L 96-108 Not Available [facility] [address] [place], [address], 12/18/2023 19:11:53 12/18/19 24 12/18/2023 BASIC METAB OLIC PANEL potassium 4.5 mmol/ L 3.3-5. 1 Not Available [facility] [address] [place], [address], 12/18/2023 19:11:53 12/18/19 24 12/18/2023 BASIC METAB OLIC PANEL CO2 28 mmol/ L 21-35 Not Available [facility] [address] [place], [address], 12/18/2023 19:11:53 12/18/19 24 12/18/2023 BASIC METAB OLIC PANEL BUN 39 mg/dL 6-19 high Not Available [facility] [address] [place], [address], 12/18/2023 19:11:53 12/18/19 24 12/18/2023 BASIC METAB OLIC PANEL creatinine 2.10 mg/dL 0.5-1. 5 high Not Available [facility] [address] [place], [address], 12/18/2023 19:11:53 12/18/19 24 12/18/2023 BASIC METAB OLIC PANEL glucose 105 mg/dL 70-99 high Not Available [facility] [address] [place], [address], 12/18/2023 19:11:53 12/18/19 24 12/18/2023 BASIC METAB OLIC PANEL calcium 9.1 mg/dL 8.4-10 .3 Not Available [facility] [address] [place], [address], 12/18/2023 19:11:53 12/18/19 24 12/18/2023 BASIC METAB OLIC PANEL eGFR 31 mL/mi n/1.7 3m2 >59 low Estim ated glome rular filtr ation rate calcu lated using the CKD-E PI refit equat ion. Not Available [facility] [address] [place], [address], 12/18/2023 19:11:53 12/18/19 24 12/18/2023 BASIC METAB OLIC PANEL anion gap 16 mmol/ L 10-20 Not Available [facility] [address] [place], [address], 12/18/2023 19:11:53 12/18/19 24 12/18/2023 NT-TX OBNP nt-probnp 94953 pg/mL 0-450 high Not Available [facility] [address] [place], [address], 12/18/2023 19:11:55 12/25/19 24 12/25/2023 BASIC METAB OLIC PANEL sodium 139 mmol/ L 133-14 6 Not Available [facility] [address] [place], [address], 12/25/2023 19:25:00 12/25/19 24 12/25/2023 BASIC METAB OLIC PANEL chloride 99 mmol/ L 96-108 Not Available [facility] [address] [place], [address], 12/25/2023 19:25:00 12/25/19 24 12/25/2023 BASIC METAB OLIC PANEL potassium 4.0 mmol/ L 3.3-5. 1 Not Available [facility] [address] [place], [address], 12/25/2023 19:25:00 12/25/19 24 12/25/2023 BASIC METAB OLIC PANEL CO2 32 mmol/ L 21-35 Not Available [facility] [address] [place], [address], 12/25/2023 19:25:00 12/25/19 24 12/25/2023 BASIC METAB OLIC PANEL BUN 38 mg/dL 6-19 high Not Available [facility] [address] [place], [address], 12/25/2023 19:25:00 12/25/19 24 12/25/2023 BASIC METAB OLIC PANEL creatinine 2.10 mg/dL 0.5-1. 5 high Not Available [facility] [address] [place], [address], 12/25/2023 19:25:00 12/25/19 24 12/25/2023 BASIC METAB OLIC PANEL glucose 132 mg/dL 70-99 high Not Available [facility] [address] [place], [address], 12/25/2023 19:25:00 12/25/19 24 12/25/2023 BASIC METAB OLIC PANEL calcium 9.1 mg/dL 8.4-10 .3 Not Available [facility] [address] [place], [address], 12/25/2023 19:25:00 12/25/19 24 12/25/2023 BASIC METAB OLIC PANEL eGFR 31 mL/mi n/1.7 3m2 >59 low Estim ated glome rular filtr ation rate calcu lated using the CKD-E PI refit equat ion. Not Available [facility] [address] [place], [address], 12/25/2023 19:25:00 12/25/19 24 12/25/2023 BASIC METAB OLIC PANEL anion gap 12 mmol/ L 10-20 Not Available [facility] [address] [place], [address], 12/25/2023 19:25:00 12/25/19 24 12/25/2023 NT-TX OBNP nt-probnp 72141 pg/mL 0-450 high Not Available [facility] [address] [place], [address], 12/25/2023 19:25:02 04/24/20 24 04/25/2024 FREE T4 free T4 1.22 NG/dL 0.75-1 .54 Not Available [address], [address], 04/25/2024 11:17:37 04/24/20 24 04/25/2024 VITAM IN [...] er than 30 ng/mL . Not Available [address], [address], 04/25/2024 11:38:47 04/24/20 24 04/25/2024 TSH TSH 0.32 uIU/m L 0.50-6 .00 low The Ameri can Colle ge of Endoc rinol ogy and Ameri can Thyro id Assoc iatio n recom mend goal TSH value s betwe en 0.4-4 .0 mIU/m L. Not Available [address], [address], 04/25/2024 11:46:50 04/24/20 24 04/26/2024 RENAL PANEL glucose 126 mg/dL 70-100 high Not Available [address], [address], 04/26/2024 11:16:50 04/24/20 24 04/26/2024 RENAL PANEL BUN 56 mg/dL 7-18 high Not Available [address], [address], 04/26/2024 11:16:50 04/24/20 24 04/26/2024 RENAL PANEL creatinine 2.6 mg/dL 0.8-1. 3 high Not Available [address], [address], 04/26/2024 11:16:50 04/24/20 24 04/26/2024 RENAL PANEL B/C 21.5 ratio Not Available [address], [address], 04/26/2024 11:16:50 04/24/20 24 04/26/2024 RENAL PANEL [...] Colla borat ion (CKD- EPI) Equat ion (Eemry r et. al 2020) as recom mir d by the Natio nal Kidne y Found ation . eGFR is based on age, serum creat inine , and sex. CKD-E PI does not calcu late eGFR by race, does not apply to child johan (age <18 years ), and shoul d not be used in pregn andre. Not Available [address], [address], 04/26/2024 11:16:50 04/24/20 24 04/26/2024 RENAL PANEL sodium 142 mmol/ L 136-14 5 Not Available [address] [place], [address], 04/26/2024 11:16:50 04/24/20 24 04/26/2024 RENAL PANEL potassium 4.8 mmol/ L 3.5-5. 1 Not Available [address], [address], 04/26/2024 11:16:50 04/24/20 24 04/26/2024 RENAL PANEL chloride 104 mmol/ L 96-107 Not Available [address], [address], 04/26/2024 11:16:50 04/24/20 24 04/26/2024 RENAL PANEL anion gap 6.2 5.0-15 .0 Not Available [address], [address], 04/26/2024 11:16:50 04/24/20 24 04/26/2024 RENAL PANEL CO2 32 mmol/ L 21-32 Not Available [address], [address], 04/26/2024 11:16:50 04/24/20 24 04/26/2024 RENAL PANEL calcium 8.9 mg/dL 8.5-10 .3 Not Available [address], [address], 04/26/2024 11:16:50 04/24/20 24 04/26/2024 RENAL PANEL albumin 3.7 g/dL 3.4-5. 0 Not Available [address], [address], 04/26/2024 11:16:50 04/24/20 24 04/26/2024 RENAL PANEL phosphorous 4.00 mg/dL 2.50-4 .90 Not Available [address], [address], 04/26/2024 11:16:50 08/06/20 24 08/06/2024 FREE T4 free T4 1.33 NG/dL 0.75-1 .54 Not Available [address], [address], 08/06/2024 16:12:35 08/06/20 24 08/06/2024 TSH TSH 0.32 uIU/m L 0.50-6 .00 low CWP=C onsis tent with previ ous. The Ameri can Colle ge of Endoc rinol ogy and Ameri can Thyro id Assoc iatio n recom mend goal TSH value s betwe en 0.4-4 .0 mIU/m L. Not Available [address], [address], 08/06/2024 16:25:18 10/10/19 25 10/11/2024 RENAL PANEL glucose 115 mg/dL 70-100 high Not Available [address], [address], 10/11/2024 11:34:35 10/10/19 25 10/11/2024 RENAL PANEL BUN 48 mg/dL 7-18 high Not Available [address], [address], 10/11/2024 11:34:35 10/10/19 25 10/11/2024 RENAL PANEL creatinine 2.5 mg/dL 0.8-1. 3 high Not Available [address], [address], 10/11/2024 11:34:35 10/10/19 25 10/11/2024 RENAL PANEL B/C 19.2 ratio Not Available [address], [address], 10/11/2024 11:34:35 10/10/19 25 10/11/2024 RENAL PANEL [...] be used in pregn andre. Not Available [address], [address], 10/11/2024 11:34:35 10/10/19 25 10/11/2024 RENAL PANEL sodium 144 mmol/ L 136-14 5 Not Available [address], [address], 10/11/2024 11:34:35 10/10/19 25 10/11/2024 RENAL PANEL potassium 4.6 mmol/ L 3.5-5. 1 Not Available [address], [address], 10/11/2024 11:34:35 10/10/19 25 10/11/2024 RENAL PANEL chloride 104 mmol/ L 96-107 Not Available [address], [address], 10/11/2024 11:34:35 10/10/19 25 10/11/2024 RENAL PANEL anion gap 12.3 5.0-15 .0 Not Available [address], [address], 10/11/2024 11:34:35 10/10/19 25 10/11/2024 RENAL PANEL CO2 28 mmol/ L 21-32 Not Available [address], [address], 10/11/2024 11:34:35 10/10/19 25 10/11/2024 RENAL PANEL calcium 8.7 mg/dL 8.5-10 .3 Not Available [address], [address], 10/11/2024 11:34:35 10/10/1910/11/2024 RENAL PANEL albumin 3.4 g/dL 3.4-5. 0 Not Available [address], [address], 10/11/2024 11:34:35 10/10/1910/11/2024 RENAL PANEL phosphorous 4.10 mg/dL 2.50-4 .90 Not Available [address], [address], 10/11/2024 11:34:35 10/10/1910/11/2024 FREE T4 free T4 1.26 NG/dL 0.75-1 .54 Not Available [address], [address], 10/11/2024 11:36:55 10/10/1910/11/2024 TSH TSH 0.42 uIU/m L 0.50-6 .00 low The Ameri can Colle ge of Endoc rinol ogy and Ameri can Thyro id Assoc iatio n recom mend goal TSH value s betwe en 0.4-4 .0 mIU/m L. Not Available [address], [address], 10/11/2024 12:29:30 10/10/1910/11/2024 VITAM IN D 25-HY [...] er than 30 ng/mL . Not Available [address], [address], 10/11/2024 12:29:31 07/06/2007/06/2023 US, retro perit oneum [...] Readin g Physic racheal: Bettina Gutierrez ms [facility] (Imaging) [address], [place], [address], 07/07/2023 07:55:53 11/09/19 24 10/31/2023 bone densi ty No observ ation record ed. [facility]) [address], [place], [address], 11/22/2023 15:29:35 Result Notes None recorded. 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 Not Available [facility] 3 03:12:45 Essential hypertensi on 17675048 Active 2006 Modesto Jackson MD [address] [place] [address], [address] , [facility] 4 14:24:22 Hyperthyro idism 22552909 [facility] 3 15:11:37 Anemia 781300457 Active 2006 Modesto Jackson MD [address] [place] [address], , [facility] 4 14:24:20 Thyroid function tests abnormal 321132027 Active 2005 Modesto Jackson MD [address] [place] [address], [address] , [facility] 4 14:25:04 Non-toxic multinodul ar goiter 95708115 Active 2005 Modesto Jackson MD [address] [place] [address], [address] , [facility] 4 14:25:04 Benign essential hypertensi on 2214677 Active 2007 Modesto Jackson MD [address] [place] [address], [address] , [facility] 3 14:45:30 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 Modesto Jackson MD [address] [place] [address], [address] , [facility] 3 17:44:27 Goiter 0679723 Active 2007 Modesto Jackson MD [address] [place] [address], [address] , [facility] 3 14:45:48 Hypothyroi dism 09894250 Active 2006 Not Available [facility] 3 03:12:45 Acute pharyngiti s 118206763 Completed 200508/28/2013 Not Available [facility] 3 02:01:17 Toxic multinodul ar goiter 26718057 Active 2005 Not Available [facility] 3 03:12:45 Malaise and fatigue 236453490 Completed 08/28/2013 Not Available [facility] 3 02:00:19 Problem Notes None recorded. Procedures Surgical History Date Name Laterality Status Provider Name and Address Organization Details Recorded Time 6 Aide - Colonoscopy completed Tyree Noble MD [address] [place] [address], [address], [facility] 06/20/2016 08:49:47 3 I-131 completed Modesto Jackson MD [address] [place] [address], [address], [facility] 07/31/2013 11:51:52 Imaging Results Imaging Date Name Status LastModified by Organization Details LastModified Time 07/06/2023 US, retroperitoneum completed [facility]) [address], [place], [address], 07/07/2023 07:55:53 10/31/2023 bone density completed [facility]) [address], [place], [address], 11/22/2023 15:29:35 Procedure Notes None recorded. Medical Equipment None Reported. Allergies Allergen ID Allergen Name Allergen Category Reaction Reaction Severity Criticality Documentation Date Start Date Code Code System Note Provider Name and Address Organization Details Recorded Time 119842 epinephri ne medicatio n Not available Not available Not available 05/04/2012 3992 RxNorm sever e heada stan, nause a, weakn ess and disor ienta tion GEO Bhat, [facility] 2 14:23:31 [address] Cipro medicatio n other severe Not available 12/29/2010 3 RxNorm Edema in legs and achy joint Not Available [facility] 1 06:05:41 [address]149 Zithromax medicatio n Not available Not available Not available 08/26/2011 4 RxNorm unsur e of react ion Meghna Naylor LPN null, [facility] 1 14:57:00 Medications Name Sig Start [...] t Available Vitals Date Recorded Body weight Heart rate Systolic blood pressure Diastolic blood pressure Provider Name and Address Organization Details Last Updated DateTime 11/02/2021 24307.93 g 76 /min 126 mm[Hg] 78 mm[Hg] Lluvia Syed RN [facility] 11/02/2021 16:28:27 Date Recorded Body weight Body mass index (BMI) Body height Heart rate Systolic blood pressure Diastolic blood pressure Provider Name and Address Organization Details Last Updated DateTime 3 97269.5 9 g 27.3 kg/m2 165.35 cm 64 /min 137 mm[Hg] 77 mm[Hg] Janeth Marquez LPN [facility] 3 14:28:16 Date Recorded Body height Body mass index (BMI) Body weight Heart rate Systolic blood pressure Diastolic blood pressure Provider Name and Address Organization Details Last Updated DateTime 4 166.37 cm 26.9 kg/m2 96013.1 5 g 51 /min 134 mm[Hg] 70 mm[Hg] Janeth Marquez [employer] [facility] 4 14:18:03 Date Recorded Body height Body mass index (BMI) Body weight Heart rate Systolic blood pressure Diastolic blood pressure Provider Name and Address Organization Details Last Updated DateTime 5 166.37 cm 25.7 kg/m2 07101.5 7 g 61 /min 139 mm[Hg] 66 mm[Hg] Janeth Marquez [facility] 5 14:58:02 Date Recorded Systolic blood pressure Diastolic blood pressure Provider Name and Address Organization Details Last Updated DateTime 07/03/2023 116 mm[Hg] 65 mm[Hg] Nataliya Reyez [facility] 07/03/2023 09:28:48 Social History Question Answer Notes LastModified by [employer] ion Details LastModified Time Tobacco Smoking Status Former Smoker Quit at age 37 Not Available [facility] 03/03/2011 02:08:59 What Is Your Level Of [...] in college- 1 in masters). One at [employer]. 2018- Daughter taking vitamin D 50K/week. Son re-. 12/26- Kids and 4 Grands all OK. One graduating from [employer] (dancer - physical trainnig). Youngest at [employer]. Grandson from [employer] in [employer] (hickey). 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 12/27: Family OK. Daughter ([employer]/ projection technician in [employer]) Son works hard- and real estate services administrator at night. 10/30: Daughter had c-spine surgery, next is lumbar. Son getting c-spine surgery too. 2 (?) cyst on thyroid. [place]. 10/31: Daughter and Son doing OK (backs OK). Son- new sales in [employer] business. Medical History Condition Response Thyroid Disease Y Cerebral Vascular Accident Y Immunizations Vaccine Type Date Status Note Provider Nam e and Address Organization Details Recorded Time Influenza, split virus, quadrivalent, preservative 0 completed Angela Snow LPN null, [facility] 09/23/2020 09:42:56 COVID-19, mRNA, LNP-S, PF, 100 mcg/0.5mL dose or 50 mcg/0.25mL dose 1 completed NADINE Barnett, [facility] 11/02/2021 16:24:37 COVID-19, mRNA, LNP-S, PF, 100 mcg/0.5mL dose or 50 mcg/0.25mL dose 1 completed Lluvia Syed RN null, [facility] 11/02/2021 16:24:45 COVID-19, mRNA, LNP-S, PF, 100 mcg/0.5mL dose or 50 mcg/0.25mL dose completed Lluvia Syed RN [facility], [facility] 11/02/2021 16:24:52 Past Encounters Encounter ID Performer Location Encounter Start Date Encounter Closed Date Diagnosis/Indication Diagnosis SNOMED-CT Code Diagnosis ICD10 Code Diagnosis Note [id number] Endocrino logy, [facility] [place] [id number] 1 06/29/2005 14:26:48 06/30/2005 09:41:24 [id number] LAB - [address] [place] [id number] 1 07/05/2005 09:53:27 07/05/2005 09:53:52 [id number] [facility] - [facility] [place] [id number] 1 09/07/2005 11:12:18 09/07/2005 11:12:45 [id number] [facility] - [address] [place] [address] 1 11/10/2005 13:56:01 11/10/2005 13:56:26 [id number] Endocrino logy, [facility] [place] [id number] 1 01/11/2006 16:17:23 01/12/2006 08:43:42 [id number] Radiology , [address] [place] [address] 1 01/17/2006 14:23:30 01/18/2006 07:03:29 [id number] Radiology , [address] [place] [id number] 01/17/2006 00:00:00 10/29/2008 02:02:29 [id number] Radiology , [address] [place] [address] 1 02/24/2006 08:56:06 02/24/2006 12:47:34 [id number] Radiology , [address] [place] [id number] 1 02/24/2006 00:00:00 10/29/2008 02:02:29 [id number] LAB - [address] [place] [address] 1 03/01/2006 11:53:57 03/01/2006 11:54:04 [id number] Endocrino logy, [address] [place] [address] 1 [id number] [facility] [address] 1 04/19/2006 13:21:42 04/19/2006 13:22:01 [id number] [facility] [address] 1 06/29/2006 09:44:35 06/29/2006 09:44:42 [id number] Endocrino logefren [facility] [place] [id number] 1 08/09/2006 13:00:54 08/09/2006 14:59:14 [id number] [facility] [id number] 1 09/04/2006 15:49:21 09/04/2006 15:49:32 [id number] [facility] [address] 1 11/13/2006 14:47:16 11/13/2006 14:47:27 [id number] [facility] [id number] 1 01/11/2007 13:14:55 01/11/2007 13:15:03 [id number] Endocrino logefren, [facility] [place] [id number] 1 01/18/2007 14:43:18 01/19/2007 07:31:16 [id number] Radiology , [facility] [place] [id number] 1 01/18/2007 13:34:02 01/19/2007 09:03:06 [id number] Radiology , [facility] [place] [id number] 1 01/18/2007 00:00:00 10/29/2008 02:02:29 [id number] [facility] [place] [id number] 1 02/16/2007 07:59:08 02/16/2007 07:59:16 [id number] [facility] [id number] 1 04/13/2007 11:49:18 04/13/2007 11:49:28 [id number] Endocrino logefren [facility] [place] [id number] 1 05/09/2007 13:15:09 05/09/2007 16:02:24 [id number] [facility] [id number] 1 07/10/2007 15:10:29 07/10/2007 15:10:43 [id number] LAB - [facility] [place] [id number] 1 10/08/2007 10:19:41 10/08/2007 10:19:46 [id number] LAB - [facility] [place] [id number] 1 12/20/2007 12:01:28 12/20/2007 12:01:37 [id number] Endocrino logy, [facility] [place] [id number] 1 12/27/2007 14:23:52 10/29/2008 02:02:29 [id number] LAB - [facility] [place] [id number] 1 03/14/2008 14:30:20 03/14/2008 14:30:31 [id number] LAB - [facility] [place] [id number] 1 04/22/2008 10:19:01 04/22/2008 10:19:08 [id number] Endocrino logefren, [facility] [place] [id number] 1 05/01/2008 14:50:26 10/29/2008 02:02:29 [id number] LAB - [facility] [place] [id number] 1 06/02/2008 13:27:13 06/02/2008 13:28:05 [id number] Endocrino logefren, [facility] [place] [address] 1 06/11/2008 14:22:57 10/29/2008 02:02:29 [id number] Radiology , [facility] [place] [id number] 1 06/11/2008 13:30:57 06/11/2008 14:22:58 [id number] Radiology , [facility] [place] [id number] 1 06/11/2008 00:00:00 10/29/2008 02:02:29 [id number] LAB - [facility] [place] [id number] 1 08/15/2008 12:00:01 08/15/2008 12:00:10 [id number] Endocrino logy, [facility] [place] [address] 1 09/25/2008 13:31:57 10/29/2008 02:02:29 [id number] Endocrino logy, [facility] [place] [address] 1 06/18/2009 14:25:55 06/25/2009 11:00:47 [id number] LAB - [facility] PON[place] Best02-275 1 11/18/2008 13:03:16 11/18/2008 13:03:43 [id number] LAB - [facility] PONCHO Best02-275 1 02/27/2009 15:15:06 02/27/2009 15:15:16 [id number] LAB - [facility] PONCHO Best02-275 1 06/03/2009 11:46:48 06/03/2009 11:47:03 [id number] Endocrino logy, [facility] PON[place] Best02-275 1 12/23/2009 17:09:08 12/24/2009 09:20:44 [id number] Radiology , [facility] [place] [address] 1 06/03/2010 10:35:48 06/03/2010 15:52:56 [id number] Endocrino logy, [facility] Breanna Vick [place] Syed02-275 1 06/03/2010 11:30:51 06/10/2010 09:09:30 [id number] Endocrino logy, [facility] PON[place] Best02-275 1 12/29/2010 12:55:58 12/31/2010 15:41:10 [id number] Endocrino logy, [facility] [place] [id number] 1 08/26/2011 14:41:53 08/26/2011 16:07:46 [id number] Radiology , [facility] Breanna Vcik [place] Syed02-275 1 02/29/2012 15:15:19 03/01/2012 15:17:37 [id number] Endocrino logy, [facility] [place] [id number] 1 02/29/2012 16:11:10 02/29/2012 17:16:31 [id number] Radiology , [facility] [place] [address] 1 04/26/2012 12:33:38 04/27/2012 09:17:06 [id number] Endocrino logy, [facility] [place] [id number] 1 05/04/2012 14:13:23 05/04/2012 15:12:13 [id number] Lupis Zaragoza Endocrino logy, [address] [id number] 09/07/2012 14:01:08 09/13/2012 08:57:49 [id number] Ronald Goodson MD Radiology , [address] [address] 1 11/13/2012 10:13:28 11/14/2012 12:22:34 [id number] Endocrino logy, [address] [address] 1 06/07/2013 14:59:32 06/07/2013 16:44:40 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 Thyroid fu nction tests abnormal [id number] Subclinica l hyperthyro idism x many years [...] hip is osteopenia (-1.5) Non-toxic multinodular goiter 10841301 three nodules- benign follicular cells with colloid. Benign ess ential hypertension [id number] currently treated with atenolol, diovan, hctz. perhaps atenolol is slowing HR and masking sx that would otherwise be present from excess thyroid. [id number] Endocrino logy, [address] [address] 1 07/17/2013 15:12:16 07/17/2013 16:48:03 Subclinical hyperthyroidism [id number] Persistent suppressed TSH in setting of normal T4 with no clear sx. However, he is now over 71 and risk for a.fib is only going to increase. Not sure that subclinica l hyperthyro id explains his m/s sx but feel that there is enough rationale for preventing a.fib., that he should undergo BOYER tx. Plan for 8 mCi tx at [facility]. Need to arrange- best day is Tuesdays. [id number] Endocrino logy, [address] [address] 1 07/31/2013 11:49:12 08/01/2013 09:15:56 Subclinical hyperthyroidism 053555261 Met patient at [facility] for BOYER. labs in 2 [...] tx. Plan for 8 mCi tx at [facility]. Need to arrange- best day is Tuesdays. [id number] Endocrino logy, [address] [address] 1 11/28/2013 14:59:29 11/28/2013 16:21:35 Subclinical hyperthyroidism 631375040 S/P BOYER (8 mCi) in 07/2013. TSH starting to rise slightly but still low (0.05). FT4 is lower than before but still in normal range. Follow labs q 2 months to see if changes further. Non-toxic multinodular goiter 56852369 Bx in past- three nodules- benign follicular cells with colloid. [id number] Endocrino logy, [address] [address] 1 05/28/2014 15:29:54 05/28/2014 16:32:53 Subclinical hyperthyroidism 763572457 S/P BOYER (8 mCi) in 07/2013. TSH [...] replacemen t hormone therapy. Non-toxic multinodular goiter 21929224 Bx in past- three nodules- benign follicular cells with colloid. [id number] Endocrino logy, [address] [address] 1 11/27/2014 13:44:26 11/27/2014 14:40:55 Subclinical hyperthyroidism 598003505 Now S/P BOYER (8 mCi) in 07/2013. [...] replacemen t hormone therapy. Non-toxic multinodular goiter 39524206 Bx in past- three nodules- benign follicular cells with colloid. [id number] Modesto Jackson MD Endocrino logy, [address] [address] 09/30/2015 15:27:53 09/30/2015 16:18:36 Subclinical hyperthyroidism 409173796 E05.90 Now S/P BOYER (8 mCi) in [...] replacemen t hormone therapy. Non-toxic multinodular goiter 19612968 E04.2 Bx in past- three nodules- benign follicular cells with colloid. [id number] Modesto Jackson MD Endocrino logy, [address] [address] 1 06/08/2016 11:28:51 06/08/2016 12:28:28 Subclinical hyperthyroidism 313333044 E05.90 Now S/P BOYER (8 mCi) in [...] replacemen t hormone therapy. Non-toxic multinodular goiter 66791287 E04.2 Bx in past- three nodules- benign follicular cells with colloid. Last u/s in 2011. Suggest repeat this next visit. [id number] Tyree Noble MD [facility], [address] [address] 1 06/20/2016 07:47:13 06/20/2016 12:45:48 [id number] Modesto Jackson MD Endocrino logy, [address] [address] 1 11/18/2016 14:56:09 11/18/2016 16:07:34 Subclinical hyperthyroidism 180209586 E05.90 S/P BOYER (8 mCi) in 07/2013. [...] replacemen t hormone therapy. Non-toxic multinodular goiter 20027934 E04.2 Preliminar y (2017) shows slight decrease in largest on right and left. Previously had 2 on right and 3 on left but not easily identifiab le. Will need to review final repot. Bx in past- three nodules- benign follicular cells with colloid. Last u/s in 2011. [id number] Modesto Jackson MD Endocrino logy, [address] [address] 12/14/2017 15:06:57 12/18/2017 07:29:17 Non-toxic multinodular goiter 08818169 E04.2 U/S:Prelim inary today: no change.Connor dy in 2017 showed:Rig ht= 1.7 x 1.8 x 1.4 cm.Left= 2.5 x 2.0 x 1.4 cm Will need to review final repot. U/S next year- if remains unchanged, can push out u/s every 2 years. Bx in past- three nodules- benign follicular cells with colloid. Last u/s in 2011. Subclinica l hyperthyroidism 664455809 E05.90 S/P BOYER (8 mCi) in 07/2013. [...] will start on replacemen t hormone therapy. [id number] Modesto Jackson MD Endocrino logy, [address] [address] 1 12/14/2018 14:18:18 12/14/2018 15:30:47 Non-toxic multinodular goiter 38208599 E04.2 U/S:Prelim inary today: no change.rig ht [...] Last u/s in 2011. Subclinica l hyperthyroidism 137708951 E05.90 S/P BOYER (8 mCi) in 07/2013. [...] irregular today. Check EKG.EKG: NSR with PACs. [id number] Modesto Jackson MD Endocrino logy, [address] [address] 1 12/13/2019 14:10:48 12/13/2019 15:28:22 Subclinical hyperthyroidism 056351792 E05.90 S/P BOYER (8 mCi) in 07/2013. [...] do in a year. Non-toxic multinodular goiter 96530404 E04.2 Barely palpable nodule on right lower- [...] has remained unchanged and benign biopsy). Osteopenia 366947852 M85 .80 2012 BMD T-scores:L eft femoral neck= -1.5;FRAX= 10.3 for osteoporot ic fx and 3.8% for hip fx. Suggest update 2019.Not a lot of dairy in diet. Takes 1000 calcium. Takes vitamin D also.Fathe r had broken hip. [id number] Modesto Jackson MD Endocrino logy, [address] [address] 1 09/23/2020 09:35:52 09/28/2020 06:56:51 Non-toxic multinodular goiter 19275823 E04.2 Barely palpable nodule on right lower- [...] no change. u/s Right mid-lower 1.7x1.9x1. 5 (2019); 1.7 x 1.8 x 1.4 cm.; was 1.7 x 1.8 x 1.4 cm (2017) Left mid-lower= 2.5x2.1x1. 4 (2019) : 2.5 x 2.1 x 1.1 cm; was 2.5 x 2.0 x 1.4 cm (2017) PLAN: U/S in 2020 (since size has remained unchanged and benign biopsy). Subclinica l hyperthyroidism 097782665 E05.90 TSH = 0.22 (2.20); was 0.46 [...] wait and do in a year. Osteopenia 884150607 M85 .80 BMD 2020: Spine not included [...] review then. Look into cost of Prolia [id number] Modesto Jackson MD Endocrino logy, [address] [address] 12/23/2020 16:47:14 12/24/2020 06:42:53 Subclinical hyperthyroidism 645983383 E05.90 TSH = 0.28 (12/27); was 0.22 [...] wait and do in a year. Osteopenia 193702793 M85 .80 BMD 2020: Spine not included [...] Reviewed concepts of s/e. Non-toxic multinodular goiter 24283649 E04.2 Barely palpable nodule on right lower- [...] x 1.4 cm (2016) PLAN: U/S in fall 2020 (since size has remained unchanged and benign biopsy). [id number] Modesto Jackson MD Endocrino logy, [address] [address] 11/02/2021 16:18:17 11/03/2021 18:55:29 Subclinical hyperthyroidism 151077383 E05.90 TSH = 0.3 (10/30 and 03/29); [...] in a year. Toxic mult inodular goiter 77117552 E05.20 [place] has been that one or more nodules [...] by u/s. Will monitor clinically . Osteopenia 025573370 M85 .80 BMD 2019: Spine not included [...] to take more meds than is necessary. [id number] Modesto Jackson MD Endocrino logy, [facility] [address] [place] [address] 10/18/2022 13:44:54 11/03/2022 10:59:01 Subclinical hyperthyroidism 375430522 E05.90 TSH = 0.34 (09/29); was 0.37 (08/30) was 0.21 (04/29) ; was 0.3 (10/30 and 03/29); was 0.28 (12/27); was 0.22 (.20); was 0.46 (11/27); S/P BOYER (8 mCi) [...] in a year. Toxic mult inodular goiter 64751244 E05.20 [place] has been that one or more nodules [...] by u/s. Will monitor clinically . Osteopenia 362699619 M85 .80 BMD@[facility]: Spine not included Right [...] to take more meds than is necessary. [id number] Modesto Jackson MD Endocrino logy, [address] [address] 10/18/2023 14:00:07 10/19/2023 06:59:32 Subclinical hyperthyroidism 539564593 E05.90 TSH = 0.83 (11/01) was 0.33 [...] wait and do in a year. Osteopenia 183158885 M85 .80 BMD@[facility]: Spine not included (DJD) [...] (2K per day). Toxic mult inodular goiter 86520999 E05.20 [place] has been that one or more nodules [...] f/u by u/s. Will monitor clinically . [id number] Modesto Jackson MD Endocrino logy, [address] [address] 10/16/2024 14:43:34 10/22/2024 09:24:57 Subclinical hyperthyroidism 466149261 E05.90 TSH = 0.42 (11/02) was 0.32 [...] stable on no meds. follow labs Osteopenia 150306282 M85 .80 BMD@[facility]: Spine not included (DJD) Right femoral neck= [...] of avoiding falls. Toxic mult inodular goiter 22309618 E05.20 [place] has been that one or more nodules [...] Patel Member ID Guarantor Name 12/23/2020 1 [facility] MEDICARE PREFERRED (MEDICARE REPLACEMENT HMO) [facility] Dylan Odom [id number] 1 Dylan Odom 11/02/2021 1 [facility] MEDICARE PREFERRED (MEDICARE REPLACEMENT HMO) [facility] Dylan Odom [id number] 1 Dylan Odom 10/18/2022 1 [facility] MEDICARE PREFERRED (MEDICARE REPLACEMENT HMO) [facility] Dylan Odom [id number] 1 Dylan Odom 10/18/2023 1 [facility] Dylan Odom [id number] 1 Dylan Odom 10/16/2024 1 [facility] Dylan Odom [id number] 1 Dylan Odom Notes Date Note Type Note Provider Name and Address Organization Details Recorded Time 12/24/19 21 text/htm l ThyroidReported bypatient.Previous Evaluation:Ultrasound (number of nodules, size, adenopathy): (see below); TSH: (0.28 (12/27): was 0.22 (11/28); was 0.46 (12/25); was 0.27 (11/26); was 0.25 (11/25)_ was (03/24)_); free T4: (1.09 (12/27): WAS 1.28 (11/28); was 1.22 (12/25); was 1.27 (218); was 1.22 (2/17); was 1.4 (6/)); neck uptake: (22% in 2012); BOYER in [...] (some block lately). 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 Two in [place]. Occ napping but not daily. Sleeps - not as good past 4-5 days. UP at night to urinate. Generally wakes once. Meditating some too (Episcopalian) Spinal stenosis- improved with core strengthening. Will [...] 2019: Right mid-lower 1.7x1.9x1.5; Left mid-lower= 2.5x2.1x1.4; 2016: Right= 1.7x1.8x1.4; Left= 2.5x2.0x1.4; 2011- RIGHT: 1.8x1.7x1.7 (bigger); 2.0x2.5x1.9; LEFT: 2.9x3.8x2.4; 1.9x.18x1.7; [...] as before. was 1.47 PCP: Daniel.CARDS: Agustina ([place]). Patient agreed to this visit via secure telehealth platform due to the COVID -19 pandemic. Patient understands this is a scheduled visit and the usual procedures with regard to billing and confidentiality apply. Patient was notified that the provider location is [facility] Patient location: home During the visit the [...] mouth guard but hasn't tried it. BONES: 2019:Spine not included Right femoral neck= -1.1 (was [...] and finds it helps. Modesto Jackson MD [address] [place] [address], [phone], [facility] 12/23/2020 23:36:06 11/02/19 22 text/htm l ThyroidReported [...] (some block lately). 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 Meditating some too (Episcopalian) Spinal stenosis- generally good (doing planks- helps [...] 2.0x2.5x1.9; LEFT: 2.9x3.8x2.4; 1.9x.18x1.7; ISTHMUS: 1.9x1.7x1.1 (new); 1.8x1.6x0.98359- right mid- 1.8x2.0x1.4. right lower= 1.6x1.6x1.4; left [...] as before. was 1.47 PCP: Daniel.CARDS: Agustina ([place]).SLEEP APNEA: Gerardo SWAIN. On BiPAP. F/U for [...] better if moves around. Modesto Jackson MD [address] [place] [address], [place], [phone], [facility] 11/02/2021 18:55:01 10/18/19 23 text/htm l ThyroidReported [...] (some block lately). 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 Meditating some too (Episcopalian) Spinal stenosis- not great. also SI sx. [...] Not recently. BP - was 127/70 at [facility]. Goal is to get to > 120/80. [...] 2.0x2.5x1.9; LEFT: 2.9x3.8x2.4; 1.9x.18x1.7; ISTHMUS: 1.9x1.7x1.1 (new); 1.8x1.6x0.88864- right mid- 1.8x2.0x1.4. right lower= 1.6x1.6x1.4; left [...] same as before. was 1.47 PCP: Daniel.CARDS: ([facility]).SLEEP APNEA: Gerardo SWAIN. On BiPAP.10/31: slept [...] knee arthritis- better if moves around. Modesto Jacskon MD [address] [place] [address], [place], [phone], [facility] 11/01/2022 19:14:31 10/18/19 24 text/htm l ThyroidReported [...] stenosis- not great. 11/01- going for surgery ([place]). Had thought it might be SI but [...] 2.0x2.5x1.9; LEFT: 2.9x3.8x2.4; 1.9x.18x1.7; ISTHMUS: 1.9x1.7x1.1 (new); 1.8x1.6x0.51925- right mid- 1.8x2.0x1.4. right lower= 1.6x1.6x1.4; left [...] the same as before. was 1.47 PCP: Nancy Rico- Andree Morocho.CARDS: ([facility]).SLEEP APNEA: Gerardo SWAIN. On BiPAP.10/31: slept 9 hours past 2 nights.L/V about a year ago.RENAL: Bharathiel. Follow-Up: toxic multinodular goiterFollow-Up: non-toxic uninodular goiterFollow-Up: subclinical hyperthyroidismOsteopeniaLV on 10/31LAst labs on 11/01Lab orders in place for tsh and t4 only until 09/2023Last bone density on 08/2020 [facility] [...] study in 2007- homogeneous with 20% uptake. ([facility]).2013: treated with radioactive iodine in [...] surgery- L3-L4 to remove junk . [place] ([place]). Hopes will allow him to walk. 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 Since 2008, 32 [...] Center- meets friends q Monday.Meditating some too (Episcopalian) FAMILY Hx (updated):Daughter ([employer]/ projection technician in computer)had c-spine surgery, next is lumbar.Son works hard- and getting c-spine surgery too. real estate services administrator at night2 (?) cyst on thyroid. [place], [place]. 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 Youngest at [employer]. Grandson from [employer] in [place] (hickey). Oldest is teacher (engaged)11/01: Grands good. [...] hyperthyroid. Ongoing spinal stenosis- going for surgery ([place]). Hx CVA:07/01: 93/59/60/28 put on atorva 40. [...] better if moves around. Modesto Jackson MD [address] [place] [address], [place], [phone], [facility] 10/18/2023 19:51:52 10/16/19 25 text/htm l ThyroidReported [...] 2.0x2.5x1.9; LEFT: 2.9x3.8x2.4; 1.9x.18x1.7; ISTHMUS: 1.9x1.7x1.1 (new); 1.8x1.6x0.18255- right mid- 1.8x2.0x1.4. right lower= 1.6x1.6x1.4; left [...] was 1.47 PCP: Andree Morocho. ([facility])CARDS: ([facility]).SLEEP APNEA: Gerardo SWAIN. On BiPAP.10/31: slept [...] study in 2007- homogeneous with 20% uptake. ([facility]).2013: treated with radioactive iodine in [...] L3-L4. Spinal stenosis- initially better after surgery ([place]) but pins/needles in feet and pain returning (bilat SI type pain) 11/01: Upcoming minimally invasive back surgery- L3-L4 to remove junk . [place] ([place]). Hopes will allow him to walk. 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 real estate services administrator at night2 (?) cyst on thyroid. [place]. 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 Youngest at [employer]. Grandson from [employer] in [place] ([place]). Oldest is teacher (engaged)11/01: Grands good. Has great-grand on the way.Daughter: back problemsSon- sober x 33 years. back problems. 11/02: kids doing well. Grands [place] (youngest graduated [employer]). Grandson ([place] -> [place])Great grandson (6mos). PAST: PT difficultly [...] knee arthritis- better if moves around. Modesto aJckson MD [address] [place] [address], [phone], [facility] 10/16/2024 15:39:39
--- OUTSIDE RECORDS SUMMARY | 2024-11-28 06:13 | XMS_ITS | Encounter Summary ---
Author Organization [facility], Address [address] [place] [address] Phone Care Team Providers Care Blanker Operator Name Role Phone Andree Alva Primary Care Provider [phone] Encounter Details Date Type Department Care Team (Late Contact Info) Description 04/23/2024 Documentation Only [facility] [address] [place] [phone] Melony Cardona [address] [place] [phone] Social History Tobacco Use Types Packs/Day [...] Job Start Date Job End Date Retired [employer] Not on file Not on file Not on file documented as of this encounter Plan of Treatment Upcoming Encounters Date Type Department Care Team (Late Contact Info) Description 01/22/2025 2:15 PM EDT Office Visit [facility] [place] [address] [place] [phone] Akhil Choudhury MD [address] [place] [address] [place] [address] documented as of this encounter Visit Diagnoses Not on filedocumented in this encounter Care Teams Blanker Operator Relationship Specialty Start Date End Date [place], [place] [address] [place] [address] PCP - General Milieu Counselor 07/24/24 documented as of this encounter
--- OUTSIDE RECORDS SUMMARY | 2024-11-28 06:13 | XMS_ITS | Encounter Summary ---
Author Organization [employer] Address [address] [place] [address] 7t [place] [address] Care Team Providers Care Marine Technician Name Role Phone [facility] Primary Care Provider [phone] Encounter Details Date Type Department Care Team (Late st Contact Info) Description 12/26/2023 Orders Only [facility] [address] [place] [address] [place], [place] [facility] 70 [place] [address] Social History Tobacco Use Types Packs/Day Years [...] Description 03/05/2025 11:40 AM EDT Office Visit [facility] [address] [place] [address] [place], [place] [facility] 70 [place] [address] documented as of this encounter Procedures Procedure Name Priority Date/Time Associated Diagnosis Comments BASIC METABOLIC PANEL Routine 12/25/2023 10:14 AM EDT documented in this encounter Results * Basic Metabolic Panel (12/25/2023 10:14 AM EDT) Blood Venous blood specimen / Unknown [facility] LAB BLOOD ORDERABLES Linnea l Result documented in this encounter Visit Diagnoses Not on filedocumented in this encounter Care Teams Marine Technician Relationship Specialty Start Date End Date Andree Alva [facility] 70 [place] [address] PCP - General Family Medicine 03/16/23 documented as of this encounter
--- OUTSIDE RECORDS SUMMARY | 2024-11-28 06:13 | XMS_ITS | Encounter Summary ---
Author Organization [employer] Address [address] [place] [address] 7t [place] [address] Care Team Providers Care Seat Mender Name Role Phone [facility] Primary Care Provider [phone] Reason for Visit * Reason Onset Date Comments referral for Dr. BOWLES 08/18/2023 Encounter Details Date Type Department Care Team (Late st Contact Info) Description 08/18/2023 Telephone [place] [facility] [address] [place] [address] [facility] 70 [place] [address] BOWLES Social History Tobacco Use Types Packs/Day Years [...] AM EDT documented as of this encounter Miscellaneous Notes * Telephone Encounter - Margarita Garcia - 08/23/2023 1:33 PM EST Faxed to Dr. Bowles. Office will contact patient to schedule * Telephone Encounter - Margarita Garcia - 08/23/2023 8:33 AM EST Patient needs MRI done first before referral can be sent * Telephone Encounter - LANRE Angelo - 08/21/2023 9:43 AM EST Referral placed. * Telephone Encounter - Dina Mcrae - 08/18/2023 2:40 PM EST Patient called wants Referral sent to Dr. Bowles office in [place] . Provider at [facility] for his spinal surgery consult. He would like to have options on who is feels more comfortable? Please advise documented in this encounter Plan of Treatment Upcoming Encounters Date Type Department Care Team (Late st Contact Info) Description 03/05/2025 11:40 AM EDT Office Visit [place] [facility] [address] [place] [address] [facility] [address] [place] [address] documented as of this encounter Visit Diagnoses Diagnosis Spinal stenosis of lumbar region without neurogenic claudication- Primary documented in this encounter Care Teams Seat Mender Relationship Specialty Start Date End Date [facility] [address] [place] [address] PCP - General Family Medicine 03/16/23 documented as of this encounter
--- OUTSIDE RECORDS SUMMARY | 2024-11-28 06:13 | XMS_ITS | Encounter Summary ---
Author Organization [facility], Address [address] [place] [address] Phone Care Team Providers Care Quantitative Consultant Name Role Phone Andree Alva Primary Care Provider [phone] Reason for Visit * Reason Comments Med Refill Encounter Details Date Type Department Care Team (Late st Contact Info) Description 03/01/2020 Refill [facility] [address] [facility] [address] [place] [address] Francesca Varela MD Social History Tobacco Use [...] on file documented as of this encounter Miscellaneous Notes * Telephone Encounter - Marilee Gonzalez - 03/03/2020 8:11 AM EDT Pt no longer taking this medication documented in this encounter Plan of Treatment Upcoming Encounters Date Type Department Care Team (Late st Contact Info) Description 01/22/2025 2:15 PM EDT Office Visit [facility], - [address] [place] [address] Akhil Choudhury MD [address] [place] [address] documented as of this encounter Visit Diagnoses Not on filedocumented in this encounter Care Teams Quantitative Consultant Relationship Specialty Start Date End Date [place], [place] 70 [place] [address] PCP - General Patient Relations Representative 07/24/24 documented as of this encounter
--- OUTSIDE RECORDS SUMMARY | 2024-11-28 06:13 | XMS_ITS | Encounter Summary ---
Author Organization [employer] Address [address] [place] [address] 7t [place] [address] Care Team Providers Care Independent Agent Music Education Name Role Phone [facility] Primary Care Provider [phone] Encounter Details Date Type Department Care Team (Late st Contact Info) Description 12/21/2023 Orders Only [facility] [address] [place] [address] [place], [place] [facility] 70 [place] [address] Social History Tobacco Use Types Packs/Day Years [...] Description 03/05/2025 11:40 AM EDT Office Visit [place] [facility] 70 [place] [address] [place], [place] [facility] 70 [place] [address] documented as of this encounter Procedures Procedure Name Priority Date/Time Associated Diagnosis Comments MICROALBUMIN, RANDOM (W CREAT) Routine 12/20/2023 8:55 AM EDT CBC Routine 12/20/2023 8:53 AM EDT PTH, INTACT Routine 12/20/2023 8:46 AM EDT documented in this encounter Results * Microalbumin, Random Urine w/Creatinine (12/20/2023 8:55 AM EDT) Urine (Urine, Random) [facility] LAB URINE ORDERABLES Linnea l Result * CBC (12/20/2023 8:53 AM EDT) Blood Venous blood specimen / Unknown [facility] LAB BLOOD ORDERABLES Linnea l Result * PTH, INTACT (12/20/2023 8:46 AM EDT) [facility] LAB BLOOD ORDERABLES Linnea l Result documented in this encounter Visit Diagnoses Not on filedocumented in this encounter Care Teams Independent Agent Music Education Relationship Specialty Start Date End Date [facility] 70 [place] [address] PCP - General Family Medicine 03/16/23 documented as of this encounter
--- OUTSIDE RECORDS SUMMARY | 2024-11-28 06:13 | XMS_ITS | Encounter Summary ---
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 [address] documented as of this encounter Visit Diagnoses Not on filedocumented in this encounter Care Teams Construction Carpenters Helper Relationship Specialty Start Date End Date [place], [place] 70 [place] [address] PCP - General Fibre Optics Jointer 07/24/24 documented as of this encounter
--- OUTSIDE RECORDS SUMMARY | 2024-11-28 06:13 | XMS_ITS | Encounter Summary ---
Author Organization [email or web address] Address [address] [place] [address] 7t [place] [address] Care Team Providers Care Decorative Engraver Name Role Phone Andree Alva [facility] Primary Care Provider [phone] Encounter Details Date Type Department Care Team (Late st Contact Info) Description 01/06/2024 Orders Only [facility] MED[facility] [address] [place] [address] Provider, MD V[place] Social History Tobacco Use [...] Description 03/05/2025 11:40 AM EDT Office Visit [facility] 70 [place] [address] [facility] 70 [place] [address] documented as of this encounter Procedures Procedure Name Priority Date/Time Associated Diagnosis Comments STRESS TEST WITH MYOCARDIAL PERFUSION Routine 01/01/2024 6:09 AM EDT documented in this encounter Results * Stress test with myocardial perfusion (01/01/2024 6:09 AM EDT) us Historical Provider CV STRESS PROCEDURES Linnea l Result documented in this encounter Visit Diagnoses Not on filedocumented in this encounter Care Teams Decorative Engraver Relationship Specialty Start Date End Date Andree Alva FNP [address] [place] [address] PCP - General Family Medicine 03/16/23 documented as of this encounter
--- OUTSIDE RECORDS SUMMARY | 2024-11-28 06:13 | XMS_ITS | Clinical Summary ---
Author Organization [employer] Address [address] [place] [address] 7t [place] [address] Care Team Providers Care Media Strategist Name Role Phone Andree Alva [facility] Primary Care Provider [phone] Allergies Active Allergy Reactions Criticality Noted Date Comments Azithromycin Rash Low 07/28/2016 Ciprofloxacin Hives Medium 07/28/2016 Dust Mite Extract 02/05/2019 Lisinopril 01/15/2020 Other reaction(s): Other (see comments) Valsartan 01/15/2020 Other reaction(s): Other (see comments) Medications metoprolol tartrate (Lopressor) 25 MG tablet Take 25 mg by mouth 2 times daily. 02/04/20 23 Active losartan (Cozaar) 100 MG tablet TAKE 1 TABLET BY MOUTH 1 TIME EACH DAY. 02/04/20 23 Active Saw [place], Serenoa repens, (SAW [place] PO) Ac tive B Complex Vitamins (vitamin-B complex) split tablet Active Multiple Vitamins-Minerals (MULTIVITAL PO) Acti ve furosemide (Lasix) 20 MG tablet Take 20 mg by mouth Once per day. 12/18/19 24 Active Jardiance 10 MG Take 10 mg by mouth Once per day. 01/24/20 24 Active hydrALAZINE (Apresoline) 25 MG tablet TAKE 1 TABLET WITH FOOD ORALLY TWO TIMES A DAY 30 DAYS 04/01/20 24 Active atorvastatin (Lipitor) 80 MG tabletIndications: Hyperlipidemia, unspecified hyperlipidemia type TAKE 1 TABLET BY MOUTH AT BEDTIME 90 tablet 3 05/11/20 24 Active Additional Information Patient not taking.Reason: not taking while taking the Paxlovd, Informant: Self, Reported on 09/11/2024 apixaban (Eliquis) 2.5 MG tabletIndications: Paroxysmal atrial fibrillation (CMS/HCC) Take 1 tablet (2.5 mg) by mouth 2 times daily. 180 tablet 3 10/11/19 25 026 Active Active Problems Problem Noted Date Diagnosed Date COVID-19 09/11/2024 Assessment & Plan (09/11/2024 8:03 PM EST): See HPI, tolerating the Paxlovid well, just took one dose so far today will take the second one this evening. Knows to complete all doses and call health center if any new symptoms or concerns. Reviewed red flag symptoms for which he should present to ER and Dylan agrees to this. Confirms he is staying hydrated, is not short of breath and aware can use tylenol if needed for fever or pain. Encouraged to start warm water or warm salt water gargles TID/HS to help reduce the postnasal drip that bothers him. States will be scheduling in person followup visit with his PCP soon when appointment is available, likely after the holidays. 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 01/12/2024 History of CVA (cerebrovascular accident) 2022 Subclinical hyperthyroidism 04/15/2023 Quadrantanopsia, left 12/29/2022 Essential hypertension 04/19/2022 Hyperlipidemia 08/27/2021 Stage 3b chronic kidney disease 01/12/2021 Paroxysmal atrial fibrillation 06/24/2020 Resolved Problems Problem Noted Date Diagnosed Date Resolved Date Spinal stenosis of lumbar re gion without neurogenic claudication 07/15/2023 01/12/2024 Sacroiliitis 04/15/2023 01/12/2024 Osteoarthritis 04/13/2023 04/15/2023 Gout 07/12/2021 04/15/2023 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 10/16/[address] [address] [facility] Lab Orders 10/11/[address] [address] [facility] Paroxysmal atrial fibrillation (CMS/HCC) (Primary Dx) 09/11/2024 7:30 PM EST Telemedicine [address] [address] Mirlande Maurer, ADAM COVID-19 (Primary Dx) 09/10/[address] [address] [facility] covid positive; Flu Symptoms 09/02/2024 12:20 PM EST Office Visit [address] [address] [facility] Neurogenic claudication due to lumbar spinal stenosis (Primary Dx); Essential hypertension; Severe mitral regurgitation; Chronic heart failure with preserved ejection fraction (CMS/HCC); Stage 3b chronic kidney disease (CMS/HCC); Paroxysmal atrial fibrillation ([facility]/HCC); Need for vaccination; Health care maintenance from Last 3 Months Immunizations Name Administration Dates Next Due Influenza High-dose Quadriva lent Preservative Free 06/22/2022,07/29/2020 Influenza Quadrivalent Adjuvanted 07/10/2023,09/2021 Influenza injectable quadriv alent IIV4 with preservative 08/17/2020 Influenza, High Dose Seasona l, Preservative Free 06/19/2024,07/16/2019,08/27/2017,07/24,10/24/2016,07/28/2016 Influenza, IIV3, injectable 10/24/2016 Influenza, Unspecified 05/22/2022 Influenza, trivalent, adjuvanted 07/04/2018 Pneumococcal Conjugate PCV 13 01/25/2017 Pneumococcal Polysaccharide PPSV23 10/24/2016, Pneumococcal, Unspecified 10/24/2016 RSV Adjuvant 09/18/2023 Td (adult), unspecified 02/12/2007 Tdap 09/02/2024 Zoster, Recombinant 09/07/2021,05/06/2021 Family History Medical History Relation Name Comments Hypertension Father Dylan Vision loss Father Dylan Arthritis Mother Tracy Mental illness Mother Tracy Stroke Mother Tracy COPD Sister 1 Reena Lung disease Sister 2 Relation Name Status Comments Father Dylan Mother Tracy Sister 1 Reena Sister 2 Social History Tobacco Use Types Packs/Day Years [...] Orientation Straight 03/16/2023 11 :23 AM EDT Last Filed Vital Signs Vital Sign Reading Time Taken Comments Blood Pressure 192/72 09/02/2024 12:41 PM EST Pulse 58 09/02/2024 12:36 PM EST Temperature 36.8 ??C (98.3 ??F) 09/02/2024 12:[address] Respiratory Rate 16 01/12/2024 1:45 PM EDT Oxygen Saturation 98% 09/02/2024 12:36 PM EST Inhaled Oxygen Concentration - - Weight 66.2 kg (146 lb) 09/02/2024 12:36 PM EST Height 167.6 cm (5' 6 ) 09/02/2024 12:36 PM EST Body Mass Index 23.57 09/02/2024 12:36 PM EST Plan of Treatment Upcoming Encounters Date Type Department Care Team (Late st Contact Info) Description 03/05/2025 11:40 AM EDT Office Visit [place] [facility] [address] [place] [address] [facility] [address] [place] [address] Health Maintenance Due Date Last Done Comments Alcohol/Substance Use Screening 1952 Depression Screening 01/11/2025 01/12/2024, 01/12/20 24 SDOH Screening 01/11/2025 01/12/2024 Tobacco Screening 09/02/2025 09/02/2024 Lipid Panel 11/04/2029 11/04/2024 DTaP/Tdap/Td Vaccines (2 - Td or Tdap) 09/02/2034 09/02/2024, 02/12/2007 Pneumococcal Vaccine: 50+ Years Completed 01/25/2017, 10/24/2016, 10/24/2016, Additional history exists Zoster Vaccines Completed 09/07/2021, 05/06/2021 RSV Patients and Patients Aged 60 years or older Completed 09/18/2023 COVID-19 Vaccine Completed 06/19/2024, 03/2023, 07/22/2022, Additional history exists Influenza Vaccine Completed 06/19/2024, , 06/22/2022, Additional history exists HIB Vaccines Aged Out No longer eligi ble based on patient's age to complete this topic HPV Vaccines Aged Out No longer eligi ble based on patient's age to complete this topic Hepatitis A Vaccines Aged Out No long er eligible based on patient's age to complete this topic Hepatitis B Vaccines Aged Out No long er eligible based on patient's age to complete this topic IPV Vaccines Aged Out No longer eligi ble based on patient's age to complete this topic Meningococcal Vaccine Aged Out No warren venu eligible based on patient's age to complete this topic RSV under 20 months Aged Out No longe r eligible based on patient's age to complete this topic Rotavirus Vaccines Aged Out No longer eligible based on patient's age to complete this topic Procedures Procedure Name Priority Date/Time Associated Diagnosis Comments LIPID PANEL, STANDARD Routine 11/04/2024 Hyperlipidemia, unspecified hyperlipidemia type AMB REFERRAL TO PAIN MEDICINE Routine 08/29/2024 Spondylosis without myelopathy or radiculopathy, lumbar region from Last 3 Months Results * Lipid Panel, Standard (11/04/2024) Blood Venous blood specimen / Unknown [facility] LAB BLOOD ORDERABLES Linnea weston Result EXTERNAL LAB * Referral to Pain Medicine (08/29/2024) [facility] OUTPATIENT REFERRAL ORDER BONNIE Edited Result - Final from Last 3 Months Insurance [employer] PREFERRED PRIME Care Teams Media Strategist Relationship Specialty Start Date End Date [facility] [address] [place] [address] PCP - General Family Medicine 03/16/23
--- OUTSIDE RECORDS SUMMARY | 2024-11-28 06:13 | XMS_ITS | Encounter Summary ---
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 [address] documented as of this encounter Visit Diagnoses Not on filedocumented in this encounter Care Teams Speedboat Driver Relationship Specialty Start Date End Date [place], [place] [address] [place] [address] PCP - General Trouble Lineman 07/24/24 documented as of this encounter
== END 2024-11-28 06:11 | disposition home or self-care (01) ==
LOC: CF 06:10
PROVIDERS: Visit Provider Internal Medicine
DX: Z13.89 Encounter for screening for other disorder (principal)

== ENCOUNTER 2024-12-19 06:15 | Outpatient (REF) | payer OTHER, SELFPAY ==
--- NOTE | ~2024-12-19 | FL_ITS ---
EXAMINATION: FL GUIDANCE ONLY HISTORY: M46.1 - Sacroiliitis, not elsewhere classified COMPARISON: None available. TECHNIQUE: Fluoroscopy time: 0.1 minutes. Cumulative Dose: 1.91 mGy. DAP: 0.0145 mGym2 Images: 2. FINDINGS: Images demonstrate a needle in the region of the right sacroiliac joint. FL/FL guidance in treatment room IMPRESSION: Fluoroscopy during procedure. Please see procedure report for additional information. Electronically signed by: Yvan Vinson MD 12/19/2024 12:51 PM EDT
--- OUTSIDE RECORDS SUMMARY | 2024-12-19 06:18 | XMS_ITS | Encounter Summary ---
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 [address] documented as of this encounter Visit Diagnoses Not on filedocumented in this encounter Care Teams Group President Relationship Specialty Start Date End Date [place], [place] 70 [place] [address] PCP - General Job Placement Officer 07/24/24 documented as of this encounter
--- OUTSIDE RECORDS SUMMARY | 2024-12-19 06:18 | XMS_ITS | Encounter Summary ---
Author Organization [employer] Address [address] [facility] 7t [place] [address] Care Team Providers Care Associate Consulting Engineer Name Role Phone [facility] Primary Care Provider [phone] Encounter Details Date Type Department Care Team (Late st Contact Info) Description 11/20/2024 Orders Only [facility] [address] [place] [address] [place], [place], [facility] [address] [place], [place] [phone] Social History Tobacco Use Types Packs/Day Years [...] Care Team (Late st Contact Info) Description 01/03/2025 12:20 PM EDT Office Visit [facility] 70 [place] [address] [facility] [address] [place] [address] 03/05/2025 11:40 AM EDT Office Visit [facility] [address] [place] [address] [facility] [address] [place] [address] documented as of this encounter Procedures Procedure Name Priority Date/Time Associated Diagnosis Comments XR LUMBAR SPINE COMPLETE 4 OR MORE VIEWS Routine 09/12/2023 10:30 AM EST documented in this encounter Results * XR LUMBAR SPINE COMPLETE 4 OR MORE VIEWS (09/12/2023 10:30 AM EST) Anatomical Region Laterality Modality Radiographic Sherri ging [facility] IMG XR PROCEDURES Final R esult documented in this encounter Visit Diagnoses Not on filedocumented in this encounter Care Teams Associate Consulting Engineer Relationship Specialty Start Date End Date [place], [place] [facility] [address] [place] [address] PCP - General Family Medicine 03/16/23 documented as of this encounter
--- OUTSIDE RECORDS SUMMARY | 2024-12-19 06:18 | XMS_ITS | Encounter Summary ---
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 [address] documented as of this encounter Visit Diagnoses Not on filedocumented in this encounter Care Teams Novelty Balloon Assembler And Packer Relationship Specialty Start Date End Date [place], [place] [address] [place] [address] PCP - General Spool Fixer 07/24/24 documented as of this encounter
--- OUTSIDE RECORDS SUMMARY | 2024-12-19 06:18 | XMS_ITS | Encounter Summary ---
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 [phone] documented as of this encounter Visit Diagnoses Not on filedocumented in this encounter Care Teams Senior Naval Parachutist Relationship Specialty Start Date End Date [place], [place] [address] [place] [address] PCP - General Dealmaker 07/24/24 documented as of this encounter
--- OUTSIDE RECORDS SUMMARY | 2024-12-19 06:18 | XMS_ITS | Encounter Summary ---
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 [phone] documented as of this encounter Visit Diagnoses Not on filedocumented in this encounter Care Teams Network Security Consultant Relationship Specialty Start Date End Date [place], [place] [address] [place] [address] PCP - General Rn Telephonic 07/24/24 documented as of this encounter
--- OUTSIDE RECORDS SUMMARY | 2024-12-19 06:18 | XMS_ITS | Encounter Summary ---
Author Organization [facility], Address [address] [place] [address] Phone Care Team Providers Care Corporate Wellness Coordinator Name Role Phone Andree Alva Primary Care Provider [phone] Encounter Details Date Type Department Care Team (Late Contact Info) Description 04/27/2023 Documentation Only [facility] [address] [place] [address] Akhil Choudhury MD [address] [place] [address] 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 [address] [place] [address] documented as of this encounter Visit Diagnoses Not on filedocumented in this encounter Care Teams Corporate Wellness Coordinator Relationship Specialty Start Date End Date [place], [place] [address] [place] [address] PCP - General Scrap Sorter 07/24/24 documented as of this encounter
--- OUTSIDE RECORDS SUMMARY | 2024-12-19 06:19 | XMS_ITS | Encounter Summary ---
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 [address] documented as of this encounter Visit Diagnoses Not on filedocumented in this encounter Care Teams Rate Supervisor Relationship Specialty Start Date End Date [place], [place] [address] [place] [address] PCP - General Blending Coordinator 07/24/24 documented as of this encounter
--- OUTSIDE RECORDS SUMMARY | 2024-12-19 06:19 | XMS_ITS | Encounter Summary ---
Author Organization [facility], Address [address] [place] [address] Phone Care Team Providers Care Afterschool Babysitter Name Role Phone [facility] Andree Primary Care Provider [phone] Encounter Details Date Type Department Care Team (Late Contact Info) Description 01/29/2021 Orders Only [facility] - [address] [place] [address] Francesca Varela MD Stage 3 chronic kidney [...] Visit [facility], - [address] [place] [phone] Akhil Choudhury MD [address] [place] [address] [place] [phone] documented as of this encounter Visit Diagnoses Diagnosis Stage 3 chronic kidney disease (HCC) documented in this encounter Care Teams Afterschool Babysitter Relationship Specialty Start Date End Date [place], [place] [address] [place] [address] PCP - General Social Scientist 07/24/24 documented as of this encounter
--- OUTSIDE RECORDS SUMMARY | 2024-12-19 06:19 | XMS_ITS | Encounter Summary ---
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 [address] documented as of this encounter Visit Diagnoses Not on filedocumented in this encounter Care Teams Chemical Librarian Relationship Specialty Start Date End Date [place], [place] [address] [place] [address] PCP - General Groundwater Programs Director 07/24/24 documented as of this encounter
--- OUTSIDE RECORDS SUMMARY | 2024-12-19 06:19 | XMS_ITS | Encounter Summary ---
Author Organization [employer] Address [address] [facility] 7t [place] [address] Care Team Providers Care Feather Maker Name Role Phone [facility] Primary Care Provider [phone] Encounter Details Date Type Department Care Team (Late st Contact Info) Description 02/02/2024 Orders Only [facility] [address] [place] [address] [place], [place], [facility] [address] [place], [place] [phone] Social History Tobacco Use Types Packs/Day Years [...] Description 01/03/2025 12:20 PM EDT Office Visit [facility] [address] [place] [address] [facility] [address] [place] [address] 03/05/2025 11:40 AM EDT Office Visit [facility] [address] [place] [address] [facility] [address] [place] [address] documented as of this encounter Procedures Procedure Name Priority Date/Time Associated Diagnosis Comments CBC WITH AUTO DIFFERENTIAL Routine 02/01/2024 11:15 AM EDT documented in this encounter Results * CBC auto differential (02/01/2024 11:15 AM EDT) Blood Venous blood specimen / Unknown [facility] LAB BLOOD ORDERABLES Linnea l Result documented in this encounter Visit Diagnoses Not on filedocumented in this encounter Care Teams Feather Maker Relationship Specialty Start Date End Date [facility] [address] [place] [address] PCP - General Family Medicine 03/16/23 documented as of this encounter
--- OUTSIDE RECORDS SUMMARY | 2024-12-19 06:19 | XMS_ITS | Encounter Summary ---
Author Organization [employer] Address [address] [facility] 7t [place] [address] Care Team Providers Care Carton Marker Machine Name Role Phone [facility] Primary Care Provider [phone] Encounter Details Date Type Department Care Team (Late st Contact Info) Description 07/18/2024 Orders Only [facility] [address] [place] [address] [place], [place], [facility] [address] [place] [address] Social History Tobacco Use Types Packs/Day Years [...] Description 01/03/2025 12:20 PM EDT Office Visit [facility] [address] [place] [address] [facility] [address] [place] [address] 03/05/2025 11:40 AM EDT Office Visit [facility] [address] [place] [address] [facility] [address] [place] [address] documented as of this encounter Procedures Procedure Name Priority Date/Time Associated Diagnosis Comments CBC Routine 07/16/2024 11:32 AM EDT documented in this encounter Results * CBC (07/16/2024 11:32 AM EDT) Blood Venous blood specimen / Unknown [facility] LAB BLOOD ORDERABLES Linnea l Result documented in this encounter Visit Diagnoses Not on filedocumented in this encounter Care Teams Carton Marker Machine Relationship Specialty Start Date End Date [facility] [address] [place] [address] PCP - General Family Medicine 03/16/23 documented as of this encounter
--- OUTSIDE RECORDS SUMMARY | 2024-12-19 06:19 | XMS_ITS | Encounter Summary ---
Author Organization [facility], Address [address] [place] [address] Phone Care Team Providers Care Security Controls Assessor Name Role Phone [place], [place] Primary Care Provider [phone] Reason for Visit * Reason Comments Med Refill Encounter Details Date Type Department Care Team (Late st Contact Info) Description 11/05/2019 Refill [facility] [address] [place] [phone] Francesca Varela MD Social History Tobacco Use [...] Visit [facility], - [address] [place] [address] Akhil Choudhury MD [address] [place] [address] [place] [address] documented as of this encounter Visit Diagnoses Not on filedocumented in this encounter Care Teams Security Controls Assessor Relationship Specialty Start Date End Date [place], [place] [address] [place] [address] PCP - General Merchandise For Resale Purchasing Agent 07/24/24 documented as of this encounter
--- OUTSIDE RECORDS SUMMARY | 2024-12-19 06:19 | XMS_ITS | Data Portability ---
Author Organization [facility], , [facility] Address [address] [place] [address] Care Team Providers Care Conductor/Engineer Name Role Phone ANNE MARIE CARRILLO OTHER ANNE MARIE DRAPER OTHER CLAUDY VILLELA OTHER [phone] MODESTO JACKSON Phlebotomist [place], [place] Primary Care Provider Assessment Encounter Date [...] not on T4. Going for back surgery ([place]). BMD OK in past. Enhanced Provider time [...] not on T4. Going for back surgery ([place]). BMD OK in past. 11/02: TSH mildly [...] 024 [facility], [address] [place] [address], [address], 4 11:46:50 T4, free, serum [address] [facility], [address] [place] [address], [address], 4 11:17:37 T4, free, serum [address] [facility], [address] [place] [address], [address], 4 16:12:35 TSH, serum or plasma [address] [facility], [address] [place] [address], [address], 4 16:25:18 vitamin D, 25-hydroxy , total, serum [address] [facility], [address] [place] [address], [address], 4 11:38:47 renal function panel, serum [address] [facility], [address] [facility], [place], [address], 11:16:50 Referral None recorded. Procedures None recorded. Surgeries None recorded. Imaging None recorded. Medication Orders None recorded. Patient TargetsNo targets recorded. Patient Instructions Encounter Date Encounter Id Patient Instructions Last Modified By Organization Details Last Modified Time 12/23/2020 [id number] - Labs as directed - Ultrasound in [...] [email or web address] Not avai lable 12/23/2020 18:00:31 11/02/2021 [id number] - Labs as directed- every 6 months [...] minutes. [email or web address] Not available 11/02/2021 18:54:14 10/18/2022 [id number] - Labs as directed- every 6 months [...] One year- 40 minutes. ccm signed- 10/31- [facility] [email or web address] Not available 10/18/2022 15:14:11 10/18/2023 [id number] - Labs as directed- every 6 months should be fine - Contact office if any symptoms of low thyroid (excess fatigue, unexplained weight gain, feeling much more cold than usual, constipation, very dry skin) or excess thyroid (heart racing, unexplained weight loss, feeling jittery/nervous/ anxious, change in frequency of moving bowels, tremors, or insomnia). [email or web address] Not available 10/18/2023 14:56:32 One year- 40 minutes. [facility] signed- 10/31- [facility] [email or web address] Not available 10/18/2023 14:56:57 10/16/2024 [id number] - Labs as directed- every 6 months should be fine - Contact office if any symptoms of low thyroid (excess fatigue, unexplained weight gain, feeling much more cold than usual, constipation, very dry skin) or excess thyroid (heart racing, unexplained weight loss, feeling jittery/nervous/ anxious, change in frequency of moving bowels, tremors, or insomnia). [email or web address] Not available 10/16/2024 15:29:15 One year- 20 minutes. [facility] signed- 10/31- [facility] [email or web address] Not available 10/16/2024 15:38:06 Reason for Referral None Reported. Results Created Date Observation Date Name Description Value Unit Range Abnormal Flag Note LastModifiedBy Organization Detail LastModifiedTime 12/11/1912/11/2020 T4, free, serum free T4 1.09 NG/dL 0.75-1 .54 Not Available [address], [address], 12/11/2020 13:00:10 12/11/1912/11/2020 TSH, serum or plasm a TSH 0.28 uIU/m L 0.50-6 .00 low The Ameri can [employer]le ge of Endoc rinol ogy and Ameri can Thyro id Assoc iatio n recom mend goal TSH value s betwe en 0.4-4 .0 mIU/m L. Not Available [address], [address], 12/11/2020 14:05:57 03/22/20 21 03/23/2021 T4, free, serum free T4 1.08 NG/dL 0.75-1 .54 Not Available [address], [address], 03/23/2021 09:43:40 03/22/20 21 03/23/2021 TSH, serum or plasm a TSH 0.31 uIU/m L 0.50-6 .00 low The Ameri can [employer]le ge of Endoc rinol ogy and Ameri can Thyro id Assoc iatio n recom mend goal TSH value s betwe en 0.4-4 .0 mIU/m L. Not Available [address], [address], 03/23/2021 10:20:14 10/26/19 22 10/26/2021 FREE T4 free T4 1.19 NG/dL 0.75-1 .54 Not Available [address], [address], 10/26/2021 16:16:58 10/26/19 22 10/26/2021 TSH TSH 0.30 uIU/m L 0.50-6 .00 low The [employer]i can [employer] ge of Endoc rinol ogy and Ameri can Thyro id Assoc iatio n recom mend goal TSH value s betwe en 0.4-4 .0 mIU/m L. Not Available [address], [address], 10/26/2021 16:49:19 05/04/20 22 05/05/2022 FREE T4 free T4 1.09 NG/dL 0.75-1 .54 Not Available [address], [address], 05/05/2022 12:00:09 05/04/20 22 05/05/2022 TSH TSH 0.21 uIU/m L 0.50-6 .00 low The [employer] can [employer] ge [employer] Endoc rinol ogy and Ameri can Thyro id Assoc iatio n recom mend goal TSH value s betwe en 0.4-4 .0 mIU/m L. Not Available [address], [address], 05/05/2022 12:35:40 08/17/20 22 08/17/2022 FREE T4 free T4 1.33 NG/dL 0.75-1 .54 Not Available [address], [address], 08/17/2022 15:49:23 08/17/20 22 08/17/2022 TSH TSH 0.37 uIU/m L 0.50-6 .00 low The [employer] can [employer] ge [employer] Endoc rinol ogy and Ameri can Thyro id Assoc iatio n recom mend goal TSH value s betwe en 0.4-4 .0 mIU/m L. Not Available [address], [address], 08/17/2022 16:14:56 10/05/20 22 10/05/2022 FREE T4 free T4 1.15 NG/dL 0.75-1 .54 Not Available [address], [address], 10/05/2022 16:09:19 10/05/20 22 10/05/2022 TSH TSH 0.34 uIU/m L 0.50-6 .00 low The [employer] can [employer] ge of Endoc rinol ogy and Ameri can Thyro id Assoc iatio n recom mend goal TSH value s betwe en 0.4-4 .0 mIU/m L. Not Available [address], [address], 10/05/2022 16:28:15 05/05/20 23 05/08/2023 FREE T4 free T4 1.15 NG/dL 0.75-1 .54 Not Available [address], [address], 05/08/2023 11:52:00 05/05/20 23 05/08/2023 TSH TSH 0.16 uIU/m L 0.50-6 .00 low The [employer] ge [employer] Endoc rinol ogy and Ameri can Thyro id Assoc iatio n recom mend goal TSH value s betwe en 0.4-4 .0 mIU/m L. Not Available [address], [address], 05/08/2023 12:19:47 07/06/20 23 07/06/2023 PSA PSA 1.07 NG/mL 0.00-4 .00 Not Available [address], [address], 07/06/2023 16:31:55 07/06/2007/07/2023 LIPID PANEL cholesterol 93 mg/dL <200 mg/dl [place] able 200-2 39 mg/dl Borde rline High >240 mg/dl High Not Available [address], [address], 07/07/2023 10:58:12 07/06/20 23 07/07/2023 LIPID PANEL triglyceride s 59 mg/dL <150 mg/dL Ronel l 150-1 99 mg/dL Borde rline High 200-4 99 mg/dL High >500 mg/dL Very High Not Available [address], [address], 07/07/2023 10:58:12 07/06/2007/07/2023 LIPID PANEL direct HDL 60 mg/dL <40 mg/dl - Major Risk for CHD >60 mg/dl - Negat miley Risk for CHD Not Available [address], [address], 07/07/2023 10:58:12 07/06/2007/07/2023 DIREC T LDL direct [...] r is not carlitoroberta fine. Not Available [address], [address], 07/07/2023 10:58:13 07/06/20 23 07/07/2023 FREE T4 free T4 1.11 NG/dL 0.75-1 .54 Not Available [address], [address], 07/07/2023 11:29:00 07/06/20 23 07/07/2023 TSH TSH 0.33 uIU/m L 0.50-6 .00 low The Amer[employer] can [employer]le ge of Endoc rinol ogy and Ameri can Thyro id Assoc iatio n recom mend goal TSH value s betwe en 0.4-4 .0 mIU/m L. Not Available [address], [address], 07/07/2023 12:07:10 10/11/19 24 10/12/2023 FREE T4 free T4 0.98 NG/dL 0.75-1 .54 Not Available [address], [address], 10/12/2023 11:28:13 10/11/19 24 10/12/2023 TSH TSH 0.83 uIU/m L 0.50-6 .00 The [employer] can [employer] ge of Endoc rinol ogy and Ameri can Thyro id Assoc iatio n recom mend goal TSH value s betwe en 0.4-4 .0 mIU/m L. Not Available [address], [address], 10/12/2023 11:57:32 12/18/19 24 12/18/2023 BASIC METAB OLIC PANEL sodium 141 mmol/ L 133-14 6 Not Available [facility] [address] [place], [address], 12/18/2023 19:11:53 12/18/19 24 12/18/2023 BASIC METAB OLIC PANEL chloride 102 mmol/ L 96-108 Not Available [facility] [address] [place], [address], 12/18/2023 19:11:53 12/18/19 24 12/18/2023 BASIC METAB OLIC PANEL potassium 4.5 mmol/ L 3.3-5. 1 Not Available [facility] [address] [place], [address], 12/18/2023 19:11:53 12/18/19 24 12/18/2023 BASIC METAB OLIC PANEL CO2 28 mmol/ L 21-35 Not Available [facility] [address] [place], [address], 12/18/2023 19:11:53 12/18/19 24 12/18/2023 BASIC METAB OLIC PANEL BUN 39 mg/dL 6-19 high Not Available [facility] [address] [place], [address], 12/18/2023 19:11:53 12/18/19 24 12/18/2023 BASIC METAB OLIC PANEL creatinine 2.10 mg/dL 0.5-1. 5 high Not Available [facility] [address] [place], [address], 12/18/2023 19:11:53 12/18/19 24 12/18/2023 BASIC METAB OLIC PANEL glucose 105 mg/dL 70-99 high Not Available [facility] [address] [place], [address], 12/18/2023 19:11:53 12/18/19 24 12/18/2023 BASIC METAB OLIC PANEL calcium 9.1 mg/dL 8.4-10 .3 Not Available [facility] [address] [place], [address], 12/18/2023 19:11:53 12/18/19 24 12/18/2023 BASIC METAB OLIC PANEL eGFR 31 mL/mi n/1.7 3m2 >59 low Estim ated glome rular filtr ation rate calcu lated using the CKD-E PI refit equat ion. Not Available [facility] [address] [place], [address], 12/18/2023 19:11:53 12/18/19 24 12/18/2023 BASIC METAB OLIC PANEL anion gap 16 mmol/ L 10-20 Not Available [facility] [address] [place], [address], 12/18/2023 19:11:53 12/18/19 24 12/18/2023 NT-DC OBNP nt-probnp 71300 pg/mL 0-450 high Not Available [facility] [address] [place], [address], 12/18/2023 19:11:55 12/25/19 24 12/25/2023 BASIC METAB OLIC PANEL sodium 139 mmol/ L 133-14 6 Not Available [facility] [address] [place], [address], 12/25/2023 19:25:00 12/25/19 24 12/25/2023 BASIC METAB OLIC PANEL chloride 99 mmol/ L 96-108 Not Available [facility] [address] [place], [address], 12/25/2023 19:25:00 12/25/19 24 12/25/2023 BASIC METAB OLIC PANEL potassium 4.0 mmol/ L 3.3-5. 1 Not Available [facility] [address] [place], [address], 12/25/2023 19:25:00 12/25/19 24 12/25/2023 BASIC METAB OLIC PANEL CO2 32 mmol/ L 21-35 Not Available [facility] [address] [place], [address], 12/25/2023 19:25:00 12/25/19 24 12/25/2023 BASIC METAB OLIC PANEL BUN 38 mg/dL 6-19 high Not Available [facility] [address] [place], [address], 12/25/2023 19:25:00 12/25/19 24 12/25/2023 BASIC METAB OLIC PANEL creatinine 2.10 mg/dL 0.5-1. 5 high Not Available [facility] [address] [place], [address], 12/25/2023 19:25:00 12/25/19 24 12/25/2023 BASIC METAB OLIC PANEL glucose 132 mg/dL 70-99 high Not Available [facility] [address] [place], [address], 12/25/2023 19:25:00 12/25/19 24 12/25/2023 BASIC METAB OLIC PANEL calcium 9.1 mg/dL 8.4-10 .3 Not Available [facility] [address] [place], [address], 12/25/2023 19:25:00 12/25/19 24 12/25/2023 BASIC METAB OLIC PANEL eGFR 31 mL/mi n/1.7 3m2 >59 low Estim ated glome rular filtr ation rate calcu lated using the CKD-E PI refit equat ion. Not Available [facility] [address] [place], [address], 12/25/2023 19:25:00 12/25/19 24 12/25/2023 BASIC METAB OLIC PANEL anion gap 12 mmol/ L 10-20 Not Available [facility] [address] [place], [address], 12/25/2023 19:25:00 12/25/19 24 12/25/2023 NT-DC OBNP nt-probnp 87673 pg/mL 0-450 high Not Available [facility] [address] [place], [address], 12/25/2023 19:25:02 04/24/20 24 04/25/2024 FREE T4 free T4 1.22 NG/dL 0.75-1 .54 Not Available [address], [address], 04/25/2024 11:17:37 04/24/20 24 04/25/2024 VITAM IN [...] er than 30 ng/mL . Not Available [address], [address], 04/25/2024 11:38:47 04/24/20 24 04/25/2024 TSH TSH 0.32 uIU/m L 0.50-6 .00 low The Ameri can Colle ge of Endoc rinol ogy and Ameri can Thyro id Assoc iatio n recom mend goal TSH value s betwe en 0.4-4 .0 mIU/m L. Not Available [address], [address], 04/25/2024 11:46:50 04/24/20 24 04/26/2024 RENAL PANEL glucose 126 mg/dL 70-100 high Not Available [address], [address], 04/26/2024 11:16:50 04/24/20 24 04/26/2024 RENAL PANEL BUN 56 mg/dL 7-18 high Not Available [address], [address], 04/26/2024 11:16:50 04/24/20 24 04/26/2024 RENAL PANEL creatinine 2.6 mg/dL 0.8-1. 3 high Not Available [address], [address], 04/26/2024 11:16:50 04/24/20 24 04/26/2024 RENAL PANEL B/C 21.5 ratio Not Available [address], [address], 04/26/2024 11:16:50 04/24/20 24 04/26/2024 RENAL PANEL [...] be used in pregn andre. Not Available [address], [address], 04/26/2024 11:16:50 04/24/20 24 04/26/2024 RENAL PANEL sodium 142 mmol/ L 136-14 5 Not Available [address] [place], [address], 04/26/2024 11:16:50 04/24/20 24 04/26/2024 RENAL PANEL potassium 4.8 mmol/ L 3.5-5. 1 Not Available [address], [address], 04/26/2024 11:16:50 04/24/20 24 04/26/2024 RENAL PANEL chloride 104 mmol/ L 96-107 Not Available [address], [address], 04/26/2024 11:16:50 04/24/20 24 04/26/2024 RENAL PANEL anion gap 6.2 5.0-15 .0 Not Available [address], [address], 04/26/2024 11:16:50 04/24/20 24 04/26/2024 RENAL PANEL CO2 32 mmol/ L 21-32 Not Available [address], [address], 04/26/2024 11:16:50 04/24/20 24 04/26/2024 RENAL PANEL calcium 8.9 mg/dL 8.5-10 .3 Not Available [address], [address], 04/26/2024 11:16:50 04/24/20 24 04/26/2024 RENAL PANEL albumin 3.7 g/dL 3.4-5. 0 Not Available [address], [address], 04/26/2024 11:16:50 04/24/20 24 04/26/2024 RENAL PANEL phosphorous 4.00 mg/dL 2.50-4 .90 Not Available [address], [address], 04/26/2024 11:16:50 08/06/20 24 08/06/2024 FREE T4 free T4 1.33 NG/dL 0.75-1 .54 Not Available [address], [address], 08/06/2024 16:12:35 08/06/20 24 08/06/2024 TSH TSH 0.32 uIU/m L 0.50-6 .00 low CWP=C onsis tent with previ ous. The Ameri can Colle ge of Endoc rinol ogy and Ameri can Thyro id Assoc iatio n recom mend goal TSH value s betwe en 0.4-4 .0 mIU/m L. Not Available [address], [address], 08/06/2024 16:25:18 10/10/19 25 10/11/2024 RENAL PANEL glucose 115 mg/dL 70-100 high Not Available [address], [address], 10/11/2024 11:34:35 10/10/19 25 10/11/2024 RENAL PANEL BUN 48 mg/dL 7-18 high Not Available [address], [address], 10/11/2024 11:34:35 10/10/19 25 10/11/2024 RENAL PANEL creatinine 2.5 mg/dL 0.8-1. 3 high Not Available [address], [address], 10/11/2024 11:34:35 10/10/19 25 10/11/2024 RENAL PANEL B/C 19.2 ratio Not Available [address], [address], 10/11/2024 11:34:35 10/10/19 25 10/11/2024 RENAL PANEL [...] be used in pregn andre. Not Available [address], [address], 10/11/2024 11:34:35 10/10/19 25 10/11/2024 RENAL PANEL sodium 144 mmol/ L 136-14 5 Not Available [address], [address], 10/11/2024 11:34:35 10/10/19 25 10/11/2024 RENAL PANEL potassium 4.6 mmol/ L 3.5-5. 1 Not Available [address], [address], 10/11/2024 11:34:35 10/10/19 25 10/11/2024 RENAL PANEL chloride 104 mmol/ L 96-107 Not Available [address], [address], 10/11/2024 11:34:35 10/10/19 25 10/11/2024 RENAL PANEL anion gap 12.3 5.0-15 .0 Not Available [address], [address], 10/11/2024 11:34:35 10/10/19 25 10/11/2024 RENAL PANEL CO2 28 mmol/ L 21-32 Not Available [address], [address], 10/11/2024 11:34:35 10/10/19 25 10/11/2024 RENAL PANEL calcium 8.7 mg/dL 8.5-10 .3 Not Available [address], [address], 10/11/2024 11:34:35 10/10/1910/11/2024 RENAL PANEL albumin 3.4 g/dL 3.4-5. 0 Not Available [address], [address], 10/11/2024 11:34:35 10/10/1910/11/2024 RENAL PANEL phosphorous 4.10 mg/dL 2.50-4 .90 Not Available [address], [address], 10/11/2024 11:34:35 10/10/1910/11/2024 FREE T4 free T4 1.26 NG/dL 0.75-1 .54 Not Available [address], [address], 10/11/2024 11:36:55 10/10/1910/11/2024 TSH TSH 0.42 uIU/m L 0.50-6 .00 low The Ameri can Colle ge of Endoc rinol ogy and Ameri can Thyro id Assoc iatio n recom mend goal TSH value s betwe en 0.4-4 .0 mIU/m L. Not Available [address], [address], 10/11/2024 12:29:30 10/10/1910/11/2024 VITAM IN D 25-HY [...] er than 30 ng/mL . Not Available [address], [address], 10/11/2024 12:29:31 07/06/2007/06/2023 US, retro perit oneum [...] Readin g Physic racheal: Bettina Gutierrez ms [facility] (Imaging) [address], [place], [address], 07/07/2023 07:55:53 11/09/19 24 10/31/2023 bone densi ty No observ ation record ed. [facility]) [address], [place], [address], 11/22/2023 15:29:35 Result Notes None recorded. 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 Not Available [facility] 3 03:12:45 Essential hypertensi on 65185329 Active 2006 Modesto Jackson MD [address] [place] [address], [phone] , [facility] 4 14:24:22 Hyperthyro idism 04603542 [facility] 15:11:37 Anemia 723095529 Active 2006 Modesto Jackson MD [address] [place] [address], , [facility] 4 14:24:20 Thyroid function tests abnormal 225733461 Active 2005 Modesto Jackson MD [address] [place] [address], [address] , [facility] 4 14:25:04 Non-toxic multinodul ar goiter 47996697 Active 2005 Modesto Jackson MD [address] [place] [address], [address] , [facility] 4 14:25:04 Benign essential hypertensi on 8224866 Active 2007 Modesto Jackson MD [address] [place] [address], [address] , [facility] 3 14:45:30 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 Modesto Jackson MD [address] [place] [address], [address] , [facility] 3 17:44:27 Goiter 6859639 Active 2007 Modesto Jackson MD [address] [place] [address], [address] , [facility] 3 14:45:48 Hypothyroi dism 01880021 Active 2006 Not Available [facility] 3 03:12:45 Acute pharyngiti s 824395367 Completed 200508/28/2013 Not Available [facility] 3 02:01:17 Toxic multinodul ar goiter 14670819 Active 2005 Not Available [facility] 3 03:12:45 Malaise and fatigue 916521354 Completed 08/28/2013 Not Available [facility] 3 02:00:19 Problem Notes None recorded. Procedures Surgical History Date Name Laterality Status Provider Name and Address Organization Details Recorded Time 6 Aide - Colonoscopy completed Tyree Noble MD [address] [place] [address], [phone], [facility] 06/20/2016 08:49:47 3 I-131 completed Modesto Jackson MD [address] [place] [address], [phone], [facility] 07/31/2013 11:51:52 Imaging Results Imaging Date Name Status LastModified by Organization Details LastModified Time 07/06/2023 US, retroperitoneum completed [facility]) [address], [place], [address], 07/07/2023 07:55:53 10/31/2023 bone density completed [facility]) [address], [place], [address], 11/22/2023 15:29:35 Procedure Notes None recorded. Medical Equipment None Reported. Allergies Allergen ID Allergen Name Allergen Category Reaction Reaction Severity Criticality Documentation Date Start Date Code Code System Note Provider Name and Address Organization Details Recorded Time 609676 epinephri ne medicatio n Not available Not available Not available 05/04/2012 3992 RxNorm sever e heada stan, nause a, weakn ess and disor ienta tion GEO Bhat, [facility] 2 14:23:31 22676 Cipro medicatio n other severe Not available 12/29/2010 3 RxNorm Edema in legs and achy joint Not Available [facility] 1 06:05:41 48046 Zithromax medicatio n Not available Not available Not available 08/26/2011 4 RxNorm unsur e of react ion Meghna Naylor LPN null, [facility] 1 14:57:00 Medications Name Sig Start Date [...] Address Organization Details Last Updated DateTime 11/02/2021 60750.93 g 76 /min 126 mm[Hg] 78 mm[Hg] Lluvia Syed RN [facility] 11/02/2021 16:28:27 Date Recorded Body weight Body mass index (BMI) Body height Heart rate Systolic blood pressure Diastolic blood pressure Provider Name and Address Organization Details Last Updated DateTime 3 46173.5 9 g 27.3 kg/m2 165.35 cm 64 /min 137 mm[Hg] 77 mm[Hg] Janeth Marquez LPN [facility] 3 14:28:16 Date Recorded Body height Body mass index (BMI) Body weight Heart rate Systolic blood pressure Diastolic blood pressure Provider Name and Address Organization Details Last Updated DateTime 4 166.37 cm 26.9 kg/m2 61409.1 5 g 51 /min 134 mm[Hg] 70 mm[Hg] Janeth Marquez OPERATIONS CLERK [facility] 4 14:18:03 Date Recorded Body height Body mass index (BMI) Body weight Heart rate Systolic blood pressure Diastolic blood pressure Provider Name and Address Organization Details Last Updated DateTime 5 166.37 cm 25.7 kg/m2 43166.5 7 g 61 /min 139 mm[Hg] 66 mm[Hg] Janeth Marquez [facility] 5 14:58:02 Date Recorded Systolic blood pressure Diastolic blood pressure Provider Name and Address Organization Details Last Updated DateTime 07/03/2023 116 mm[Hg] 65 mm[Hg] Nataliya Reyez [facility] 07/03/2023 09:28:48 Social History Question Answer Notes LastModified by [employer] ion Details LastModified Time Tobacco Smoking Status Former Smoker Quit at age 37 Not Available [facility] 03/03/2011 02:08:59 What Is Your Level Of [...] in college- 1 in masters). One at [employer]. 2018- Daughter taking vitamin D 50K/week. Son re-. 12/26- Kids and 4 Grands all OK. One graduating from [employer] (dancer - physical trainnig). Youngest at [employer]. Grandson from [employer] in [employer] (hickey). 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 12/27: Family OK. Daughter ([employer]/ senior project leader/team lead in [email or web address]) Son works hard- and doors prefitter at night. 10/30: Daughter had c-spine surgery, next is lumbar. Son getting c-spine surgery too. 2 (?) cyst on thyroid. [place], [place]. 10/31: Daughter and Son doing OK (backs OK). Son- new sales in [employer] business. Medical History Condition Response Thyroid Disease Y Cerebral Vascular Accident Y Immunizations Vaccine Type Date Status Note Provider Nam e and Address Organization Details Recorded Time Influenza, split virus, quadrivalent, preservative 0 completed Angela Snow LPN null, [facility] 09/23/2020 09:42:56 COVID-19, mRNA, LNP-S, PF, 100 mcg/0.5mL dose or 50 mcg/0.25mL dose 1 completed NADINE Barnett, [facility] 11/02/2021 16:24:37 COVID-19, mRNA, LNP-S, PF, 100 mcg/0.5mL dose or 50 mcg/0.25mL dose 1 completed Lluvia Syed RN null, [facility] 11/02/2021 16:24:45 COVID-19, mRNA, LNP-S, PF, 100 mcg/0.5mL dose or 50 mcg/0.25mL dose completed Lluvia Syed RN [facility], [facility] 11/02/2021 16:24:52 Past Encounters Encounter ID Performer Location Encounter Start Date Encounter Closed Date Diagnosis/Indication Diagnosis SNOMED-CT Code Diagnosis ICD10 Code Diagnosis Note [id number] [facility], [facility] [facility] [place] [place] [address] 1 06/29/2005 14:26:48 06/30/2005 09:41:24 [id number] LAB - [address] [place] [address] 1 07/05/2005 09:53:27 07/05/2005 09:53:52 [id number] [facility] [place] [place] [address] 1 09/07/2005 11:12:18 09/07/2005 11:12:45 [id number] [facility] - [address] [place] [address] 1 11/10/2005 13:56:01 11/10/2005 13:56:26 [id number] Endocrino logy, [facility] [place] [place] [address] 1 01/11/2006 16:17:23 01/12/2006 08:43:42 [id number] Radiology , [address] [place] [address] 1 01/17/2006 14:23:30 01/18/2006 07:03:29 [id number] Radiology , [address] P[place] Schulz [address] 1 01/17/2006 00:00:00 10/29/2008 02:02:29 [id number] Radiology , [address] [place] [address] 1 02/24/2006 08:56:06 02/24/2006 12:47:34 [id number] Radiology , [address] [place] Schulz [address] 1 02/24/2006 00:00:00 10/29/2008 02:02:29 [id number] LAB - [address] [place] [address] 1 03/01/2006 11:53:57 03/01/2006 11:54:04 [id number] Endocrino logy, [address] [place] [address] 1 [id number] [facility] [place] [address] 1 04/19/2006 13:21:42 04/19/2006 13:22:01 [id number] [facility] [place] [address] 1 06/29/2006 09:44:35 06/29/2006 09:44:42 [id number] Endocrino logefren [facility] [place] [place] [address] 1 08/09/2006 13:00:54 08/09/2006 14:59:14 [id number] [facility] [place] [address] 1 09/04/2006 15:49:21 09/04/2006 15:49:32 [id number] [facility] [place] [address] 1 11/13/2006 14:47:16 11/13/2006 14:47:27 [id number] [facility] [address] 1 01/11/2007 13:14:55 01/11/2007 13:15:03 [id number] Endocrino logefren, [facility] [place] [place] [address] 1 01/18/2007 14:43:18 01/19/2007 07:31:16 [id number] Radiology , [facility] [place] [place] [address] 1 01/18/2007 13:34:02 01/19/2007 09:03:06 [id number] Radiology , [facility] [place] [place] [address] 1 01/18/2007 00:00:00 10/29/2008 02:02:29 [id number] [facility] [place] [address] 1 02/16/2007 07:59:08 02/16/2007 07:59:16 [id number] [facility] [place] [address] 1 04/13/2007 11:49:18 04/13/2007 11:49:28 [id number] Endocrino logefren [facility] [place] [address] 1 05/09/2007 13:15:09 05/09/2007 16:02:24 [id number] [facility] [place] [address] 1 07/10/2007 15:10:29 07/10/2007 15:10:43 [id number] LAB - [facility] [place] [address] 1 10/08/2007 10:19:41 10/08/2007 10:19:46 [id number] LAB - [facility] [place] [address] 1 12/20/2007 12:01:28 12/20/2007 12:01:37 [id number] Endocrino logy, [facility] [place] [address] 1 12/27/2007 14:23:52 10/29/2008 02:02:29 [id number] LAB - [facility] [place] [address] 1 03/14/2008 14:30:20 03/14/2008 14:30:31 [id number] LAB - [facility] [place] [address] 1 04/22/2008 10:19:01 04/22/2008 10:19:08 [id number] Endocrino logefren, [facility] [place] [address] 1 05/01/2008 14:50:26 10/29/2008 02:02:29 [id number] LAB - [facility] [place] [address] 1 06/02/2008 13:27:13 06/02/2008 13:28:05 [id number] Endocrino logefren, [facility] [place] [address] 1 06/11/2008 14:22:57 10/29/2008 02:02:29 [id number] Radiology , [facility] [place] [address] 1 06/11/2008 13:30:57 06/11/2008 14:22:58 [id number] Radiology , [facility] [place] [address] 1 06/11/2008 00:00:00 10/29/2008 02:02:29 [id number] LAB - [facility] [place] [address] 1 08/15/2008 12:00:01 08/15/2008 12:00:10 [id number] Endocrino logy, [facility] [place] [address] 1 09/25/2008 13:31:57 10/29/2008 02:02:29 [id number] Endocrino logy, [facility] [place] [address] 1 06/18/2009 14:25:55 06/25/2009 11:00:47 [id number] LAB - [facility] [place] [place] PONCHO Best02-275 1 11/18/2008 13:03:16 11/18/2008 13:03:43 [id number] LAB - [facility] [place] [place] PONCHO Best02-275 1 02/27/2009 15:15:06 02/27/2009 15:15:16 [id number] LAB - [facility] [place] [place] PONCHO Best02-275 1 06/03/2009 11:46:48 06/03/2009 11:47:03 [id number] Endocrino logy, [facility] [place] [place] PONCHO Best02-275 1 12/23/2009 17:09:08 12/24/2009 09:20:44 [id number] Radiology , [facility] [place] [address] 1 06/03/2010 10:35:48 06/03/2010 15:52:56 [id number] Endocrino logy, [facility] [place] [place] Breanna Vick [place] Syed02-275 1 06/03/2010 11:30:51 06/10/2010 09:09:30 [id number] Endocrino logy, [facility] [place] [place] PONCHO Best02-275 1 12/29/2010 12:55:58 12/31/2010 15:41:10 [id number] Endocrino logy, [facility] [place] [address] 1 08/26/2011 14:41:53 08/26/2011 16:07:46 [id number] Radiology , [facility] [place] [place] Breanna Vick [place] Syed02-275 1 02/29/2012 15:15:19 03/01/2012 15:17:37 [id number] Endocrino logy, [facility] [place] [place] [address] 1 02/29/2012 16:11:10 02/29/2012 17:16:31 [id number] Radiology , [facility] [place] [place] [address] 1 04/26/2012 12:33:38 04/27/2012 09:17:06 [id number] Endocrino logy, [facility] [place] [place] [address] 1 05/04/2012 14:13:23 05/04/2012 15:12:13 [id number] Lupis Zaragoza Endocrino logy, [address] [address] 1 09/07/2012 14:01:08 09/13/2012 08:57:49 [id number] Ronald Goodson MD Radiology , [address] [address] 1 11/13/2012 10:13:28 11/14/2012 12:22:34 [id number] Endocrino logy, [address] [address] 1 06/07/2013 14:59:32 06/07/2013 16:44:40 Toxic diffuse goiter 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 Thyroid fu nction tests abnormal [id number] Subclinica l hyperthyro idism x many years [...] hip is osteopenia (-1.5) Non-toxic multinodular goiter 52139196 three nodules- benign follicular cells with colloid. Benign ess ential hypertension [id number] currently treated with atenolol, diovan, hctz. perhaps atenolol is slowing HR and masking sx that would otherwise be present from excess thyroid. [id number] Endocrino logy, [address] [address] 1 07/17/2013 15:12:16 07/17/2013 16:48:03 Subclinical hyperthyroidism 729582190 Persistent suppressed TSH in setting of normal T4 with no clear sx. However, he is now over 71 and risk for a.fib is only going to increase. Not sure that subclinica l hyperthyro id explains his m/s sx but feel that there is enough rationale for preventing a.fib., that he should undergo BOYER tx. Plan for 8 mCi tx at [facility]. Need to arrange- best day is Tuesdays. [id number] Endocrino logy, [address] [address] 1 07/31/2013 11:49:12 08/01/2013 09:15:56 Subclinical hyperthyroidism 861951145 Met patient at [facility] for BOYER. labs in 2 months [...] tx. Plan for 8 mCi tx at [facility]. Need to arrange- best day is Tuesdays. [id number] Endocrino logy, [address] [address] 1 11/28/2013 14:59:29 11/28/2013 16:21:35 Subclinical hyperthyroidism 045942255 S/P BOYER (8 mCi) in 07/2013. TSH starting to rise slightly but still low (0.05). FT4 is lower than before but still in normal range. Follow labs q 2 months to see if changes further. Non-toxic multinodular goiter 74298544 Bx in past- three nodules- benign follicular cells with colloid. [id number] Endocrino logy, [address] [address] 1 05/28/2014 15:29:54 05/28/2014 16:32:53 Subclinical hyperthyroidism 856186815 S/P BOYER (8 mCi) in 07/2013. TSH [...] replacemen t hormone therapy. Non-toxic multinodular goiter 12938955 Bx in past- three nodules- benign follicular cells with colloid. [id number] Endocrino logy, [address] [address] 1 11/27/2014 13:44:26 11/27/2014 14:40:55 Subclinical hyperthyroidism 892066922 Now S/P BOYER (8 mCi) in 07/2013. [...] replacemen t hormone therapy. Non-toxic multinodular goiter 23865149 Bx in past- three nodules- benign follicular cells with colloid. [id number] Modesto Jackson MD Endocrino logy, [address] [address] 1 09/30/2015 15:27:53 09/30/2015 16:18:36 Subclinical hyperthyroidism 554958276 E05.90 Now S/P BOYER (8 mCi) in [...] replacemen t hormone therapy. Non-toxic multinodular goiter 07318757 E04.2 Bx in past- three nodules- benign follicular cells with colloid. [id number] Modesto Jackson MD Endocrino logy, [address] [address] 1 06/08/2016 11:28:51 06/08/2016 12:28:28 Subclinical hyperthyroidism 199882195 E05.90 Now S/P BOYER (8 mCi) in [...] replacemen t hormone therapy. Non-toxic multinodular goiter 32801879 E04.2 Bx in past- three nodules- benign follicular cells with colloid. Last u/s in 2011. Suggest repeat this next visit. [id number] Tyree Noble MD [facility], [address] [address] 1 06/20/2016 07:47:13 06/20/2016 12:45:48 [id number] Modesto Jackson MD Endocrino logy, [address] [address] 1 11/18/2016 14:56:09 11/18/2016 16:07:34 Subclinical hyperthyroidism 242044587 E05.90 S/P BOYER (8 mCi) in 07/2013. [...] replacemen t hormone therapy. Non-toxic multinodular goiter 97936203 E04.2 Preliminar y (2017) shows slight decrease in largest on right and left. Previously had 2 on right and 3 on left but not easily identifiab le. Will need to review final repot. Bx in past- three nodules- benign follicular cells with colloid. Last u/s in 2011. [id number] Modesto Jackson MD Endocrino logy, [address] [address] 12/14/2017 15:06:57 12/18/2017 07:29:17 Non-toxic multinodular goiter 46780847 E04.2 U/S:Prelim inary today: no change.Connor dy in 2017 showed:Rig ht= 1.7 x 1.8 x 1.4 cm.Left= 2.5 x 2.0 x 1.4 cm Will need to review final repot. U/S next year- if remains unchanged, can push out u/s every 2 years. Bx in past- three nodules- benign follicular cells with colloid. Last u/s in 2011. Subclinica l hyperthyroidism 356214325 E05.90 S/P BOYER (8 mCi) in 07/2013. [...] will start on replacemen t hormone therapy. [id number] Modesto Jackson MD Endocrino logy, [address] [address] 1 12/14/2018 14:18:18 12/14/2018 15:30:47 Non-toxic multinodular goiter 37282444 E04.2 U/S:Prelim inary today: no change.rig ht [...] Last u/s in 2011. Subclinica l hyperthyroidism 055837278 E05.90 S/P BOYER (8 mCi) in 07/2013. [...] irregular today. Check EKG.EKG: NSR with PACs. [id number] Modesto Jackson MD Endocrino logy, [address] [address] 12/13/2019 14:10:48 12/13/2019 15:28:22 Subclinical hyperthyroidism 581782747 E05.90 S/P BOYER (8 mCi) in 07/2013. [...] do in a year. Non-toxic multinodular goiter 10757210 E04.2 Barely palpable nodule on right lower- [...] has remained unchanged and benign biopsy). Osteopenia 854004433 M85 .80 2012 BMD T-scores:L eft femoral neck= -1.5;FRAX= 10.3 for osteoporot ic fx and 3.8% for hip fx. Suggest update 2019.Not a lot of dairy in diet. Takes 1000 calcium. Takes vitamin D also.Fathe r had broken hip. [id number] Modesto Jackson MD Endocrino logy, [address] [address] 09/23/2020 09:35:52 09/28/2020 06:56:51 Non-toxic multinodular goiter 36979098 E04.2 Barely palpable nodule on right lower- [...] unchanged and benign biopsy). Subclinica l hyperthyroidism 509244083 E05.90 TSH = 0.22 (2.20); was 0.46 [...] wait and do in a year. Osteopenia 803538423 M85 .80 BMD 2020: Spine not included [...] review then. Look into cost of Prolia [id number] Modesto Jackson MD Endocrino logy, [address] [address] 1 12/23/2020 16:47:14 12/24/2020 06:42:53 Subclinical hyperthyroidism 209818210 E05.90 TSH = 0.28 (12/27); was 0.22 [...] wait and do in a year. Osteopenia 847507254 M85 .80 BMD 2020: Spine not included [...] Reviewed concepts of s/e. Non-toxic multinodular goiter 29607326 E04.2 Barely palpable nodule on right lower- [...] size has remained unchanged and benign biopsy). [id number] Modesto Jackson MD Endocrino logy, [address] [address] 11/02/2021 16:18:17 11/03/2021 18:55:29 Subclinical hyperthyroidism 515499919 E05.90 TSH = 0.3 (10/30 and 03/29); [...] in a year. Toxic mult inodular goiter 60732022 E05.20 [place] has been that one or more nodules [...] by u/s. Will monitor clinically . Osteopenia 349048405 M85 .80 BMD 2019: Spine not included [...] to take more meds than is necessary. [id number] Modesto Jackson MD Endocrino logy, [facility] [place] [place] [address] [place] [address] 10/18/2022 13:44:54 11/03/2022 10:59:01 Subclinical hyperthyroidism 599070825 E05.90 TSH = 0.34 (09/29); was 0.37 [...] in a year. Toxic mult inodular goiter 09231644 E05.20 [place] has been that one or more nodules [...] by u/s. Will monitor clinically . Osteopenia 942141650 M85 .80 BMD@[facility]: Spine not included Right [...] to take more meds than is necessary. [id number] Modesto Jackson MD Endocrino logy, [address] [address] 1 10/18/2023 14:00:07 10/19/2023 06:59:32 Subclinical hyperthyroidism 483608903 E05.90 TSH = 0.83 (11/01) was 0.33 [...] wait and do in a year. Osteopenia 905441948 M85 .80 BMD@[facility]: Spine not included (DJD) [...] (2K per day). Toxic mult inodular goiter 95442961 E05.20 [place] has been that one or more nodules [...] f/u by u/s. Will monitor clinically . [id number] Modesto Jackson MD Endocrino logy, [address] [address] 10/16/2024 14:43:34 10/22/2024 09:24:57 Subclinical hyperthyroidism 777536669 E05.90 TSH = 0.42 (11/02) was 0.32 [...] stable on no meds. follow labs Osteopenia 246479249 M85 .80 BMD@[facility]: Spine not included (DJD) Right femoral neck= [...] of avoiding falls. Toxic mult inodular goiter 24473179 E05.20 [place] has been that one or more nodules [...] Patel Member ID Guarantor Name 12/23/2020 1 [facility] MEDICARE PREFERRED (MEDICARE REPLACEMENT HMO) [facility] Dylan Odom [id number] 1 [id number] Dylan Odom 11/02/2021 1 [facility] - MEDICARE PREFERRED (MEDICARE REPLACEMENT HMO) [facility] Dylan Odom [id number] Dylan Odom 10/18/2022 1 [facility] MEDICARE PREFERRED (MEDICARE REPLACEMENT HMO) [facility] Dylan Odom [id number] 1 [id number] Dylan Odom 10/18/2023 1 [facility] Dylan Odom [id number] 1 Dylan Odom 10/16/2024 1 [facility] Dylan Odom [id number] Dylan Odom Notes Date Note Type Note Provider Name and Address Organization Details Recorded Time 12/24/19 21 text/htm l ThyroidReported bypatient.Previous Evaluation:Ultrasound (number of nodules, size, adenopathy): (see below); TSH: (0.28 (12/27): was 0.22 (11/28); was 0.46 (12/25); was 0.27 (11/26); was 0.25 (11/25)_ was (03/24)_); free T4: (1.09 (12/27): WAS 1.28 (220); was 1.22 (3); was 1.27 (218); was 1.22 (2); was 1.4 (6)); neck uptake: (22% in [...] (some block lately). Still has students via [employer]. Two in [place]. Occ napping but not daily. Sleeps - not as good past 4-5 days. UP at night to urinate. Generally wakes once. Meditating some too ([employer]) Spinal stenosis- improved with core strengthening. Will [...] mid-lower= 2.5x2.1x1.4; 2017: Right= 1.7x1.8x1.4; Left= 2.5x2.0x1.4; 2011- RIGHT: 1.8x1.7x1.7 [...] as before. was 1.47 PCP: Daniel.CARDS: Agustina ([place]). Patient agreed to this visit via secure telehealth platform due to the COVID -19 pandemic. Patient understands this is a scheduled visit and the usual procedures with regard to billing and confidentiality apply. Patient was notified that the provider location is [facility] Patient location: home During the visit the [...] and finds it helps. Modesto Jackson MD [address] [place] [address], [phone], [facility] 12/23/2020 23:36:06 11/02/19 22 text/htm l ThyroidReported [...] (some block lately). Still has students via [employer]. 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 Meditating some too ([employer]) Spinal stenosis- generally good (doing planks- helps [...] 2.0x2.5x1.9; LEFT: 2.9x3.8x2.4; 1.9x.18x1.7; ISTHMUS: 1.9x1.7x1.1 (new); 1.8x1.6x0.77504- right mid- 1.8x2.0x1.4. right lower= 1.6x1.6x1.4; left [...] as before. was 1.47 PCP: Daniel.CARDS: Agustina ([facility]).SLEEP APNEA: Gerardo SWAIN. On BiPAP. F/U for [...] better if moves around. Modesto Jackson MD [address] [place] [address], [place], [phone], [facility] 11/02/2021 18:55:01 10/18/19 23 text/htm l ThyroidReported [...] (some block lately). Still has students via [employer]. Two PhD students (from [place]- back in [place] Meditating some too ([employer]) Spinal stenosis- not great. also SI sx. [...] Not recently. BP - was 127/70 at [facility]. Goal is to get to > 120/80. [...] 2.0x2.5x1.9; LEFT: 2.9x3.8x2.4; 1.9x.18x1.7; ISTHMUS: 1.9x1.7x1.1 (new); 1.8x1.6x0.47075- right mid- 1.8x2.0x1.4. right lower= 1.6x1.6x1.4; left [...] same as before. was 1.47 PCP: Daniel.CARDS: ([facility]).SLEEP APNEA: Gerardo SWAIN. On BiPAP.10/31: slept [...] better if moves around. Modesto Jackson MD [address] [place] [address], [place], [phone], [facility] 11/01/2022 19:14:31 10/18/19 24 text/htm l ThyroidReported [...] stenosis- not great. 11/01- going for surgery ([place]). Had thought it might be SI but [...] 2.0x2.5x1.9; LEFT: 2.9x3.8x2.4; 1.9x.18x1.7; ISTHMUS: 1.9x1.7x1.1 (new); 1.8x1.6x0.13645- right mid- 1.8x2.0x1.4. right lower= 1.6x1.6x1.4; left [...] was 1.47 PCP: Nancy Rico- Andree Morocho.CARDS: ([facility]).SLEEP APNEA: Gerardo SWAIN. On BiPAP.10/31: slept 9 hours past 2 nights.L/V about a year ago.RENAL: Bharathiel. Follow-Up: toxic multinodular goiterFollow-Up: non-toxic uninodular goiterFollow-Up: subclinical hyperthyroidismOsteopeniaLV on 10/31LAst labs on 11/01Lab orders in place for tsh and t4 only until 09/2023Last bone density on 08/2020 vmg, pt has one sched. at [facility] thyroid US on 12/2018Pt has surgery next [...] study in 2007- homogeneous with 20% uptake. ([facility]).2013: treated with radioactive iodine in July 2013 [...] surgery- L3-L4 to remove junk . [place] ([place]). Hopes will allow him to walk. 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 doors prefitter at night2 (?) cyst on thyroid. [place]. 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 Youngest at [employer]. Grandson from [employer] in [place] (hickey). Oldest is teacher (engaged)11/01: Grands good. [...] on multiple ARBs. CVA in 08/28.Eliquis and lipitor1/22: Continues on beta martin, ARB but sub-max [...] better if moves around. Modesto Jackson MD [address] [place] [address], [place], [phone], [facility] 10/18/2023 19:51:52 10/16/19 25 text/htm l ThyroidReported [...] 1, 4 and when wakes up PREVIOUS U/S201: Right mid-lower 1.7x1.9x1.5; Left mid-lower= 2.5x2.1x1.4;2016: Right= 1.7x1.8x1.4; Left= 2.5x2.0x1.4;2011- RIGHT: 1.8x1.7x1.7 (bigger); 2.0x2.5x1.9; LEFT: 2.9x3.8x2.4; 1.9x.18x1.7; ISTHMUS: 1.9x1.7x1.1 (new); 1.8x1.6x0.37168- right mid- 1.8x2.0x1.4. right lower= 1.6x1.6x1.4; left [...] was 1.47 PCP: Andree Morocho. ([facility])CARDS: ([facility]).SLEEP APNEA: Gerardo SWAIN. On BiPAP.10/31: slept [...] study in 2007- homogeneous with 20% uptake. ([facility]).2013: treated with radioactive iodine in July 2013 [...] L3-L4. Spinal stenosis- initially better after surgery ([place]) but pins/needles in feet and pain returning (bilat SI type pain) 11/01: Upcoming minimally invasive back surgery- L3-L4 to remove junk . [place] ([place]). Hopes will allow him to walk. 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 doors prefitter at night2 (?) cyst on thyroid. [place]. 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 Youngest at [employer]. Grandson from [employer] in [place] (hickey). Oldest is teacher (engaged)11/01: Grands good. Has great-grand on the way.Daughter: back problemsSon- sober x 33 years. back problems. 11/02: kids doing well. Grands [place] (youngest graduated [employer]). Grandson ([employer] -> [place])Great grandson (6mos). PAST: PT difficultly [...] not so great. Feels associated with sinus. 1/22: Some problems balancing check book recently.10/31: Notes some more forgetfulness.11/01: better than last year. Better at concentrating.11/02: Little foggy today but not always. Some extra Zn with AREDS for macular disease.Left knee arthritis- better if moves around. Modesto Jackson MD [address] [place] [address], [phone], [facility] 10/16/2024 15:39:39
--- OUTSIDE RECORDS SUMMARY | 2024-12-19 06:19 | XMS_ITS | Encounter Summary ---
Author Organization [employer] Address [address] [place] [address] [address] [place] [address] Care Team Providers Care Flatwork Finisher Hand Name Role Phone [facility] Primary Care Provider [phone] Encounter Details Date Type Department Care Team (Late st Contact Info) Description 01/06/2024 Orders Only [facility] MEDICAL [address] [place] [address] Provider, MD Vega Social History Tobacco Use [...] Description 01/03/2025 12:20 PM EDT Office Visit [facility] MED[facility] [address] [place] [address] [facility] Andree [facility] [address] [place] [address] 03/05/2025 11:40 AM EDT Office Visit [facility] [address] [place] [address] FrontiAndree wolf FNP [address] [place] [address] documented as of this encounter Procedures Procedure Name Priority Date/Time Associated Diagnosis Comments STRESS TEST WITH MYOCARDIAL PERFUSION Routine 01/01/2024 6:09 AM EDT documented in this encounter Results * Stress test with myocardial perfusion (01/01/2024 6:09 AM EDT) us Historical Provider CV STRESS PROCEDURES Linnea l Result documented in this encounter Visit Diagnoses Not on filedocumented in this encounter Care Teams Flatwork Finisher Hand Relationship Specialty Start Date End Date Andree Alva FNP [address] [place] [address] PCP - General Family Medicine 03/16/23 documented as of this encounter
--- OUTSIDE RECORDS SUMMARY | 2024-12-19 06:19 | XMS_ITS | Encounter Summary ---
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 [address] documented as of this encounter Visit Diagnoses Not on filedocumented in this encounter Care Teams Hot Plate Plywood Press Laborer Relationship Specialty Start Date End Date [place], [place] 70 [place] [address] PCP - General Yarn Comber 07/24/24 documented as of this encounter
--- OUTSIDE RECORDS SUMMARY | 2024-12-19 06:19 | XMS_ITS | Encounter Summary ---
Author Organization [employer] Address [address] [facility] 7t [place] [address] Care Team Providers Care Field Engineer Name Role Phone [facility] Primary Care Provider [phone] Encounter Details Date Type Department Care Team (Late st Contact Info) Description 02/23/2024 Orders Only [facility] [address] [place] [address] [place], [place], [facility] 70 [place] [address] Social History Tobacco Use Types Packs/Day Years [...] Description 01/03/2025 12:20 PM EDT Office Visit [facility] 70 [place] [address] [facility] 70 [place] [address] 03/05/2025 11:40 AM EDT Office Visit [facility] 70 [place] [address] [facility] 70 [place] [address] documented as of this encounter Procedures Procedure Name Priority Date/Time Associated Diagnosis Comments BASIC METABOLIC PANEL Routine 02/22/2024 10:23 AM EDT documented in this encounter Results * Basic Metabolic Panel (02/22/2024 10:23 AM EDT) Blood Venous blood specimen / Unknown [facility] LAB BLOOD ORDERABLES Linnea l Result documented in this encounter Visit Diagnoses Not on filedocumented in this encounter Care Teams Field Engineer Relationship Specialty Start Date End Date [facility] 70 [place] [address] PCP - General Family Medicine 03/16/23 documented as of this encounter
--- OUTSIDE RECORDS SUMMARY | 2024-12-19 06:19 | XMS_ITS | Clinical Summary ---
Author Organization [employer] Address [address] [place] [address] 7t [place] [address] Care Team Providers Care Cocoa Bean Roaster Helper Name Role Phone Andree Alva [facility] Primary Care Provider [phone] Allergies Active Allergy Reactions Criticality Noted Date [...] TIME EACH DAY. 02/04/20 23 Active Saw [place], Serenoa repens, (SA[place] PO) Ac tive [...] Department Care Team Description 11/20/2024 Orders Only [facility] [address] [place] [address] [place], [place] [facility] 10/16/2024 Telephone [facility] MED[facility] [address] [place] [address] [place], [place] [facility] Lab Orders 10/11/2024 Refill [facility] [address] [place] [address] [facility] Paroxysmal atrial fibrillation (CMS/HCC) (Primary Dx) from Last 3 Months Immunizations Name Administration [...] Description 01/03/2025 12:20 PM EDT Office Visit [place] [address] [place] [address] Andree Alva [facility] 70 [place] [address] 03/05/2025 11:40 AM EDT Office Visit [place] [facility] 70 [place] [address] Andree Alva, RN CARDIOVASCULAR ICU 70 [place] [address] Health Maintenance Due Date Last Done Comments [...] STANDARD Routine 11/04/2024 Hyperlipidemia, unspecified hyperlipidemia type from Last 3 Months Results * Lipid Panel, Standard (11/04/2024) Blood Venous blood specimen / Unknown [facility] LAB BLOOD ORDERABLES Linnea weston Result EXTERNAL LAB from Last 3 Months Insurance [employer] PREFERRED PRIME Care Teams Cocoa Bean Roaster Helper Relationship Specialty Start Date End Date [facility] 70 [place] [address] PCP - General Family Medicine 03/16/23
--- OUTSIDE RECORDS SUMMARY | 2024-12-19 06:19 | XMS_ITS | Encounter Summary ---
Author Organization [employer] Address [address] [place] [address] 7t [place] [address] Care Team Providers Care Oysterman Name Role Phone [facility] Primary Care Provider [phone] Encounter Details Date Type Department Care Team (Late st Contact Info) Description 12/21/2023 Orders Only [facility] 58 [place] [address] [place], [place] [facility] 70 [place] [address] Social History Tobacco Use Types Packs/Day Years [...] Description 01/03/2025 12:20 PM EDT Office Visit [place] [facility] 70 [place] [address] [place], [place] [facility] 70 [place] [address] 03/05/2025 11:40 AM EDT Office Visit [place] [facility] 70 [place] [address] [facility] 70 [place] [address] documented as of this encounter Procedures Procedure Name Priority Date/Time Associated Diagnosis Comments MICROALBUMIN, RANDOM (W CREAT) Routine 12/20/2023 8:55 AM EDT CBC Routine 12/20/2023 8:53 AM EDT PTH, INTACT Routine 12/20/2023 8:46 AM EDT documented in this encounter Results * Microalbumin, Random Urine w/Creatinine (12/20/2023 8:55 AM EDT) Urine (Urine, Random) [facility] LAB URINE ORDERABLES Linnea l Result * CBC (12/20/2023 8:53 AM EDT) Blood Venous blood specimen / Unknown [facility] LAB BLOOD ORDERABLES Linnea l Result * PTH, INTACT (12/20/2023 8:46 AM EDT) [facility] LAB BLOOD ORDERABLES Linnea l Result documented in this encounter Visit Diagnoses Not on filedocumented in this encounter Care Teams Oysterman Relationship Specialty Start Date End Date [facility] 70 [place] [address] PCP - General Family Medicine 03/16/23 documented as of this encounter
--- OUTSIDE RECORDS SUMMARY | 2024-12-19 06:19 | XMS_ITS | Encounter Summary ---
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 [address] documented as of this encounter Visit Diagnoses Not on filedocumented in this encounter Care Teams Soap Tender Relationship Specialty Start Date End Date [place], [place] 70 [place] [address] PCP - General Unit Control Clerk 07/24/24 documented as of this encounter
--- OUTSIDE RECORDS SUMMARY | 2024-12-19 06:19 | XMS_ITS | Encounter Summary ---
Author Organization [employer] Address 75 [facility] 7t [place] [address] Care Team Providers Care Voice Data Communications Engineer Name Role Phone [facility] Primary Care Provider [phone] Encounter Details Date Type Department Care Team (Late st Contact Info) Description 01/26/2024 Orders Only [place] [facility] 73 [place] [address] [place], [place], [facility] 70 [place], [place] [address] Scalp irritation Social History Tobacco Use Types [...] 01/03/2025 12:20 PM EDT Office Visit [facility] 70 [place] [address] [facility] 70 [place] [address] 03/05/2025 11:40 AM EDT Office Visit [facility] 70 [place] [address] [facility] 70 [place] [address] documented as of this encounter Procedures Procedure Name Priority Date/Time Associated Diagnosis Comments AMB REFERRAL TO DERMATOLOGY Routine 07/16/2024 Scalp irritation documented in this encounter Results * Referral to Dermatology (07/16/2024) [facility] OUTPATIENT REFERRAL ORDER BONNIE Final Result documented in this encounter Visit Diagnoses Diagnosis Scalp irritation documented in this encounter Care Teams Voice Data Communications Engineer Relationship Specialty Start Date End Date [facility] 70 [place] [address] PCP - General Family Medicine 03/16/23 documented as of this encounter
--- OUTSIDE RECORDS SUMMARY | 2024-12-19 06:19 | XMS_ITS | Encounter Summary ---
Author Organization [facility] [place], Address [address] [place] [address] Phone Care Team Providers Care In Flight Refueling Manager Name Role Phone Andree Alva Primary Care Provider [phone] Reason for Visit * Reason Comments Med Refill Encounter Details Date Type Department Care Team (Late st Contact Info) Description 03/01/2020 Refill [facility] [place] - [facility] 3 [place] [address] Francesca Varela MD Social History Tobacco Use [...] Visit [facility] [place], - [address] [place] [address] Akhil Choudhury MD [address] [place] [address] documented as of this encounter Visit Diagnoses Not on filedocumented in this encounter Care Teams In Flight Refueling Manager Relationship Specialty Start Date End Date [place], [place] 70 [place] [address] PCP - General Certifier 07/24/24 documented as of this encounter
--- OUTSIDE RECORDS SUMMARY | 2024-12-19 06:19 | XMS_ITS | Encounter Summary ---
Author Organization [employer] Address [address] [place] [address] 7t [place] [address] Care Team Providers Care Floatlight Powder Mixer Name Role Phone [facility] Primary Care Provider [phone] Encounter Details Date Type Department Care Team (Late st Contact Info) Description 01/03/2024 Orders Only [facility] MEDICAL 58 [place] [address] Provider, MD V[place] Social History Tobacco Use [...] Description 01/03/2025 12:20 PM EDT Office Visit [place] [facility] 70 [place] [address] [facility] Andree [facility] 70 [place] [address] 03/05/2025 11:40 AM EDT Office Visit [place] [facility] 70 [place] [address] Andree Alva FNP 70 [facility] [address] documented as of this encounter Procedures Procedure Name Priority Date/Time Associated Diagnosis Comments TRANSTHORACIC ECHO (TTE) COMPLETE Routine 12/28/2023 5:07 PM EDT documented in this encounter Results * Transthoracic echo (TTE) complete (12/28/2023 5:07 PM EDT) us Historical Provider MD SHEARER ECHO PROCEDURES Final Result documented in this encounter Visit Diagnoses Not on filedocumented in this encounter Care Teams Floatlight Powder Mixer Relationship Specialty Start Date End Date Andree Alva FNP 70 [facility] [address] PCP - General Family Medicine 03/16/23 documented as of this encounter
--- OUTSIDE RECORDS SUMMARY | 2024-12-19 06:19 | XMS_ITS | Encounter Summary ---
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 [address] documented as of this encounter Visit Diagnoses Not on filedocumented in this encounter Care Teams Tape Coater Relationship Specialty Start Date End Date [place], [place] 70 [place] [address] PCP - General Whizzer Operator 07/24/24 documented as of this encounter
--- OUTSIDE RECORDS SUMMARY | 2024-12-19 06:19 | XMS_ITS | Encounter Summary ---
Author Organization [facility] [place], Address [address] [place] [address] Phone Care Team Providers Care Pad Assembler Name Role Phone [place], [place] Primary Care Provider Encounter Details Date Type Department Care Team (Late Contact Info) Description 07/31/2020 Orders Only [facility] [place] [facility] 3 [place] [address] Francesca Varela MD Chronic kidney disease, stage [...] Visit [facility] - Bev [address] [place] [address] Akhil Choudhury MD [address] [facility] [place] [address] documented as of this encounter Visit Diagnoses Diagnosis Chronic kidney disease, stage 3 unspecified documented in this encounter Care Teams Pad Assembler Relationship Specialty Start Date End Date [place], [place] [address] [facility] [place] [address] PCP - General Maker Up Folding 07/24/24 documented as of this encounter
--- OUTSIDE RECORDS SUMMARY | 2024-12-19 06:19 | XMS_ITS | Encounter Summary ---
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 [address] documented as of this encounter Visit Diagnoses Not on filedocumented in this encounter Care Teams Accountant Budget Relationship Specialty Start Date End Date [place], [place] 70 [place] [address] PCP - General Straightening Machine Feeder 07/24/24 documented as of this encounter
--- OUTSIDE RECORDS SUMMARY | 2024-12-19 06:19 | XMS_ITS | Encounter Summary ---
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 [address] documented as of this encounter Visit Diagnoses Not on filedocumented in this encounter Care Teams Head Host/Hostess Relationship Specialty Start Date End Date [place], [place] 70 [place] [address] PCP - General English Tutor 07/24/24 documented as of this encounter
--- OUTSIDE RECORDS SUMMARY | 2024-12-19 06:19 | XMS_ITS | Clinical Summary ---
Author Organization [facility], Address 51 [facility] 3 [place] [address] Phone Care Team Providers Care Hardwood Floor Sander Name Role Phone [facility] Andree Primary Care Provider [phone] Allergies Active Allergy Reactions Criticality Noted Date [...] time each day 90 tablet 3 4 Active atorvastatin (LIPITOR) 80 MG tablet Take [...] heart disease. Followed by Dr. Berrios at [facility]. Initially diagnosed with Holter monitor after several months of intermittent palpitations. -[id number] score 3, started on Eliquis at renally adjusted dose 2.5 mg twice daily which was not started until the morning of 08/29/2020. Per [facility] teleneurology, Eliquis should be continued. 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 [phone] Health Maintenance Due Date Last Done Comments Influenza Vaccine (#1) 2024 3, 05/22/2022, 07/20/2021, Additional history exists Pneumococcal Vaccine: 65+ Years Completed 01/25/2017, 01/25/2017, 10/24/2016, Additional history exists Hepatitis B Vaccine Aged Out No longe r eligible based on patient's age to complete this topic Insurance [employer] Care Teams Hardwood Floor Sander Relationship Specialty Start Date End Date [place], [place] [address] [place] [address] PCP - General Management Accountant 07/24/24
--- OUTSIDE RECORDS SUMMARY | 2024-12-19 06:19 | XMS_ITS | Encounter Summary ---
Author Organization [employer] Address 75 [facility] 7t [place] [address] Care Team Providers Care Security Systems Administrator Name Role Phone [facility] Primary Care Provider [phone] Encounter Details Date Type Department Care Team (Late st Contact Info) Description 07/17/2024 Orders Only [facility] [address] [place] [address] [place], [place], [facility] 70 [place] [address] Social History Tobacco Use Types Packs/Day Years [...] Description 01/03/2025 12:20 PM EDT Office Visit [facility] 70 [place] [address] [facility] 70 [place] [address] 03/05/2025 11:40 AM EDT Office Visit [facility] 70 [place] [address] [facility] 70 [place] [address] documented as of this encounter Procedures Procedure [...] * PTH, INTACT (07/16/2024 10:17 AM EDT) [facility] LAB BLOOD ORDERABLES Linnea l Result * 25 OH Vitamin D (07/16/2024 10:16 AM EDT) [facility] LAB BLOOD ORDERABLES Linnea l Result * Renal Function Panel (07/16/2024 10:15 AM EDT) Blood Venous blood specimen / Unknown [facility] LAB BLOOD ORDERABLES Linnea l Result documented in this encounter Visit Diagnoses Not on filedocumented in this encounter Care Teams Security Systems Administrator Relationship Specialty Start Date End Date [facility] 70 [place] [address] PCP - General Family Medicine 03/16/23 documented as of this encounter
--- OUTSIDE RECORDS SUMMARY | 2024-12-19 06:19 | XMS_ITS | Encounter Summary ---
Author Organization [employer] Address [address] [place] [address] 7t [place] [address] Care Team Providers Care Learning And Development Assistant Name Role Phone [facility] Primary Care Provider [phone] Reason for Visit * Reason Onset Date Comments referral for Dr. BOWLES 08/18/2023 Encounter Details Date Type Department Care Team (Late st Contact Info) Description 08/18/2023 Telephone [place] [facility] 70 [place] [address] [facility] 70 [place] [address] BOWLES Social History Tobacco [...] Patient called wants Referral sent to Dr. Jamal kumar in [place] . Provider at [facility] for his spinal surgery consult. He would like to have options on who is feels more comfortable? 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
--- OUTSIDE RECORDS SUMMARY | 2024-12-19 06:19 | XMS_ITS | Encounter Summary ---
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 [address] documented as of this encounter Visit Diagnoses Not on filedocumented in this encounter Care Teams Cool Roofing Installer Relationship Specialty Start Date End Date [place], [place] 70 [place] [address] PCP - General Internal Grinder Tender 07/24/24 documented as of this encounter
--- OUTSIDE RECORDS SUMMARY | 2024-12-19 06:19 | XMS_ITS | Encounter Summary ---
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 [address] documented as of this encounter Visit Diagnoses Not on filedocumented in this encounter Care Teams Golf Club Weigher Relationship Specialty Start Date End Date [place], [place] 70 [place] [address] PCP - General Body Presser 07/24/24 documented as of this encounter
--- OUTSIDE RECORDS SUMMARY | 2024-12-19 06:19 | XMS_ITS | Encounter Summary ---
Author Organization [email or web address] Address [address] [place] [address] 7t [place] [address] Care Team Providers Care Sprinkler Truck Driver Name Role Phone [facility] Primary Care Provider [phone] Encounter Details Date Type Department Care Team (Late st Contact Info) Description 12/26/2023 Orders Only [facility] [address] [place] [address] [place], [place] [facility] [address] [place] [address] Social History Tobacco Use Types Packs/Day Years [...] 01/03/2025 12:20 PM EDT Office Visit [facility] [address] [place] [address] [place], [place] [facility] [address] [place] [address] 03/05/2025 11:40 AM EDT Office Visit [facility] [address] [place] [address] [facility] AndreeBRENNAP [address] [place] [address] documented as of this encounter Procedures Procedure Name Priority Date/Time Associated Diagnosis Comments BASIC METABOLIC PANEL Routine 12/25/2023 10:14 AM EDT documented in this encounter Results * Basic Metabolic Panel (12/25/2023 10:14 AM EDT) Blood Venous blood specimen / Unknown Andree Alva [facility] BLOOD ORDERABLES Linnea l Result documented in this encounter Visit Diagnoses Not on filedocumented in this encounter Care Teams Sprinkler Truck Driver Relationship Specialty Start Date End Date Andree Alva [facility] [address] [place] [address] PCP - General Family Medicine 03/16/23 documented as of this encounter
--- OUTSIDE RECORDS SUMMARY | 2024-12-19 06:19 | XMS_ITS | Encounter Summary ---
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 [address] documented as of this encounter Visit Diagnoses Not on filedocumented in this encounter Care Teams Script Manager Relationship Specialty Start Date End Date [place], [place] [address] [place] [address] PCP - General Ammonia Box Tender 07/24/24 documented as of this encounter
== END 2024-12-19 06:16 | disposition home or self-care (01) ==
LOC: CF 06:15
PROVIDERS: Visit Provider Internal Medicine
DX: M46.1 Sacroiliitis, not elsewhere classified (principal)
CPT/HCPCS: 27096; J2003; J2795; J3301

== ENCOUNTER 2024-12-19 10:20 | Outpatient (AMB) | payer OTHER, SELFPAY ==
[2024-12-19 10:30] VITALS: BP 136/59; PULSE 60; RESP 16; O2SAT 98
--- NOTE | 2024-12-19 10:30 | MHC.OFFVIS ---
Vital Signs 12/19/24 10:30 12/19/24 11:05 BP 136/59 L 143/65 H Blood Pressure Location Lt brachial Lt brachial Position Sitting Sitting Respiration 16 16 Pulse 60 57 Pulse Source Pulse Oximeter Pulse Oximeter Pulse Oximetry (%) 98 98 Oxygen Delivery Method Room Air Room Air Intake Visit Reasons: Right theraputic SIJ inj Vendor Specialist Required: No Allergies ciprofloxacin [From Cipro] Allergy (Severe, Verified 12/19/24 10:30) edema in legs and achy joints epinephrine Allergy (Severe, Verified 12/19/24 10:30) headache, nausea, weakness and disorientation environmental allergies Allergy (Intermediate, Verified 12/19/24 10:30) sneezing, watery eyes azithromycin [From Zithromax Z-Obed] Allergy (Verified 12/19/24 10:30) Unknown soy Adverse Reaction (Intermediate, Verified 12/19/24 10:30) Gastrointestinal Upset Medication List - Last Reconciled 12/19/24 by Anita Aldana LPN apixaban (Eliquis) 1.25 mg PO BID ascorbic acid (vitamin C) (Vitamin C) 1,000 mg PO DAILY aspirin (Adult Aspirin Regimen) 41 mg PO DAILY atorvastatin 80 mg PO DAILY htmlvfl-cxmqfbewk-aygi 1 tab PO DAILY cholecalciferol (vitamin D3) (Vitamin D3) 50 mcg PO DAILY coenzyme Q10 (Co Q-10) 100 mg PO DAILY cyanocobalamin (vitamin B-12) (Vitamin B-12) 1,000 mcg PO DAILY docusate sodium 100 mg PO BID empagliflozin (Jardiance) 10 mg PO DAILY ferrous sulfate (Feosol) 325 mg PO DAILY flaxseed oil 20,000 mg PO DAILY furosemide 20 mg PO DAILY grape seed extract 1,000 mg PO DAILY hydralazine 50 mg PO BID losartan 100 mg PO DAILY metoprolol succinate ER 25 mg PO DAILY multivitamin 1 tab PO DAILY pumpkin seed extract 1,000 mg PO DAILY quercetin 500 mg PO DAILY salmon oil-omega-3 fatty acids 1,000-200 mg caps PO saw palmetto 500 mg PO DAILY vit C,D-Aq-rwwhp-lutein-zeaxan 250-90-40-1 mg (PreserVision AREDS-2) 1 tab PO DAILY vitamin B complex 1 tab PO DAILY [facility] Medical History History of CVA (cerebrovascular accident) (~2020) Hx of retinal detachment (~2013) Post-nasal drip Rosacea Sleep apnea Spinal stenosis Sacroiliitis Osteoarthritis Macular degeneration of right eye Joint pain Interstitial cystitis Hyperthyroidism Hypertension Hoarseness Graves disease Gout Globus sensation GERD (gastroesophageal reflux disease) Fracture Disorder of thyroid Detached retina, left CKD (chronic kidney disease) Cerebrovascular accident Cataract, bilateral BPH (benign prostatic hyperplasia) Atrial fibrillation Asthma Surgical History Hx of oral surgery (~2020) Hx of eye surgery Hx of colonoscopy (~2022) Hx of bilateral cataract extraction Hx of tonsillectomy Social History Are you a primary senior caregiver to a significant other at home: No Do you presently have visiting nurse or other home services: No Patient Tobacco Use Status: Former Tobacco user Tobacco use type: Cigarette Physical Exam Vital Signs: Last Vital Signs Pulse 57 12/19/24 11:05 Resp 16 12/19/24 11:05 BP 143/65 H 12/19/24 11:05 Pulse Ox 98 12/19/24 11:05 Oxygen Delivery Method Room Air 12/19/24 11:05 Office Procedures AMB Joint Injection/Aspiration Joint Injection/Aspiration Details: Sacroiliac Joint Injection, Right The procedure, its benefits, and its risks were explained and written informed consent was obtained from the patient. Immediately prior to starting the procedure, a time-out safety check was conducted. The patient's identification, procedure name, procedure site, and procedure laterality were confirmed with the patient. ? Patient was placed prone on the fluoroscopy table and the lumbosacral area was prepped using ChloraPrep and draped with sterile draped in standard fashion. The C-arm was rotated in a contralateral oblique fashion until the medial border of the iliac crest no longer foreshadowed the posterior sacroiliac joint line. The skin and subcutaneous tissue was anesthetized using 1 mL of 0.75% plain lidocaine with 1.5-inch 25-gauge needle in the middle region of the joint line.? A 3.5-inch 22-gauge spinal needle with small bend on the tip was slowly advanced towards the joint line, coaxial to the x-ray beam. Once bony content was obtained, the needle was easily slid into the intra-articular space.? Intra-articular needle position was confirmed using lateral fluoroscopy.? A total volume of 2.5mL of solution containing 40 mg triamcinolone and rest 0.5% of ropivacaine was injected intra-articularly. The stylet was reinserted and needle was removed. The patient tolerated the procedure well. Patient denied any lower extremity weakness or numbness. Patient was observed for 30 min and was discharged after fulfilling the standard discharge criteria. Coding 52861 - Sacroiliac Procedure code (CPT) selection complete Assessment & Plan Assessment & Plan (1) Bilateral sacroiliitis: Code(s): M46.1 - Sacroiliitis, not elsewhere classified Category: Medical Plan Patient is status post right therapeutic sacroiliac joint injection. Patient tolerated procedure well and was discharged home in stable condition with discharge instructions. All questions were answered. We will follow-up via telephone or in clinic to assess response to therapy. A follow-up appointment was made during today's visit. Orders: Orders FL guidance in treatment room Today M46.1 - Sacroiliitis, not elsewhere classified Coding Level of Care Code Procedure Only Diagnoses Bilateral sacroiliitis M46.1 CPT Codes Coding - Joint 9: 43722 - Sacroiliac ([id number])
[2024-12-19 11:05] VITALS: BP 143/65; PULSE 57; RESP 16; O2SAT 98
--- OUTSIDE RECORDS SUMMARY | 2024-12-19 12:50 | XMS_ITS | Encounter Summary ---
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 [address] documented as of this encounter Visit Diagnoses Not on filedocumented in this encounter Care Teams Liquid Loader Relationship Specialty Start Date End Date [place], [place] [address] [place] [address] PCP - General Demurrage Clerk 07/24/24 documented as of this encounter
--- OUTSIDE RECORDS SUMMARY | 2024-12-19 12:50 | XMS_ITS | Encounter Summary ---
Author Organization [facility] [place], Address [address] [place] [address] Phone Care Team Providers Care Product Owner Name Role Phone [place], [place] Primary Care Provider [phone] Encounter Details Date Type Department Care Team (Late Contact Info) Description 07/31/2020 Orders Only [facility] [place] - [facility] [address] [facility] 3 [place] [address] Francesca Varela MD Chronic kidney disease, stage [...] Visit [facility] - Bev [address] [place] [address] Akhil Choudhury MD [address] [facility] [place] [address] documented as of this encounter Visit Diagnoses Diagnosis Chronic kidney disease, stage 3 unspecified documented in this encounter Care Teams Product Owner Relationship Specialty Start Date End Date [place], [place] [address] [facility] [address] PCP - General Air Brush Operator 07/24/24 documented as of this encounter
--- OUTSIDE RECORDS SUMMARY | 2024-12-19 12:50 | XMS_ITS | Encounter Summary ---
Author Organization [facility] [place], Address [address] [place] [address] Phone Care Team Providers Care Sole Scraper Name Role Phone Andree Alva Primary Care Provider [phone] Encounter Details Date Type Department Care Team (Late Contact Info) Description 04/27/2023 Documentation Only [facility] [address] [place] [address] Akhil Choudhury MD [address] [place] [address] 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 [address] [place] [address] documented as of this encounter Visit Diagnoses Not on filedocumented in this encounter Care Teams Sole Scraper Relationship Specialty Start Date End Date [place], [place] 70 [place] [address] PCP - General Sample Paster 07/24/24 documented as of this encounter
--- OUTSIDE RECORDS SUMMARY | 2024-12-19 12:50 | XMS_ITS | Encounter Summary ---
Author Organization [facility] [place], Address [address] [place] [address] Phone Care Team Providers Care Molder Trimmer Name Role Phone [facility] Andree Primary Care Provider [phone] Encounter Details Date Type Department Care Team (Late Contact Info) Description 01/29/2021 Orders Only [facility] [place] - [address] [place] [address] Francesca Varela MD Stage 3 chronic kidney [...] Visit [facility] [place], - [address]ev [address] [place] [address] Akhil Choudhury MD [address] [place] [address] [place] [address] documented as of this encounter Visit Diagnoses Diagnosis Stage 3 chronic kidney disease (HCC) documented in this encounter Care Teams Molder Trimmer Relationship Specialty Start Date End Date [place], [place] [address] [place] [address] PCP - General Electrical Project Engineer 07/24/24 documented as of this encounter
--- OUTSIDE RECORDS SUMMARY | 2024-12-19 12:50 | XMS_ITS | Encounter Summary ---
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 [address] documented as of this encounter Visit Diagnoses Not on filedocumented in this encounter Care Teams Special Library Librarian Relationship Specialty Start Date End Date [place], [place] 70 [place] [address] PCP - General Senior Linux Unix Administrator 07/24/24 documented as of this encounter
--- OUTSIDE RECORDS SUMMARY | 2024-12-19 12:50 | XMS_ITS | Encounter Summary ---
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 [address] documented as of this encounter Visit Diagnoses Not on filedocumented in this encounter Care Teams Straight Truck Driver Relationship Specialty Start Date End Date [place], [place] [address] [place] [address] PCP - General School Library Media Program Director 07/24/24 documented as of this encounter
--- OUTSIDE RECORDS SUMMARY | 2024-12-19 12:50 | XMS_ITS | Encounter Summary ---
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 [address] documented as of this encounter Visit Diagnoses Not on filedocumented in this encounter Care Teams Cnc Milling Machine Operator Relationship Specialty Start Date End Date [place], [place] [address] [place] [address] PCP - General Yeast Culture Developer 07/24/24 documented as of this encounter
--- OUTSIDE RECORDS SUMMARY | 2024-12-19 12:50 | XMS_ITS | Encounter Summary ---
Author Organization [employer] Address [address] [facility] 7t [place] [address] Care Team Providers Care Lightout Examiner Name Role Phone [facility] Primary Care Provider [phone] Encounter Details Date Type Department Care Team (Late st Contact Info) Description 11/20/2024 Orders Only [facility] [address] [place] [address] [place], [place], [facility] 70 [place], [place] [phone] Social History Tobacco Use Types Packs/Day Years [...] Description 01/03/2025 12:20 PM EDT Office Visit [facility] [address] [place] [address] [facility] 70 [place] [address] 03/05/2025 11:40 AM EDT Office Visit [facility] [address] [place] [address] [facility] [address] [place] [address] documented as of this encounter Procedures Procedure Name Priority Date/Time Associated Diagnosis Comments XR LUMBAR SPINE COMPLETE 4 OR MORE VIEWS Routine 09/12/2023 10:30 AM EST documented in this encounter Results * XR LUMBAR SPINE COMPLETE 4 OR MORE VIEWS (09/12/2023 10:30 AM EST) Anatomical Region Laterality Modality Radiographic Sherri ging [facility] IMG XR PROCEDURES Final R esult documented in this encounter Visit Diagnoses Not on filedocumented in this encounter Care Teams Lightout Examiner Relationship Specialty Start Date End Date [place], [place] [facility] 70 [place] [address] PCP - General Family Medicine 03/16/23 documented as of this encounter
--- OUTSIDE RECORDS SUMMARY | 2024-12-19 12:50 | XMS_ITS | Encounter Summary ---
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 [address] documented as of this encounter Visit Diagnoses Not on filedocumented in this encounter Care Teams Wind Turbine Sheet Metal Worker Relationship Specialty Start Date End Date [place], [place] 70 [place] [address] PCP - General Fourdrinier Machine Operator 07/24/24 documented as of this encounter
--- OUTSIDE RECORDS SUMMARY | 2024-12-19 12:51 | XMS_ITS | Encounter Summary ---
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 [address] documented as of this encounter Visit Diagnoses Not on filedocumented in this encounter Care Teams Resource Forester Relationship Specialty Start Date End Date [place], [place] [address] [place] [address] PCP - General Mixer Driver 07/24/24 documented as of this encounter
--- OUTSIDE RECORDS SUMMARY | 2024-12-19 12:51 | XMS_ITS | Encounter Summary ---
Author Organization [facility] [place], Address [address] [place] [address] Phone Care Team Providers Care Senior Solutions Engineer Name Role Phone [place], [place] Primary Care Provider [phone] Reason for Visit * Reason Comments Med Refill Encounter Details Date Type Department Care Team (Late st Contact Info) Description 11/05/2019 Refill [facility] [place] [address] [place] [address] Francesca Varela MD Social History Tobacco Use [...] Visit [facility] [place], - [place] [address] Luis A EDDY [address] [place] [address] Akhil Choudhury MD [address] [place] [address] [place] [phone] documented as of this encounter Visit Diagnoses Not on filedocumented in this encounter Care Teams Senior Solutions Engineer Relationship Specialty Start Date End Date [place], [place] [address] [place] [address] PCP - General Ui Programmer 07/24/24 documented as of this encounter
--- OUTSIDE RECORDS SUMMARY | 2024-12-19 12:51 | XMS_ITS | Encounter Summary ---
Author Organization [facility] [place], Address [address] [place] [address] Phone Care Team Providers Care Damper Fitter Name Role Phone Andree Alva Primary Care Provider [phone] Reason for Visit * Reason Comments Med Refill Encounter Details Date Type Department Care Team (Late st Contact Info) Description 03/01/2020 Refill [facility] [place] [facility] [address] [facility] 3 [place] [address] Francesca Varela MD Social History Tobacco Use [...] Visit [facility] [place], - [address] [place] [address] Akhil Choudhury MD [address] [place] [address] documented as of this encounter Visit Diagnoses Not on filedocumented in this encounter Care Teams Damper Fitter Relationship Specialty Start Date End Date [place], [place] 70 [place] [address] PCP - General Skid Strapper 07/24/24 documented as of this encounter
--- OUTSIDE RECORDS SUMMARY | 2024-12-19 12:51 | XMS_ITS | Clinical Summary ---
Author Organization [facility], Address [address] [facility] 3 [place] [address] Phone Care Team Providers Care Senior Sales Operations Analyst Name Role Phone [facility] Andree Primary Care Provider [phone] Allergies Active Allergy Reactions Criticality Noted Date [...] heart disease. Followed by Dr. Berrios at [facility]. Initially diagnosed with Holter monitor after several months of intermittent palpitations. -[id number] score 3, started on Eliquis at renally adjusted dose 2.5 mg twice daily which was not started until the morning of 08/29/2020. Per [facility]eneurology, Eliquis should be continued. 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 [phone] Health Maintenance Due Date Last Done Comments Influenza Vaccine (#1) 2024 3, 05/22/2022, 07/20/2021, Additional history exists Pneumococcal Vaccine: 65+ Years Completed 01/25/2017, 01/25/2017, 10/24/2016, Additional history exists Hepatitis B Vaccine Aged Out No longe r eligible based on patient's age to complete this topic Insurance * Guarantor: Dylan Odom Account Type Relation to Patient Date of Phone Billing Address Personal/Family Self [address] [address] [employer] Care Teams Senior Sales Operations Analyst Relationship Specialty Start Date End Date [place], [place] [address] [place] [address] PCP - General Passenger Train Braker 07/24/24
--- OUTSIDE RECORDS SUMMARY | 2024-12-19 12:51 | XMS_ITS | Encounter Summary ---
Author Organization [facility] [place], Address [address] [place] [address] Phone Care Team Providers Care Plastic Joint Maker Name Role Phone Andree Alva Primary Care Provider [phone] Encounter Details Date Type Department Care Team (Late Contact Info) Description 04/23/2024 Documentation Only [facility] [address] [place] [address] Melony Cardona [address] [place] [phone] Social History Tobacco Use Types Packs/Day [...] Job Start Date Job End Date Retired [employer] Not on file Not on file Not on file documented as of this encounter Plan of Treatment Upcoming Encounters Date Type Department Care Team (Late Contact Info) Description 01/22/2025 2:15 PM EDT Office Visit [facility] [place] [address] Luis A [address] [place] [address] Akhil Choudhury MD [address] [place] [address] [place] [address] documented as of this encounter Visit Diagnoses Not on filedocumented in this encounter Care Teams Plastic Joint Maker Relationship Specialty Start Date End Date [place], [place] 70 [place] [address] PCP - General Sales Product Manager 07/24/24 documented as of this encounter
--- OUTSIDE RECORDS SUMMARY | 2024-12-19 12:51 | XMS_ITS | Encounter Summary ---
Author Organization [employer] Address [address] [place] [address] 7t [place] [address] Care Team Providers Care Nursery School Teacher Name Role Phone [facility] Primary Care Provider [phone] Encounter Details Date Type Department Care Team (Late st Contact Info) Description 12/21/2023 Orders Only [facility] [address] [place] [address] [place], [place] [facility] 70 [place] [address] Social History Tobacco Use Types Packs/Day Years [...] 01/03/2025 12:20 PM EDT Office Visit [facility] [address] [place] [address] [place], [place] [facility] 70 [place] [address] 03/05/2025 11:40 AM EDT Office Visit [facility] [address] [place] [address] [facility] 70 [place] [address] documented as of this encounter Procedures Procedure Name Priority Date/Time Associated Diagnosis Comments MICROALBUMIN, RANDOM (W CREAT) Routine 12/20/2023 8:55 AM EDT CBC Routine 12/20/2023 8:53 AM EDT PTH, INTACT Routine 12/20/2023 8:46 AM EDT documented in this encounter Results * Microalbumin, Random Urine w/Creatinine (12/20/2023 8:55 AM EDT) Urine (Urine, Random) [facility] LAB URINE ORDERABLES Linnea l Result * CBC (12/20/2023 8:53 AM EDT) Blood Venous blood specimen / Unknown [facility] LAB BLOOD ORDERABLES Linnea l Result * PTH, INTACT (12/20/2023 8:46 AM EDT) [facility] LAB BLOOD ORDERABLES Linnea l Result documented in this encounter Visit Diagnoses Not on filedocumented in this encounter Care Teams Nursery School Teacher Relationship Specialty Start Date End Date [facility] [address] [place] [address] PCP - General Family Medicine 03/16/23 documented as of this encounter
--- OUTSIDE RECORDS SUMMARY | 2024-12-19 12:51 | XMS_ITS | Encounter Summary ---
Author Organization [employer] Address [address] [facility] 7t [place] [address] Care Team Providers Care Acute Dialysis Nurse Name Role Phone [facility] Primary Care Provider [phone] Encounter Details Date Type Department Care Team (Late st Contact Info) Description 07/17/2024 Orders Only [facility] [address] [place] [address] [place], [place], [facility] 70 [place] [address] Social History Tobacco Use Types Packs/Day Years [...] 12:20 PM EDT Office [facility] 70 [place] [address] [facility] 70 [place] [address] 03/05/2025 11:40 AM EDT Office [facility] 70 [place] [address] [facility] 70 [place] [address] documented as of this encounter Procedures Procedure Name Priority Date/Time Associated Diagnosis Comments HEMOGLOBIN A1C Routine 07/16/2024 10:18 AM EDT PTH, INTACT Routine 07/16/2024 10:17 AM EDT 25OH VITAMIN D Routine 07/16/2024 10:16 AM EDT RENAL FUNCTION PANEL Routine 07/16/2024 10:15 AM EDT documented in this encounter Results * Hemoglobin A1c (07/16/2024 10:18 AM EDT) Blood Venous blood specimen / Unknown [facility] LAB BLOOD ORDERABLES Linnea l Result * PTH, INTACT (07/16/2024 10:17 AM EDT) [facility] LAB BLOOD ORDERABLES Linnea l Result * 25 OH Vitamin D (07/16/2024 10:16 AM EDT) [facility] LAB BLOOD ORDERABLES Linnea l Result * Renal Function Panel (07/16/2024 10:15 AM EDT) Blood Venous blood specimen / Unknown [facility] LAB BLOOD ORDERABLES Linnea l Result documented in this encounter Visit Diagnoses Not on filedocumented in this encounter Care Teams Acute Dialysis Nurse Relationship Specialty Start Date End Date [facility] 70 [place] [address] PCP - General Family Medicine 03/16/23 documented as of this encounter
--- OUTSIDE RECORDS SUMMARY | 2024-12-19 12:51 | XMS_ITS | Encounter Summary ---
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 [place] [address] Luis A ED[address] [place] [address] Akhil Choudhury MD [address] [place] [address] [place] [address] documented as of this encounter Visit Diagnoses Not on filedocumented in this encounter Care Teams Manager Of Organizational Development Relationship Specialty Start Date End Date [place], [place] 70 [place] [address] PCP - General Core Cutter And Reamer 07/24/24 documented as of this encounter
--- OUTSIDE RECORDS SUMMARY | 2024-12-19 12:51 | XMS_ITS | Encounter Summary ---
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 [address] documented as of this encounter Visit Diagnoses Not on filedocumented in this encounter Care Teams Doll Repairer Relationship Specialty Start Date End Date [place], [place] 70 [place] [address] PCP - General Sole Edge Inker Machine 07/24/24 documented as of this encounter
--- OUTSIDE RECORDS SUMMARY | 2024-12-19 12:51 | XMS_ITS | Encounter Summary ---
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 [address] documented as of this encounter Visit Diagnoses Not on filedocumented in this encounter Care Teams Radar Systems Engineer Relationship Specialty Start Date End Date [place], [place] 70 [place] [address] PCP - General Block Saw Operator 07/24/24 documented as of this encounter
--- OUTSIDE RECORDS SUMMARY | 2024-12-19 12:51 | XMS_ITS | Encounter Summary ---
Author Organization [employer] Address [address] [facility] 7t [place] [address] Care Team Providers Care Director Of Physiotherapy Services Name Role Phone [facility] Primary Care Provider [phone] Encounter Details Date Type Department Care Team (Late st Contact Info) Description 07/18/2024 Orders Only [facility] [address] [place] [address] [place], [place], [facility] 70 [place] [address] Social History Tobacco Use Types Packs/Day Years [...] 12:20 PM EDT Office Visit [facility] 70 [place] [address] [facility] 70 [place] [address] 03/05/2025 11:40 AM EDT Office [facility] 70 [place] [address] [facility] 70 [place] [address] documented as of this encounter Procedures Procedure Name Priority Date/Time Associated Diagnosis Comments CBC Routine 07/16/2024 11:32 AM EDT documented in this encounter Results * CBC (07/16/2024 11:32 AM EDT) Blood Venous blood specimen / Unknown [facility] LAB BLOOD ORDERABLES Linnea l Result documented in this encounter Visit Diagnoses Not on filedocumented in this encounter Care Teams Director Of Physiotherapy Services Relationship Specialty Start Date End Date [facility] 70 [place] [address] PCP - General Family Medicine 03/16/23 documented as of this encounter
--- OUTSIDE RECORDS SUMMARY | 2024-12-19 12:51 | XMS_ITS | Encounter Summary ---
Author Organization [employer] Address [address] [facility] 7t [place] [address] Care Team Providers Care Rubber Heel And Sole Press Tender Name Role Phone [facility] Primary Care Provider [phone] Encounter Details Date Type Department Care Team (Late st Contact Info) Description 02/02/2024 Orders Only [facility] [address] [place] [address] [place], [place], [facility] 70 [place], [place] [phone] Social History Tobacco Use Types Packs/Day Years [...] Description 01/03/2025 12:20 PM EDT Office Visit [facility] 70 [place] [address] [facility] 70 [place] [address] 03/05/2025 11:40 AM EDT Office Visit [facility] 70 [place] [address] [facility] 70 [place] [address] documented as of this encounter Procedures Procedure Name Priority Date/Time Associated Diagnosis Comments CBC WITH AUTO DIFFERENTIAL Routine 02/01/2024 11:15 AM EDT documented in this encounter Results * CBC auto differential (02/01/2024 11:15 AM EDT) Blood Venous blood specimen / Unknown [facility] LAB BLOOD ORDERABLES Linnea l Result documented in this encounter Visit Diagnoses Not on filedocumented in this encounter Care Teams Rubber Heel And Sole Press Tender Relationship Specialty Start Date End Date [facility] 70 [place] [address] PCP - General Family Medicine 03/16/23 documented as of this encounter
--- OUTSIDE RECORDS SUMMARY | 2024-12-19 12:51 | XMS_ITS | Encounter Summary ---
Author Organization [employer] Address [address] [place] [address] 7t [place] [address] Care Team Providers Care Electronics Inspector Name Role Phone [facility] Primary Care Provider [phone] Encounter Details Date Type Department Care Team (Late st Contact Info) Description 01/03/[address] [facility] [address] [place] [address] Provider, MD [place] Social History Tobacco Use [...] Description 01/03/2025 12:20 PM EDT Office Visit [facility] [address] [place] [address] [facility] 70 [place] [address] 03/05/2025 11:40 AM EDT Office Visit [facility] 70 [place] [address] Andree Alva FNP 70 [facility] [place] [address] documented as of this encounter Procedures Procedure Name Priority Date/Time Associated Diagnosis Comments TRANSTHORACIC ECHO (TTE) COMPLETE Routine 12/28/2023 5:07 PM EDT documented in this encounter Results * Transthoracic echo (TTE) complete (12/28/2023 5:07 PM EDT) us Historical Provider MD SHEARER ECHO PROCEDURES Final Result documented in this encounter Visit Diagnoses Not on filedocumented in this encounter Care Teams Electronics Inspector Relationship Specialty Start Date End Date Andree Alva FNP 70 [facility] [place] [address] PCP - General Family Medicine 03/16/23 documented as of this encounter
--- OUTSIDE RECORDS SUMMARY | 2024-12-19 12:51 | XMS_ITS | Encounter Summary ---
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 [address] documented as of this encounter Visit Diagnoses Not on filedocumented in this encounter Care Teams Sociocultural Anthropology Professor Relationship Specialty Start Date End Date [place], [place] 70 [place] [address] PCP - General Beef Splitter 07/24/24 documented as of this encounter
--- OUTSIDE RECORDS SUMMARY | 2024-12-19 12:51 | XMS_ITS | Encounter Summary ---
Author Organization [employer] Address 75 [facility] 7t [place] [address] Care Team Providers Care Intake Manager Name Role Phone [facility] Primary Care Provider [phone] Encounter Details Date Type Department Care Team (Late st Contact Info) Description 01/26/2024 Orders Only [place] [facility] [address] [place] [address] [place], [place], [facility] 70 [place], [place] [phone] Scalp irritation Social History Tobacco Use Types [...] Description 01/03/2025 12:20 PM EDT Office Visit [facility] 70 [place] [address] [facility] 70 [place] [address] 03/05/2025 11:40 AM EDT Office Visit [facility] 70 [place] [address] [facility] 70 [place] [address] documented as of this encounter Procedures Procedure Name Priority Date/Time Associated Diagnosis Comments AMB REFERRAL TO DERMATOLOGY Routine 07/16/2024 Scalp irritation documented in this encounter Results * Referral to Dermatology (07/16/2024) [facility] OUTPATIENT REFERRAL ORDER BONNIE Final Result documented in this encounter Visit Diagnoses Diagnosis Scalp irritation documented in this encounter Care Teams Intake Manager Relationship Specialty Start Date End Date [facility] 70 [place] [address] PCP - General Family Medicine 03/16/23 documented as of this encounter
--- OUTSIDE RECORDS SUMMARY | 2024-12-19 12:51 | XMS_ITS | Encounter Summary ---
Author Organization [employer] Address [address] [place] [address] 7t [place] [address] Care Team Providers Care Hatchery Supervisor Name Role Phone [facility] Primary Care Provider [phone] Encounter Details Date Type Department Care Team (Late st Contact Info) Description 01/06/2024 Orders Only [facility] MEDICAL [address] [place] [address] Provider, MD Vega Social History Tobacco Use [...] Description 01/03/2025 12:20 PM EDT Office Visit [place] [facility] [address] [place] [address] Formerly [facility] Andree [facility] [address] [place] [address] 03/05/2025 11:40 AM EDT Office Visit [place] [facility] [address] [place] [address] FrontiAndree wolf FNP [address] [place] [address] documented as of this encounter Procedures Procedure Name Priority Date/Time Associated Diagnosis Comments STRESS TEST WITH MYOCARDIAL PERFUSION Routine 01/01/2024 6:09 AM EDT documented in this encounter Results * Stress test with myocardial perfusion (01/01/2024 6:09 AM EDT) us Historical Provider CV STRESS PROCEDURES Linnea l Result documented in this encounter Visit Diagnoses Not on filedocumented in this encounter Care Teams Hatchery Supervisor Relationship Specialty Start Date End Date Andree Alva FNP 70 [facility] [place] [address] PCP - General Family Medicine 03/16/23 documented as of this encounter
--- OUTSIDE RECORDS SUMMARY | 2024-12-19 12:51 | XMS_ITS | Encounter Summary ---
Author Organization [employer] Address [address] [place] [address] 7t [place] [address] Care Team Providers Care Flight Crew Time Clerk Name Role Phone [facility] Primary Care Provider [phone] Encounter Details Date Type Department Care Team (Late st Contact Info) Description 12/26/2023 Orders Only [place] [facility] [address] [place] [address] [place], [place] [facility] [address] [place] [address] Social History Tobacco Use Types Packs/Day Years [...] 01/03/2025 12:20 PM EDT Office Visit [place] [facility] [address] [place] [address] [place], [place] [facility] [address] [place] [address] 03/05/2025 11:40 AM EDT Office Visit [place] [facility] [address] [place] [address] [facility] AndreeBRENNAP 70 [place] [address] documented as of this encounter Procedures Procedure Name Priority Date/Time Associated Diagnosis Comments BASIC METABOLIC PANEL Routine 12/25/2023 10:14 AM EDT documented in this encounter Results * Basic Metabolic Panel (12/25/2023 10:14 AM EDT) Blood Venous blood specimen / Unknown Andree Alva [facility] LAB BLOOD ORDERABLES Linnea l Result documented in this encounter Visit Diagnoses Not on filedocumented in this encounter Care Teams Flight Crew Time Clerk Relationship Specialty Start Date End Date Andree Alva [facility] 70 [place] [address] PCP - General Family Medicine 03/16/23 documented as of this encounter
--- OUTSIDE RECORDS SUMMARY | 2024-12-19 12:51 | XMS_ITS | Clinical Summary ---
Author Organization [employer] Address [address] [place] [address] 7t [place] [address] Care Team Providers Care Land Leasing Information Clerk Name Role Phone nAdree Alva [facility] Primary Care Provider [phone] Allergies Active Allergy Reactions Criticality Noted Date [...] TIME EACH DAY. 02/04/20 23 Active Saw Osco, Serenoa repens, (SAW PALMETTO PO) Ac tive [...] Department Care Team Description 11/20/2024 Orders Only [place] [facility] [address] [place] [address] [place], [place] [facility] 10/16/2024 Telephone [facility] MEDICAL [address] [place] [address] [place], [place] [facility] Lab Orders 10/11/2024 Refill [facility] MEDICAL [address] [place] [address] [facility] Paroxysmal atrial fibrillation (CMS/HCC) (Primary Dx) from [...] Description 01/03/2025 12:20 PM EDT Office Visit [place] [facility] MED[facility] [address] [place] [address] Andree Alva [facility] 70 [place] [address] 03/05/2025 11:40 AM EDT Office Visit [place] [facility] MED[facility] [address] [place] [address] Andree Alva, SENIOR WEB ANALYST 70 [place] [address] Health Maintenance Due Date Last Done Comments [...] (11/04/2024) Blood Venous blood specimen / Unknown [facility] LAB BLOOD ORDERABLES Linnea weston Result EXTERNAL LAB from Last 3 Months Insurance [employer] PREFERRED PRIME Care Teams Land Leasing Information Clerk Relationship Specialty Start Date End Date [facility] 70 [place] [address] PCP - General Family Medicine 03/16/23
--- OUTSIDE RECORDS SUMMARY | 2024-12-19 12:51 | XMS_ITS | Encounter Summary ---
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 [address] documented as of this encounter Visit Diagnoses Not on filedocumented in this encounter Care Teams Wheel Lacer And Truer Relationship Specialty Start Date End Date [place], [place] [address] [place] [address] PCP - General Ancillary Services Manager 07/24/24 documented as of this encounter
--- OUTSIDE RECORDS SUMMARY | 2024-12-19 12:51 | XMS_ITS | Encounter Summary ---
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 [address] documented as of this encounter Visit Diagnoses Not on filedocumented in this encounter Care Teams Varnish Thinner Relationship Specialty Start Date End Date [place], [place] [address] [place] [address] PCP - General Flight Coordinator 07/24/24 documented as of this encounter
--- OUTSIDE RECORDS SUMMARY | 2024-12-19 12:51 | XMS_ITS | Encounter Summary ---
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 [address] documented as of this encounter Visit Diagnoses Not on filedocumented in this encounter Care Teams Acupuncturist Relationship Specialty Start Date End Date [place], [place] 70 [place] [address] PCP - General Certified Adapted Physical Educator 07/24/24 documented as of this encounter
--- OUTSIDE RECORDS SUMMARY | 2024-12-19 12:51 | XMS_ITS | Encounter Summary ---
Author Organization [employer] Address [address] [place] [address] 7t [place] [address] Care Team Providers Care Site Safety Coordinator Name Role Phone [facility] Primary Care Provider [phone] Reason for Visit * Reason Onset Date Comments referral for Dr. BOWLES 08/18/2023 Encounter Details Date Type Department Care Team (Late st Contact Info) Description 08/18/2023 Telephone [place] [facility] [address] [place] [address] [facility] 70 [place] [address] BOWLES Social History Tobacco [...] Referral sent to Dr. Jamal kumar in [place] . Provider at [facility] for his spinal surgery consult. He would like to have options on who is feels more comfortable? 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
--- OUTSIDE RECORDS SUMMARY | 2024-12-19 12:51 | XMS_ITS | Encounter Summary ---
Author Organization [employer] Address 75 [facility] 7t [place] [address] Care Team Providers Care Math And Science Division Chair Name Role Phone [facility] Primary Care Provider [phone] Encounter Details Date Type Department Care Team (Late st Contact Info) Description 02/23/2024 Orders Only [facility] [address] [place] [address] [place], [place], [facility] 70 [place] [address] Social History Tobacco Use Types Packs/Day Years [...] PM EDT Office Visit [facility] 70 [place] [address] [facility] 70 [place] [address] 03/05/2025 11:40 AM EDT Office Visit [facility] 70 [place] [address] [facility] 70 [place] [address] documented as of this encounter Procedures Procedure Name Priority Date/Time Associated Diagnosis Comments BASIC METABOLIC PANEL Routine 02/22/2024 10:23 AM EDT documented in this encounter Results * Basic Metabolic Panel (02/22/2024 10:23 AM EDT) Blood Venous blood specimen / Unknown [facility] LAB BLOOD ORDERABLES Linnea l Result documented in this encounter Visit Diagnoses Not on filedocumented in this encounter Care Teams Math And Science Division Chair Relationship Specialty Start Date End Date [facility] 70 [place] [address] PCP - General Family Medicine 03/16/23 documented as of this encounter
== END 2024-12-19 11:05 | disposition home or self-care (01) ==
PROVIDERS: Visit Provider Internal Medicine
DX: M46.1 Sacroiliitis, not elsewhere classified (principal)
CPT/HCPCS: 27096

== ENCOUNTER 2025-01-17 11:47 | Outpatient (AMB) | payer OTHER, SELFPAY ==
--- NOTE | 2025-01-17 12:09 | A.OFFVIS_ITS ---
Vital Signs 01/17/25 12:11 Height 5 ft 6 in Weight 148 lb BMI 23.9 BP 165/75 H Blood Pressure Location Rt brachial Position Sitting Respiration 16 Pulse 86 Pulse Source Pulse Oximeter Pulse Oximetry (%) 96 Oxygen Delivery Method Room Air Intake Visit Reasons: s/p right theraputic SIJ inj Parachute Marker Required: No Allergies ciprofloxacin [From Cipro] Allergy (Severe, Verified 01/17/25 12:13) edema in legs and achy joints epinephrine Allergy (Severe, Verified 01/17/25 12:13) headache, nausea, weakness and disorientation environmental allergies Allergy (Intermediate, Verified 01/17/25 12:13) sneezing, watery eyes azithromycin [From Zithromax Z-Obed] Allergy (Verified 01/17/25 12:13) Unknown soy Adverse Reaction (Intermediate, Verified 01/17/25 12:13) Gastrointestinal Upset Medication List - Last Reconciled 01/17/25 by Anita Aldana LPN apixaban (Eliquis) 1.25 mg PO BID ascorbic acid (vitamin C) (Vitamin C) 1,000 mg PO DAILY aspirin (Adult Aspirin Regimen) 41 mg PO DAILY atorvastatin 80 mg PO DAILY lymydvd-jdbdrjhlg-ajhb 1 tab PO DAILY cholecalciferol (vitamin D3) (Vitamin D3) 50 mcg PO DAILY coenzyme Q10 (Co Q-10) 100 mg PO DAILY cyanocobalamin (vitamin B-12) (Vitamin B-12) 1,000 mcg PO DAILY docusate sodium 100 mg PO BID empagliflozin (Jardiance) 10 mg PO DAILY ferrous sulfate (Feosol) 325 mg PO DAILY flaxseed oil 20,000 mg PO DAILY furosemide 20 mg PO DAILY grape seed extract 1,000 mg PO DAILY hydralazine 50 mg PO BID losartan 100 mg PO DAILY metoprolol succinate ER 25 mg PO DAILY multivitamin 1 tab PO DAILY pumpkin seed extract 1,000 mg PO DAILY quercetin 500 mg PO DAILY salmon oil-omega-3 fatty acids 1,000-200 mg caps PO saw palmetto 500 mg PO DAILY vit C,E-Nb-vplpt-lutein-zeaxan 250-90-40-1 mg (PreserVision AREDS-2) 1 tab PO DAILY vitamin B complex 1 tab PO DAILY HPI HPI s/p right theraputic SIJ inj: Details: History of Present Illness The patient is an 84-year-old male presenting with chronic pain management issues. Chiefly, the patient reports painful sensations localized around the sacroiliac joints, with episodic radiation to the buttocks. The pain that was initially managed with injections temporarily alleviated by lidocaine has recurred to near-baseline discomfort levels, indicating persistent pain from probable sacroiliac joint dysfunction and lumbar spine degeneration. The patient also experiences neuropathic pain features with bilateral numbness and tingling in the legs and feet, suggestive of peripheral neuropathy, which includes a sensation of uwxa-coo-nrukfdn, especially at the toes with calf cramps, notably during nighttime. The patient also has a history of benign prostatic hyperplasia, but it has been clarified that this condition is not associated with spinal pain. Reported pain levels are moderately tolerable around 3/10, though they interfere with comfort, yet the patient remains relatively mobile. Comprehensive treatment approaches, including aspirin, SI joint injections, and epidural steroid injections, alongside Excedrin intake, offer limited relief, though a cumulative series of interventions provided only partial reservation of symptoms without significant progression to satisfactory pain management. Given previous surgical interventions, nerve root irritation or compression could contribute to ongoing sensory symptoms. Pain Description - Onset: Chronic, longstanding - Quality: Persistent, intermittent pain - Primary location: Sacroiliac joints, buttocks - Radiation: Occasional to buttocks - Severity: Rated 3/10 on the pain scale - Exacerbating factors: Unclear, chronicity implies previous failures of sustained intervention - Alleviating factors: Temporary relief following lidocaine injections, minor relief with Excedrin - Interference: Causes discomfort but manageable for walking; remains ambulatory Physical Exam - Appears afebrile. - Alert and oriented. - Mood and affect appropriate. - Follows and participates in conversation appropriately. - Respiratory effort is unlabored. Pain Management - Affect: The pain impacts the quality of life, but the patient remains optimistic and rationalizes deterioration with age. - Analgesia: The patient is currently taking Excedrin; reports pain level as 3/10; goal is improved pain control. - Adverse Effects: None explicitly mentioned from medications. - Activities of Daily Living: Pain causes discomfort but does not prevent ambulation; impacts walking. - Aberrant Drug Related Behaviors: None reported or observed. [facility] Medical History History of CVA (cerebrovascular accident) (~2020) Hx of retinal detachment (~2013) Post-nasal drip Rosacea Sleep apnea Spinal stenosis Sacroiliitis Osteoarthritis Macular degeneration of right eye Joint pain Interstitial cystitis Hyperthyroidism Hypertension Hoarseness Graves disease Gout Globus sensation GERD (gastroesophageal reflux disease) Fracture Disorder of thyroid Detached retina, left CKD (chronic kidney disease) Cerebrovascular accident Cataract, bilateral BPH (benign prostatic hyperplasia) Atrial fibrillation Asthma Surgical History Hx of oral surgery (~2020) Hx of eye surgery Hx of colonoscopy (~2022) Hx of bilateral cataract extraction Hx of tonsillectomy Social History Are you a primary healthcare architect to a significant other at home: No Do you presently have visiting nurse or other home services: No Patient Tobacco Use Status: Former Tobacco user Tobacco use type: Cigarette Physical Exam Vital Signs: Last Vital Signs Pulse 86 01/17/25 12:11 Resp 16 01/17/25 12:11 BP 165/75 H 01/17/25 12:11 Pulse Ox 96 01/17/25 12:11 Oxygen Delivery Method Room Air 01/17/25 12:11 BMI result Body Mass Index 23.9 Assessment & Plan Assessment & Plan (1) Chronic bilateral low back pain: Code(s): M54.50 - Low back pain, unspecified; G89.29 - Other chronic pain Category: Medical (2) S/P spinal surgery: Code(s): Z98.890 - Other specified postprocedural states Category: Medical (3) Postlaminectomy syndrome: Code(s): M96.1 - Postlaminectomy syndrome, not elsewhere classified Category: Medical Plan Plan The patient's chronic pain is complex, requiring comprehensive management beyond previously attempted treatments such as injections and medications. Discussions have clarified that a spinal cord stimulator could broadly address his multifactorial pain by targeting relevant nerve pathways. The patient is encouraged to review educational materials provided about this device to assess its suitability and understand the surgical aspects. Ongoing monitoring of pain levels, quality of life, and evaluation of options underlines our patient- centered care approach. Patient was informed and verbally consented to the use of an ambient scribe for clinic note documentation during this visit. Discussion Notes I discussed with the patient the nature and persistence of his chronic pain symptoms associated with sacroiliac joints and potentially multi-faceted lumbar spine conditions. Although previous conservative interventions offered limited relief, we considered a broader therapeutic intervention such as a spinal cord stimulator. I explained this device?s potential effectiveness in addressing diverse pain origins and its minor surgical implant requirements. The potential benefits and risks were detailed, emphasizing its appropriateness only if pain further impairs daily function or worsens. Follow-up care and ongoing evaluation were considered, allowing the patient time to review the provided information and determine subsequent steps if deemed necessary by patient consensus rather than escalating further injections. Patient Instructions - Review the brochure provided on the spinal cord stimulator thoroughly. - Continue current pain management regimen with Excedrin as discussed. - Monitor pain levels and report any substantial changes in symptoms. - Evaluate daily comfort levels and mobility to guide future decisions. - Follow-up as needed to resolve further queries about potential new interventions. Coding Level of Care Code Est Pt Level 3 (63087) Diagnoses Chronic bilateral low back pain M54.50; G89.29 S/P spinal surgery Z98.890 Postlaminectomy syndrome M96.1
[2025-01-17 12:11] VITALS: BP 165/75; PULSE 86; RESP 16; O2SAT 96; BMI 23.9
--- OUTSIDE RECORDS SUMMARY | 2025-01-17 12:45 | XMS_ITS | Encounter Summary ---
Author Organization [employer] Address [address] [facility] 7t [place] [address] Care Team Providers Care Hvac Journeyman Name Role Phone [facility] Primary Care Provider [phone] Encounter Details Date Type Department Care Team (Late st Contact Info) Description 07/17/2024 Orders Only [place] [facility] [address] [place] [address] [place], [place], [facility] [address] [place] [address] Social History Tobacco Use Types Packs/Day Years [...] Description 03/05/2025 11:40 AM EDT Office Visit [place] [facility] [address] [place] [address] [facility] [address] [place] [address] documented as of this encounter Procedures Procedure Name Priority Date/Time Associated Diagnosis Comments HEMOGLOBIN A1C Routine 07/16/2024 10:18 AM EDT PTH, INTACT Routine 07/16/2024 10:17 AM EDT 25OH VITAMIN D Routine 07/16/2024 10:16 AM EDT RENAL FUNCTION PANEL Routine 07/16/2024 10:15 AM EDT documented in this encounter Results * Hemoglobin A1c (07/16/2024 10:18 AM EDT) Blood Venous blood specimen / Unknown [facility] LAB BLOOD ORDERABLES Linnea l Result * PTH, INTACT (07/16/2024 10:17 AM EDT) [facility] LAB BLOOD ORDERABLES Linnea l Result * 25 OH Vitamin D (07/16/2024 10:16 AM EDT) [facility] LAB BLOOD ORDERABLES Linnea l Result * Renal Function Panel (07/16/2024 10:15 AM EDT) Blood Venous blood specimen / Unknown [facility] LAB BLOOD ORDERABLES Linnea l Result documented in this encounter Visit Diagnoses Not on filedocumented in this encounter Care Teams Hvac Journeyman Relationship Specialty Start Date End Date [facility] [address] [place] [address] PCP - General Family Medicine 03/16/23 documented as of this encounter
--- OUTSIDE RECORDS SUMMARY | 2025-01-17 12:45 | XMS_ITS | Encounter Summary ---
Author Organization [employer] Address [address] [place] [address] 7t [place] [address] Care Team Providers Care Chute Operator Name Role Phone [facility] Primary Care Provider [phone] Reason for Visit * Reason Onset Date Comments referral for Dr. BOWLES 08/18/2023 Encounter Details Date Type Department Care Team (Late st Contact Info) Description 08/18/2023 Telephone [facility] [address] [place] [address] [facility] 70 [place] [address] BOWLES Social History Tobacco [...] Referral sent to Dr. Bowles office in [place] . Provider at [facility] for his spinal surgery consult. He would like to have options on who is feels more comfortable? 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
--- OUTSIDE RECORDS SUMMARY | 2025-01-17 12:45 | XMS_ITS | Clinical Summary ---
Author Organization [employer] Address [address] [place] [address] 7t [place] [address] Care Team Providers Care Electroencephalograph Technician Name Role Phone Andree Alva [facility] Primary Care Provider [phone] Allergies Active Allergy Reactions Criticality Noted Date [...] TIME EACH DAY. 02/04/20 23 Active Saw Labelle, Serenoa repens, (SAW PALMETTO PO) Ac tive [...] Department Care Team Description 11/20/2024 Orders Only [facility] [address] [place] [address] [place], [place], [facility] from Last 3 Months Immunizations Name Administration [...] Description 03/05/2025 11:40 AM EDT Office Visit [facility] 70 [place] [address] [place], [place], [facility] 70 [place] [address] Health Maintenance Due Date Last Done Comments Alcohol/Substance Use Screening 1952 Depression Screening 01/11/2025 01/12/2024, 01/12/20 SDOH Screening 01/11/2025 01/12/2024 Tobacco Screening 09/02/2025 [...] (11/04/2024) Blood Venous blood specimen / Unknown [facility] LAB BLOOD ORDERABLES Linnea l Result EXTERNAL LAB from Last 3 Months Insurance [address] [place] [address] [employer] PREFERRED PRIME Care Teams Electroencephalograph Technician Relationship Specialty Start Date End Date [facility] [address] [place] [address] PCP - General Family Medicine 03/16/23
--- OUTSIDE RECORDS SUMMARY | 2025-01-17 12:45 | XMS_ITS | Encounter Summary ---
Author Organization [facility], Address [address] [place] [address] Phone Care Team Providers Care Kier Drier Name Role Phone [place], [place] Primary Care Provider [phone] Reason for Visit * Reason Comments Med Refill Encounter Details Date Type Department Care Team (Late st Contact Info) Description 11/05/2019 Refill [facility] [address] [place] [address] Francesca Varela MD Social History Tobacco Use [...] Visit [facility], - [address] Luis A EDDY [address] [place] [address] Akhil Choudhury MD [address] [place] [address] [place] [phone] documented as of this encounter Visit Diagnoses Not on filedocumented in this encounter Care Teams Kier Drier Relationship Specialty Start Date End Date [place], [place] [address] [place] [address] PCP - General Academic Records Specialist 07/24/24 documented as of this encounter
--- OUTSIDE RECORDS SUMMARY | 2025-01-17 12:45 | XMS_ITS | Encounter Summary ---
Author Organization [facility], Address [address] [place] [address] Phone Care Team Providers Care Bead Maker Name Role Phone Andree Alva Primary Care Provider [phone] Reason for Visit * Reason Comments Med Refill Encounter Details Date Type Department Care Team (Late st Contact Info) Description 03/01/2020 Refill [facility] - [facility] 51 [facility] 3 [place] [address] Francesca Varela MD Social History Tobacco Use [...] Visit [facility], - [address]ev [address] [place] [phone] Akhil Choudhury MD [address] [place] [address] documented as of this encounter Visit Diagnoses Not on filedocumented in this encounter Care Teams Bead Maker Relationship Specialty Start Date End Date [place], [place] 70 [place] [address] PCP - General Hospice Director 07/24/24 documented as of this encounter
--- OUTSIDE RECORDS SUMMARY | 2025-01-17 12:45 | XMS_ITS | Encounter Summary ---
Author Organization [employer] Address [address] [place] [address] 7t [place] [address] Care Team Providers Care Mat Machine Tender Name Role Phone [facility] Primary Care Provider [phone] Encounter Details Date Type Department Care Team (Late st Contact Info) Description 12/21/2023 Orders Only [facility] [address] [place] [address] [place], [place] [facility] 70 [place] [address] Social History Tobacco Use Types Packs/Day Years [...] Description 03/05/2025 11:40 AM EDT Office Visit [facility] 70 [place] [address] [place], [place] [facility] 70 [place] [address] documented as of this encounter Procedures Procedure Name Priority Date/Time Associated Diagnosis Comments MICROALBUMIN, RANDOM (W CREAT) Routine 12/20/2023 8:55 AM EDT CBC Routine 12/20/2023 8:53 AM EDT PTH, INTACT Routine 12/20/2023 8:46 AM EDT documented in this encounter Results * Microalbumin, Random Urine w/Creatinine (12/20/2023 8:55 AM EDT) Urine (Urine, Random) [facility] LAB URINE ORDERABLES Linnea l Result * CBC (12/20/2023 8:53 AM EDT) Blood Venous blood specimen / Unknown [facility] LAB BLOOD ORDERABLES Linnea l Result * PTH, INTACT (12/20/2023 8:46 AM EDT) [facility] LAB BLOOD ORDERABLES Linnea l Result documented in this encounter Visit Diagnoses Not on filedocumented in this encounter Care Teams Mat Machine Tender Relationship Specialty Start Date End Date [facility] 70 [place] [address] PCP - General Family Medicine 03/16/23 documented as of this encounter
--- OUTSIDE RECORDS SUMMARY | 2025-01-17 12:45 | XMS_ITS | Encounter Summary ---
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 [address] documented as of this encounter Visit Diagnoses Not on filedocumented in this encounter Care Teams Estate Agent Relationship Specialty Start Date End Date [place], [place] 70 [place] [address] PCP - General Developmental Writing Instructor 07/24/24 documented as of this encounter
--- OUTSIDE RECORDS SUMMARY | 2025-01-17 12:45 | XMS_ITS | Encounter Summary ---
Author Organization [facility] [place], Address [address] [place] [address] Phone Care Team Providers Care Entry Examiner Name Role Phone [facility] Andree Primary Care Provider [phone] Encounter Details Date Type Department Care Team (Late Contact Info) Description 01/29/2021 Orders Only [facility] - [address] [place] [address] Francesca Varela MD Stage 3 chronic kidney [...] Visit [facility], - Bev [address]DY [address] [place] [address] Akhil Choudhury MD [address] [place] [address] [place] [phone] documented as of this encounter Visit Diagnoses Diagnosis Stage 3 chronic kidney disease (HCC) documented in this encounter Care Teams Entry Examiner Relationship Specialty Start Date End Date [place], [place] [address] [place] [address] PCP - General Wash Oil Pump Operator 07/24/24 documented as of this encounter
--- OUTSIDE RECORDS SUMMARY | 2025-01-17 12:45 | XMS_ITS | Encounter Summary ---
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 [place] [address] documented as of this encounter Visit Diagnoses Not on filedocumented in this encounter Care Teams Senior Speech Pathologist Relationship Specialty Start Date End Date [place], [place] 70 [place] [address] PCP - General Field Applications Specialist 07/24/24 documented as of this encounter
--- OUTSIDE RECORDS SUMMARY | 2025-01-17 12:45 | XMS_ITS | Encounter Summary ---
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 [address] documented as of this encounter Visit Diagnoses Not on filedocumented in this encounter Care Teams Quality Tester Relationship Specialty Start Date End Date [place], [place] [address] [place] [address] PCP - General Mold Changer 07/24/24 documented as of this encounter
--- OUTSIDE RECORDS SUMMARY | 2025-01-17 12:45 | XMS_ITS | Encounter Summary ---
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 [address] documented as of this encounter Visit Diagnoses Not on filedocumented in this encounter Care Teams Ampoule Inspector Relationship Specialty Start Date End Date [place], [place] 70 [place] [address] PCP - General Caramel Candy Maker 07/24/24 documented as of this encounter
--- OUTSIDE RECORDS SUMMARY | 2025-01-17 12:45 | XMS_ITS | Encounter Summary ---
Author Organization [employer] Address [address] [facility] 7t [place] [address] Care Team Providers Care Maxillofacial Surgeon Name Role Phone [facility] Primary Care Provider [phone] Encounter Details Date Type Department Care Team (Late st Contact Info) Description 07/18/2024 Orders Only [facility] [address] [place] [address] [place], [place], [facility] 70 [place] [address] Social History Tobacco Use Types Packs/Day Years [...] Description 03/05/2025 11:40 AM EDT Office Visit [place] 70 [place] [address] [facility] 70 [place] [address] documented as of this encounter Procedures Procedure Name Priority Date/Time Associated Diagnosis Comments CBC Routine 07/16/2024 11:32 AM EDT documented in this encounter Results * CBC (07/16/2024 11:32 AM EDT) Blood Venous blood specimen / Unknown [facility] LAB BLOOD ORDERABLES Linnea l Result documented in this encounter Visit Diagnoses Not on filedocumented in this encounter Care Teams Maxillofacial Surgeon Relationship Specialty Start Date End Date Andree Alva [facility] 70 [place] [address] PCP - General Family Medicine 03/16/23 documented as of this encounter
--- OUTSIDE RECORDS SUMMARY | 2025-01-17 12:45 | XMS_ITS | Encounter Summary ---
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 [address] documented as of this encounter Visit Diagnoses Not on filedocumented in this encounter Care Teams Front End Architect Relationship Specialty Start Date End Date [place], [place] [address] [place] [address] PCP - General Air Support Control Officer 07/24/24 documented as of this encounter
--- OUTSIDE RECORDS SUMMARY | 2025-01-17 12:45 | XMS_ITS | Encounter Summary ---
Author Organization [employer] Address [address] [place] [address] 7t [place] [address] Care Team Providers Care Industrial Management Teacher Name Role Phone [facility] Primary Care Provider [phone] Encounter Details Date Type Department Care Team (Late st Contact Info) Description 12/26/2023 Orders Only [facility] [address] [place] [address] [place], [place] [facility] 70 [place] [address] Social History Tobacco Use Types Packs/Day Years [...] Description 03/05/2025 11:40 AM EDT Office Visit [facility] [address] [place] [address] [place], [place] [facility] 70 [place] [address] documented as of this encounter Procedures Procedure [...] on filedocumented in this encounter Care Teams Industrial Management Teacher Relationship Specialty Start Date End Date Andree Alva [facility] 70 [place] [address] PCP - General Family Medicine 03/16/23 documented as of this encounter
--- OUTSIDE RECORDS SUMMARY | 2025-01-17 12:45 | XMS_ITS | Encounter Summary ---
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 [address] documented as of this encounter Visit Diagnoses Not on filedocumented in this encounter Care Teams Fine Arts Chair Relationship Specialty Start Date End Date [place], [place] 70 [place] [address] PCP - General Vector Control Assistant 07/24/24 documented as of this encounter
--- OUTSIDE RECORDS SUMMARY | 2025-01-17 12:45 | XMS_ITS | Encounter Summary ---
Author Organization [employer] Address [address] [facility] 7t [place] [address] Care Team Providers Care Advertising Layout Worker Name Role Phone [facility] Primary Care Provider [phone] Encounter Details Date Type Department Care Team (Late st Contact Info) Description 02/23/2024 Orders Only [facility] [address] [place] [address] [place], [place], [facility] 70 [place] [address] Social History Tobacco Use Types Packs/Day Years [...] Description 03/05/2025 11:40 AM EDT Office Visit [place] [facility] [address] [place] [address] [place], [place] [facility] 70 [place] [address] documented as of this encounter Procedures Procedure Name Priority Date/Time Associated Diagnosis Comments BASIC METABOLIC PANEL Routine 02/22/2024 10:23 AM EDT documented in this encounter Results * Basic Metabolic Panel (02/22/2024 10:23 AM EDT) Blood Venous blood specimen / Unknown [facility] LAB BLOOD ORDERABLES Linnea l Result documented in this encounter Visit Diagnoses Not on filedocumented in this encounter Care Teams Advertising Layout Worker Relationship Specialty Start Date End Date [facility] 70 [place] [address] PCP - General Family Medicine 03/16/23 documented as of this encounter
--- OUTSIDE RECORDS SUMMARY | 2025-01-17 12:45 | XMS_ITS | Encounter Summary ---
Author Organization [employer] Address [address] [facility] 7t [place] [address] Care Team Providers Care Tool Liaison Name Role Phone [facility] Primary Care Provider [phone] Encounter Details Date Type Department Care Team (Late st Contact Info) Description 11/20/2024 Orders Only [place] [facility] [address] [place] [address] [place], [place], [facility] 70 [place], [place] [id number] Social History Tobacco Use Types Packs/Day Years [...] Visit [facility] 70 [place] [address] Andree Alva FNP 70 [place] [address] documented as of this encounter Procedures Procedure Name Priority Date/Time Associated Diagnosis Comments XR LUMBAR SPINE COMPLETE 4 OR MORE VIEWS Routine 09/12/2023 10:30 AM EST documented in this encounter Results * XR LUMBAR SPINE COMPLETE 4 OR MORE VIEWS (09/12/2023 10:30 AM EST) Anatomical Region Laterality Modality Radiographic Sherri ging [facility] Artie CEJAP IMG XR PROCEDURES Final R esult documented in this encounter Visit Diagnoses Not on filedocumented in this encounter Care Teams Tool Liaison Relationship Specialty Start Date End Date Andree Alva FNP 70 [place] [address] PCP - General Family Medicine 03/16/23 documented as of this encounter
--- OUTSIDE RECORDS SUMMARY | 2025-01-17 12:45 | XMS_ITS | Encounter Summary ---
Author Organization [facility] [place], Address [address] [place] [address] Phone Care Team Providers Care Soap Mixer Name Role Phone [place], [place] Primary Care Provider [phone] Encounter Details Date Type Department Care Team (Late Contact Info) Description 07/31/2020 Orders Only [facility] [place] [facility] [address] [facility] 3 [place] [address] Francesca Varela MD Chronic kidney disease, stage [...] Visit [facility] [place], - Bev [address] [place] [address] Akhil Choudhury MD [address] [facility] [place] [address] documented as of this encounter Visit Diagnoses Diagnosis Chronic kidney disease, stage 3 unspecified documented in this encounter Care Teams Soap Mixer Relationship Specialty Start Date End Date [place], [place] [address]ty [facility] [place] [address] PCP - General Ui Engineer 07/24/24 documented as of this encounter
--- OUTSIDE RECORDS SUMMARY | 2025-01-17 12:45 | XMS_ITS | Encounter Summary ---
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 [id number] documented as of this encounter Visit Diagnoses Not on filedocumented in this encounter Care Teams Melt House Centrifugal Operator Relationship Specialty Start Date End Date [place], [place] [address] [place] [address] PCP - General Concrete Block Plant Supervisor 07/24/24 documented as of this encounter
--- OUTSIDE RECORDS SUMMARY | 2025-01-17 12:45 | XMS_ITS | Encounter Summary ---
Author Organization [facility], Address [address] [place] [address] Phone Care Team Providers Care Musical Instrument Mechanic Name Role Phone Andree Alva Primary Care Provider [phone] Encounter Details Date Type Department Care Team (Late Contact Info) Description 04/27/2023 Documentation Only [facility] [address] [place] [address] Akhil Choudhury MD [address] [place] [address] 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 [address] [place] [address] documented as of this encounter Visit Diagnoses Not on filedocumented in this encounter Care Teams Musical Instrument Mechanic Relationship Specialty Start Date End Date [place], [place] [address] [place] [address] PCP - General Stock Chaser 07/24/24 documented as of this encounter
--- OUTSIDE RECORDS SUMMARY | 2025-01-17 12:45 | XMS_ITS | Data Portability ---
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 Going for back surgery ([place]). BMD OK in past. Enhanced Provider time [...] not on T4. Going for back surgery ([place]). BMD OK in past. 11/02: TSH mildly low with normal fT4 on no meds. Had CVA in 08/2020. Right sided numbness. Some persistence. Other sx: Pins/needles in feet- may be from stenosis. CKD: Creat up in mid 2s noted in 2023. Seemark Choudhury. Enhanced Provider time spent performing enhanced activities which may include, but are not limited to: reviewing tests, obtaining and/or reviewing patient history; ordering medications, test or procedures; EMR documentation; communication with patient, family, caregiver(s), VNA; pre-visit prep time communication with specialists, ER staff. Time spent: 33 (minutes) 11/02 gale Not available 10/16/2024 15:38:09 Plan of Treatment Reminders Order Date Submit Date Provider Last Modified By Organization Details Last Modified Time Details Appointments Follow Up, 2025 01:00P M Modesto Jackson MD Not available Not available Not available Lab TSH, serum or plasma 2023 024 [facility], [address] [place] [address], [id number], 04/25/2024 11:46:50 T4, free, serum 2023 024 [facility], [address] [place] [address], [id number], 04/25/2024 11:17:37 T4, free, serum 2023 024 [facility], [address] [place] [address], [id number], 08/06/2024 16:12:35 TSH, serum or plasma 2023 024 [facility], [address] [place] [address], [id number], 08/06/2024 16:25:18 vitamin D, 25-hydrox y, total, serum 2023 024 [facility], [address] [place] [address], [id number], 04/25/2024 11:38:47 renal function panel, serum 2023 024 [facility], [address] [place], [address], 04/26/2024 11:16:50 Referral None recorded. Procedures None recorded. Surgeries None recorded. Imaging None recorded. Medication Orders None recorded. Patient TargetsNo targets recorded. Patient Instructions Encounter Date Encounter Id Patient Instructions Last Modified By Organization Details Last Modified Time 12/23/2020 [id number] - Labs as directed - Ultrasound in [...] [email or web address] Not avai lable 12/23/2020 18:00:31 11/02/2021 [id number] - Labs as directed- every 6 months [...] minutes. [email or web address] Not available 11/02/2021 18:54:14 10/18/2022 [id number] - Labs as directed- every 6 months [...] 16:42:37 One year- 40 minutes. ccm signed- 1/23[facility] sstuartchipkin Not available 10/18/2022 15:14:11 10/18/2023 [id number] - Labs as directed- every 6 months should be fine - Contact office if any symptoms of low thyroid (excess fatigue, unexplained weight gain, feeling much more cold than usual, constipation, very dry skin) or excess thyroid (heart racing, unexplained weight loss, feeling jittery/nervous/ anxious, change in frequency of moving bowels, tremors, or insomnia). [email or web address] Not available 10/18/2023 14:56:32 One year- 40 minutes. [facility] signed- 10/31[facility] sstuartchipkin Not available 10/18/2023 14:56:57 10/16/2024 [id number] - Labs as directed- every 6 months should be fine - Contact office if any symptoms of low thyroid (excess fatigue, unexplained weight gain, feeling much more cold than usual, constipation, very dry skin) or excess thyroid (heart racing, unexplained weight loss, feeling jittery/nervous/ anxious, change in frequency of moving bowels, tremors, or insomnia). [email or web address] Not available 10/16/2024 15:29:15 One year- 20 minutes. [facility] signed- 10/31[facility] sstuartchipkin Not available 10/16/2024 15:38:06 Reason for Referral None Reported. Results Created Date Observation Date Name Description Value Unit Range Abnormal Flag Note LastModifiedBy Organization Detail LastModifiedTime 12/11/19 21 12/11/2020 T4, free, serum free T4 1.09 NG/dL 0.75-1 .54 Not Available [address], [address], 12/11/2020 13:00:10 12/11/19 21 12/11/2020 TSH, serum or plasm a TSH 0.28 uIU/m L 0.50-6 .00 low The Ameri can [employer] ge [employer]inol o[employer] and Ameri can Thyro id Assoc iatio n recom mend goal TSH value s betwe en 0.4-4 .0 mIU/m L. Not Available [address], [address], 12/11/2020 14:05:57 03/22/20 21 03/23/2021 T4, free, serum free T4 1.08 NG/dL 0.75-1 .54 Not Available [address], [address], 03/23/2021 09:43:40 03/22/20 21 03/23/2021 TSH, serum or plasm a TSH 0.31 uIU/m L 0.50-6 .00 low The [employer] rinol o[employer] and Ameri can Thyro id Assoc iatio n recom mend goal TSH value s betwe en 0.4-4 .0 mIU/m L. Not Available [address], [address], 03/23/2021 10:20:14 10/26/19 22 10/26/2021 FREE T4 free T4 1.19 NG/dL 0.75-1 .54 Not Available [address], [address], 10/26/2021 16:16:58 10/26/19 22 10/26/2021 TSH TSH 0.30 uIU/m L 0.50-6 .00 low The [employer] o[employer] and Ameri can Thyro id Assoc iatio n recom mend goal TSH value s betwe en 0.4-4 .0 mIU/m L. Not Available [address], [address], 10/26/2021 16:49:19 05/04/20 22 05/05/2022 FREE T4 free T4 1.09 NG/dL 0.75-1 .54 Not Available [address], [address], 05/05/2022 12:00:09 05/04/20 22 05/05/2022 TSH TSH 0.21 uIU/m L 0.50-6 .00 low The [employer] Endoc rinol ogy and Ameri can Thyro id Assoc iatio n recom mend goal TSH value s betwe en 0.4-4 .0 mIU/m L. Not Available [address], [address], 05/05/2022 12:35:40 08/17/20 22 08/17/2022 FREE T4 free T4 1.33 NG/dL 0.75-1 .54 Not Available [address], [address], 08/17/2022 15:49:23 08/17/20 22 08/17/2022 TSH TSH 0.37 uIU/m L 0.50-6 .00 low The [employer] End[employer] rinol ogy and Ameri can Thyro id Assoc iatio n recom mend goal TSH value s betwe en 0.4-4 .0 mIU/m L. Not Available [address], [address], 08/17/2022 16:14:56 10/05/20 22 10/05/2022 FREE T4 free T4 1.15 NG/dL 0.75-1 .54 Not Available [address], [address], 10/05/2022 16:09:19 10/05/20 22 10/05/2022 TSH TSH 0.34 uIU/m L 0.50-6 .00 low The [employer] End[employer] rinol o[employer] and Ameri can Thyro id Assoc iatio n recom mend goal TSH value s betwe en 0.4-4 .0 mIU/m L. Not Available [address], [address], 10/05/2022 16:28:15 05/05/20 23 05/08/2023 FREE T4 free T4 1.15 NG/dL 0.75-1 .54 Not Available [address], [address], 05/08/2023 11:52:00 07/05/08/2023 TSH TSH 0.16 uIU/m L 0.50-6 .00 low The [employer] [facility] and Ameri can Thyro id Assoc iatio n recom mend goal TSH value s fannie en 0.4-4 .0 mIU/m L. Not Available [address], [address], 05/08/2023 12:19:47 07/06/2007/06/2023 PSA PSA 1.07 NG/mL 0.00-4 .00 Not Available [address], [address], 07/06/2023 16:31:55 07/06/2007/07/2023 LIPID PANEL cholesterol 93 mg/dL <200 mg/dl [place] able 200-2 39 mg/dl Borde rline High >240 mg/dl High Not Available [address], [address], 07/07/2023 10:58:12 07/06/20 23 07/07/2023 LIPID PANEL triglyceride s 59 mg/dL <150 mg/dL Ronel l 150-1 99 mg/dL Borde rline High 200-4 99 mg/dL High >500 mg/dL Very High Not Available [address], [address], 07/07/2023 10:58:12 07/06/2007/07/2023 LIPID PANEL direct HDL 60 mg/dL <40 mg/dl - Major Risk for CHD >60 mg/dl - Negat miley Risk for CHD Not Available [address], [address], 07/07/2023 10:58:12 07/06/2007/07/2023 DIREC T LDL direct LDL 28 mg/dL RISK CATEG ORY LDL GOAL _ CHD or CHD Risk Equiv alent s <100 mg/dl (10-y ear risk >20%) 2+ Risk Facto rs <130 mg/dl (10-y ear risk <= 20%) 0-1 Risk Facto r? <160 mg/dl ? Almos t all peopl e with 0-1 risk facto r have a 10 year risk <10%, thus 10 year risk asses ment in peopl e with 0-1 risk facto r is not ortiz fine. Not Available [address], [address], 07/07/2023 10:58:13 07/06/20 23 07/07/2023 FREE T4 free T4 1.11 NG/dL 0.75-1 .54 Not Available [address], [address], 07/07/2023 11:29:00 07/06/20 23 07/07/2023 TSH TSH 0.33 uIU/m L 0.50-6 .00 low The [employer] can [employer] ge [employer] Endoc rinol ogy and Ameri can Thyro id Assoc iatio n recom mend goal TSH value s betwe en 0.4-4 .0 mIU/m L. Not Available [address], [address], 07/07/2023 12:07:10 10/11/19 24 10/12/2023 FREE T4 free T4 0.98 NG/dL 0.75-1 .54 Not Available [address], [address], 10/12/2023 11:28:13 10/11/19 24 10/12/2023 TSH TSH 0.83 uIU/m L 0.50-6 .00 The [employer] Endoc rinol ogy and Ameri can Thyro id Assoc iatio n recom mend goal TSH value s betwe en 0.4-4 .0 mIU/m L. Not Available [address], [address], 10/12/2023 11:57:32 12/18/19 24 12/18/2023 BASIC METAB OLIC PANEL sodium 141 mmol/ L 133-14 6 Not Available [facility] [address] [place], [address], 12/18/2023 19:11:53 12/18/19 24 12/18/2023 BASIC METAB OLIC PANEL chloride 102 mmol/ L 96-108 Not Available [facility] [address] [place], [address], 12/18/2023 19:11:53 12/18/19 24 12/18/2023 BASIC METAB OLIC PANEL potassium 4.5 mmol/ L 3.3-5. 1 Not Available [facility] [address] [place], [address], 12/18/2023 19:11:53 12/18/19 24 12/18/2023 BASIC METAB OLIC PANEL CO2 28 mmol/ L 21-35 Not Available [facility] [address] [place], [address], 12/18/2023 19:11:53 12/18/19 24 12/18/2023 BASIC METAB OLIC PANEL BUN 39 mg/dL 6-19 high Not Available [facility] [address] [place], [address], 12/18/2023 19:11:53 12/18/19 24 12/18/2023 BASIC METAB OLIC PANEL creatinine 2.10 mg/dL 0.5-1. 5 high Not Available [facility] [address] [place], [address], 12/18/2023 19:11:53 12/18/19 24 12/18/2023 BASIC METAB OLIC PANEL glucose 105 mg/dL 70-99 high Not Available [facility] [address] [place], [address], 12/18/2023 19:11:53 12/18/19 24 12/18/2023 BASIC METAB OLIC PANEL calcium 9.1 mg/dL 8.4-10 .3 Not Available [facility] [address] [place], [address], 12/18/2023 19:11:53 12/18/19 24 12/18/2023 BASIC METAB OLIC PANEL eGFR 31 mL/mi n/1.7 3m2 >59 low Estim ated glome rular filtr ation rate calcu lated using the CKD-E PI refit equat ion. Not Available [facility] [address] [place], [address], 12/18/2023 19:11:53 12/18/19 24 12/18/2023 BASIC METAB OLIC PANEL anion gap 16 mmol/ L 10-20 Not Available [facility] [address] [place], [address], 12/18/2023 19:11:53 12/18/19 24 12/18/2023 NT-OK OBNP nt-probnp 40981 pg/mL 0-450 high Not Available [facility] [address] [place], [address], 12/18/2023 19:11:55 12/25/19 24 12/25/2023 BASIC METAB OLIC PANEL sodium 139 mmol/ L 133-14 6 Not Available [facility] [address] [place], [address], 12/25/2023 19:25:00 12/25/19 24 12/25/2023 BASIC METAB OLIC PANEL chloride 99 mmol/ L 96-108 Not Available [facility] [address] [place], [address], 12/25/2023 19:25:00 12/25/19 24 12/25/2023 BASIC METAB OLIC PANEL potassium 4.0 mmol/ L 3.3-5. 1 Not Available [facility] [address] [place], [address], 12/25/2023 19:25:00 12/25/19 24 12/25/2023 BASIC METAB OLIC PANEL CO2 32 mmol/ L 21-35 Not Available [facility] [address] [place], [address], 12/25/2023 19:25:00 12/25/19 24 12/25/2023 BASIC METAB OLIC PANEL BUN 38 mg/dL 6-19 high Not Available [facility] [address] [place], [address], 12/25/2023 19:25:00 12/25/19 24 12/25/2023 BASIC METAB OLIC PANEL creatinine 2.10 mg/dL 0.5-1. 5 high Not Available [facility] [address] [place], [address], 12/25/2023 19:25:00 12/25/19 24 12/25/2023 BASIC METAB OLIC PANEL glucose 132 mg/dL 70-99 high Not Available [facility] [address] [place], [address], 12/25/2023 19:25:00 12/25/19 24 12/25/2023 BASIC METAB OLIC PANEL calcium 9.1 mg/dL 8.4-10 .3 Not Available [facility] [address] [place], [address], 12/25/2023 19:25:00 12/25/19 24 12/25/2023 BASIC METAB OLIC PANEL eGFR 31 mL/mi n/1.7 3m2 >59 low Estim ated glome rular filtr ation rate calcu lated using the CKD-E PI refit equat ion. Not Available [facility] [address] [place], [address], 12/25/2023 19:25:00 12/25/19 24 12/25/2023 BASIC METAB OLIC PANEL anion gap 12 mmol/ L 10-20 Not Available [facility] [address] [place], [address], 12/25/2023 19:25:00 12/25/19 24 12/25/2023 NT-OK OBNP nt-probnp 08247 pg/mL 0-450 high Not Available [facility] [address] [place], [address], 12/25/2023 19:25:02 04/24/20 24 04/25/2024 FREE T4 free T4 1.22 NG/dL 0.75-1 .54 Not Available [address], [address], 04/25/2024 11:17:37 04/24/20 24 04/25/2024 VITAM IN [...] er than 30 ng/mL . Not Available [address], [address], 04/25/2024 11:38:47 04/24/20 24 04/25/2024 TSH TSH 0.32 uIU/m L 0.50-6 .00 low The Ameri can Colle ge of Endoc rinol ogy and Ameri can Thyro id Assoc iatio n recom mend goal TSH value s betwe en 0.4-4 .0 mIU/m L. Not Available [address], [address], 04/25/2024 11:46:50 04/24/20 24 04/26/2024 RENAL PANEL glucose 126 mg/dL 70-100 high Not Available [address], [address], 04/26/2024 11:16:50 04/24/20 24 04/26/2024 RENAL PANEL BUN 56 mg/dL 7-18 high Not Available [address], [address], 04/26/2024 11:16:50 04/24/20 24 04/26/2024 RENAL PANEL creatinine 2.6 mg/dL 0.8-1. 3 high Not Available [address], [address], 04/26/2024 11:16:50 04/24/20 24 04/26/2024 RENAL PANEL B/C 21.5 ratio Not Available [address], [address], 04/26/2024 11:16:50 04/24/20 24 04/26/2024 RENAL PANEL [...] be used in pregn andre. Not Available [address], [address], 04/26/2024 11:16:50 04/24/20 24 04/26/2024 RENAL PANEL sodium 142 mmol/ L 136-14 5 Not Available [address], [address], 04/26/2024 11:16:50 04/24/20 24 04/26/2024 RENAL PANEL potassium 4.8 mmol/ L 3.5-5. 1 Not Available [address], [address], 04/26/2024 11:16:50 04/24/20 24 04/26/2024 RENAL PANEL chloride 104 mmol/ L 96-107 Not Available [address], [address], 04/26/2024 11:16:50 04/24/20 24 04/26/2024 RENAL PANEL anion gap 6.2 5.0-15 .0 Not Available [address], [address], 04/26/2024 11:16:50 04/24/20 24 04/26/2024 RENAL PANEL CO2 32 mmol/ L 21-32 Not Available [address], [address], 04/26/2024 11:16:50 04/24/20 24 04/26/2024 RENAL PANEL calcium 8.9 mg/dL 8.5-10 .3 Not Available [address], [address], 04/26/2024 11:16:50 04/24/20 24 04/26/2024 RENAL PANEL albumin 3.7 g/dL 3.4-5. 0 Not Available [address], [address], 04/26/2024 11:16:50 04/24/20 24 04/26/2024 RENAL PANEL phosphorous 4.00 mg/dL 2.50-4 .90 Not Available [address], [address], 04/26/2024 11:16:50 08/06/20 24 08/06/2024 FREE T4 free T4 1.33 NG/dL 0.75-1 .54 Not Available [address], [address], 08/06/2024 16:12:35 08/06/20 24 08/06/2024 TSH TSH 0.32 uIU/m L 0.50-6 .00 low CWP=C onsis tent with previ ous. The Ameri can Colle ge of Endoc rinol ogy and Ameri can Thyro id Assoc iatio n recom mend goal TSH value s betwe en 0.4-4 .0 mIU/m L. Not Available [address], [address], 08/06/2024 16:25:18 10/10/19 25 10/11/2024 RENAL PANEL glucose 115 mg/dL 70-100 high Not Available [address], [address], 10/11/2024 11:34:35 10/10/19 25 10/11/2024 RENAL PANEL BUN 48 mg/dL 7-18 high Not Available [address], [address], 10/11/2024 11:34:35 10/10/19 25 10/11/2024 RENAL PANEL creatinine 2.5 mg/dL 0.8-1. 3 high Not Available [address], [address], 10/11/2024 11:34:35 10/10/19 25 10/11/2024 RENAL PANEL B/C 19.2 ratio Not Available [address], [address], 10/11/2024 11:34:35 10/10/19 25 10/11/2024 RENAL PANEL GFR 24.9 mL/mi n abnormal >=60m L/min - Ronel l or midly reduc ed <60mL /min- Decre ased kidne y funct ion <15mL /min - Kidne y failu re [facility] calcu lates estim ated Glome rukaitlinr Filtr ation Rate (eGFR ) using the [...] be used in pregn andre. Not Available [address], [address], 10/11/2024 11:34:35 10/10/19 25 10/11/2024 RENAL PANEL sodium 144 mmol/ L 136-14 5 Not Available [address], [address], 10/11/2024 11:34:35 10/10/19 25 10/11/2024 RENAL PANEL potassium 4.6 mmol/ L 3.5-5. 1 Not Available [address], [address], 10/11/2024 11:34:35 10/10/19 25 10/11/2024 RENAL PANEL chloride 104 mmol/ L 96-107 Not Available [address], [address], 10/11/2024 11:34:35 10/10/19 25 10/11/2024 RENAL PANEL anion gap 12.3 5.0-15 .0 Not Available [address], [address], 10/11/2024 11:34:35 10/10/19 25 10/11/2024 RENAL PANEL CO2 28 mmol/ L 21-32 Not Available [address], [address], 10/11/2024 11:34:35 10/10/19 25 10/11/2024 RENAL PANEL calcium 8.7 mg/dL 8.5-10 .3 Not Available [address], [address], 10/11/2024 11:34:35 10/10/19 25 10/11/2024 RENAL PANEL albumin 3.4 g/dL 3.4-5. 0 Not Available [address], [address], 10/11/2024 11:34:35 10/10/19 25 10/11/2024 RENAL PANEL phosphorous 4.10 mg/dL 2.50-4 .90 Not Available [address], [address], 10/11/2024 11:34:35 10/10/19 25 10/11/2024 FREE T4 free T4 1.26 NG/dL 0.75-1 .54 Not Available [address], [address], 10/11/2024 11:36:55 10/10/1910/11/2024 TSH TSH 0.42 uIU/m L 0.50-6 .00 low The Ameri can Colle ge of Endoc rinol ogy and Ameri can Thyro id Assoc iatio n recom mend goal TSH value s betwe en 0.4-4 .0 mIU/m L. Not Available [address], [address], 10/11/2024 12:29:30 10/10/1910/11/2024 VITAM IN D 25-HY [...] er than 30 ng/mL . Not Available [place] [address] [facility], [place], [address], 10/11/2024 12:29:31 07/06/2007/06/2023 US, retro perit oneum [...] Readin g Physic racheal: Bettina Gutierrez ms [facility] ([facility]) [address], [place], [address], 07/07/2023 07:55:53 11/09/19 24 10/31/2023 bone densi ty No observ ation record ed. DEEPAK [facility] [address], [place], [address], 11/22/2023 15:29:35 Result Notes None recorded. 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 Not Available [facility] 3 03:12:45 Essential hypertensi on 59237619 Active 2006 Modesto Jackson MD [address] [place] [address], [phone] , [facility] 4 14:24:22 Hyperthyro idism 84766485 Active 2004 Aleta Chyna [facility] 3 15:11:37 Anemia 143272832 Active 2006 Modesto Jackson MD [address] [place] [address], , [facility] 4 14:24:20 Thyroid function tests abnormal 820474439 Active 2005 Modesto Jackson MD [address] [place] [address], , [facility] 4 14:25:04 Non-toxic multinodul ar goiter 62288233 Active 2005 Modesto Jackson MD [address] [place] [address], , [facility] 4 14:25:04 Benign essential hypertensi on 5656160 Active 2007 Modesto Jackson MD [address] [place] [address], , [facility] 3 14:45:30 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 Modesto Jackson MD [address] [place] [address], [phone] , [facility] 3 17:44:27 Goiter 8163151 Active 2007 Modesto Jackson MD [address] [place] [address], [address] , [facility] 3 14:45:48 Hypothyroi dism 16242352 Active 2006 Not Available [facility] 3 03:12:45 Acute pharyngiti s 878344398 Completed 200508/28/2013 Not Available [facility] 3 02:01:17 Toxic multinodul ar goiter 30538426 Active 2005 Not Available [facility] 3 03:12:45 Malaise and fatigue 398124943 Completed 08/28/2013 Not Available [facility] 3 02:00:19 Problem Notes None recorded. Procedures Surgical History Date Name Laterality Status Provider Name and Address Organization Details Recorded Time 6 Aide - Colonoscopy completed Tyree Noble MD [address] [place] [address], [phone], [facility] 06/20/2016 08:49:47 3 I-131 completed Modesto Jackson MD [address] [place] [address], [phone], [facility] 07/31/2013 11:51:52 Imaging Results Imaging Date Name Status LastModified by Organization Details LastModified Time 07/06/2023 US, retroperitoneum completed [facility] [address], [place], [address], 07/07/2023 07:55:53 10/31/2023 bone density completed [facility]) [address], [place], [address], 11/22/2023 15:29:35 Procedure Notes None recorded. Medical Equipment None Reported. Allergies Allergen ID Allergen Name Allergen Category Reaction Reaction Severity Criticality Documentation Date Start Date Code Code System Note Provider Name and Address Organization Details Recorded Time 965555 epinephri ne medicatio n Not available Not available Not available 05/04/2012 3992 RxNorm sever e heada stan, nause a, weakn ess and disor ienta tion GEO Bhat, [facility] 2 14:23:31 18283 Cipro medicatio n other severe Not available 12/29/2010 3 RxNorm Edema in legs and achy joint Not Available [facility] 1 06:05:41 [address]242 Zithromax medicatio n Not available Not available Not available 08/26/2011 4 RxNorm unsur e of react ion GEO Bhat, [facility] 1 14:57:00 Medications Name Sig Start [...] Address Organization Details Last Updated DateTime 11/02/2021 11573.93 g 76 /min 126 mm[Hg] 78 mm[Hg] Lluvia Syed RN [facility] 11/02/2021 16:28:27 Date Recorded Body weight Body mass index (BMI) Body height Heart rate Systolic blood pressure Diastolic blood pressure Provider Name and Address Organization Details Last Updated DateTime 3 44830.5 9 g 27.3 kg/m2 165.35 cm 64 /min 137 mm[Hg] 77 mm[Hg] Janeth Marquez LPN [facility] 3 14:28:16 Date Recorded Body height Body mass index (BMI) Body weight Heart rate Systolic blood pressure Diastolic blood pressure Provider Name and Address Organization Details Last Updated DateTime 4 166.37 cm 26.9 kg/m2 78387.1 5 g 51 /min 134 mm[Hg] 70 mm[Hg] Janeth Marquez BEEF [employer] [facility] 4 14:18:03 Date Recorded Body height Body mass index (BMI) Body weight Heart rate Systolic blood pressure Diastolic blood pressure Provider Name and Address Organization Details Last Updated DateTime 5 166.37 cm 25.7 kg/m2 00733.5 7 g 61 /min 139 mm[Hg] 66 mm[Hg] Janeth Marquez [facility] [place] 5 14:58:02 Date Recorded Systolic blood pressure Diastolic blood pressure Provider Name and Address Organization Details Last Updated DateTime 07/03/2023 116 mm[Hg] 65 mm[Hg] Nataliya Reyez [facility] 07/03/2023 09:28:48 Social History Question Answer Notes LastModified by Organizat ion Details LastModified Time Tobacco Smoking Status Former Smoker Quit at age 37 Not Available [facility] 03/03/2011 02:08:59 What Is Your Level [...] in college- 1 in masters). One at [employer]. 2018- Daughter taking vitamin D 50K/week. Son re-. 12/26- Kids and 4 Grands all OK. One graduating from [employer] (dancer - physical [email or web address]). Youngest at [employer]. Grandson from [employer] in [place] (hickey). 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 12/27: Family OK. Daughter ([facility] [employer]/ project management analyst in [employer]) Son works hard- and machine cloth measurer at night. 10/30: Daughter had c-spine surgery, next is lumbar. Son getting c-spine surgery too. 2 (?) cyst on thyroid. [place], [place]. 10/31: Daughter and Son doing OK (backs OK). Son- new sales in [employer] business. Medical History Condition Response Thyroid Disease Y Cerebral Vascular Accident Y Immunizations Vaccine Type Date Status Note Provider Nam e and Address Organization Details Recorded Time Influenza, split virus, quadrivalent, preservative 0 completed Angela Snow LPN null, [facility] 09/23/2020 09:42:56 COVID-19, mRNA, LNP-S, PF, 100 mcg/0.5mL dose or 50 mcg/0.25mL dose 1 completed Lluvia Syed RN null, [facility] 11/02/2021 16:24:37 COVID-19, mRNA, LNP-S, PF, 100 mcg/0.5mL dose or 50 mcg/0.25mL dose 1 completed NADINE Barnett, [facility] 11/02/2021 16:24:45 COVID-19, mRNA, LNP-S, PF, 100 mcg/0.5mL dose or 50 mcg/0.25mL dose completed NADINE Barnett, [facility] 11/02/2021 16:24:52 Past Encounters Encounter ID Performer Location Encounter Start Date Encounter Closed Date Diagnosis/Indication Diagnosis SNOMED-CT Code Diagnosis ICD10 Code Diagnosis Note [id number] Endocrino logy, [facility] [place] [id number] 06/29/2005 14:26:48 06/30/2005 09:41:24 [id number] LAB - [facility] [place] [id number] 07/05/2005 09:53:27 07/05/2005 09:53:52 [id number] LAB - [facility] [place] [id number] 1 09/07/2005 11:12:18 09/07/2005 11:12:45 [id number] LAB - [facility] [place] [id number] 11/10/2005 13:56:01 11/10/2005 13:56:26 [id number] Endocrino logy, [facility] [place] [address] 1 01/11/2006 16:17:23 01/12/2006 08:43:42 [id number] Radiology , [facility] [place] [id number] 01/17/2006 14:23:30 01/18/2006 07:03:29 [id number] Radiology , [address] [place] [address] 01/17/2006 00:00:00 10/29/2008 02:02:29 [id number] Radiology , [address] [place] [address] 02/24/2006 08:56:06 02/24/2006 12:47:34 [id number] Radiology , [facility] [place] [address] 1 02/24/2006 00:00:00 10/29/2008 02:02:29 [id number] LAB - [facility] [place] [address] 1 03/01/2006 11:53:57 03/01/2006 11:54:04 [id number] Endocrino logy, [facility] [place] Best02-275 1 [id number] LAB - [facility] [place] Best02-275 1 04/19/2006 13:21:42 04/19/2006 13:22:01 [id number] LAB - [facility] [place] Best02-275 1 06/29/2006 09:44:35 06/29/2006 09:44:42 [id number] Endocrino logy, [facility] [place] Best02-275 1 08/09/2006 13:00:54 08/09/2006 14:59:14 [id number] [facility] PONCHO Best02-275 1 09/04/2006 15:49:21 09/04/2006 15:49:32 [id number] [facility] - [facility] [place] [id number] 1 11/13/2006 14:47:16 11/13/2006 14:47:27 [id number] [facility] [place] [id number] 01/11/2007 13:14:55 01/11/2007 13:15:03 [id number] Endocrino logy, [facility] [place] [id number] 01/18/2007 14:43:18 01/19/2007 07:31:16 [id number] Radiology , [facility] [place] [address] 01/18/2007 13:34:02 01/19/2007 09:03:06 [id number] Radiology , [facility] [place] [id number] 1 01/18/2007 00:00:00 10/29/2008 02:02:29 [id number] LAB - [facility] [place] [id number] 1 02/16/2007 07:59:08 02/16/2007 07:59:16 [id number] LAB [facility] [place] [address] 1 04/13/2007 11:49:18 04/13/2007 11:49:28 [id number] Endocrino logy, [facility] [place] [id number] 05/09/2007 13:15:09 05/09/2007 16:02:24 [id number] [facility] - [facility] [place] [id number] 07/10/2007 15:10:29 07/10/2007 15:10:43 [id number] [facility] [place] [address] 10/08/2007 10:19:41 10/08/2007 10:19:46 [id number] [facility] [place] [address] 1 12/20/2007 12:01:28 12/20/2007 12:01:37 [id number] Endocrino logy, [facility] [place] [address] 12/27/2007 14:23:52 10/29/2008 02:02:29 [id number] [facility] [place] [address] 1 03/14/2008 14:30:20 03/14/2008 14:30:31 [id number] [facility] [place] [id number] 1 04/22/2008 10:19:01 04/22/2008 10:19:08 [id number] Endocrino logy, [facility] [place] [id number] 1 05/01/2008 14:50:26 10/29/2008 02:02:29 [id number] [facility] [place] [id number] 1 06/02/2008 13:27:13 06/02/2008 13:28:05 [id number] Endocrino logy, [facility] [place] [address] 1 06/11/2008 14:22:57 10/29/2008 02:02:29 [id number] Radiology , [facility] [place] [address] 1 06/11/2008 13:30:57 06/11/2008 14:22:58 [id number] Radiology , [facility] [place] [address] 1 06/11/2008 00:00:00 10/29/2008 02:02:29 [id number] LAB - [facility] [place] [id number] 1 08/15/2008 12:00:01 08/15/2008 12:00:10 [id number] Endocrino logy, [facility] [place] [address] 1 09/25/2008 13:31:57 10/29/2008 02:02:29 [id number] Endocrino logy, [facility] P[place]CHO Best275 1 06/18/2009 14:25:55 06/25/2009 11:00:47 [id number] LAB - [facility] PONCHO Best275 1 11/18/2008 13:03:16 11/18/2008 13:03:43 [id number] LAB - [facility] PONCHO Best275 1 02/27/2009 15:15:06 02/27/2009 15:15:16 [id number] LAB - [facility] PONCHO Best275 1 06/03/2009 11:46:48 06/03/2009 11:47:03 [id number] Endocrino logy, [facility] Breanna Vikc PON[place] Syed02-275 1 12/23/2009 17:09:08 12/24/2009 09:20:44 [id number] Radiology , [facility] [place] PONCHO Syed02-275 1 06/03/2010 10:35:48 06/03/2010 15:52:56 [id number] Endocrino logy, [facility] Breanna Vick PON[place] Syed02-275 1 06/03/2010 11:30:51 06/10/2010 09:09:30 [id number] Endocrino logy, [facility] Breanna Vick PON[place] Syed02-275 1 12/29/2010 12:55:58 12/31/2010 15:41:10 [id number] Endocrino logy, [facility] [place] PONCHO Syed02-275 1 08/26/2011 14:41:53 08/26/2011 16:07:46 [id number] Radiology , [facility] [place] PONCHO Syed-275 1 02/29/2012 15:15:19 03/01/2012 15:17:37 [id number] Endocrino logy, [facility] Breanna Vick PON[place] Syed02-275 1 02/29/2012 16:11:10 02/29/2012 17:16:31 [id number] Radiology , [facility] [place] PONCHO Syed-275 1 04/26/2012 12:33:38 04/27/2012 09:17:06 [id number] Endocrino logy, [address] [place] [address] 05/04/2012 14:13:23 05/04/2012 15:12:13 [id number] Lupis Zaragoza Endocrino logy, [address] [address] 09/07/2012 14:01:08 09/13/2012 08:57:49 [id number] Ronald Goodson MD Radiology , [address] [address] 11/13/2012 10:13:28 11/14/2012 12:22:34 [id number] Endocrino logy, [address] [address] 1 06/07/2013 14:59:32 06/07/2013 16:44:40 Toxic diffuse goiter 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 Thyroid fu nction tests abnormal [id number] Subclinica l hyperthyro idism x many years [...] hip is osteopenia (-1.5) Non-toxic multinodular goiter 15489811 three nodules- benign follicular cells with colloid. Benign ess ential hypertension [id number] currently treated with atenolol, diovan, hctz. perhaps atenolol is slowing HR and masking sx that would otherwise be present from excess thyroid. [id number] Endocrino logy, [address] [address] 07/17/2013 15:12:16 07/17/2013 16:48:03 Subclinical hyperthyroidism [id number] Persistent suppressed TSH in setting of normal T4 with no clear sx. However, he is now over 71 and risk for a.fib is only going to increase. Not sure that kiley weston hyperthyro id explains his m/s sx but feel that there is enough rationale for preventing a.fib., that he should undergo BOYER tx. Plan for 8 mCi tx at [facility]. Need to arrange- best day is Tuesdays. [id number] Endocrino logy, [address] [address] 07/31/2013 11:49:12 08/01/2013 09:15:56 Subclinical hyperthyroidism [id number] Met patient at [facility] for BOYER. labs in 2 months and follow q 2 months to determine impact. Persistent suppressed TSH in setting of normal T4 with no clear sx. However, he is now over 71 and risk for a.fib is only going to increase. Not sure that kiley weston hyperthyro id explains his m/s sx but feel that there is enough rationale for preventing a.fib., that he should undergo BOYER tx. Plan for 8 mCi tx at [facility]. Need to arrange- best day is Tuesdays. [id number] Endocrino logy, [address] [address] 11/28/2013 14:59:29 11/28/2013 16:21:35 Subclinical hyperthyroidism 604813175 S/P BOYER (8 mCi) in 07/2013. TSH starting to rise slightly but still low (0.05). FT4 is lower than before but still in normal range. Follow labs q 2 months to see if changes further. Non-toxic multinodular goiter [id number] Bx in past- three nodules- benign follicular cells with colloid. [id number] Endocrino logy, [address] [address] 05/28/2014 15:29:54 05/28/2014 16:32:53 Subclinical hyperthyroidism [id number] S/P BOYER (8 mCi) in 07/2013. TSH [...] replacemen t hormone therapy. Non-toxic multinodular goiter 56281821 Bx in past- three nodules- benign follicular cells with colloid. [id number] Endocrino logy, [address] [address] 11/27/2014 13:44:26 11/27/2014 14:40:55 Subclinical hyperthyroidism 480875271 Now S/P BOYER (8 mCi) in 07/2013. [...] replacemen t hormone therapy. Non-toxic multinodular goiter 65492277 Bx in past- three nodules- benign follicular cells with colloid. [id number] Modesto Jackson MD Endocrino logy, [address] [address] 09/30/2015 15:27:53 09/30/2015 16:18:36 Subclinical hyperthyroidism 073847558 E05.90 Now S/P BOYER (8 mCi) in [...] replacemen t hormone therapy. Non-toxic multinodular goiter 01349169 E04.2 Bx in past- three nodules- benign follicular cells with colloid. [id number] Modesto Jackson MD Endocrino logy, [address] [address] 06/08/2016 11:28:51 06/08/2016 12:28:28 Subclinical hyperthyroidism 437553094 E05.90 Now S/P BOYER (8 mCi) in [...] replacemen t hormone therapy. Non-toxic multinodular goiter 53701187 E04.2 Bx in past- three nodules- benign follicular cells with colloid. Last u/s in 2011. Suggest repeat this next visit. [id number] Tyree Noble MD [facility], [address] [address] 06/20/2016 07:47:13 06/20/2016 12:45:48 [id number] Modesto Jackson MD Endocrino logy, [address] [address] 11/18/2016 14:56:09 11/18/2016 16:07:34 Subclinical hyperthyroidism 763408728 E05.90 S/P BOYER (8 mCi) in 07/2013. [...] replacemen t hormone therapy. Non-toxic multinodular goiter 40572018 E04.2 Preliminar y (2017) shows slight decrease in largest on right and left. Previously had 2 on right and 3 on left but not easily identifiab le. Will need to review final repot. Bx in past- three nodules- benign follicular cells with colloid. Last u/s in 2011. [id number] Modesto Jackson MD Endocrino logy, [address] [address] 12/14/2017 15:06:57 12/18/2017 07:29:17 Non-toxic multinodular goiter 03617104 E04.2 U/S:Prelim inary today: no change.Connor dy in 2017 showed:Rig ht= 1.7 x 1.8 x 1.4 cm.Left= 2.5 x 2.0 x 1.4 cm Will need to review final repot. U/S next year- if remains unchanged, can push out u/s every 2 years. Bx in past- three nodules- benign follicular cells with colloid. Last u/s in 2011. Subclinica l hyperthyroidism 054909430 E05.90 S/P BOYER (8 mCi) in 07/2013. [...] will start on replacemen t hormone therapy. [id number] Modesto Jackson MD Endocrino logy, [address] [address] 12/14/2018 14:18:18 12/14/2018 15:30:47 Non-toxic multinodular goiter 42482644 E04.2 U/S:Prelim inary today: no change.rig ht [...] Last u/s in 2011. Subclinica l hyperthyroidism 655485441 E05.90 S/P BOYER (8 mCi) in 07/2013. [...] irregular today. Check EKG.EKG: NSR with PACs. [id number] Modesto Jackson MD Endocrino logy, [address] [address] 12/13/2019 14:10:48 12/13/2019 15:28:22 Subclinical hyperthyroidism 085549650 E05.90 S/P BOYER (8 mCi) in 07/2013. [...] do in a year. Non-toxic multinodular goiter 44392019 E04.2 Barely palpable nodule on right lower- [...] was 1.7 x 1.8 x 1.4 cm (2017)Left mid-lower= 2.5x2.1x1. 4 (2019) : 2.5 x 2.1 x 1.1 cm; was 2.5 x 2.0 x 1.4 cm (2017) PLAN: U/S in 2020 (since size has remained unchanged and benign biopsy). Osteopenia 972946370 M85 .80 2012 BMD T-scores:L eft femoral neck= -1.5;FRAX= 10.3 for osteoporot ic fx and 3.8% for hip fx. Suggest update 2020.Not a lot of dairy in diet. Takes 1000 calcium. Takes vitamin D also.Fathe r had broken hip. [id number] Modesto Jackson MD Endocrino logy, [address] [address] 09/23/2020 09:35:52 09/28/2020 06:56:51 Non-toxic multinodular goiter 67197446 E04.2 Barely palpable nodule on right lower- [...] unchanged and benign biopsy). Subclinica l hyperthyroidism 534694656 E05.90 TSH = 0.22 (2.20); was 0.46 [...] wait and do in a year. Osteopenia 585885792 M85 .80 BMD 2020: Spine not included [...] review then. Look into cost of Prolia [id number] Modesto Jackson MD Endocrino logy, [address] [address] 12/23/2020 16:47:14 12/24/2020 06:42:53 Subclinical hyperthyroidism 018563961 E05.90 TSH = 0.28 (12/27); was 0.22 (2.20); was 0.46 (2/19); S/P BOYER (8 mCi) in 07/2013. Not [...] wait and do in a year. Osteopenia 656802063 M85 .80 BMD 2020: Spine not included [...] Reviewed concepts of s/e. Non-toxic multinodular goiter 89247077 E04.2 Barely palpable nodule on right lower- [...] size has remained unchanged and benign biopsy). [id number] Modesto Jackson MD Endocrino logy, [address] [address] 11/02/2021 16:18:17 11/03/2021 18:55:29 Subclinical hyperthyroidism 183019507 E05.90 TSH = 0.3 (10/30 and 03/29); [...] in a year. Toxic mult inodular goiter 17871600 E05.20 [place] has been that one or more nodules [...] by u/s. Will monitor clinically . Osteopenia 954944698 M85 .80 BMD 2019: Spine not included [...] to take more meds than is necessary. [id number] Modesto Jackson MD Endocrino logy, [address] [address] 10/18/2022 13:44:54 11/03/2022 10:59:01 Subclinical hyperthyroidism 480025698 E05.90 TSH = 0.34 (09/29); was 0.37 [...] in a year. Toxic mult inodular goiter 90297472 E05.20 [place] has been that one or more nodules [...] by u/s. Will monitor clinically . Osteopenia 595215685 M85 .80 BMD@[facility]: [...] to take more meds than is necessary. [id number] Modesto Jackson MD Endocrino logy, [address] [address] 10/18/2023 14:00:07 10/19/2023 06:59:32 Subclinical hyperthyroidism 887785372 E05.90 TSH = 0.83 (11/01) was 0.33 [...] wait and do in a year. Osteopenia 763025648 M85 .80 BMD@[facility]: [...] (2K per day). Toxic mult inodular goiter 79074956 E05.20 [place] has been that one or more nodules [...] f/u by u/s. Will monitor clinically . [id number] Modesto Jackson MD Endocrino logy, [address] [address] 10/16/2024 14:43:34 10/22/2024 09:24:57 Subclinical hyperthyroidism 807202357 E05.90 TSH = 0.42 (11/02) was 0.32 [...] stable on no meds. follow labs Osteopenia 187996543 M85 .80 BMD@[facility]: [...] of avoiding falls. Toxic mult inodular goiter 21198062 E05.20 [place] has been that one or more nodules [...] Patel Member ID Guarantor Name 12/23/2020 1 [facility] - MEDICARE PREFERRED (MEDICARE REPLACEMENT HMO) [facility] Dylan Odom [id number] Dylan Odom 11/02/2021 1 [facility] MEDICARE PREFERRED (MEDICARE REPLACEMENT HMO) [facility] Dylan Odom [id number] Dylan Odom 10/18/2022 1 [facility] MEDICARE PREFERRED (MEDICARE REPLACEMENT HMO) [facility] Dylan Odom [id number] Dylan Odom 10/18/2023 1 [facility] Dylan Odom [id number] 1 Dylan Odom 10/16/2024 1 [facility] Dylan Odom [id number] 1 Dylan Odom Notes Date Note Type [...] intolerance; no weight loss; no weight gain; 2019: lOST30#. Not intentional. BP stable on meds since CVA. Energy: Tired much of the time. Attributes to age of nearly 81. Better when moves around. 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 Two in [employer]. Occ napping but not daily. Sleeps - not as good past 4-5 days. UP at night to urinate. Generally wakes once. Meditating some too (Anglican) Spinal stenosis- improved with core strengthening. Will [...] as before. was 1.47 PCP: Daniel.CARDS: Agustina ([place]). Patient agreed to this visit via secure [...] and finds it helps. Modesto Jackson MD [address] [place] [address], [place], [phone], [facility] 12/23/2020 23:36:06 11/02/19 22 text/htm l ThyroidReported [...] (some block lately). 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 Meditating some too (Anglican) Spinal stenosis- generally good (doing planks- helps [...] 2.0x2.5x1.9; LEFT: 2.9x3.8x2.4; 1.9x.18x1.7; ISTHMUS: 1.9x1.7x1.1 (new); 1.8x1.6x0.98464- right mid- 1.8x2.0x1.4. right lower= 1.6x1.6x1.4; left [...] as before. was 1.47 PCP: Daniel.CARDS: Agustina ([place]).SLEEP APNEA: Gerardo SWAIN. On BiPAP. F/U for [...] better if moves around. Modesto Jackson MD [address] [address], [phone], [facility] 11/02/2021 18:55:01 10/18/19 23 text/htm l ThyroidReported [...] (some block lately). 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 Meditating some too (Anglican) Spinal stenosis- not great. also SI sx. [...] Not recently. BP - was 127/70 at [facility]. Goal is to get to > 120/80. [...] 2.0x2.5x1.9; LEFT: 2.9x3.8x2.4; 1.9x.18x1.7; ISTHMUS: 1.9x1.7x1.1 (new); 1.8x1.6x0.53248- right mid- 1.8x2.0x1.4. right lower= 1.6x1.6x1.4; left [...] as before. was 1.47 PCP: Daniel.CARDS: ([facility]).SLEEP APNEA: Gerardo العراقي On BiPAP.10/31: slept 9 hours past 2 nights.L/V about a year ago.RENAL: Kamel. Follow-Up: non-toxic uninodular goiterFollow-Up: subclinical hyperthyroidismFollow-Up: toxic [...] better if moves around. Modesto Jackson MD [address] [address], [phone], [facility] 11/01/2022 19:14:31 10/18/19 24 text/htm l ThyroidReported [...] stenosis- not great. 11/01- going for surgery ([place]). Had thought it might be SI but [...] 2.0x2.5x1.9; LEFT: 2.9x3.8x2.4; 1.9x.18x1.7; ISTHMUS: 1.9x1.7x1.1 (new); 1.8x1.6x0.87706- right mid- 1.8x2.0x1.4. right lower= 1.6x1.6x1.4; left [...] was 1.47 PCP: Nancy Rico- Andree Morocho.CARDS: ([facility]).SLEEP APNEA: Gerardo SWAIN. On BiPAP.10/31: slept 9 hours past 2 nights.L/V about a year ago.RENAL: Avery. Follow-Up: toxic multinodular goiterFollow-Up: non-toxic uninodular goiterFollow-Up: subclinical hyperthyroidismOsteopeniaLV on 10/31LAst labs on 11/01Lab orders in place for tsh and t4 only until 09/2023Last bone density on 08/2020 vmg, pt has one sched. at [facility] thyroid US on 12/2018Pt has surgery [...] study in 2007- homogeneous with 20% uptake. ([facility]).2013: treated with radioactive iodine in July [...] surgery- L3-L4 to remove junk . Penning ([place]). Hopes will allow him to walk. 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 machine cloth measurer at night2 (?) cyst on thyroid. [place], [place]. 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 - physical [email or web address]). Youngest at [employer]. Grandson from [employer] in [place] (hickey). Oldest is teacher (engaged)11/01: Grands good. [...] the skin seems redder. 09/27: CVA in 11/20.Only residual is numbness around OD.Had been on [...] hyperthyroid. Ongoing spinal stenosis- going for surgery ([place]). Hx CVA:07/01: 93/59/60/28 put on atorva 40. [...] better if moves around. Modesto Jackson MD [address] [address], [phone], [place] [facility] 10/18/2023 19:51:52 10/16/19 25 text/htm l ThyroidReported [...] 2.0x2.5x1.9; LEFT: 2.9x3.8x2.4; 1.9x.18x1.7; ISTHMUS: 1.9x1.7x1.1 (new); 1.8x1.6x0.79907- right mid- 1.8x2.0x1.4. right lower= 1.6x1.6x1.4; left [...] as before. was 1.47 PCP: Andree Morocho. ([facility])CARDS: ([facility]).SLEEP APNEA: Gerardo SWAIN. On BiPAP.10/31: [...] L3-L4. Spinal stenosis- initially better after surgery ([place]) but pins/needles in feet and pain returning (bilat SI type pain) 11/01: Upcoming minimally invasive back surgery- L3-L4 to remove junk . [place] ([place]). Hopes will allow him to walk. 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 machine cloth measurer at night2 (?) cyst on thyroid. [place]. 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 - physical trainniFantastic.cl). Youngest at [employer]. Grandson from [employer] in [place] (hickey). Oldest is teacher (engaged)11/01: Grands good. Has great-grand on the way.Daughter: back problemsSon- sober x 33 years. back problems. 11/02: kids doing well. Grands [place] (youngest graduated [employer]). Grandson ([place] -> )Great grandson (6mos). PAST: PT difficultly [...] better if moves around. Modesto Jackson MD [address] [place] [address], [place], [phone], [facility] 10/16/2024 15:39:39
--- OUTSIDE RECORDS SUMMARY | 2025-01-17 12:46 | XMS_ITS | Clinical Summary ---
Author Organization [facility], Address [address] [facility] [address] [place] [address] Phone Care Team Providers Care Plastic Sheets Finishing Supervisor Name Role Phone [facility] Andree Primary Care Provider [phone] Allergies Active Allergy Reactions Criticality Noted Date [...] time each day 90 tablet 3 5 Active Active Problems Problem Noted Date Diagnosed [...] heart disease. Followed by Dr. Berrios at [facility]. Initially diagnosed with Holter monitor after several months of intermittent palpitations. -[id number] score 3, started on Eliquis at renally adjusted dose 2.5 mg twice daily which was not started until the morning of 08/29/2020. [facility], Eliquis should be continued. 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 [id number] Health Maintenance Due Date Last Done Comments Pneumococcal Vaccine: 50+ Years Completed 01/25/2017, 01/25/2017, 10/24/2016, Additional history exists Pneumococcal Vaccine: Peds (0 to 5 Years) and At-Risk Patients (6 to 49 Years) Discontinued 01/25/2017, 01/25/2017, 10/24/2016, Additional history exists Influenza Vaccine Completed 06/19/2024, , 05/22/2022, Additional history exists Hepatitis B Vaccine Aged Out No longe r eligible based on patient's age to complete this topic [place] [id number] [place] [id number] Care Teams Plastic Sheets Finishing Supervisor Relationship Specialty Start Date End Date [place], [place] [address] [facility] [address] PCP - General Marketing Communications Coordinator 07/24/24
--- OUTSIDE RECORDS SUMMARY | 2025-01-17 12:46 | XMS_ITS | Encounter Summary ---
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 [address] documented as of this encounter Visit Diagnoses Not on filedocumented in this encounter Care Teams Trimming Caser Relationship Specialty Start Date End Date [place], [place] 70 [place] [address] PCP - General Fish Flipper 07/24/24 documented as of this encounter
--- OUTSIDE RECORDS SUMMARY | 2025-01-17 12:46 | XMS_ITS | Encounter Summary ---
Author Organization [employer] Address [address] [place] [address] 7t [place] [address] Care Team Providers Care Claims Attorney Name Role Phone [facility] Primary Care Provider [phone] Encounter Details Date Type Department Care Team (Late st Contact Info) Description 01/03/[address] [facility] [place] [place] [facility] [address] [place] [address] Provider, MD Vega Social History Tobacco Use [...] 03/05/2025 11:40 AM EDT Office Visit [facility] MEDICAL [address] [place] [address] [facility] Andree [facility] [address] [place] [address] documented as of this encounter Procedures Procedure Name Priority Date/Time Associated Diagnosis Comments TRANSTHORACIC ECHO (TTE) COMPLETE Routine 12/28/2023 5:07 PM EDT documented in this encounter Results * Transthoracic echo (TTE) complete (12/28/2023 5:07 PM EDT) us Historical Provider CV ECHO PROCEDURES Final Result documented in this encounter Visit Diagnoses Not on filedocumented in this encounter Care Teams Claims Attorney Relationship Specialty Start Date End Date Andree Alva FNP [address] [place] [address] PCP - General Family Medicine 03/16/23 documented as of this encounter
--- OUTSIDE RECORDS SUMMARY | 2025-01-17 12:46 | XMS_ITS | Encounter Summary ---
Author Organization [employer] Address [address] [facility] 7t [place] [address] Care Team Providers Care Quality Control Assessor Name Role Phone [facility] Primary Care Provider [phone] Encounter Details Date Type Department Care Team (Late st Contact Info) Description 01/26/2024 Orders Only [place] [facility] MEDICAL [address] [place] [address] [place], [place], [facility] 70 [place], [place] [id number] Scalp irritation Social History Tobacco Use Types [...] Description 03/05/2025 11:40 AM EDT Office Visit [place] [facility] MEDICAL [address] [place] [address] [facility] [address] [place] [address] documented as of this encounter Procedures Procedure Name Priority Date/Time Associated Diagnosis Comments AMB REFERRAL TO DERMATOLOGY Routine 07/16/2024 Scalp irritation documented in this encounter Results * Referral to Dermatology (07/16/2024) [facility] OUTPATIENT REFERRAL ORDER BONNIE Final Result documented in this encounter Visit Diagnoses Diagnosis Scalp irritation documented in this encounter Care Teams Quality Control Assessor Relationship Specialty Start Date End Date [facility] [address] [place] [address] PCP - General Family Medicine 03/16/23 documented as of this encounter
--- OUTSIDE RECORDS SUMMARY | 2025-01-17 12:46 | XMS_ITS | Encounter Summary ---
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 [address] documented as of this encounter Visit Diagnoses Not on filedocumented in this encounter Care Teams Family Health Nurse Practitioner Relationship Specialty Start Date End Date [place], [place] 70 [place] [address] PCP - General Retail Marketing Executive 07/24/24 documented as of this encounter
--- OUTSIDE RECORDS SUMMARY | 2025-01-17 12:46 | XMS_ITS | Encounter Summary ---
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 [address] documented as of this encounter Visit Diagnoses Not on filedocumented in this encounter Care Teams Clay Processing Labourer Relationship Specialty Start Date End Date [place], [place] 70 [place] [address] PCP - General Geotechnical Engineering Technician 07/24/24 documented as of this encounter
--- OUTSIDE RECORDS SUMMARY | 2025-01-17 12:46 | XMS_ITS | Encounter Summary ---
Author Organization [employer] Address [address] [place] [address] 7t [place] [address] Care Team Providers Care Community Program Assistant Name Role Phone Andree Alva [facility] Primary Care Provider [phone] Encounter Details Date Type Department Care Team (Late st Contact Info) Description 01/06/2024 Orders Only [facility] MEDICAL [address] [place] [address] Provider, MD Vega Social History Tobacco Use [...] Description 03/05/2025 11:40 AM EDT Office [facility] MEDICAL 70 [place] [address] [facility] 70 [place] [address] documented as of this encounter Procedures Procedure Name Priority Date/Time Associated Diagnosis Comments STRESS TEST WITH MYOCARDIAL PERFUSION Routine 01/01/2024 6:09 AM EDT documented in this encounter Results * Stress test with myocardial perfusion (01/01/2024 6:09 AM EDT) us Historical Provider CV STRESS PROCEDURES Linnea l Result documented in this encounter Visit Diagnoses Not on filedocumented in this encounter Care Teams Community Program Assistant Relationship Specialty Start Date End Date Andree Alva FNP [address] [place] [address] PCP - General Family Medicine 03/16/23 documented as of this encounter
--- OUTSIDE RECORDS SUMMARY | 2025-01-17 12:46 | XMS_ITS | Encounter Summary ---
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 [address] documented as of this encounter Visit Diagnoses Not on filedocumented in this encounter Care Teams Masonry Inspector Relationship Specialty Start Date End Date [place], [place] 70 [place] [address] PCP - General Screen Roller 07/24/24 documented as of this encounter
--- OUTSIDE RECORDS SUMMARY | 2025-01-17 12:46 | XMS_ITS | Encounter Summary ---
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 [address] documented as of this encounter Visit Diagnoses Not on filedocumented in this encounter Care Teams Glue Spreading Machine Operator Relationship Specialty Start Date End Date [place], [place] 70 [place] [address] PCP - General Waiter/Waitress Counter 07/24/24 documented as of this encounter
--- OUTSIDE RECORDS SUMMARY | 2025-01-17 12:46 | XMS_ITS | Encounter Summary ---
Author Organization [employer] Address [address] [facility] 7t [place] [address] Care Team Providers Care Factory Supervisor Name Role Phone [facility] Primary Care Provider [phone] Encounter Details Date Type Department Care Team (Late st Contact Info) Description 02/02/2024 Orders Only [place] [facility] [address] [place] [address] [place], [place], [facility] 70 [place], [place] [phone] Social History Tobacco Use Types Packs/Day Years [...] Description 03/05/2025 11:40 AM EDT Office Visit [place] [facility] [address] [place] [address] [facility] 70 [place] [address] documented as of this encounter Procedures Procedure Name Priority Date/Time Associated Diagnosis Comments CBC WITH AUTO DIFFERENTIAL Routine 02/01/2024 11:15 AM EDT documented in this encounter Results * CBC auto differential (02/01/2024 11:15 AM EDT) Blood Venous blood specimen / Unknown [facility] LAB BLOOD ORDERABLES Linnea l Result documented in this encounter Visit Diagnoses Not on filedocumented in this encounter Care Teams Factory Supervisor Relationship Specialty Start Date End Date [facility] 70 [place] [address] PCP - General Family Medicine 03/16/23 documented as of this encounter
--- OUTSIDE RECORDS SUMMARY | 2025-01-17 12:46 | XMS_ITS | Encounter Summary ---
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 [address] documented as of this encounter Visit Diagnoses Not on filedocumented in this encounter Care Teams Repairer Veneer Sheet Relationship Specialty Start Date End Date [place], [place] 70 [place] [address] PCP - General Metal Box Maker 07/24/24 documented as of this encounter
--- OUTSIDE RECORDS SUMMARY | 2025-01-17 12:46 | XMS_ITS | Encounter Summary ---
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 [address] documented as of this encounter Visit Diagnoses Not on filedocumented in this encounter Care Teams Rope Coiling Machine Operator Relationship Specialty Start Date End Date [place], [place] 70 [place] [address] PCP - General Aligner Typewriter 07/24/24 documented as of this encounter
== END 2025-01-17 12:36 | disposition home or self-care (01) ==
LOC: HO.PMC 11:48
PROVIDERS: Visit Provider Internal Medicine
DX: M54.50 Low back pain, unspecified (principal); G89.29 Other chronic pain; Z98.890 Other specified postprocedural states; M96.1 Postlaminectomy syndrome, not elsewhere classified
CPT/HCPCS: 99213

== ENCOUNTER → 2025-01-17 11:47 | Outpatient (BNVA) | payer OTHER, SELFPAY | PROVIDERS: Visit Provider Internal Medicine ==

== ENCOUNTER 2025-06-02 11:26 | Outpatient (REF) | payer OTHER, SELFPAY ==
--- NOTE | ~2025-06-02 | XR_ITS ---
EXAMINATION: XR LUMBAR SPINE 4 OR MORE VIEWS HISTORY: Z98.890 - Other specified postprocedural states COMPARISON: Comparison is made with the prior examination dated 11/19/2024. FINDINGS: AP, and neutral, flexion, and extension lateral views of the lumbar spine are submitted. Osseous mineralization is normal. Five nonrib-bearing lumbar vertebral bodies are identified, maintaining normal height without evidence of fracture. Again seen is grade I spondylolisthesis of L4 on L5. There is slight retrolisthesis of L2-L3. There is no significant change in flexion or extension. There is diffuse moderate degenerative disc disease with disc space narrowing and osteophyte formation. There is osteoarthritis of the facet joints. There is calcification of the abdominal aorta. XR/XR lumbar spine 4V min IMPRESSION: Moderate degenerative disc disease. Grade I spondylolisthesis of L4 and L5 and slight retrolisthesis of L2 on L3. No significant change in flexion or extension. Electronically signed by: Yvan Vinson MD 06/02/2025 12:15 PM EDT
== END 2025-06-02 11:27 | disposition home or self-care (01) ==
LOC: HO.HOSX 11:26
PROVIDERS: Visit Provider Physician Assistant
DX: M54.50 Low back pain, unspecified (principal); G89.29 Other chronic pain; Z98.890 Other specified postprocedural states
CPT/HCPCS: 72110

== ENCOUNTER 2025-06-02 11:26 | Outpatient (AMB) | payer OTHER, SELFPAY ==
--- NOTE | 2025-06-02 11:28 | A.SPINEOV_ITS ---
Intake Visit Reasons: Back pain Intake Note: Mr. Odom is here today with concerns about his back pain coming back and radiating down to the legs. Log Brander Required: No Allergies ciprofloxacin (From Cipro) Allergy (Severe, Verified 06/02/25 11:31) edema in legs and achy joints epinephrine Allergy (Severe, Verified 06/02/25 11:31) headache, nausea, weakness and disorientation environmental allergies Allergy (Intermediate, Verified 06/02/25 11:31) sneezing, watery eyes azithromycin (From Zithromax Z-Obed) Allergy (Verified 06/02/25 11:31) Unknown soy Adverse Reaction (Intermediate, Verified 06/02/25 11:31) Gastrointestinal Upset Assessment & Plan Assessment & Plan (1) Chronic bilateral low back pain: Code(s): M54.50 - Low back pain, unspecified; G89.29 - Other chronic pain Category: Medical Plan Operation: L3-4 Laminotomy, Partial facetectomy and foraminotomy HPI: Dylan is a pleasant 85 year old male who comes in today for follow up after having L3-4 lumbar decompression completed by Dr. Puente 11/23/2023. He reports that he has had continued low-grade back pain for the past 1 year or so. He reports that overall his pain is significantly improved since his surgery, but he is concerned that with prolonged sitting, standing, or ambulation he exp eriences a recurrence of low back pain. He also reports baseline numbness in his bilateral toes. He denies any shooting pains into his legs. 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 Since surgery he reports being evaluated by our colleagues in pain management, who attempted SI joint injections and trialed a SCS which was removed as it did not provide relief of pain. He denies pain with positional changes, and reports no at home medication use to control the pain he is experiencing. 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 Imaging: MRI of the lumbar spine from 2022 completed here at [facility] showed severe degeneration of L3-4 disc space with severe pre-operative stenosis. Most recent X-ray imaging (2022) showed grade 1 spondylolithesis L3-4. Exam: The patient is well-appearing in no acute distress. He ambulates well with a non spastic nonantalgic gait, but is slightly hunched over when ambulating. He rises from a seated position without difficulty in his able to get up onto the examination table without issue. He has full 5/5 strength in his bilateral lower extremities. No sensation differences to light touch of lower extremities on examination. (-) Bilateral straight leg raise. Plan: We discussed the continuum of treatment options / diagnostic testing at length during this visit. The patient is concerned about obtaining a repeat lumbar MRI as he recently had an MRI of his head and neck after his most recent CVA. He also had a recent CT scan, and cited concerns regarding the fact that he just had a lumbar MRI 2 years ago. He is concerned re: the radiation from all of these diagnostic tests. I informed him that at the very least today we should obtain dynamic lumbar spine X-rays to evaluate for worsening lithesis at L3-4. We can send him for a course of PT to see if they can help work out any MSK related pain that may be contributing to this. He would like to follow up with Dr. Puente after PT to discuss thoughts re: repeat MRI and the potential need for further surgery. Seamus Puenet MD,PhD [facility] Plan: Orders: Orders PT Evaluation and Treatment Today G89.29 - Other chronic pain, M54.50 - Low back pain, unspecified XR lumbar spine 4V min Today Z98.890 - Other specified postprocedural states Coding Level of Care Code Est Pt Level 3 (75971) Diagnoses Chronic bilateral low back pain M54.50; G89.29
--- OUTSIDE RECORDS SUMMARY | 2025-06-02 12:57 | XMS_ITS | Encounter Summary ---
Author Organization [employer] Address [address] [facility] 7t [place] [address] Care Team Providers Care Business Transformation Consultant Name Role Phone [facility] Primary Care Provider [phone] Encounter Details Date Type Department Care Team (Late st Contact Info) Description 11/20/2024 Orders Only [place] [facility] [address] [place] [address] [place], [place], [facility] 70 [place] [address] Social History Tobacco Use Types Packs/Day Years [...] Care Team (Late st Contact Info) Description 07/31/2025 11:00 AM EDT Office Visit [facility] [address] [place] [address] [facility] 70 [place] [address] 09/12/2025 1:40 PM EST Office Visit [facility] [address] [place] [address] [facility] 70 [place] [address] documented as of this encounter Procedures Procedure Name Priority Date/Time Associated Diagnosis Comments XR LUMBAR SPINE COMPLETE 4 OR MORE VIEWS Routine 09/12/2023 10:30 AM EST documented in this encounter Results * XR LUMBAR SPINE COMPLETE 4 OR MORE VIEWS (09/12/2023 10:30 AM EST) Anatomical Region Laterality Modality Radiographic Sherri ging [facility] IMG XR PROCEDURES Final R esult documented in this encounter Visit Diagnoses Not on filedocumented in this encounter Care Teams Business Transformation Consultant Relationship Specialty Start Date End Date [place], [place] [facility] 70 [place] [address] PCP - General Family Medicine 03/16/23 documented as of this encounter
--- OUTSIDE RECORDS SUMMARY | 2025-06-02 12:57 | XMS_ITS | Encounter Summary ---
Author Organization [facility], Address [address] [place] [address] Phone Care Team Providers Care Training And Documentation Specialist Name Role Phone Andree Alva Primary Care Provider [phone] Encounter Details Date Type Department Care Team (Late Contact Info) Description 04/27/2023 Documentation Only [facility] [address] [place] [address] kAhil Choudhury MD [address] [facility] 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 [address] documented as of this encounter Visit Diagnoses Not on filedocumented in this encounter Care Teams Training And Documentation Specialist Relationship Specialty Start Date End Date [place], [place] [address] [place] [address] PCP - General Dorr Operator 07/24/24 documented as of this encounter
--- OUTSIDE RECORDS SUMMARY | 2025-06-02 12:57 | XMS_ITS | Encounter Summary ---
Author Organization [facility] Address [address] [place] [address] Phone Care Team Providers Care Executive Casino Host Name Role Phone Ze Sanchez MD Primary Care Provider [phone] [place], [place] Alesia REHABILITATION AIDE/SCHEDULER Primary Care Provider [place], [place] Alesia REHABILITATION AIDE/SCHEDULER Primary Care Provider Encounter Details Date Type Department Care Team (Latest Contact Info) Description 06/08/2020 Transcribe Orders Virtual Department [address] [place] [address] [phone] Ze Sanchez MD [address] [place] [phone] [email or web address] Palpitations (Primary Dx); Other cardiac arrhythmia Social History Tobacco Use Types Packs/Day Years Used Date Smoking Tobacco: Former Cigarettes Q uit: 1979 Smokeless Tobacco: Never Alcohol Use Standard Drinks/Week Comments Not Currently 0 (1 standard drink = 0.6 oz pur e alcohol) Sex and Gender Information Value Date Recorded Sex Assigned at Male 06/02/2020 12:45 PM EDT Legal Sex Male 10:12 PM EDT Gender Identity Male 06/02/2020 12:45 PM EDT Sexual Orientation Straight 12/29/2022 12 :19 PM EDT documented as of this encounter Plan of Treatment Upcoming Encounters Date Type Department Care Team ( Contact Info) Description 08/26/2025 3:30 PM EST Office Visit [facility] [address], [address] [place] [address] Damaris Wren, DNP [address] [facility], [address] [address] 11/03/2025 2:20 PM EST Office Visit [facility] [address], [address] [place] [address] Yvan Aldana MD, MS 22 [facility], [address] [place] [address] 07/24/2026 8:30 AM EDT Office Visit [facility] [address] [place] [address] Willi Marin MD [address] [facility], [address] [place] [address] [email or web address] documented as of this encounter Results * Holter Monitor 24 Hours (06/10/2020 2:48 PM EDT) Total Beats 100,780 [facility] Ventricular Ectopy Total Beats 71 [facility] Ventricular Ectopy Single Beats 56 [facility] Ventricular Pair 0 PAR [facility] Ventricular Runs 0 PAR [facility] Supraventricular Total Beats 3,261 [facility] Supraventricular Ectopic Single Beats 3,003 [facility] Supraventricular Runs 5 [facility] Supraventricular Longest Run 144 [facility] Longest Supraventricular Run Rate 143 BPM [facility] Fastest Supraventricular Run Rate 143 BPM [facility] PHS CV HOLTER SUPRAVENTRICULAR FASTEST RUN 144 [facility] Mean Heart Rate 76 BPM PART [facility] Maximum Heart Rate 142 BPM P [facility] Minimum Heart Rate 58 BPM P [facility] Longest RR 1.473 S [facility] Anatomical Region Laterality Modality Heart Other 06/09/2020 9:24 AM EDT 06/10/2020 2:47 PM EDT Narrative 06/11/2020 8:18 AM EDT The predominant rhythm is normal sinus rhythm with a minimum heart rate of 58 bpm being sinus bradycardia the average heart rate 76 bpm the max heart rate is 142 bpm. At times when this patient reported palpitations it did look like he was in atrial fibrillation. Clinical correlation requested. There was no ventricular tachycardia there were rare PACs and PVCs. Holter Monitor Main Form Hookup date: 06/09/2020 Scan date: 06/10/2020 Mean HR: 76 bpm Max HR: 142 bpm Min HR: 58 bpm Ventricular ectopic beats - total: 71 Ventricular ectopic beats - singles: 56 Ventricular ectopic beats - pairs: 0 Ventricular ectopic beats - runs: 0 Supraventricular ectopic beats - total: 3261 Supraventricular ectopic beats - singles: 3003 Supraventricular ectopic beats - runs: 5 The longest supraventricular run was 144 beats at 143 bpm. The fastest supraventricular run was 144 beats at 143 bpm. Atrial fibrillation was observed. Longest R-R interval1.473 sec us Ze Sanchez MD [facility] ORDER[facility] ES Final Result documented in this encounter Visit Diagnoses Diagnosis Palpitations- Primary Other cardiac arrhythmia Palpitations Other cardiac arrhythmia documented in this encounter Additional Health Concerns Infection Onset Date Last Indicated Resolved Time CoV-Risk 07/03/2020 07/04/2020 07/17/2020 1:24 AM EDT documented as of this encounter Care Teams Executive Casino Host Relationship Specialty Start Date End Date Ze Sanchez MD [address] [address] [email or web address] PCP - General 07/25/17 Andree Alva NP [address] [address] PCP - General Nurse Practitioner 04/26/23 05/23/25 Andree Alva NP [address] [place] [address] PCP - General Nurse Practitioner 05/24/25 documented as of this encounter Additional Source Comments The information contained in this document represents components of the legal health record. It is not the complete legal health record.[facility]
== END 2025-06-02 12:09 | disposition home or self-care (01) ==
LOC: HO.HNS 11:26
PROVIDERS: Visit Provider Physician Assistant
DX: M54.50 Low back pain, unspecified (principal); G89.29 Other chronic pain
CPT/HCPCS: 99213

== ENCOUNTER → 2025-06-02 11:50 | Outpatient (BNV) | payer OTHER, SELFPAY | PROVIDERS: Visit Provider Radiology Diagnostic Radiology | DX: M47.896 Other spondylosis, lumbar region (principal) | CPT/HCPCS: 72110 ==